=== PATIENT | male | born 1940 | race Caucasian/White ===

== ENCOUNTER 2024-03-20 00:20 | Emergency (ER) | payer MEDICARE, BC, SELFPAY ==
[2024-03-20 00:22] VITALS: BP 141/63
[2024-03-20 00:45] VITALS: BMI 23.2
[2024-03-20 00:46] VITALS: BP 146/60
[2024-03-20 01:00] VITALS: BP 140/59
--- NOTE | 2024-03-20 02:10 | ED.GENMED ---
History of Present Illness
General
Chief Complaint: Fall
Source: patient and spouse
Time Seen by Provider: 03/20/24 00:59
History of Present Illness
History of Present Illness:
83-year-old male presents to the emergency room after a fall. Patient was doing some exercises on a step when he somehow lost his balance and fell. He did not have loss of conscious. He did strike the back of his head. He denies any nausea,
vomiting, headache. He has some mild discomfort of his neck. Patient also noted some discomfort to the anterior chest. He denies any shortness of breath.
Past History
Past History
ED Past Medical History: Arrthythmia (bradycardia), CAD, HTN, Hypercholesterolemia, NIDDM, [place] and Other (IBS, Sleep apnea, Parkinson's)
ED Past Surgical History: Appendectomy, Cardiac (pacemaker, Cardiac stents X 10), Tonsilectomy and Other (Hernia, hydrocele)
Social History
Tobacco: Non-smoker
Alcohol: Occasional
Drug: None
Personal:
Living: with family
Phy Exam
Physical Exam
Physical Exam:
General: Awake, Alert, Oriented X3. No acute distress.
Vitals: unremarkable
Head: Some tenderness posterior scalp, small hematoma, no laceration
Eyes: Pupils equal, EOMI
Throat: Airway intact, no exudates
Neck: Trachea midline, no tenderness palpation along the cervical spine
Lungs: Clear and equal b/l
Heart: Regular rate, no murmurs
Abd: Soft, Nontender, No pulsatile mass
Neuro: Cranial nerves intact, muscle strength equal bilaterally
Skin: Warm, dry, no rash
Extremities: pulses equal b/l, no edema
Course
Orders/Labs/Results
Orders:
Orders
03/20/24 00:32
CT Cervical Spine W/o Iv Contr Urgent
Comment:
Reason For Exam: fall with head strike
CT Head W/o Iv Contrast Urgent
Comment:
Reason For Exam: fall with head strike
Chest [CR Chest - 2 Views ] Urgent
Comment:
Reason For Exam: fall with rib pain
03/20/24 00:39
Electrocardiogram (*1) Urgent
Reason for Study: Chest Pain
EKG- Treatment ONCE
03/20/24 02:46
Acetaminophen [Tylenol] 650 mg .ROUTE .STK-MED ONE
03/20/24 02:47
Acetaminophen [Tylenol] 650 mg PO NOW STA
Vital Signs
Initial and Last Documented VS:
Initial Vital Signs
Temp Pulse Resp BP Pulse Ox
99.7 F 65 16 141/63 95
03/20/24 00:22 03/20/24 00:22 03/20/24 00:22 03/20/24 00:22 03/20/24 00:22
Last Documented Vital Signs
Temp Pulse Resp BP Pulse Ox
99.7 F 65 16 140/59 95
03/20/24 00:22 03/20/24 00:22 03/20/24 00:22 03/20/24 01:00 03/20/24 00:22
MDM/Problems Addressed
Differential Diagnosis Includes:
Contusion, subdural, cervical spine injury
MDM/Problems Addressed:
Imaging is unremarkable. Chest x-ray shows no pneumothorax or rib fracture.
*Radiology
Radiology exam reviewed: preliminary read by ED provider (No acute pneumothorax or fracture noted on my review of the x-ray)
*Pulse Oximetry
Patient hypoxic: no
*EKG
Interpreted by ED Provider?: Yes
Heart Rate: 69
Rate: normal
Rhythm: PVC's and other (Atrial paced)
Interval: first degree heart block
Ischemia: non-specific ST changes
*Pump Room Operator Interpretation
Rate: normal
Interpretation: abnormal
Rhythm: other (Atrial paced)
*Critical Care Note
Total Time (30-74mins, 75-104mins- exclusive of procedures): Not Applicable
ED Attending Note
-
Portions of this chart may have been created with voice recognition software.� Occasional wrong word or��sound alike� substitutions may have occurred due to the inherent limitations of voice recognition software.
Discharge Plan
Departure
Patient Disposition: Home (Routine Discharge)
Date of Disposition: 03/20/24
Time of Disposition: 02:49
Patient with high blood pressure during this ER visit?: Yes
Condition: Good
Discharge Problem:
Head injury, Chest wall contusion
Instructions: Head Injury in Adults (DC), Blunt Chest Trauma, BLOOD PRESSURE
Prescriptions:
No Action
multivitamin 1 EACH tablet
1 ea PO DAILY
metformin 500 MG tablet
500 mg PO BID
trazodone 50 MG tablet
100 mg PO HS
famotidine 40 MG tablet
40 mg PO HS
aspirin 81 MG tablet,delayed release (DR/EC)
81 mg PO DAILY
glimepiride 2 MG tablet
2 mg PO .BEFORE SUPPER
ascorbic acid (vitamin C) [Vitamin C] 500 MG tablet
500 mg PO DAILY
gabapentin 300 MG capsule
300 mg PO TID
dicyclomine 10 MG capsule
10 mg PO BID
finasteride 5 MG tablet
5 mg PO DAILY
rosuvastatin 40 MG tablet
40 mg PO HS
metoprolol tartrate 25 MG tablet
25 mg PO BID
fenofibrate nanocrystallized 145 MG tablet
145 mg PO DAILY
acetaminophen [Tylenol Extra Strength] 500 mg Tablet
500 mg PO HS
furosemide 20 mg Tablet
20 mg PO .WEFR
ketoconazole 2 % Cream
1 applic TOPICAL BID
acetaminophen-codeine 650-30 mg Tablet
1 tab PO DAILY PRN (Reason: PAIN)
melatonin 5 mg Tablet
5 mg PO HS
Farxiga 10 mg Tablet
10 mg PO DAILY
Trulicity 0.75 mg/0.5 mL Pen Injector
0.75 mg SC QWEEK
Rx Instructions:
ON WEDNESDAYS
Glucosamine Chondroitin 750 &6
1 tab PO BID
Triamcinolone Cream 0.1%
1 dose topical DAILY
Referrals:
Anita Causey MD [Family Provider] -
Interventions
Interventions:
*Risk Screen - Suicide Last Done: 03/20/24 00:47
*General Assessment Last Done: 03/20/24 00:22
*Neglect/Abuse Screening Last Done: 03/20/24 00:47
ED- Fall Risk Assessment Last Done: 03/20/24 00:47
*ED COVID-19 Vaccine History Last Done: 03/20/24 00:22
ED-Musculoskeletal Assessment Last Done: 03/20/24 00:47
ED- Neurological Assessment Last Done: 03/20/24 00:47
ED-Skin Assessment Last Done: 03/20/24 00:47
Discharge Date and Time
Print Language: MOROCCAN
[2024-03-20] MEDS: TYLENOL 650 MG PO (02:48)
--- NOTE | 2024-03-23 16:30 | CM ---
Late Entry
dealership general manager received a call from patient's spouse that patient was in the ED last and was sent home since then he is having difficultly walking, watch caser reviewed various options and offered to send out a visiting nurses, per spouse
patient has had [facility] in past, referral sent to [facility] visiting nurses. dealership general manager reached out to Nannette byers at [facility] and she is mock of plan.
[facility]
[phone]
== END 2024-03-20 03:07 | disposition home or self-care (01) ==
LOC: EMR 00:20
PROVIDERS: EMERGENCY PHYSICIAN Emergency Medicine; FAMILY PHYSICIAN Internal Medicine
DX: S20.219A Contusion of unspecified front wall of thorax, initial encounter (principal); S09.90XA Unspecified injury of head, initial encounter; W01.0XXA Fall on same level from slipping, tripping and stumbling without subsequent striking against object, initial encounter; I10 Essential (primary) hypertension
CPT/HCPCS: 99285; 70450; 71046; 72125; 93005

== ENCOUNTER 2024-03-24 02:54 | Inpatient (IN) | payer MEDICARE, BC, SELFPAY ==
[2024-03-23 21:01] VITALS: BMI 23.6
[2024-03-23 21:04] VITALS: BP 119/55
[2024-03-23 21:20] LABS: Urine Albumin Negative (Neg - Trace); Urine Bilirubin Negative (Negative); Urine Character Clear (Clear); Urine Color Yellow; Urine Glucose 3+ (Negative); Urine Ketone Negative (Negative); Urine Leukocyte 1+ (Negative); Urine Nitrite Negative (Negative); Urine Occult Blood Negative (Negative); Urine Specific Gravity 1.015 (<1.030); Urine Urobilinogen Negative (Neg - 1+)
[2024-03-23 21:30] LABS: Urine Bacteria Many (Negative); Urine Red Blood Cell 0-2 /HPF (0-2); Urine White Cell 21-25 /HPF (0-5)
--- NOTE | 2024-03-23 21:44 | ED.GENMED ---
History of Present Illness
<Amira Cespedes MD, Resident - Last Filed: 03/24/24 18:44>
General
Chief Complaint: Weakness
Time Seen by Provider: 03/23/24 21:21
History of Present Illness
History of Present Illness:
The patient is a 83-year-old male presents to the emergency room this pm due feeling weakness in his all body. Patient reported he started to move/ walk slower. Patient has a PMH of Arrhythmia (bradycardia), CAD, HTN, Hypercholesterolemia, NIDDM,
[place] and Other (IBS, Sleep apnea, Parkinson's) Patient fall down on 03/20 and he was brought to ED here. His chest-X ray, head and neck CT did not show any fracture. No pathologic necrologic exam findings were found.The patient pointed pain on his
chest area where he has some bruising. He also pointed back pain which is located under his shouldres.
If applicable-neuro sx onset
Date of onset of symptoms: 03/23/24
Past History
<Amira eCspedes MD, Resident - Last Filed: 03/24/24 18:44>
Past History
ED Past Medical History: Arrthythmia (bradycardia), CAD, HTN, Hypercholesterolemia, NIDDM, [place] and Other (IBS, Sleep apnea, Parkinson's)
ED Past Surgical History: Appendectomy, Cardiac (pacemaker, Cardiac stents X 10), Tonsilectomy and Other (Hernia, hydrocele)
Social History
Tobacco: Non-smoker
Alcohol: Occasional
Drug: None
Personal:
Living: with family
Phy Exam
<Amira Cespedes MD, Resident - Last Filed: 03/24/24 18:44>
General Physical Exam
General Presentation: well appearing and no apparent distress
General age: appears stated age
General Skin: warm and dry
General Habitus: elderly
General Mental: alert
Eye Exam
Eye Exam: EOMI and conjunctiva normal
Cardiovascular Exam
Cardiovascular Exam: regular rate/rhythm and no edema
Pulmonary Exam
Pulmonary Exam: lungs clear, no respiratory distress and other (chest pain to palpation where he has bruises )
Cough: no cough
Gastrointestinal Exam
Gastrointestinal Exam: non tender and soft
Neurological Exam
Neurological Exam: alert, oriented x3, no motor deficits and other (no focal weakness)
Course
<Amira Cespedes MD, Resident - Last Filed: 03/24/24 18:44>
Orders/Labs/Results
Orders:
Orders
03/23/24 21:06
Electrocardiogram (*1) Urgent
Reason for Study: Fatigue / Weakness
EKG- Treatment ONCE
03/23/24 21:12
Urinalysis Reflex To Culture Urgent
Date Specimen was Collected: 03/23/24
Time Specimen was Collected: 21:06
Urine Microscopic Reflex Cult Urgent
Urine Culture Urgent
MADELYN Source: U
Specimen Description:
Date Specimen was Collected: 03/23/24
Time Specimen was Collected: 21:06
03/23/24 21:56
Acetaminophen [Tylenol] 650 mg PO NOW STA
CefTRIAXone [Rocephin] 1,000 mg IV NOW STA
03/23/24 21:57
0.9% Sodium Chloride 1000 ml [Nss] 1,000 ml IV BOLUS
03/23/24 22:32
Complete Blood Count/With Diff Urgent
Comprehensive Metabolic Panel Urgent
03/24/24 02:19
CXR2 [CR Chest - 2 Views ] Urgent
Comment:
Reason For Exam: Fatigue, Dyspnea
03/24/24 02:42
Admit/Transfer Patient As Directed
Co-Sign Provider:
Level of Care: Inpatient admission
Assign to:: Medical/Surgical
Physician / Group: Artie
Diagnosis: UTI, Weakness
Reason for Hospitalization: UTI, Weakness
Expected length of stay greater than two midnights?: Yes
ELOS- Estimated Length of Stay in days: 3
I certify the patient meets the requirements for IP care: Yes
PRN Pain Medication Management As Directed
May give lesser potent ordered pain med per pt: Yes
preference::
Protocol:: Medication orders for pain may be administered in a
manner that supports deferring to patient preference
when the pt is:
- Requesting an ordered lesser potent pain medication.
Least to most potent pain medications are defined
as: acetaminophen < NSAID < tramadol < opioids
(morphine, oxycodone, hydromorphone).
- Requesting a lesser dose of the same medication IF
ORDERED.
- Requesting a less intrusive route of administration
if both routes are prescribed by the provider (PO <
IV).
03/24/24 02:46
Code Status As Directed
Resuscitation Status: Full Code
03/24/24 02:49
COVID-19 Antigen Urgent
Source: Nasal Swab
03/24/24 03:10
Acetaminophen [Tylenol] 650 mg PO Q4HPRN PRN
Dextrose 50%-Water [Dextrose 50% Syringe] 12.5 grams IV [id number] PRN
Dicyclomine [Bentyl] 10 mg PO BID PRN
Glucagon [GlucaGen] 1 mg IM PRN PRN
03/24/24 03:10
Stool Culture Urgent
MADELYN Source: Feces/Stool
Specimen Description:
Stool For WBC Urgent
MADELYN Source: Feces/Stool
Specimen Description:
Activity As Directed
Activity Level: Ambulate
With Assistance
Bedside Glucose Monitoring As Directed
Frequency: AC&HS
Additional Instructions:: Change to q6h if pt on TPN, tube feeding or not eating
Bladder Scan As Directed
Follow Bladder Retention/Intermittent Cath Algorithm?: Yes
PRN if no void in __ hours: 6
Frequency: Per Retention Algorithm
If Bladder Scan Result >: 400
then:: Straight cath
I/O [Intake/ Output] As Directed
Frequency: Per unit guidelines
Neurological Checks As Directed
Frequency: q4h
Orthostatic Vital Signs As Directed
Orthostatic VS Frequency: BID
Pneumatic Compression Sleeves As Directed
Type: Knee high
Straight Cath As Directed
Frequency: Per Retention Algorithm
Additional Instructions: straight cath as needed per acute urinary retention algorithm for 24 hrs
Additional Instructions: for bladder scan greater than 400 mL
Vital Signs As Directed
Frequency: Per unit guidelines
Weight As Directed
Frequency: Daily
Oxygen Therapy [O2 Therapy] [RESP] Routine
Titrate/Wean O2 to maintain O2 sat greater than (%): 94
Ot Eval And Treat Routine
PT Consult [Pt Eval And Treat] Routine
Activity Level: Ambulate
With Assistance
DX Deep Vein Thrombosis Video Routine
03/24/24 Breakfast
1800 calorie (15 carb) Diabetic
At Your Request: Limited Participation
03/24/24 06:46
Basic Metabolic Panel IN AM
Complete Blood Count/No Diff IN AM
Glycohemoglobin (HgbA1c) IN AM
03/24/24 07:30
Insulin Aspart Corrective Mod [Novolog Flexpen-Moderate Resistance] See Protocol SC AC
03/24/24 08:00
Aspirin Low Dose EC [Aspir Low (Enteric Coated)] 81 mg PO DAILY
Carbidopa/Levodopa [Sinemet 10-100] 1.5 tablet PO TID
Dapagliflozin [Farxiga] 10 mg PO DAILY
Finasteride [Proscar] 5 mg PO DAILY
Gabapentin [Neurontin] 300 mg PO TID
Metoprolol [Lopressor] 25 mg PO BID
03/24/24 22:00
Carbidopa/Levodopa [Sinemet 10-100] 2 tablet PO HS
CefTRIAXone [Rocephin] 1,000 mg IV Q24H
Famotidine [Pepcid] 20 mg PO HS
Rosuvastatin Calcium [Crestor] 40 mg PO HS
Trazodone [Desyrel] 100 mg PO HS
Abnormal Lab Results
03/23/24 03/23/24
21:12 22:32
RBC 4.62 L 10^6/uL
(4.70-6.10)
MCHC 32.2 L g/dL
(33.0-37.0)
MPV 10.9 H fL
(7.4-10.4)
Abs Immat Gran (auto) 0.1 H 10^3/uL
(0-0.05)
Absolute Monos (auto) 0.9 H 10^3/uL
(0.1-0.6)
Immature Gran % 0.6 H %
(0-0.5)
Monocytes % 10.6 H %
(1.7-9.3)
Sodium 132 L mmol/L
(135-145)
BUN 40 H mg/dl
(9-20)
Glucose 369 H mg/dl
(70-99)
Total Protein 5.2 L g/dl
(6.3-8.2)
Leukocyte Esterase Rfl 1+ A
(Negative)
Urine WBC (Reflex) 21-25 A /HPF
(0-5)
Urine Bacteria (Reflex) Many A
(Negative)
Urine Glucose 3+ A
(Negative)
03/23/24 22:32
03/23/24 22:32
Vital Signs
Initial and Last Documented VS:
Initial Vital Signs
Temp Pulse Resp BP Pulse Ox
98.2 F 60 16 119/55 95
03/23/24 21:04 03/23/24 21:04 03/23/24 21:04 03/23/24 21:04 03/23/24 21:04
Last Documented Vital Signs
Temp Pulse Resp BP Pulse Ox
98.4 F 64 16 135/58 97
03/24/24 15:00 03/24/24 15:00 03/24/24 15:00 03/24/24 15:00 03/24/24 15:00
<Roger Madison, DO - Last Filed: 03/23/24 22:13>
Orders/Labs/Results
Orders:
Orders
03/23/24 21:06
Electrocardiogram (*1) Urgent
Reason for Study: Fatigue / Weakness
EKG- Treatment ONCE
03/23/24 21:12
Urinalysis Reflex To Culture Urgent
Date Specimen was Collected: 03/23/24
Time Specimen was Collected: 21:06
Urine Microscopic Reflex Cult Urgent
Urine Culture Urgent
MADELYN Source: U
Specimen Description:
Date Specimen was Collected: 03/23/24
Time Specimen was Collected: 21:06
03/23/24 21:56
Acetaminophen [Tylenol] 650 mg PO NOW STA
CefTRIAXone [Rocephin] 1,000 mg IV NOW STA
03/23/24 21:57
0.9% Sodium Chloride 1000 ml [Nss] 1,000 ml IV BOLUS
03/23/24 22:32
Complete Blood Count/With Diff Urgent
Comprehensive Metabolic Panel Urgent
03/24/24 02:19
CXR2 [CR Chest - 2 Views ] Urgent
Comment:
Reason For Exam: Fatigue, Dyspnea
03/24/24 02:42
Admit/Transfer Patient As Directed
Co-Sign Provider:
Level of Care: Inpatient admission
Assign to:: Medical/Surgical
Physician / Group: Artie
Diagnosis: UTI, Weakness
Reason for Hospitalization: UTI, Weakness
Expected length of stay greater than two midnights?: Yes
ELOS- Estimated Length of Stay in days: 3
I certify the patient meets the requirements for IP care: Yes
PRN Pain Medication Management As Directed
May give lesser potent ordered pain med per pt: Yes
preference::
Protocol:: Medication orders for pain may be administered in a
manner that supports deferring to patient preference
when the pt is:
- Requesting an ordered lesser potent pain medication.
Least to most potent pain medications are defined
as: acetaminophen < NSAID < tramadol < opioids
(morphine, oxycodone, hydromorphone).
- Requesting a lesser dose of the same medication IF
ORDERED.
- Requesting a less intrusive route of administration
if both routes are prescribed by the provider (PO <
IV).
03/24/24 02:46
Code Status As Directed
Resuscitation Status: Full Code
03/24/24 02:49
COVID-19 Antigen Urgent
Source: Nasal Swab
03/24/24 03:10
Acetaminophen [Tylenol] 650 mg PO Q4HPRN PRN
Dextrose 50%-Water [Dextrose 50% Syringe] 12.5 grams IV [id number] PRN
Dicyclomine [Bentyl] 10 mg PO BID PRN
Glucagon [GlucaGen] 1 mg IM PRN PRN
03/24/24 03:10
Stool Culture Urgent
MADELYN Source: Feces/Stool
Specimen Description:
Stool For WBC Urgent
MADELYN Source: Feces/Stool
Specimen Description:
Activity As Directed
Activity Level: Ambulate
With Assistance
Bedside Glucose Monitoring As Directed
Frequency: AC&HS
Additional Instructions:: Change to q6h if pt on TPN, tube feeding or not eating
Bladder Scan As Directed
Follow Bladder Retention/Intermittent Cath Algorithm?: Yes
PRN if no void in __ hours: 6
Frequency: Per Retention Algorithm
If Bladder Scan Result >: 400
then:: Straight cath
I/O [Intake/ Output] As Directed
Frequency: Per unit guidelines
Neurological Checks As Directed
Frequency: q4h
Orthostatic Vital Signs As Directed
Orthostatic VS Frequency: BID
Pneumatic Compression Sleeves As Directed
Type: Knee high
Straight Cath As Directed
Frequency: Per Retention Algorithm
Additional Instructions: straight cath as needed per acute urinary retention algorithm for 24 hrs
Additional Instructions: for bladder scan greater than 400 mL
Vital Signs As Directed
Frequency: Per unit guidelines
Weight As Directed
Frequency: Daily
Oxygen Therapy [O2 Therapy] [RESP] Routine
Titrate/Wean O2 to maintain O2 sat greater than (%): 94
Ot Eval And Treat Routine
PT Consult [Pt Eval And Treat] Routine
Activity Level: Ambulate
With Assistance
DX Deep Vein Thrombosis Video Routine
03/24/24 Breakfast
1800 calorie (15 carb) Diabetic
At Your Request: Limited Participation
03/24/24 06:46
Basic Metabolic Panel IN AM
Complete Blood Count/No Diff IN AM
Glycohemoglobin (HgbA1c) IN AM
03/24/24 07:30
Insulin Aspart Corrective Mod [Novolog Flexpen-Moderate Resistance] See Protocol SC AC
03/24/24 08:00
Aspirin Low Dose EC [Aspir Low (Enteric Coated)] 81 mg PO DAILY
Carbidopa/Levodopa [Sinemet 10-100] 1.5 tablet PO TID
Dapagliflozin [Farxiga] 10 mg PO DAILY
Finasteride [Proscar] 5 mg PO DAILY
Gabapentin [Neurontin] 300 mg PO TID
Metoprolol [Lopressor] 25 mg PO BID
03/24/24 22:00
Carbidopa/Levodopa [Sinemet 10-100] 2 tablet PO HS
CefTRIAXone [Rocephin] 1,000 mg IV Q24H
Famotidine [Pepcid] 20 mg PO HS
Rosuvastatin Calcium [Crestor] 40 mg PO HS
Trazodone [Desyrel] 100 mg PO HS
Abnormal Lab Results
03/23/24 03/23/24
21:12 22:32
RBC 4.62 L 10^6/uL
(4.70-6.10)
MCHC 32.2 L g/dL
(33.0-37.0)
MPV 10.9 H fL
(7.4-10.4)
Abs Immat Gran (auto) 0.1 H 10^3/uL
(0-0.05)
Absolute Monos (auto) 0.9 H 10^3/uL
(0.1-0.6)
Immature Gran % 0.6 H %
(0-0.5)
Monocytes % 10.6 H %
(1.7-9.3)
Sodium 132 L mmol/L
(135-145)
BUN 40 H mg/dl
(9-20)
Glucose 369 H mg/dl
(70-99)
Total Protein 5.2 L g/dl
(6.3-8.2)
Leukocyte Esterase Rfl 1+ A
(Negative)
Urine WBC (Reflex) 21-25 A /HPF
(0-5)
Urine Bacteria (Reflex) Many A
(Negative)
Urine Glucose 3+ A
(Negative)
03/23/24 22:32
03/23/24 22:32
Vital Signs
Initial and Last Documented VS:
Initial Vital Signs
Temp Pulse Resp BP Pulse Ox
98.2 F 60 16 119/55 95
03/23/24 21:04 03/23/24 21:04 03/23/24 21:04 03/23/24 21:04 03/23/24 21:04
Last Documented Vital Signs
Temp Pulse Resp BP Pulse Ox
98.4 F 64 16 135/58 97
03/24/24 15:00 03/24/24 15:00 03/24/24 15:00 03/24/24 15:00 03/24/24 15:00
<Amira Cespedes MD, Resident - Last Filed: 03/24/24 18:44>
*Critical Care Note
Total Time (30-74mins, 75-104mins- exclusive of procedures): Not Applicable
ED Attending Note
<Amira Cespedes MD, Resident - Last Filed: 03/24/24 18:44>
-
Portions of this chart may have been created with voice recognition software.� Occasional wrong word or��sound alike� substitutions may have occurred due to the inherent limitations of voice recognition software.
<Roger Madison DO - Last Filed: 03/23/24 22:13>
ED Attending Note
Patient seen and examined by attending physician: Yes
I performed a history and physical exam of patient and discussed management with resident, I reviewed resident's note and agree with documented findings and plan of care.: Yes
ED Attending Note:
seen with resident, examined independently
Elderly male seen here few days ago after a fall struck his chest had a CT head cervical spine chest x-ray since he is having pain in his chest, trouble ambulating, previously on oxycodone now using Tylenol, apparently his PCPs office today referred
to the ER for admission and placement in a rehab facility, he does do self catheterizations, urinalysis is noted cultures pending, will check labs, urine culture Tylenol saline likely require admission
Discharge Plan
Departure
Patient Disposition: Admit
Date of Disposition: 03/23/24
Time of Disposition: 23:37
Presentation/result/management discussed w/ accepting MD/DO: Hospitalist
Discharge Problem:
Urinary tract infection
Interventions
Interventions:
*Risk Screen - Suicide Last Done: 03/24/24 04:18
*General Assessment Last Done: 03/23/24 21:04
*Neglect/Abuse Screening Last Done: 03/24/24 04:18
ED- Fall Risk Assessment Last Done: 03/23/24 23:02
*ED COVID-19 Vaccine History Last Done: 03/24/24 04:18
*Nursing Disposition Last Done: 03/24/24 04:18
ED- Cardiac Assessment Last Done: 03/23/24 23:02
ED- Neurological Assessment Last Done: 03/23/24 23:02
ED- Pulmonary Assessment Last Done: 03/23/24 23:02
Discharge Date and Time
Discharge Date/Time: 03/24/24 04:19
[2024-03-23] MEDS: TYLENOL 650 MG PO (22:01)
[2024-03-23] MEDS: ROCEPHIN 1000 MG IV (22:01)
[2024-03-23] MEDS: NSS 1000 IV (22:02)
[2024-03-23 22:47] LABS: % Basophils 0.7 % (0-2); % Eosinophils 4.1 % (0-6); % Immature Granulocytes 0.6 % (0-0.5); % Lymphocytes 22.7 % (20.5-51.1); % Monocytes 10.6 % (1.7-9.3); % Neutrophils 61.3 % (42.2-75.2); Absolute Basophils 0.1 10^3/uL (0-0.2); Absolute Eosinophils 0.4 10^3/uL (0-0.7); Absolute Immature Granulocytes 0.1 10^3/uL (0-0.05); Absolute Monocytes 0.9 10^3/uL (0.1-0.6); Absolute Neutrophils 5.4 10^3/uL (1.4-6.5); Hematocrit 42.3 % (39.0-52.0); Hemoglobin 13.6 g/dL (13.0-18.0); Mean Corp Hgb Conc. 32.2 g/dL (33.0-37.0); Mean Corpuscular Hgb 29.4 pg (27.0-31.0); Mean Corpuscular Volume 91.6 fL (80.0-94.0); Mean Platelet Volume 10.9 fL (7.4-10.4); Nucleated Red Blood Cells % 0 % (-); Platelet Count 214 10^3/uL (130-400); Red Blood Cell Count 4.62 10^6/uL (4.70-6.10); Red Cell Dist. Width 13.6 % (11.5-14.5); White Blood Cell Count 8.8 10^3/uL (4.8-10.8)
[2024-03-23 23:23] LABS: ALT (SGPT) < 10 U/L (0-50); AST (SGOT) 26 U/L (17-59); Albumin 3.5 g/dl (3.5-5.0); Alkaline Phosphatase 121 U/L (38-126); Blood Urea Nitrogen 40 mg/dl (9-20); Carbon Dioxide 26 mmol/L (22-30); Chloride 100 mmol/L (98-107); Estimated Creatinine Clearance 36 ml/min; Glucose 369 mg/dl (70-99); Potassium 4.4 mmol/L (3.5-5.1); Sodium 132 mmol/L (135-145); Total Bilirubin 0.6 mg/dl (0.2-1.3); Total Protein 5.2 g/dl (6.3-8.2); eGFR 53.84
[2024-03-24] VITALS (13 sets, daily range): BP systolic 92–151; BP diastolic 46–71; PULSE 57–71; BMI 23.6
--- NOTE | 2024-03-24 02:48 | HPS.HSE ---
Family Physician
-
Family Physician: NOT KNOW UNKNOWN - PT DOES
Chief Complaint
-
Weakness, Loose Stools
History of Present Illness
Patient is an 83y M with PMH significant for IBS, Parkinson's Disease, ASCVD and DM-II who presents to ED complaining of generalized weakness and diarrhea. Patient states that he has had loose stools for the past several days associated with
crampy abdominal discomfort. Patient notes that he has similar symptoms from time to time associated with his IBS. He has been taking Bentyl with no improvement in his symptoms.
On 03/20, he had a fall at home striking his head and his chest. He was seen here in the ED at that time and work-up including CT head was unremarkable. Patient feels that his GI symptoms have only worsened since that time.
He denies any headache or dizziness. No chest pain or dyspnea. No fevers / chills.
Patient denies any specific urinary complaints; however, he notes that he has chronic urinary retention requiring him to straight cath at home twice daily. This was previously thrice daily but he decreased the frequency.
Patient notes that he has been on Sinemet for the past year or so for newly diagnosed Parkinson's disease. He denies any recent changes in his medications.
Medical History
Past Medical History
Past Medical History: Reports Other
Additional Past Medical History:
Parkinson's Disease
ASCVD
Bradycardia/ Heart Block s/p PPM
Hypertension
DM-II
IBS
BPH / Chronic Urinary Retention
CKD III
Past Surgical History: Reports Other
Additional Past Surgical History:
PTCA with Stent (x 10)
Appendectomy
Cataracts
Hernia Repair
Social History
Tobacco: Non-smoker
Alcohol: Occasional
Drug: None
Family History
Family History: Not pertinent
Allergies / Home Medications
Allergies reflects when Allergies were last updated in [employer].
Home Medications with original date entered in [employer]
Allergy/Medication List:
Allergies
Allergy/AdvReac Type Severity Reaction Status Date / Time
chlordiazepoxide Allergy Intermediate Rash Verified 08/20/23 15:20
[From Librium]
Home Medications
ascorbic acid (vitamin C) 500 mg tablet (Vitamin C) 500 mg PO DAILY Supplement 04/20/19
aspirin 81 mg tablet,delayed release 81 mg PO DAILY Blood Clot Prevention/Tx 04/20/19
dicyclomine 10 mg capsule 10 mg PO BID Gastrointestinal Issue 04/20/19
famotidine 40 mg tablet 40 mg PO HS Gastrointestinal Issue 04/20/19
fenofibrate nanocrystallized 145 mg tablet 145 mg PO DAILY High Cholesterol 04/20/19
finasteride 5 mg tablet 5 mg PO DAILY Urinary Issue 04/20/19
gabapentin 300 mg capsule 300 mg PO TID Neurological Condition 04/20/19
glimepiride 2 mg tablet 2 mg PO .BEFORE SUPPER Diabetes 04/20/19
metformin 500 mg tablet 500 mg PO BID Infection 04/20/19
metoprolol tartrate 25 mg tablet 25 mg PO BID Blood Pressure 04/20/19
multivitamin 1 ea PO DAILY Supplement 04/20/19
rosuvastatin 40 mg tablet 40 mg PO HS High Cholesterol 04/20/19
trazodone 50 mg tablet 100 mg PO HS Sleep 04/20/19
Glucosamine Chondroitin 750 &6 1 tab PO BID Supplement 02/02/23
Triamcinolone Cream 0.1% 1 dose topical DAILY Skin Issues 02/02/23
acetaminophen 500 mg tablet (Tylenol Extra Strength) 500 mg PO HS PAIN/FEVER/ROSS 02/02/23
acetaminophen 650 mg-codeine 30 mg tablet 1 tab PO DAILY PRN PAIN 02/02/23
dapagliflozin propanediol 10 mg tablet (Farxiga) 10 mg PO DAILY Diabetes 02/02/23
dulaglutide 0.75 mg/0.5 mL subcutaneous pen injector (Trulicity) 0.75 mg SC QWEEK Diabetes 02/02/23
furosemide 20 mg tablet 20 mg PO .WEFR Fluid Retention/Swelling 02/02/23
ketoconazole 2 % topical cream 1 applic topical BID Skin Issues 02/02/23
melatonin 5 mg tablet 10 mg PO HS Sleep 02/02/23
carbidopa 10 mg-levodopa 100 mg tablet (Sinemet) tab 03/24/24
Review of Systems
-
History Source: Patient
A 12 point ROS was completed and negative except as noted: Yes
Constitutional: Reports Fatigue; Denies Fever or Chills
EENT: Denies Sore Throat
Respiratory: Denies Cough or Trouble Breathing
Cardiac: Denies Chest Pain or Palpitations
Abdomen/GI: Reports Abdominal Pain and Diarrhea; Denies Nausea, Vomiting, Constipated, Bloody Stools or Black Stools
: Reports Difficulty Voiding; Denies Dysuria, Frequency or Flank Pain
Musculoskeletal: Denies Joint Pain or Edema
Neurological: Denies Dizzy or Headache
Psych: Denies Depression or Anxiety
Physical Exam
Vital Signs
Vital Signs
Temp Pulse Resp BP Pulse Ox
98.2 F 67 21 104/56 93
03/23/24 21:04 03/24/24 02:30 03/24/24 02:30 03/24/24 02:00 03/24/24 00:12
Physical Exam
General: Other (83y M in no acute distress. Sleeping comfortably but wakes without difficulty.)
HEENT: Moist mucous membranes and PERRLA
Respiratory: Other (Bibasilar rales about 1/3 up. No wheeze / rhonchi.)
Cardiac: S1/S2, Regular Rhythm (with ectopy.) and Murmur (II/ MCKENZIE)
GI: Soft, Non Distended, Normal Bowel Sounds and Other (Pos suprapubic tenderness.)
Musculoskeletal: No Clubbing, No Cyanosis and Other (1+ pitting edema at ankles bilaterally.)
Neuro: AO x 3
Laboratory Results
-
03/23/24 22:32
03/23/24 22:32
Laboratory Results
Total Bilirubin 0.6 mg/dl (0.2-1.3) 03/23/24 22:32
AST 26 U/L (17-59) 03/23/24 22:32
ALT < 10 U/L (0-50) 03/23/24 22:32
Alkaline Phosphatase 121 U/L (38-126) 03/23/24 22:32
Impression/Plan
-
A/P: Patient is an 83y M with PMH significant for ASCVD, DM-II and Parkinson's disease who presents to ED complaining of weakness, falls and diarrhea.
Generalized Weakness / Gait Dysfunction
- Admit for further evaluation and treatment.
- This is likely multifactorial and related to cystitis, Parkinsonism and mild CHF.
- See individual assessments below.
- PT / OT evaluations during acute stay.
- Follow for clinical improvement.
Cystitis
BPH
Chronic Urinary Retention
- Patient requires catheterization at least twice daily.
- UA with WBC but negative nitrites. Pos suprapubic tenderness on exam.
- Continue with ceftriaxone for now and follow-up cultures.
- Bladder scan protocol and straight cath as needed.
- Continue finasteride for now.
- Hold on initiation of tamsulosin given Parkinsonism / risk of orthostasis.
IBS / Diarrhea
- Check stool studies to rule out acute infectious process.
- Continue supportive care including Bentyl.
Subacute HFpEF
- Patient with bibasilar rales and CXR suggesting increased vascular prominence from prior.
- On Lasix at home twice weekly - increase to daily and follow I/Os, daily weights, etc.
- Update Echo (last 01/2023 with normal LVEF).
- Continue usual med regimen including Farxiga.
Parkinson's Disease
- Some of his recent issues may be due to functional decline.
- Continue Sinemet (patient knows pill amounts, but not dose of pill itself - needs clarification).
- PT / OT as noted above.
ASCVD
- Significant vascular history. No chest pain / dyspnea / etc at present.
- Continue current CV med regimen.
DM-II
- Hyperglycemic in the ED - ? due to acute illness, infection, etc.
- Continue Farxiga. Hold metformin acutely.
- Follow glucose and cover with SSI as needed.
- Update A1C and adjust regimen as needed for improved glycemic control.
DVT Prophylaxis: SCDs
Code Status: Full
[2024-03-24 03:31] LABS: COVID-19 Antigen Negative (Negative)
--- NOTE | 2024-03-24 06:19 | PTCARENOTE ---
Pt. arrived to unit from ED via stretcher. Pt. pulled over from stretcher to bed 318-1 on . Pt. drowsy but able to answer all questions appropriately. AAOx3. No c/o pain. Encouraged to use call de leon for assistance. Oriented to unit. Call de leon
within reach. Plan of care ongoing.
[2024-03-24 07:14] LABS: Hematocrit 39.6 % (39.0-52.0); Mean Corp Hgb Conc. 32.8 g/dL (33.0-37.0); Mean Corpuscular Hgb 29.3 pg (27.0-31.0); Mean Corpuscular Volume 89.2 fL (80.0-94.0); Mean Platelet Volume 10.7 fL (7.4-10.4); Platelet Count 196 10^3/uL (130-400); Red Blood Cell Count 4.44 10^6/uL (4.70-6.10); Red Cell Dist. Width 13.6 % (11.5-14.5); White Blood Cell Count 10.2 10^3/uL (4.8-10.8)
[2024-03-24 07:51] LABS: Blood Urea Nitrogen 38 mg/dl (9-20); Calcium 8.7 mg/dl (8.4-10.2); Carbon Dioxide 25 mmol/L (22-30); Chloride 103 mmol/L (98-107); Estimated Creatinine Clearance 44 ml/min; Glucose 166 mg/dl (70-99); Potassium 4.6 mmol/L (3.5-5.1); Sodium 134 mmol/L (135-145); eGFR > 60.00
[2024-03-24 07:55] LABS: Glucose - Point of Care 175 mg/dl (70-99)
--- NOTE | 2024-03-24 08:16 | W.PN.UPDATE ---
Update Note
Progress Note Update
83y M with PMH significant for IBS, Parkinson's Disease, ASCVD and DM-II was admitted early this morning for weakness and loose stools.
Continue self intermittent straight cath, continue Rocephin for possible UTI, follow-up on cultures.
Await stool studies for diarrhea.
Patient complains of chest pain, check troponin, check EKG, consult cardiology.
[2024-03-24] MEDS: ASPIR LOW (ENTERIC COATED) 81 MG PO (08:30)
[2024-03-24] MEDS: SINEMET 10-100 1.5 TABLET PO ×2 (08:31→15:48)
[2024-03-24] MEDS: LASIX 40 MG PO (08:33)
[2024-03-24] MEDS: FARXIGA 10 MG PO (08:33)
[2024-03-24] MEDS: NEURONTIN 300 MG PO ×3 (08:33→22:09)
[2024-03-24] MEDS: PROSCAR 5 MG PO (08:34)
[2024-03-24] MEDS: LOPRESSOR 25 MG PO ×2 (08:35→22:09)
--- NOTE | 2024-03-24 08:49 | CON.CAR ---
Addendum entered and electronically signed by Derek Vicente DO 03/24/24 13:04:
I saw and examined the patient.
The Tandem Operator's note was reviewed and I agree with the note.
Comment:
Plan:
Chest pain is atypical, reproducible. The patient has a bruise on the sternum likely related to recent fall.
Check echo to be comprehensive to evaluate for pericardial effusion.
No evidence of acute ischemia by EKG or troponin.
If echo stable, outpatient follow-up with his outside pipelayer Dr. Benitez.
HPI: Patient came to [facility] yesterday after a fall at home last week and ongoing weakness, he started with chest pain this morning and cardiology was consulted. Patient was laying in the bed on my arrival and talking to his by phone, his was
able to stay on the phone and helped greatly with HPI. Patient's says that patient has had chest pain since he fell in their laundry room this past . He fell into the dryer and then landed on the floor. He hit his chest and then when he
landed he hit the back of his head. He has had other falls and was admitted to last year for a fall and hip fracture. He was seen by cardiology during that admission for preop clearance and afterwards went to rehab and then returned home with his
. He sees Dr. Benitez every 4 months. He has a h/o CAD and PCI. Patient says chest pain started at 0730 this morning and is with a deep breath, but patient's reports that patient has been complaining of chest pain on and off since his
fall last night. Patient noted to have a bruise over his sternum, but his says she was not aware of that. Patient says his chest is tender, no radiation of pain. No SOB.
Original Note:
Consultation
Consultation Request
Date/Time Consultation Requested: 03/24/24
Date/Time Consultation Performed: 03/24/24
Requesting Provider: Dr. Mann
Performing Provider: Dr. Vicente
Reason for Consultation: Chest pain
Medical History
-
History of Present Illness:
Patient came to [facility] yesterday after a fall at home last week and ongoing weakness, he started with chest pain this morning and cardiology was consulted. Patient was laying in the bed on my arrival and talking to his by phone, his was able
to stay on the phone and helped greatly with HPI. Patient's says that patient has had chest pain since he fell in their laundry room this past . He fell into the dryer and then landed on the floor. He hit his chest and then when he
landed he hit the back of his head. He has had other falls and was admitted to last year for a fall and hip fracture. He was seen by cardiology during that admission for preop clearance and afterwards went to rehab and then returned home with his
. He sees Dr. Benitez every 4 months. He has a h/o CAD and PCI. Patient says chest pain started at 0730 this morning and is with a deep breath, but patient's reports that patient has been complaining of chest pain on and off since his
fall last night. Patient noted to have a bruise over his sternum, but his says she was not aware of that. Patient says his chest is tender, no radiation of pain. No SOB.
PMH:
Parkinson's disease
h/o recurrent falls with hip fractures, scalp laceration, humerus fracture
Type 2 diabetes
Hypertension
Hypercholesterolemia
Pacemaker, [employer]
History of CT/CAD/PCI
Mitral regurgitation murmur
PVCs
Cognitive impairment
Past Medical History
Past Medical History: Arrhythmias, CAD (History of CT/multiple PCIs/stent), HTN, Hypercholesterolemia, NIDDM and Other (Obstructive sleep apnea)
Past Surgical History: Appendectomy, Cardiac ([employer] pacemaker), Tonsilectomy, Urological (Hydrocele) and Other (Hernia)
Social History
Tobacco: Non-Smoker
Alcohol: Occasional
Drug: None
Personal:
Living: With Family
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
Family History
Family History: Reviewed & Not Pertinent
Allergies / Home Medications
Allergy/AdvReac Type Severity Reaction Status Date / Time
chlordiazepoxide Allergy Intermediate Rash Verified 08/20/23 15:20
[From Librium]
�Medication �Instructions �Recorded �Confirmed �Type
ascorbic acid (vitamin C) 500 mg 500 mg PO DAILY Supplement 04/20/19 03/24/24 History
tablet (Vitamin C)
aspirin 81 mg tablet,delayed 81 mg PO DAILY Blood Clot 04/20/19 03/24/24 History
release Prevention/Tx
dicyclomine 10 mg capsule 10 mg PO BID Gastrointestinal Issue 04/20/19 03/24/24 History
famotidine 40 mg tablet 40 mg PO HS Gastrointestinal Issue 04/20/19 03/24/24 History
fenofibrate nanocrystallized 145 145 mg PO DAILY High Cholesterol 04/20/19 03/24/24 History
mg tablet
finasteride 5 mg tablet 5 mg PO DAILY Urinary Issue 04/20/19 03/24/24 History
gabapentin 300 mg capsule 300 mg PO TID Neurological 04/20/19 03/24/24 History
Condition
glimepiride 2 mg tablet 2 mg PO .BEFORE SUPPER Diabetes 04/20/19 03/24/24 History
metformin 500 mg tablet 500 mg PO BID Infection 04/20/19 03/24/24 History
metoprolol tartrate 25 mg tablet 25 mg PO BID Blood Pressure 04/20/19 03/24/24 History
multivitamin 1 ea PO DAILY Supplement 04/20/19 03/24/24 History
rosuvastatin 40 mg tablet 40 mg PO HS High Cholesterol 04/20/19 03/24/24 History
trazodone 50 mg tablet 100 mg PO HS Sleep 04/20/19 03/24/24 History
Glucosamine Chondroitin 750 &6 1 tab PO BID Supplement 02/02/23 03/24/24 History
Triamcinolone Cream 0.1% 1 dose topical DAILY Skin Issues 02/02/23 03/24/24 History
acetaminophen 500 mg tablet 500 mg PO HS PAIN/FEVER/ROSS 02/02/23 03/24/24 History
(Tylenol Extra Strength)
acetaminophen 650 mg-codeine 30 mg 1 tab PO DAILY PRN PAIN 02/02/23 03/24/24 History
tablet
dapagliflozin propanediol 10 mg 10 mg PO DAILY Diabetes 02/02/23 03/24/24 History
tablet (Farxiga)
dulaglutide 0.75 mg/0.5 mL 0.75 mg SC QWEEK Diabetes 02/02/23 03/24/24 History
subcutaneous pen injector
(Trulicity)
furosemide 20 mg tablet 20 mg PO .WEFR Fluid 02/02/23 03/24/24 History
Retention/Swelling
ketoconazole 2 % topical cream 1 applic topical BID Skin Issues 02/02/23 03/24/24 History
melatonin 5 mg tablet 10 mg PO HS Sleep 02/02/23 03/24/24 History
carbidopa 10 mg-levodopa 100 mg tab 03/24/24 History
tablet (Sinemet)
Review of Systems
-
History Source: Patient and Family (patient's on the phone hleps with HPI)
All other systems: Negative unless noted
Physical Exam
Vital Signs
Temp Pulse Resp BP Pulse Ox
97.5 F 52 16 151/66 95
03/24/24 07:00 03/24/24 07:00 03/24/24 07:00 03/24/24 07:00 03/24/24 07:00
GEN: NAD. AAOx3
HEENT: EOMI, MMM
LUNGS: CTA B/L, no wheezes or rales
CV: Round shaped 4x6 in area of ecchymosis on center of sternum. Reg, S1/S2, 2/6 syst LSB
ABD: soft, BS+, NT, ND
EXT: No clubbing, cyanosis, lesions or edema B/L
NEURO: Gross non-focal
SKIN: Warm, dry and pink. No rash
Lab Results
03/24/24 06:46
03/24/24 06:46
Impression / Plan
-
PCP: Dr. Anita Causey
Primary pipelayer: Dr. Mikael Benitez
Impression:
Fall
Chest pain
Parkinson's disease
h/o recurrent falls with hip fractures, scalp laceration, humerus fracture
Type 2 diabetes
Hypertension
Hypercholesterolemia
Pacemaker, [employer]
History of CT/CAD/PCI
Mitral regurgitation murmur
PVCs
Cognitive impairment
Echo 03/24/24: Study pending
Plan:
-Patient came to [facility] yesterday after a fall at home last week and ongoing weakness, he started with chest pain this morning and cardiology was consulted. Patient was laying in the bed on my arrival and talking to his by phone, his was
able to stay on the phone and helped greatly with HPI. Patient's says that patient has had chest pain since he fell in their laundry room this past . He fell into the dryer and then landed on the floor. He hit his chest and then when he
landed he hit the back of his head. He has had other falls and was admitted to last year for a fall and hip fracture. He was seen by cardiology during that admission for preop clearance and afterwards went to rehab and then returned home with his
. He sees Dr. Benitez every 4 months. He has a h/o CAD and PCI. Patient says chest pain started at 0730 this morning and is with a deep breath, but patient's reports that patient has been complaining of chest pain on and off since his
fall last night. Patient noted to have a bruise over his sternum, but his says she was not aware of that. Patient says his chest is tender, no radiation of pain. No SOB.
-Troponin 0.022. ECG is paced, but acute changes as reviewed by me.
-Patient says pain started suddenly this AM, but his reports pain on and off at home for 5 days since fall. He has a bruise over his sternum.
-Check echo to exclude effusion or WMA, but suspect chest pain is related to fall and bruised sternum
-Tried calling Dr. 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
[2024-03-24] MEDS: NITROSTAT (SUBLINGUAL) 0.4 MG SL (08:57)
[2024-03-24 09:09] LABS: Troponin I 0.022 ng/ml
[2024-03-24] MEDS: VITAMIN C 500 MG PO (09:19)
[2024-03-24] MEDS: NOVOLOG FLEXPEN-MODERATE RESISTANCE SC ×2 (10:21→12:02)
[2024-03-24] MEDS: GLUCOPHAGE 500 MG PO ×2 (10:21→16:58)
[2024-03-24 11:12] LABS: Glycohemoglobin (HgbA1c) 8.1 % (4.0-5.6)
[2024-03-24 11:30] LABS: Glucose - Point of Care 203 mg/dl (70-99)
[2024-03-24] MEDS: NOVOLOG FLEXPEN-MODERATE RESISTANCE 3 UNITS SC (12:03)
[2024-03-24] MEDS: AMARYL 2 MG PO (15:48)
--- NOTE | 2024-03-24 16:09 | CM ---
CMN met with pt beside
Pt resides with his spouse in a 3rd floor condo/apt, elevator access, 0STE
Pt notes independence typically with use of a WW
Lately, spouse has been assisting with personal care
No financial insecurities
PCP- Anita Causey
Rx- Benedicto Schafer
PT/OT orders placed and pending
CM to follow for dc planning
Discharge Disposition - home, follow for needs
[2024-03-24 16:46] LABS: Glucose - Point of Care 259 mg/dl (70-99)
[2024-03-24] MEDS: NOVOLOG FLEXPEN-MODERATE RESISTANCE 5 UNITS SC (16:54)
[2024-03-24 21:07] LABS: Glucose - Point of Care 171 mg/dl (70-99)
[2024-03-24] MEDS: ROCEPHIN 1000 MG IV (22:06)
[2024-03-24] MEDS: STERILE WATER FOR INJECTION 10 ML IV (22:06)
[2024-03-24] MEDS: TYLENOL 650 MG PO (22:07)
[2024-03-24] MEDS: DESYREL 100 MG PO (22:08)
[2024-03-24] MEDS: CRESTOR 40 MG PO (22:08)
[2024-03-24] MEDS: PEPCID 20 MG PO (22:09)
[2024-03-24] MEDS: SINEMET 25-100 1 TABLET PO (22:10)
[2024-03-25] VITALS (7 sets, daily range): BP systolic 104–143; BP diastolic 51–65; PULSE 54–76; O2SAT 95; BMI 22.1
[2024-03-25] MEDS: TYLENOL 650 MG PO ×3 (03:34→23:55)
[2024-03-25 08:13] LABS: Glucose - Point of Care 140 mg/dl (70-99)
[2024-03-25] MEDS: NOVOLOG FLEXPEN-MODERATE RESISTANCE SC (08:32)
[2024-03-25] MEDS: FARXIGA 10 MG PO (08:34)
[2024-03-25] MEDS: ASPIR LOW (ENTERIC COATED) 81 MG PO (08:34)
[2024-03-25] MEDS: SINEMET 25-100 1.5 TABLET PO ×3 (08:34→16:50)
[2024-03-25] MEDS: NEURONTIN 300 MG PO ×3 (08:34→20:44)
[2024-03-25] MEDS: GLUCOPHAGE 500 MG PO ×2 (08:36→16:50)
[2024-03-25] MEDS: VITAMIN C 500 MG PO (08:36)
[2024-03-25] MEDS: LASIX 40 MG PO (08:36)
[2024-03-25] MEDS: LOPRESSOR 25 MG PO ×2 (08:36→20:47)
[2024-03-25] MEDS: PROSCAR 5 MG PO (08:36)
--- NOTE | 2024-03-25 08:51 | W.PN.HOSP.TC ---
Today's Communication/Plan
-
see bold
Assessment / Plan
Assessment / Plan
HPI: 83y M with PMH significant for IBS, Parkinson's Disease, ASCVD and DM-II who presents to ED complaining of generalized weakness and diarrhea. Patient states that he has had loose stools for the past several days associated with crampy
abdominal discomfort. Patient notes that he has similar symptoms from time to time associated with his IBS. He has been taking Bentyl with no improvement in his symptoms.
On 03/20, he had a fall at home striking his head and his chest. He was seen here in the ED at that time and work-up including CT head was unremarkable.
Generalized Weakness / Gait Dysfunction
- This is likely multifactorial and related to cystitis, Parkinsonism and mild CHF.
- PT/OT rec STR, family wants [facility]
Cystitis
BPH
Chronic Urinary Retention
- Patient requires catheterization at least twice daily.
- Continue finasteride for now.
- Hold on initiation of tamsulosin given Parkinsonism / risk of orthostasis.
- Continue Rocephin. Urine cultures growing over 100,000 colonies of gram-negative rods, follow-up of ID and sensitivities
IBS / Diarrhea
- Continue supportive care including Bentyl.
- Follow-up on stool studies
Subacute HFpEF
- Patient with bibasilar rales and CXR suggesting increased vascular prominence from prior.
- On Lasix at home twice weekly - increase to daily and follow I/Os, daily weights, etc.
- Continue usual med regimen including Farxiga.
- Echo updated and reviewed
Substernal chest pain
- Appreciate cardiology input, from his recent fall and trauma.
Parkinson's Disease
- Some of his recent issues may be due to functional decline.
- Continue Sinemet (patient knows pill amounts, but not dose of pill itself - needs clarification).
ASCVD
- Continue current CV med regimen.
DM-II
- Hemoglobin A1c 8.1
- Blood sugars mostly controlled, with a high reading here and there
- Continue metformin, Farxiga, glimepiride, SSI. bringing in Trulicity
DVT Prophylaxis: SQ lovenox
Code Status: Full
Updated on phone 03/25
Total time spent to see the patient on the floor, examine the patient, review data and lab results, discuss treatment plan with patient, nursing staff around 51 minutes.
Physical Exam
General: Appears debilitated, no acute distress
HEENT: Normocephalic, Atraumatic, EOMI, MMM
Respiratory: Clear to Auscultation bilaterally
Cardiac: Normal S1/S2, Regular Rate and Rhythm
GI: Soft, Nontender, Nondistended, Normal Bowel Sounds
Extremities: No Clubbing, Cyanosis, or Edema
Neuro: Nonfocal/Grossly Intact
Psych: Calm, Cooperative
Derm: No Visible lesions
Anticipated Discharge: 24 - 48 hours
Subjective/Interval History
-
Date of Service: March 25, 2024
Patient denies shortness of breath. He complains of back pain. No fever, no vomiting.
Objective Data
-
Vital Signs:
Vital Signs
Temp Pulse Resp BP Pulse Ox
97.9 F 64 16 143/64 97
03/25/24 08:03 03/25/24 08:03 03/25/24 08:03 03/25/24 08:03 03/25/24 08:03
I&O
03/24/24 03/25/24 03/26/24
06:59 06:59 06:59
Intake Total 120 / 120 1440 / 1440
Output Total 300 / 300 5025 / 5025
Balance -180 / -180 -3585 / -3585
[2024-03-25 11:31] LABS: Glucose - Point of Care 324 mg/dl (70-99)
[2024-03-25] MEDS: NOVOLOG FLEXPEN-MODERATE RESISTANCE 7 UNITS SC (12:26)
--- NOTE | 2024-03-25 14:01 | W.PN.CARDCBS ---
Addendum entered and electronically signed by Vance Piña MD 03/25/24 15:11:
I saw and examined the patient.
The Hydraulic Rock Drill Operator's note was reviewed and I agree with the note.
Comment:
GEN: No distress, awake, Ox3
HEENT: supple, anicteric, mmm
LUNGS: CTA, no wheezes/rales
CV: Reg, S1/S2, 1/6 syst apex
ABD: soft, BS+, NT/ND
EXT: No edema
NEURO: Gross non-focal
SKIN: No rash
Plan:
Chest pain is very atypical. Is reproducible. Echo with preserved ejection fraction.
Okay for discharge from cardiac standpoint. He does have moderate to severe mitral regurgitation and should follow-up with Dr. Vasquez regarding this.
Continue metoprolol, aspirin, Crestor, and Lasix.
Original Note:
Today's Communication / Plan
-
f/u with Dr. Benitez
Impression / Plan
-
PCP: Dr. Anita Causey
Primary grinder operator tool: Dr. Mikael Benitez
Impression:
Fall
Chest pain
Parkinson's disease
h/o recurrent falls with hip fractures, scalp laceration, humerus fracture
Type 2 diabetes
Hypertension
Hypercholesterolemia
Pacemaker, [employer]
History of OH/CAD/PCI
Mitral regurgitation murmur
PVCs
Cognitive impairment
Echo 03/24/24: EF 50 to 55%, stage II diastolic dysfunction, moderate to severe MR with eccentric regurgitant jet, mild aortic insufficiency, mild TR PAP 40 to 45 mmHg
Plan:
-Patient with ongoing intermittent chest pain and Troponin normal.
-Echo without WMA or effusion.
-Suspect chest pain is related to recent fall which must have included chest impact based on his bruised sternum.
-Echo showed moderate to moderate-severe MR compared to mild to mod MR on last echo 02/02/23. Patient will follow up with Dr. Benitez.
-Progress note cc'd to Dr. Benitez and f/u instructions outline in d/c instructions.
HPI: Patient came to [facility] yesterday after a fall at home last week and ongoing weakness, he started with chest pain this morning and cardiology was consulted. Patient was laying in the bed on my arrival and talking to his by phone, his was
able to stay on the phone and helped greatly with HPI. Patient's says that patient has had chest pain since he fell in their laundry room this past . He fell into the dryer and then landed on the floor. He hit his chest and then when he
landed he hit the back of his head. He has had other falls and was admitted to last year for a fall and hip fracture. He was seen by cardiology during that admission for preop clearance and afterwards went to rehab and then returned home with his
. He sees Dr. Benitez every 4 months. He has a h/o CAD and PCI. Patient says chest pain started at 0730 this morning and is with a deep breath, but patient's reports that patient has been complaining of chest pain on and off since his
fall last night. Patient noted to have a bruise over his sternum, but his says she was not aware of that. Patient says his chest is tender, no radiation of pain. No SOB.
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
Subjective
Date of Service: March 25, 2024
Chest pain with deep breath
Objective
Labs:
03/24/24 06:46
03/24/24 06:46
Labs
Hgb 13.0 g/dL (13.0-18.0) 03/24/24 06:46
Hct 39.6 % (39.0-52.0) 03/24/24 06:46
Plt Count 196 10^3/uL (130-400) 03/24/24 06:46
Sodium 134 mmol/L (135-145) L 03/24/24 06:46
Potassium 4.6 mmol/L (3.5-5.1) 03/24/24 06:46
BUN 38 mg/dl (9-20) H 03/24/24 06:46
Creatinine 1.1 mg/dL (0.7-1.3) 03/24/24 06:46
Glucose 166 mg/dl (70-99) H 03/24/24 06:46
Troponins
03/24/24
06:46
Troponin I 0.022
Vital Signs and I&O:
Vital Signs
Temp Pulse Resp BP Pulse Ox
98 F 64 16 116/65 95
03/25/24 12:08 03/25/24 12:08 03/25/24 12:08 03/25/24 12:08 03/25/24 12:08
Vital Signs
Temp Pulse Resp BP Pulse Ox
98 F 64 16 116/65 95
03/25/24 12:08 03/25/24 12:08 03/25/24 12:08 03/25/24 12:08 03/25/24 12:08
Intake & Output
03/23/24 03/24/24 03/25/24 03/26/24
06:59 06:59 06:59 06:59
Intake Total 120 / 120 1440 / 1440
Output Total 300 / 300 5025 / 5025 1100 / 1100
Balance -180 / -180 -3585 / -3585 -1100 / -1100
Physical Exam
Physical Exam
GEN: AAOx3
HEENT: MMM
LUNGS: No audible wheeze
CV: SR on tele
ABD: ND
EXT: No edema B/L
NEURO: Gross non-focal
SKIN: No rash
[2024-03-25 16:49] LABS: Glucose - Point of Care 173 mg/dl (70-99)
[2024-03-25] MEDS: AMARYL 2 MG PO (16:50)
[2024-03-25] MEDS: NOVOLOG FLEXPEN-MODERATE RESISTANCE 1 UNITS SC (17:39)
[2024-03-25] MEDS: NON-FORMULARY ITEM 0.75 UNIT SC (17:42)
[2024-03-25] MEDS: LIDOCAINE 4% PATCH 1 PATCH TOPICAL ×2 (18:01→18:42)
[2024-03-25] MEDS: SINEMET 25-100 1 TABLET PO (20:43)
[2024-03-25] MEDS: CRESTOR 40 MG PO (20:43)
[2024-03-25] MEDS: ROCEPHIN 1000 MG IV (20:43)
[2024-03-25] MEDS: DESYREL 100 MG PO (20:43)
[2024-03-25] MEDS: PEPCID 20 MG PO (20:44)
[2024-03-25] MEDS: STERILE WATER FOR INJECTION 10 ML IV (20:44)
[2024-03-25] MEDS: NON-FORMULARY ITEM 1 UNIT NASAL (20:48)
[2024-03-25 21:35] LABS: Glucose - Point of Care 243 mg/dl (70-99)
[2024-03-26] VITALS (7 sets, daily range): BP systolic 110–167; BP diastolic 46–77; BMI 21.9
[2024-03-26 07:46] LABS: Glucose - Point of Care 140 mg/dl (70-99)
[2024-03-26] MEDS: NOVOLOG FLEXPEN-MODERATE RESISTANCE SC (08:02)
[2024-03-26] MEDS: LIDOCAINE 4% PATCH 1 PATCH TOPICAL ×2 (08:03)
[2024-03-26] MEDS: NEURONTIN 300 MG PO ×3 (08:03→22:49)
[2024-03-26] MEDS: SINEMET 25-100 1.5 TABLET PO ×3 (08:03→17:01)
[2024-03-26] MEDS: PROSCAR 5 MG PO (08:06)
[2024-03-26] MEDS: LOPRESSOR 25 MG PO ×2 (08:06→22:49)
[2024-03-26] MEDS: GLUCOPHAGE 500 MG PO ×2 (08:06→16:59)
[2024-03-26] MEDS: LASIX 40 MG PO (08:06)
[2024-03-26] MEDS: NON-FORMULARY ITEM 1 UNIT NASAL ×3 (08:06→22:50)
[2024-03-26] MEDS: ASPIR LOW (ENTERIC COATED) 81 MG PO (08:06)
[2024-03-26] MEDS: VITAMIN C 500 MG PO (08:06)
[2024-03-26] MEDS: FARXIGA 10 MG PO (08:06)
--- NOTE | 2024-03-26 08:45 | W.PN.HOSP.TC ---
Today's Communication/Plan
-
see bold
Assessment / Plan
Assessment / Plan
HPI: 83y M with PMH significant for IBS, Parkinson's Disease, ASCVD and DM-II who presents to ED complaining of generalized weakness and diarrhea. Patient states that he has had loose stools for the past several days associated with crampy
abdominal discomfort. Patient notes that he has similar symptoms from time to time associated with his IBS. He has been taking Bentyl with no improvement in his symptoms.
On 03/20, he had a fall at home striking his head and his chest. He was seen here in the ED at that time and work-up including CT head was unremarkable.
Generalized Weakness / Gait Dysfunction
- This is likely multifactorial and related to cystitis, Parkinsonism and mild CHF.
- PT/OT rec STR, family wants [facility]
- Stable for discharge when bed available
Cystitis
BPH
Chronic Urinary Retention
- Patient requires catheterization at least twice daily.
- Continue finasteride for now.
- Hold on initiation of tamsulosin given Parkinsonism / risk of orthostasis.
- Urine cultures growing Klebsiella, currently on Rocephin. Can transition to Augmentin tomorrow to complete a 7-day course
IBS / Diarrhea
- Continue supportive care including Bentyl.
- Follow-up on stool studies
Subacute HFpEF
- Patient with bibasilar rales and CXR suggesting increased vascular prominence from prior.
- On Lasix at home twice weekly - increase to daily and follow I/Os, daily weights, etc.
- Continue usual med regimen including Farxiga.
- Echo updated and reviewed
Substernal chest pain
- Appreciate cardiology input, from his recent fall and trauma.
Upper back pain
T1/T2 compression fractures from his recent fall
- Lidocaine patches, pain meds as needed
Parkinson's Disease
- Some of his recent issues may be due to functional decline.
- Continue Sinemet (patient knows pill amounts, but not dose of pill itself - needs clarification).
ASCVD
- Continue current CV med regimen.
DM-II
- Hemoglobin A1c 8.1
- Blood sugars mostly controlled, with a high reading here and there
- Continue metformin, Farxiga, glimepiride, SSI. bringing in Trulicity
DVT Prophylaxis: SQ lovenox
Code Status: Full
Updated on phone 03/25
Left message for on phone 03/26
Total time spent to see the patient on the floor, examine the patient, review data and lab results, discuss treatment plan with patient, nursing staff around 41 minutes.
Physical Exam
General: Appears debilitated, no acute distress
HEENT: Normocephalic, Atraumatic, EOMI, MMM
Respiratory: Clear to Auscultation bilaterally
Cardiac: Normal S1/S2, Regular Rate and Rhythm
GI: Soft, Nontender, Nondistended, Normal Bowel Sounds
Extremities: No Clubbing, Cyanosis, or Edema
Neuro: Nonfocal/Grossly Intact
Psych: Calm, Cooperative
Derm: No Visible lesions
Anticipated Discharge: Within 24 hours
Subjective/Interval History
-
Date of Service: March 26, 2024
Patient complains of upper back pain. No fever, no vomiting.
Objective Data
-
Vital Signs:
Vital Signs
Temp Pulse Resp BP Pulse Ox
98.1 F 64 16 167/77 98
03/26/24 07:51 03/26/24 08:06 03/26/24 07:51 03/26/24 08:06 03/26/24 07:51
I&O
03/25/24 03/26/24 03/27/24
06:59 06:59 06:59
Intake Total 1440 / 1440 1320 / 1320
Output Total 5025 / 5025 2500 / 2500
Balance -3585 / -3585 -1180 / -1180
[2024-03-26 11:47] LABS: Glucose - Point of Care 261 mg/dl (70-99)
[2024-03-26] MEDS: NOVOLOG FLEXPEN-MODERATE RESISTANCE 5 UNITS SC (12:07)
--- NOTE | 2024-03-26 13:17 | CM ---
Addendum entered by DEMI Carter 03/26/24 16:57:
Placed a call to [facility] in admissions at [facility], as no answer had been received in [employer] regarding acceptance. There was no voice mail and no one answered. Will call facility again in the morning. Patient will need three night stay.
Original Note:
Reviewed chart, per PT/OT patient needs SNF. Spoke with patient and his by speaker phone from patient's cell and both are agreeable to SNF transfer. Patient's selected [facility] as that is the closest facility to their home and he has
been there in the past. Patient's stated that she could not think of alternate facilities at time of call but if no bed availability there she will look for alternate SNFs.
Referral sent.
Plan: Case management will continue to follow and assist with discharge planning. SNF when stable.
[2024-03-26 16:40] LABS: Glucose - Point of Care 240 mg/dl (70-99)
[2024-03-26] MEDS: AMARYL 2 MG PO (16:56)
[2024-03-26] MEDS: NOVOLOG FLEXPEN-MODERATE RESISTANCE 3 UNITS SC (17:05)
[2024-03-26] MEDS: TYLENOL 650 MG PO (17:55)
[2024-03-26 21:30] LABS: Glucose - Point of Care 155 mg/dl (70-99)
[2024-03-26] MEDS: SINEMET 25-100 1 TABLET PO (22:48)
[2024-03-26] MEDS: DESYREL 100 MG PO (22:48)
[2024-03-26] MEDS: ROCEPHIN 1000 MG IV (22:49)
[2024-03-26] MEDS: CRESTOR 40 MG PO (22:49)
[2024-03-26] MEDS: PEPCID 20 MG PO (22:49)
[2024-03-26] MEDS: STERILE WATER FOR INJECTION 10 ML IV (22:49)
[2024-03-27 03:13] VITALS: BP 110/61
[2024-03-27 03:14] VITALS: BMI 21.8
[2024-03-27] MEDS: TYLENOL 650 MG PO ×2 (03:52→16:39)
[2024-03-27 07:33] VITALS: BP 128/49
[2024-03-27 08:10] LABS: Glucose - Point of Care 120 mg/dl (70-99)
--- NOTE | 2024-03-27 08:31 | W.PN.HOSP.TC ---
Addendum entered and electronically signed by Kalpesh Mann MD 04/06/24 09:17:
Yes, _UTI__ is related to/associated with/due to _self catherization
Original Note:
Today's Communication/Plan
-
Discharge to short-term rehab today
Assessment / Plan
Assessment / Plan
HPI: 83y M with PMH significant for IBS, Parkinson's Disease, ASCVD and DM-II who presents to ED complaining of generalized weakness and diarrhea. Patient states that he has had loose stools for the past several days associated with crampy
abdominal discomfort. Patient notes that he has similar symptoms from time to time associated with his IBS. He has been taking Bentyl with no improvement in his symptoms.
On 03/20, he had a fall at home striking his head and his chest. He was seen here in the ED at that time and work-up including CT head was unremarkable.
Generalized Weakness / Gait Dysfunction
- This is likely multifactorial and related to cystitis, Parkinsonism and mild CHF.
- PT/OT rec STR, family wants [facility]
- Stable for discharge when bed available
Cystitis
BPH
Chronic Urinary Retention
- Patient requires catheterization at least twice daily.
- Continue finasteride for now.
- Hold on initiation of tamsulosin given Parkinsonism / risk of orthostasis.
- Urine cultures growing Klebsiella, status post IV Rocephin.
- Sensitivities reviewed, medically stable for discharge on Augmentin to complete a 7-day course
IBS / Diarrhea
- Continue supportive care including Bentyl.
- Follow-up on stool studies neg
Subacute HFpEF
- Patient with bibasilar rales and CXR suggesting increased vascular prominence from prior.
- On Lasix at home twice weekly - increased to daily and follow I/Os, daily weights, etc.
- Continue usual med regimen including Farxiga.
- Echo updated and reviewed
Substernal chest pain
- Appreciate cardiology input, from his recent fall and trauma.
Upper back pain
T1/T2 compression fractures from his recent fall
- Lidocaine patches, pain meds as needed
Parkinson's Disease
- Some of his recent issues may be due to functional decline.
- Continue Sinemet (patient knows pill amounts, but not dose of pill itself - needs clarification).
ASCVD
- Continue current CV med regimen.
DM-II
- Hemoglobin A1c 8.1
- Blood sugars mostly controlled, with a high reading here and there
- Continue metformin, Farxiga, glimepiride, SSI. bringing in Trulicity
DVT Prophylaxis: SQ lovenox
Code Status: Full
Updated on phone 03/25
Updated on phone 03/27
Physical Exam
General: Appears debilitated, no acute distress
HEENT: Normocephalic, Atraumatic, EOMI, MMM
Respiratory: Clear to Auscultation bilaterally
Cardiac: Normal S1/S2, Regular Rate and Rhythm
GI: Soft, Nontender, Nondistended, Normal Bowel Sounds
Extremities: No Clubbing, Cyanosis, or Edema
Neuro: Nonfocal/Grossly Intact
Psych: Calm, Cooperative
Derm: No Visible lesions
Anticipated Discharge: Today
Subjective/Interval History
-
Date of Service: March 27, 2024
Patient continues to have musculoskeletal chest pain, and back pain. No fever, no vomiting.
Objective Data
-
Vital Signs:
Vital Signs
Temp Pulse Resp BP Pulse Ox
96.5 F L 61 16 128/49 96
03/27/24 07:33 03/27/24 07:33 03/27/24 07:33 03/27/24 07:33 03/27/24 07:33
I&O
03/26/24 03/27/24 03/28/24
06:59 06:59 06:59
Intake Total 1320 / 1320 1800 / 1800
Output Total 2500 / 2500 2300 / 2300
Balance -1180 / -1180 -500 / -500
[2024-03-27] MEDS: NOVOLOG FLEXPEN-MODERATE RESISTANCE SC (08:43)
[2024-03-27 08:45] VITALS: BP 136/67
[2024-03-27] MEDS: NEURONTIN 300 MG PO ×2 (08:46→16:31)
[2024-03-27] MEDS: SINEMET 25-100 1.5 TABLET PO ×3 (08:46→16:31)
[2024-03-27] MEDS: FARXIGA 10 MG PO (08:46)
[2024-03-27] MEDS: LIDOCAINE 4% PATCH 1 PATCH TOPICAL ×2 (08:46)
[2024-03-27] MEDS: VITAMIN C 500 MG PO (08:46)
[2024-03-27] MEDS: ASPIR LOW (ENTERIC COATED) 81 MG PO (08:47)
[2024-03-27] MEDS: LOPRESSOR 25 MG PO (08:47)
[2024-03-27] MEDS: PROSCAR 5 MG PO (08:47)
[2024-03-27] MEDS: LASIX 40 MG PO (08:47)
[2024-03-27] MEDS: GLUCOPHAGE 500 MG PO ×2 (08:47→16:33)
[2024-03-27] MEDS: NON-FORMULARY ITEM 1 UNIT NASAL ×2 (08:47→16:32)
[2024-03-27] MEDS: AUGMENTIN 875 MG/125 MG 1 TABLET PO (08:48)
--- NOTE | 2024-03-27 09:43 | CM ---
Addendum entered by DEMI Carter 03/27/24 11:53:
Received return call from [facility] who confirmed ability to accept patient today. #for report [phone] fax# [phone]
IMM reviewed with patient's . She is agreeable to d/c. Will complete medical necessity and transfer sheet.
Will update facility and patient's with time.
Covid test ordered from attending.
Original Note:
Placed another call to [facility] at [facility] (admissions) to determine bed availability. Voice mail was able to be left. Left a detailed message and requested return call with any availability. Will ask patient's for alternate facilities.
Plan: Case management will continue to follow and assist with discharge planning. Patient and his are hopeful for [facility].
[2024-03-27 11:00] VITALS: BP 109/50
[2024-03-27 11:49] LABS: Glucose - Point of Care 234 mg/dl (70-99)
[2024-03-27] MEDS: NOVOLOG FLEXPEN-MODERATE RESISTANCE 3 UNITS SC (11:57)
[2024-03-27 13:12] LABS: COVID-19 Antigen Negative (Negative)
--- NOTE | 2024-03-27 13:33 | W.DCSUMMARY ---
Discharge Summary
Discharge Data
Date of Admission: 03/24/24
Date of Discharge: 03/27/24
-
Pending Results: No
Hospital Course
Discharge diagnosis:
Generalized weakness
Recurrent mechanical falls
Acute urinary tract infection
Chronic urinary retention requiring self-catheterization
Irritable bowel syndrome with diarrhea
Acute/subacute heart failure with preserved ejection fraction
Substernal chest pain, musculoskeletal
Upper back pain from thoracic 1/2 compression fractures
Parkinson's disease
Type 2 diabetes
Consults: Cardiology
Echo:
1. Left ventricle: Normal size and function with an estimated ejection
fraction of 50-55%. Mild concentric LVH. Stage II diastolic dysfunction
2. Right ventricle: Normal
3. Atria: Mild left atrial dilation
4. Mitral valve: Moderate or moderate-severe mitral regurgitation with
eccentric regurgitant jet.
5. Aortic valve: The aortic valve leaflets are thickened and sclerotic. There
is mild aortic insufficiency
6. Tricuspid valve: Mild tricuspid regurgitation with estimated pulmonary
artery systolic pressures of 40-45 mmHg
7. When compared to the most recent echocardiogram from 02/02/2023 the severity
of mitral regurgitation is now estimated moderate to moderate-severe with an
eccentric anteriorly directed jet. On the prior study the mitral regurgitation
was graded as mild-moderate.
Tspine XR:
Mild anterior loss of height of the T1 and T2 vertebral bodies, which appears similar to CT of the cervical spine from March 20, 2024. Age of these mild compression deformities is uncertain, and please correlate with localized symptoms.
Hospital course:
83-year-old male with a past medical history of Parkinson's disease, IBS, type 2 diabetes, and chronic urinary retention requiring self-catheterization presents with generalized weakness and diarrhea. Patient was found to have an acute urinary
tract infection. He was treated with IV Rocephin. Urine cultures grew out Klebsiella. He was transitioned to Augmentin to complete a 7-day course.
Patient complained of chest pain. He was seen in conjunction with cardiology. He had recent falls, likely bruising his sternum. Cardiology checked an echocardiogram which was stable. Cardiology recommends outpatient follow-up.
Patient had recent mechanical falls, and was seen in the ED on 03/20/2024. He complained of upper back pain. Thoracic spine x-rays suggest new T1/T2 mild compression fractures. He was treated with lidocaine patches, Tylenol.
Patient was found to have bibasilar rales, with chest x-ray suggesting increased vascular prominence from prior. He is on Lasix twice weekly at home. His Lasix was increased to 40 mg p.o. daily.
Patient also has IBS, and has intermittent diarrhea. Stool cultures were negative. He is continued on his home Bentyl.
Patient was seen in conjunction with PT, who recommend short-term rehab. Patient is medically stable for discharge to short-term rehab. 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
in 2-3 weeks.
Disposition: Short-term rehab
Discharge planning: Required 39 minutes
Discharge Plan
-
Patient Disposition: Fdc/SNF
Discharge Diagnosis/Procedures: Acute urinary tract infection, recurrent mechanical falls, musculoskeletal chest pain, upper back pain from T1/T2 vertebral compression fractures, chronic urinary retention requiring straight cath, irritable bowel
syndrome, Parkinson's disease
Condition: Fair
Diet: Diabetic, Carb Controlled
Activity: As tolerated
Activity Restrictions/Additional Instructions:
Continue taking Augmentin for your urinary tract infection for 4 more days.
Please follow-up with your primary care doctor 1 week after you leave rehab.
Referrals:
Mikael Benitez MD [Non-Admitting Privileges] - in two to three weeks (Follow up with Dr. Benitez. Cardiology notes from this admission were sent to his office for continuity.)
UNKNOWN - PT DOES,NOT KNOW [Family Provider] -
Prescriptions:
New
lidocaine 4 % Adhesive Patch,Medicated
1 patch topical DAILY Qty: 0 0RF
lidocaine 4 % Adhesive Patch,Medicated
1 patch topical DAILY Qty: 0 0RF
amoxicillin-pot clavulanate 875-125 mg Tablet
1 tab PO Q12 4 Days Qty: 8 0RF
Continued
metformin 500 MG tablet
500 mg PO BID@0800,1700
Rx Instructions:
breakfast, dinner
trazodone 50 MG tablet
100 mg PO HS
famotidine 40 MG tablet
40 mg PO HS
aspirin 81 MG tablet,delayed release (DR/EC)
81 mg PO DAILY
glimepiride 2 MG tablet
2 mg PO DAILY@1700
Rx Instructions:
with dinner
ascorbic acid (vitamin C) [Vitamin C] 500 MG tablet
500 mg PO DAILY
gabapentin 300 MG capsule
300 mg PO TID
dicyclomine 10 MG capsule
10 mg PO BID@0800,1700
Rx Instructions:
breakfast, dinner
finasteride 5 MG tablet
5 mg PO DAILY
rosuvastatin 40 MG tablet
40 mg PO DAILY@1700
Rx Instructions:
with dinner
metoprolol tartrate 25 MG tablet
25 mg PO BID
fenofibrate nanocrystallized 145 MG tablet
145 mg PO DAILY
acetaminophen [Tylenol Extra Strength] 500 mg Tablet
500 mg PO HS
ketoconazole 2 % Cream
1 applic TOPICAL BID
melatonin 5 mg Tablet
10 mg PO HS
dapagliflozin propanediol [Farxiga] 10 mg Tablet
10 mg PO DAILY
Trulicity 0.75 mg/0.5 mL Pen Injector
0.75 mg SC WE
Rx Instructions:
ON WEDNESDAYS
Glucosamine Chondroitin 750 &6
1 tab PO BID
carbidopa-levodopa 25-100 mg tablet
1.5 tab PO TID@0800,1200,1700
carbidopa-levodopa 25-100 mg tablet
1 tab PO HS
multivitamin Tablet
1 tab PO DAILY
acetaminophen-codeine 300-30 mg tablet
1 tab PO Q8H PRN (Reason: pain) Qty: 10 0RF
Changed
furosemide 20 mg Tablet
40 mg PO DAILY Qty: 0 0RF
Discontinued
Triamcinolone Cream 0.1%
1 dose topical DAILY
Discharge Orders:
Discharge Patient (As Directed); Ordered 03/27/24
Ordered By: Kalpesh Mann
Discharge Date and Time
Discharge Date/Time: 03/27/24 17:27
Print Language: ITALIAN
[2024-03-27 14:42] VITALS: BP 131/64
[2024-03-27 14:50] VITALS: BP 118/50
[2024-03-27 16:30] LABS: Glucose - Point of Care 175 mg/dl (70-99)
[2024-03-27] MEDS: AMARYL 2 MG PO (16:31)
[2024-03-27] MEDS: NOVOLOG FLEXPEN-MODERATE RESISTANCE 1 UNITS SC (16:32)
--- NOTE | 2024-03-31 09:11 | PN.CDI ---
CDI
- -
CDI:
Physician Documentation Request
Admit Date: 03/24/24 02:54
Dear Doctor Do,
Please review the following and provide your response in the progress notes.
Clinical Indicators:
- 03/27 DC Summary 'Acute urinary tract infection'
- 'Chronic urinary retention requiring self-catheterization'
- 'Urine cultures grew out Klebsiella'
Please clarify the relationship between these conditions:
Yes, _UTI__ is related to/associated with/due to _self catherization__.
No, _UTI__ is not related to/associated with/due to __self catherization_ but it is due to . (Please specify)
Unable to determine
Use of terms such as suspected, likely, concern for, or probable (associated with a specific diagnosis that is being evaluated, monitored, or treated as if it exists) are acceptable and can be coded in the inpatient setting, when documented at the
time of discharge.
Thank you,
Clarissa Barahona RN
CDI Specialist
Please use your independent medical judgment in providing your response.
== END 2024-03-27 17:27 | DRG 698 ==
LOC: 3 WEST ACU 02:54
PROVIDERS: Emergency Medicine; ADMITTING PHYSICIAN Hospitalist; ATTENDING PHYSICIAN Family Medicine; EMERGENCY PHYSICIAN Emergency Medicine; OTHER PHYSICIAN Nuclear Medicine Nuclear Cardiology
DX: T83.518A Infection and inflammatory reaction due to other urinary catheter, initial encounter (principal); I50.33 Acute on chronic diastolic (congestive) heart failure; I13.0 Hypertensive heart and chronic kidney disease with heart failure and stage 1 through stage 4 chronic kidney disease, or unspecified chronic kidney disease; N30.00 Acute cystitis without hematuria; S22.011A Stable burst fracture of first thoracic vertebra, initial encounter for closed fracture; S22.021A Stable burst fracture of second thoracic vertebra, initial encounter for closed fracture; I25.10 Atherosclerotic heart disease of native coronary artery without angina pectoris; E78.00 Pure hypercholesterolemia, unspecified; G20.A1 Parkinson's disease without dyskinesia, without mention of fluctuations; E11.22 Type 2 diabetes mellitus with diabetic chronic kidney disease; E11.65 Type 2 diabetes mellitus with hyperglycemia; K58.0 Irritable bowel syndrome with diarrhea; N40.1 Benign prostatic hyperplasia with lower urinary tract symptoms; R33.8 Other retention of urine; N18.30 Chronic kidney disease, stage 3 unspecified; I34.0 Nonrheumatic mitral (valve) insufficiency; I45.9 Conduction disorder, unspecified; I49.3 Ventricular premature depolarization; G31.84 Mild cognitive impairment of uncertain or unknown etiology; G47.33 Obstructive sleep apnea (adult) (pediatric); R26.89 Other abnormalities of gait and mobility; S20.219A Contusion of unspecified front wall of thorax, initial encounter; B96.1 Klebsiella pneumoniae [K. pneumoniae] as the cause of diseases classified elsewhere; Z11.52 Encounter for screening for COVID-19; Z95.5 Presence of coronary angioplasty implant and graft; Z95.0 Presence of cardiac pacemaker; Z79.899 Other long term (current) drug therapy; Z79.84 Long term (current) use of oral hypoglycemic drugs; Z79.85 Long-term (current) use of injectable non-insulin antidiabetic drugs; I25.2 Old myocardial infarction; Z79.82 Long term (current) use of aspirin; W18.39XA Other fall on same level, initial encounter; Y73.2 Prosthetic and other implants, materials and accessory gastroenterology and urology devices associated with adverse incidents
CPT/HCPCS: 71046; 72072; 72110; 80048; 80053; 81003; 81015; 82962; 83036; 84484; 85025; 85027; 87045; 87046; 87077; 87086; 87186; 87427; 87811; 89055; 93005; 93306; 96361; 96374; 97116; 97163; 97167; 97530; 97535; 99285

== ENCOUNTER 2024-10-02 19:03 | Inpatient (IN) | payer MEDICARE, BC, SELFPAY ==
[2024-10-02] VITALS (8 sets, daily range): BP systolic 116–155; BP diastolic 44–89; BMI 22.3
[2024-10-02 13:57] LABS: COVID-19 Antigen Negative (Negative)
--- NOTE | 2024-10-02 14:51 | ED.GENMED ---
History of Present Illness
<Gay Baldwin PA-C - Last Filed: 10/02/24 18:46>
General
Chief Complaint: Weakness
Source: patient
Exam Limitations: none
Time Seen by Provider: 10/02/24 14:51
Nursing documentation reviewed up to this point in time: agreed with
History of Present Illness
History of Present Illness:
This 83-year-old male with past medical history of hypertension, hyperlipidemia, pacemaker in place, Parkinson's who presents emergency department today with concerns of recurrent falls and generalized weakness. Patient states that he has a history
of Parkinson's and with this history, he has chronic balance issues and does fall frequently. Patient states that his symptoms were improving recently but then he started to develop shortness of breath, coughing, congestion and feels like this made
his Parkinson's worse. Patient states that 2 days ago he was staying in his kitchen making breakfast and he fell onto his right side. He is able to get up on his own without any difficulty. He not lose consciousness or hit his head at the time.
Then today, he fell again, again falling onto his right side and hitting his head. Patient currently notes some right sided head pain posterior neck pain. Patient was right-sided rib pain. He denies hemoptysis. He denies back pain. He denies
lower extremity swelling or edema.
Past History
<CARA Rodriguez Last Filed: 10/02/24 18:46>
Past History
ED Past Medical History: Arrthythmia (bradycardia), CAD, HTN, Hypercholesterolemia, NIDDM, VT and Other (IBS, Sleep apnea, Parkinson's)
ED Past Surgical History: Appendectomy, Cardiac (pacemaker, Cardiac stents X 10), Tonsilectomy and Other (Hernia, hydrocele)
Social History
Tobacco: Non-smoker
Alcohol: Occasional
Drug: None
Personal:
Living: with family
Review of Systems
<Gay Baldwin PA-C - Last Filed: 10/02/24 18:46>
Review of Systems
All Other Systems: ROS reviewed and negative except as documented in HPI and ROS
Phy Exam
<Gay Baldwin PA-C - Last Filed: 10/02/24 18:46>
Physical Exam
Physical Exam:
General: Patient is well appearing and in no acute distress; non-toxic
Skin: Warm and dry, no rashes or lesions
Head: Normocephalic, atraumatic
Eyes: Sclera non-icteric. EOMs intact.
Cardiac: Tachycardia noted otherwise regular rhythm, no murmurs
Peripheral Vascular: Bilateral lower extremity edema
Pulm: Increased respiratory rate, 88% on room air, no wheezes, rales, or rhonchi
Abdomen: No abdominal tenderness to palpation
Neuro: CN II-XII intact, no focal neurologic deficits. Normal finger to nose, heel to beltran testing
Psychiatric: Appropriate mood and affect.
Course
<Gay Baldwin PA-C - Last Filed: 10/02/24 18:46>
Orders/Labs/Results
Orders:
Orders
10/02/24 13:07
Electrocardiogram (*1) Urgent
Reason for Study: Fatigue / Weakness
EKG- Treatment ONCE
10/02/24 13:15
COVID-19 Antigen Urgent
Source: Nasal Swab
Influenza A+B Rapid Molecular Urgent
MADELYN Source: Nasal Swab
Specimen Description:
10/02/24 15:09
CT Cervical Spine W/o Iv Contr Urgent
Comment:
Reason For Exam: midline neck pain following fall
CR Chest - 2 Views Urgent
Comment:
Reason For Exam: shortness of breath
CR Ribs-right 2 Vw No Pa Chest Urgent
Reason For Exam: right sided rib pain following fall
10/02/24 15:12
CT Head W/o Iv Contrast Urgent
Comment:
Reason For Exam: right sided headache following fall
10/02/24 15:13
Dexamethasone Sod Phosphate [Decadron] 10 mg IV NOW STA
10/02/24 15:27
Complete Blood Count/With Diff Urgent
Comprehensive Metabolic Panel Urgent
10/02/24 15:29
Acetaminophen [Tylenol] 1,000 mg PO NOW STA
Ondansetron Injectable [Zofran] 4 mg IV NOW STA
10/02/24 18:04
Admit/Transfer Patient As Directed
Co-Sign Provider:
Level of Care: Inpatient admission
Assign to:: Medical/Surgical
Physician / Group: Fernie Saunders
Diagnosis: influenza a, mechanical fall
Reason for Hospitalization: influenza a, mechanical fall
Expected length of stay greater than two midnights?: Yes
ELOS- Estimated Length of Stay in days: 3
I certify the patient meets the requirements for IP care: Yes
10/02/24 18:05
PRN Pain Medication Management As Directed
May give lesser potent ordered pain med per pt: Yes
preference::
Protocol:: Medication orders for pain may be administered in a
manner that supports deferring to patient preference
when the pt is:
- Requesting an ordered lesser potent pain medication.
Least to most potent pain medications are defined
as: acetaminophen < NSAID < tramadol < opioids
(morphine, oxycodone, hydromorphone).
- Requesting a lesser dose of the same medication IF
ORDERED.
- Requesting a less intrusive route of administration
if both routes are prescribed by the provider (PO <
IV).
10/02/24 18:06
Code Status As Directed
Resuscitation Status: Full Code
Abnormal Lab Results
10/02/24
15:27
WBC 12.0 H 10^3/uL
(4.8-10.8)
RBC 4.54 L 10^6/uL
(4.70-6.10)
MCHC 31.6 L g/dL
(33.0-37.0)
MPV 10.8 H fL
(7.4-10.4)
Abs Immat Gran (auto) 0.1 H 10^3/uL
(0-0.05)
Absolute Neuts (auto) 9.8 H 10^3/uL
(1.4-6.5)
Absolute Lymphs (auto) 0.8 L 10^3/uL
(1.2-3.4)
Absolute Monos (auto) 1.2 H 10^3/uL
(0.1-0.6)
Immature Gran % 1.1 H %
(0-0.5)
Neutrophils % 81.7 H %
(42.2-75.2)
Lymphocytes % 6.8 L %
(20.5-51.1)
Monocytes % 9.7 H %
(1.7-9.3)
Sodium 133 L mmol/L
(135-145)
Carbon Dioxide 31 H mmol/L
(22-30)
BUN 26 H mg/dl
(9-20)
Glucose 170 H mg/dl
(70-99)
Total Protein 5.5 L g/dl
(6.3-8.2)
10/02/24 15:27
10/02/24 15:27
Vital Signs
Initial and Last Documented VS:
Initial Vital Signs
Temp Pulse Resp BP Pulse Ox
99.3 F 78 16 120/64 98
10/02/24 13:05 10/02/24 13:05 10/02/24 13:05 10/02/24 13:05 10/02/24 13:05
Last Documented Vital Signs
Temp Pulse Resp BP Pulse Ox
101.1 F H 76 15 133/89 90
10/02/24 15:28 10/02/24 15:19 10/02/24 15:30 10/02/24 17:00 10/02/24 17:15
<Devin Donato MD - Last Filed: 10/02/24 16:03>
Orders/Labs/Results
Orders:
Orders
10/02/24 13:07
Electrocardiogram (*1) Urgent
Reason for Study: Fatigue / Weakness
EKG- Treatment ONCE
10/02/24 13:15
COVID-19 Antigen Urgent
Source: Nasal Swab
Influenza A+B Rapid Molecular Urgent
MADELYN Source: Nasal Swab
Specimen Description:
10/02/24 15:09
CT Cervical Spine W/o Iv Contr Urgent
Comment:
Reason For Exam: midline neck pain following fall
CR Chest - 2 Views Urgent
Comment:
Reason For Exam: shortness of breath
CR Ribs-right 2 Vw No Pa Chest Urgent
Reason For Exam: right sided rib pain following fall
10/02/24 15:12
CT Head W/o Iv Contrast Urgent
Comment:
Reason For Exam: right sided headache following fall
10/02/24 15:13
Dexamethasone Sod Phosphate [Decadron] 10 mg IV NOW STA
10/02/24 15:27
Complete Blood Count/With Diff Urgent
Comprehensive Metabolic Panel Urgent
10/02/24 15:29
Acetaminophen [Tylenol] 1,000 mg PO NOW STA
Ondansetron Injectable [Zofran] 4 mg IV NOW STA
10/02/24 18:04
Admit/Transfer Patient As Directed
Co-Sign Provider:
Level of Care: Inpatient admission
Assign to:: Medical/Surgical
Physician / Group: Fernie Saunders
Diagnosis: influenza a, mechanical fall
Reason for Hospitalization: influenza a, mechanical fall
Expected length of stay greater than two midnights?: Yes
ELOS- Estimated Length of Stay in days: 3
I certify the patient meets the requirements for IP care: Yes
10/02/24 18:05
PRN Pain Medication Management As Directed
May give lesser potent ordered pain med per pt: Yes
preference::
Protocol:: Medication orders for pain may be administered in a
manner that supports deferring to patient preference
when the pt is:
- Requesting an ordered lesser potent pain medication.
Least to most potent pain medications are defined
as: acetaminophen < NSAID < tramadol < opioids
(morphine, oxycodone, hydromorphone).
- Requesting a lesser dose of the same medication IF
ORDERED.
- Requesting a less intrusive route of administration
if both routes are prescribed by the provider (PO <
IV).
10/02/24 18:06
Code Status As Directed
Resuscitation Status: Full Code
Abnormal Lab Results
10/02/24
15:27
WBC 12.0 H 10^3/uL
(4.8-10.8)
RBC 4.54 L 10^6/uL
(4.70-6.10)
MCHC 31.6 L g/dL
(33.0-37.0)
MPV 10.8 H fL
(7.4-10.4)
Abs Immat Gran (auto) 0.1 H 10^3/uL
(0-0.05)
Absolute Neuts (auto) 9.8 H 10^3/uL
(1.4-6.5)
Absolute Lymphs (auto) 0.8 L 10^3/uL
(1.2-3.4)
Absolute Monos (auto) 1.2 H 10^3/uL
(0.1-0.6)
Immature Gran % 1.1 H %
(0-0.5)
Neutrophils % 81.7 H %
(42.2-75.2)
Lymphocytes % 6.8 L %
(20.5-51.1)
Monocytes % 9.7 H %
(1.7-9.3)
Sodium 133 L mmol/L
(135-145)
Carbon Dioxide 31 H mmol/L
(22-30)
BUN 26 H mg/dl
(9-20)
Glucose 170 H mg/dl
(70-99)
Total Protein 5.5 L g/dl
(6.3-8.2)
10/02/24 15:27
10/02/24 15:27
Vital Signs
Initial and Last Documented VS:
Initial Vital Signs
Temp Pulse Resp BP Pulse Ox
99.3 F 78 16 120/64 98
10/02/24 13:05 10/02/24 13:05 10/02/24 13:05 10/02/24 13:05 10/02/24 13:05
Last Documented Vital Signs
Temp Pulse Resp BP Pulse Ox
101.1 F H 76 15 133/89 90
10/02/24 15:28 10/02/24 15:19 10/02/24 15:30 10/02/24 17:00 10/02/24 17:15
Jewelslt;Gay Baldwin PA-C - Last Filed: 10/02/24 18:46>
MDM/Problems Addressed
Differential Diagnosis Includes:
Differentials include influenza, covid, pneumonia, parkinsons, CVA
MDM/Problems Addressed:
83-year-old male presents emergency department today with concerns of generalized weakness, and recurrent falls. He did test positive for influenza. He did have chest pain over the ribs and he got a chest x-ray showing fractures of 9th through
11th ribs. There is no displacement. No hemothorax pneumothorax. Will refer patient to hospitalist for admission. Case discussed with my attending
Chronic conditions affecting care:
IBS, hypertension, hyperlipidemia Parkinson's, pacemaker
<Gay Baldwin PA-C - Last Filed: 10/02/24 18:46>
*Pulse Oximetry
Patient hypoxic: yes
*Critical Care Note
Total Time (30-74mins, 75-104mins- exclusive of procedures): Not Applicable
Data Reviewed
Review of Other/Old Records Reveals: Records (Reviewed discharge summary from 03/27/2024 patient seen for UTI with generalized weakness and discharge)
<Gay Baldwin PA-C - Last Filed: 10/02/24 18:46>
Patient Management
Escalation/DeEscalation of care consider admission/obs:
Patient referred for admission
ED Attending Note
<Gay Baldwin PA-C - Last Filed: 10/02/24 18:46>
-
Portions of this chart may have been created with voice recognition software.� Occasional wrong word or��sound alike� substitutions may have occurred due to the inherent limitations of voice recognition software.
<Devin Donato MD - Last Filed: 10/02/24 16:03>
ED Attending Note
Patient seen and examined by attending physician: Yes
I performed the substantive portion of visit, reviewed & personally made and approve the management plan that is documented in note by myself or SAWYER.: Yes
ED Attending Note:
83-year-old male history of Parkinson disease. 2 falls in the last 24 hours. General weakness. Some cough and congestion 3 to 4 days.
On exam is patient is nontoxic in no distress. Elderly and frail. Some coarse rhonchi. Occasional cough. No respiratory distress. Regular rate and rhythm. Abdomen soft and nontender. Warm and dry. Perfusing well. Grossly nonfocal.
Impression is frequent falls weakness Parkinson's influenza positive. Warrants inpatient management
Discharge Plan
Departure
Patient Disposition: Admit
Date of Disposition: 10/02/24
Time of Disposition: 17:06
Admit to: Med/Surg
Presentation/result/management discussed w/ accepting MD/DO: Hospitalist
Condition: Fair
Discharge Problem:
Influenza A, Hypoxia, Multiple rib fractures
Prescriptions:
No Action
metformin 500 MG tablet
500 mg PO BID@0800,1700
Rx Instructions:
breakfast, dinner
trazodone 50 MG tablet
100 mg PO HS
famotidine 40 MG tablet
40 mg PO HS
aspirin 81 MG tablet,delayed release (DR/EC)
81 mg PO DAILY
ascorbic acid (vitamin C) [Vitamin C] 500 MG tablet
500 mg PO DAILY
gabapentin 300 MG capsule
300 mg PO TID
finasteride 5 MG tablet
5 mg PO DAILY
rosuvastatin 40 MG tablet
40 mg PO QPM
Rx Instructions:
with dinner
metoprolol tartrate 25 MG tablet
25 mg PO BID
fenofibrate nanocrystallized 145 MG tablet
145 mg PO DAILY
acetaminophen [Tylenol Extra Strength] 500 mg Tablet
500 mg PO HS
dapagliflozin propanediol [Farxiga] 10 mg Tablet
10 mg PO DAILY
Trulicity 0.75 mg/0.5 mL Pen Injector
0.75 mg SC WE
Rx Instructions:
ON WEDNESDAYS
Glucosamine Chondroitin 550-30-1 mg Capsule
1 cap PO BID Qty: 0
carbidopa-levodopa 25-100 mg tablet
1.5 tab PO TID@0800,1200,1700
carbidopa-levodopa 25-100 mg tablet
1 tab PO HS
multivitamin Tablet
1 tab PO DAILY
tamsulosin [Flomax] 0.4 mg Capsule
0.4 mg PO BID
sertraline 50 mg Tablet
50 mg PO DAILY
dicyclomine [Bentyl] 10 mg Capsule
10 mg PO BID
levocetirizine [Xyzal] 5 mg Tablet
5 mg PO HS
omeprazole 20 mg Tablet,Delayed Release (Dr/Ec)
20 mg PO DAILY
acetaminophen-codeine 300-30 mg tablet
1 tab PO Q8HPRN PRN (Reason: mild pain)
Referrals:
Anita Causey MD [Family Provider] -
Interventions
Interventions:
*Risk Screen - Suicide Last Done: 10/02/24 13:05
*Neglect/Abuse Screening Last Done: 10/02/24 13:05
ED- Cardiac Assessment Last Done: 10/02/24 17:23
ED- Neurological Assessment Last Done: 10/02/24 17:23
ED- Pulmonary Assessment Last Done: 10/02/24 17:23
Discharge Date and Time
Print Language: UPPER SORBIAN
[2024-10-02] MEDS: DECADRON 10 MG IV (15:24)
[2024-10-02] MEDS: ZOFRAN 4 MG IV (15:31)
[2024-10-02] MEDS: TYLENOL 1000 MG PO (15:31)
[2024-10-02 15:56] LABS: % Basophils 0.3 % (0-2); % Eosinophils 0.4 % (0-6); % Immature Granulocytes 1.1 % (0-0.5); % Lymphocytes 6.8 % (20.5-51.1); % Monocytes 9.7 % (1.7-9.3); % Neutrophils 81.7 % (42.2-75.2); Absolute Eosinophils 0.1 10^3/uL (0-0.7); Absolute Immature Granulocytes 0.1 10^3/uL (0-0.05); Absolute Lymphocytes 0.8 10^3/uL (1.2-3.4); Absolute Monocytes 1.2 10^3/uL (0.1-0.6); Absolute Neutrophils 9.8 10^3/uL (1.4-6.5); Hematocrit 42.4 % (39.0-52.0); Hemoglobin 13.4 g/dL (13.0-18.0); Mean Corp Hgb Conc. 31.6 g/dL (33.0-37.0); Mean Corpuscular Hgb 29.5 pg (27.0-31.0); Mean Corpuscular Volume 93.4 fL (80.0-94.0); Mean Platelet Volume 10.8 fL (7.4-10.4); Nucleated Red Blood Cells % 0 % (-); Platelet Count 184 10^3/uL (130-400); Red Blood Cell Count 4.54 10^6/uL (4.70-6.10); Red Cell Dist. Width 14.4 % (11.5-14.5)
[2024-10-02 16:07] LABS: ALT (SGPT) 15 U/L (0-50); AST (SGOT) 46 U/L (17-59); Albumin 3.5 g/dl (3.5-5.0); Alkaline Phosphatase 100 U/L (38-126); Blood Urea Nitrogen 26 mg/dl (9-20); Calcium 8.8 mg/dl (8.4-10.2); Carbon Dioxide 31 mmol/L (22-30); Chloride 98 mmol/L (98-107); Glucose 170 mg/dl (70-99); Potassium 4.1 mmol/L (3.5-5.1); Sodium 133 mmol/L (135-145); Total Protein 5.5 g/dl (6.3-8.2); eGFR 53.84
--- NOTE | 2024-10-02 17:19 | HPS.HSE ---
Family Physician
-
Family Physician: Anita Causey
Chief Complaint
-
repeat falls
History of Present Illness
Patient is a 83-year-old male with past medical history significant for HFpEF, Parkinson's Disease, DM II and BPH who presented to [facility] ED for evaluation of repeat falls and weakness. Patient reports falling in middle of night when he
got up to the bathroom and then again earlier today. He does confirm falling to right side both times and second one with head strike. He states he has right-side torso pain and mild pain to right side of head and neck. called EMS after second
fall r/t increased weakness and inability to get up. Patient reports that he has issues with balance and chronic falls r/t Parkinson's disease. He stated that yesterday he started with a cough, congestion, shortness of breath and increased weakness.
He denies any fever, chills, chest pain, vomiting, constipation, diarrhea or urinary symptoms.
Medical History
Past Medical History
Past Medical History: Reports Other
Additional Past Medical History:
Parkinson's Disease
ASCVD
Bradycardia/ Heart Block s/p PPM
Hypertension
DM-II
IBS
BPH / Chronic Urinary Retention
CKD III
Past Surgical History: Reports Other
Additional Past Surgical History:
PTCA with Stent (x 10)
Appendectomy
Cataracts
Hernia Repair
Social History
Tobacco: Non-smoker
Alcohol: Occasional
Drug: None
Family History
Family History: Not pertinent
Allergies / Home Medications
Allergies reflects when Allergies were last updated in [employer].
Home Medications with original date entered in [employer]
Allergy/Medication List:
Allergies
Allergy/AdvReac Type Severity Reaction Status Date / Time
chlordiazepoxide Allergy Rash Verified 10/02/24 13:07
[From Librium]
Home Medications
ascorbic acid (vitamin C) 500 mg tablet (Vitamin C) 500 mg PO DAILY Supplement 04/20/19
aspirin 81 mg tablet,delayed release 81 mg PO DAILY Blood Clot Prevention/Tx 04/20/19
famotidine 40 mg tablet 40 mg PO HS Gastrointestinal Issue 04/20/19
fenofibrate nanocrystallized 145 mg tablet 145 mg PO DAILY High Cholesterol 04/20/19
finasteride 5 mg tablet 5 mg PO DAILY Urinary Issue 04/20/19
gabapentin 300 mg capsule 300 mg PO TID Neurological Condition 04/20/19
metformin 500 mg tablet 500 mg PO BID@0800,1700 Infection 04/20/19
metoprolol tartrate 25 mg tablet 25 mg PO BID Blood Pressure 04/20/19
rosuvastatin 40 mg tablet 40 mg PO QPM High Cholesterol 04/20/19
trazodone 50 mg tablet 100 mg PO HS Sleep 04/20/19
acetaminophen 500 mg tablet (Tylenol Extra Strength) 500 mg PO HS PAIN/FEVER/ROSS 02/02/23
dapagliflozin propanediol 10 mg tablet (Farxiga) 10 mg PO DAILY Diabetes 02/02/23
dulaglutide 0.75 mg/0.5 mL subcutaneous pen injector (Trulicity) 0.75 mg SC WE Diabetes 02/02/23
glucosamine sulf dipot chlr,msm,chond 550 mg-C 30 mg-willem 1 mg capsule (Glucosamine Chondroitin) 1 cap PO BID Supplement ##0 02/02/23
carbidopa 25 mg-levodopa 100 mg tablet 1 tab PO HS parkinson 03/24/24
carbidopa 25 mg-levodopa 100 mg tablet 1.5 tab PO TID@0800,1200,1700 Parkinson 03/24/24
multivitamin 1 tab PO DAILY Supplement 03/24/24
acetaminophen 300 mg-codeine 30 mg tablet 1 tab PO Q8HPRN PRN mild pain 10/02/24
dicyclomine 10 mg capsule 10 mg PO BID 10/02/24
levocetirizine 5 mg tablet (Xyzal) 5 mg PO HS 10/02/24
omeprazole 20 mg tablet,delayed release 20 mg PO DAILY 10/02/24
sertraline 50 mg tablet 50 mg PO DAILY 10/02/24
tamsulosin 0.4 mg capsule (Flomax) 0.4 mg PO BID 10/02/24
Review of Systems
-
History Source: Patient
Constitutional: Reports No Symptoms
EENT: Reports No Symptoms
Respiratory: Reports Cough and Other (shortness of breath )
Cardiac: Reports No Symptoms
Abdomen/GI: Reports No Symptoms
: Reports No Symptoms
Musculoskeletal: Reports No Symptoms
Skin: Reports No Symptoms
Neurological: Reports Weakness
Endocrine: Reports No Symptoms
Hematologic/Lymphatic: Reports No Symptoms
Psych: Reports No Symptoms
Physical Exam
Vital Signs
Vital Signs
Temp Pulse Resp BP Pulse Ox
101.1 F H 76 16 151/56 91
10/02/24 15:28 10/02/24 15:19 10/02/24 15:19 10/02/24 15:18 10/02/24 15:19
Physical Exam
General: Well Developed, Well Nourished, No Apparent Distress and Conversant
HEENT: NormoCephalic, Moist mucous membranes, Atraumatic, Taft Conjunctivae, Nose Appears Normal and Ears Appear Normal
Respiratory: Clear and Decreased Breath Sounds
Cardiac: S1/S2 and Regular Rhythm; No Murmur, Rub or Gallop
Breast: Deferred by me
GI: Soft, Non Tender, Non Distended and Normal Bowel Sounds; No Organomegaly
Rectal: Deferred by Provider
Genito-urinary: Deferred by me
Musculoskeletal: No Clubbing, No Cyanosis and No Edema
Skin: Warm and IV/Catheter Site; No Rash
Neuro: Awake, Alert, AO x 3 and Nonfocal/grossly intact
Psych: Calm
Laboratory Results
-
10/02/24 15:27
10/02/24 15:27
Laboratory Results
Total Bilirubin 1.0 mg/dl (0.2-1.3) 10/02/24 15:27
AST 46 U/L (17-59) 10/02/24 15:27
ALT 15 U/L (0-50) 10/02/24 15:27
Alkaline Phosphatase 100 U/L (38-126) 10/02/24 15:27
Data Reviewed
-
Diagnostic Radiology: Report Reviewed by me (CXR/ribs: Suspicion for nondisplaced fractures of the right lateral 9th through 11th ribs.)
CT Scan: Report Reviewed by me (Head: No acute intracranial abnormality.; C-spine: No CT evidence for an acute osseous abnormality of the cervical spine.)
Medical Tests (Nuc Med, Echo, EKG etc): Report Reviewed by me (EKG; NORMAL SINUS RHYTHM LEFT AXIS DEVIATION INFERIOR INFARCT , AGE UNDETERMINED)
Impression/Plan
-
IMPRESSION/PLAN:
#generalized weakness/gait dysfunction/multiple falls
WBC 12.0
Covid: negative
Influenza A: positive
CXR/ribs: Suspicion for nondisplaced fractures of the right lateral 9th through 11th ribs.
Head CT: No acute intracranial abnormality.
C-spine CT: No CT evidence for an acute osseous abnormality of the cervical spine.
- admit to med/surg
- Tamiflu
- supportive care
- lidocaine patch for rib Fx
#Parkinson's Disease
- continue carbidopa-levodopa
#ASCVD
- continue aspirin, fenofibrate and rosuvastatin
#Bradycardia/ Heart Block
s/p PPM
#Hypertension
- continue metoprolol
#HFpEF
ECHO (): 1. Left ventricle: Normal size and function with an estimated ejection fraction of 50-55%. Mild concentric LVH. Stage II diastolic dysfunction
2. Right ventricle: Normal
3. Atria: Mild left atrial dilation
4. Mitral valve: Moderate or moderate-severe mitral regurgitation with eccentric regurgitant jet.
5. Aortic valve: The aortic valve leaflets are thickened and sclerotic. There is mild aortic insufficiency
6. Tricuspid valve: Mild tricuspid regurgitation with estimated pulmonary artery systolic pressures of 40-45 mmHg
7. When compared to the most recent echocardiogram from 02/02/2023 the severity of mitral regurgitation is now estimated moderate to moderate-severe with an eccentric anteriorly directed jet. On the prior
study the mitral regurgitation was graded as mild-moderate.
- daily weights
- continue aspirin, and dapagliflozin
#DM-II
- AccuCheck AC & HS
- SSI
- continue dapagliflozin
- hold metformin
- continue Trulicity at home
#IBS
- continue dicyclomine
#BPH / Chronic Urinary Retention
self cath at home TID
- continue finasteride and tamsulosin
- bladder scan straight cath protocol
#CKD III
BUN 26, Creat 1.3
- monitor BMP
Code status: Full code
DVT Prophylaxis: lovenox sq
--- NOTE | 2024-10-02 18:56 | W.PN.UPDATE ---
Update Note
Progress Note Update
This is an addendum to the H&P written by Ashanti So on 10/02/2024.� Patient seen and examined independently with BAG CHECKER.
83-year-old male past medical history of CAD status post stents, HFpEF, hypertension, hypercholesterolemia, Parkinson's disease, IBS, type 2 diabetes, chronic urinary retention and self catheterizes, BPH, presenting with presenting with falls and
generalized weakness.� With symptoms of shortness of breath, cough and congestion since yesterday and falls over the past 2 days with head injury.� He has right-sided rib pain.
Patient requiring 3 L oxygen.
Labs show leukocytosis.� Patient positive for influenza.
CT head, cervical spine negative.� Chest/rib x-ray showed nondisplaced fractures of the right lateral 9th-11th ribs.
Presentation consistent with ambulatory dysfunction/hypoxemia secondary to influenza infection.� Tamiflu started.� Lidocaine patch and Tylenol for rib fractures.� PT/OT.
--- NOTE | 2024-10-02 22:07 | PTCARENOTE ---
Pt arrived from ED, pulled over from Eddie [email or web address], 4Lnc, pt oriented to room and call de leon. called and updated. No new orders at this time.
[2024-10-02] MEDS: ZYRTEC 10 MG PO (22:36)
[2024-10-02] MEDS: NEURONTIN 300 MG PO (22:36)
[2024-10-02] MEDS: TAMIFLU 30 MG PO (22:36)
[2024-10-02] MEDS: MUCINEX 1200 MG PO (22:36)
[2024-10-02] MEDS: SINEMET 25-100 1 TABLET PO (22:36)
[2024-10-02] MEDS: LOPRESSOR 25 MG PO (22:38)
[2024-10-02] MEDS: DESYREL 100 MG PO (22:38)
[2024-10-02] MEDS: FLOMAX 0.4 MG PO (22:38)
[2024-10-02 23:09] LABS: Glucose - Point of Care 164 mg/dl (70-99)
--- NOTE | 2024-10-02 23:26 | PTCARENOTE ---
Accucheck this evening was 162, per evening protocol, no novolog given. Pt bladder scanned for greater than 614, pt straight cathed for 2300 with intermittent breaks. BS/SC protocol in place. Pt resting comfortably in bed at this time, expressing
slight relief from output but 'cannot usually feel when he is too full.'
[2024-10-03 05:52] VITALS: BMI 21.4
[2024-10-03 07:03] VITALS: BP 141/69
[2024-10-03] MEDS: SINEMET 25-100 1.5 TABLET PO ×3 (08:04→16:03)
[2024-10-03] MEDS: TAMIFLU 30 MG PO ×2 (08:04→20:48)
[2024-10-03] MEDS: FLOMAX 0.4 MG PO ×2 (08:05→20:48)
[2024-10-03] MEDS: PROSCAR 5 MG PO (08:05)
[2024-10-03] MEDS: PROTONIX 40 MG PO (08:05)
[2024-10-03] MEDS: MUCINEX 1200 MG PO ×2 (08:05→20:48)
[2024-10-03] MEDS: NEURONTIN 300 MG PO ×3 (08:05→22:25)
[2024-10-03] MEDS: LOPRESSOR 25 MG PO ×2 (08:05→20:51)
[2024-10-03] MEDS: ZOLOFT 50 MG PO (08:05)
[2024-10-03] MEDS: ASPIR LOW (ENTERIC COATED) 81 MG PO (08:05)
[2024-10-03] MEDS: FARXIGA 10 MG PO (08:05)
[2024-10-03] MEDS: TRICOR 145 MG PO (08:05)
[2024-10-03] MEDS: VITAMIN C 500 MG PO (08:05)
[2024-10-03] MEDS: THERAGRAN 1 TABLET PO (08:05)
[2024-10-03] MEDS: LIDOCAINE 4% PATCH 1 PATCH TOPICAL (08:06)
[2024-10-03] MEDS: BENTYL 10 MG PO ×2 (08:08→16:04)
[2024-10-03 08:13] LABS: Glucose - Point of Care 131 mg/dl (70-99)
[2024-10-03] MEDS: NOVOLOG FLEXPEN-LOW RESISTANCE SC (08:13)
[2024-10-03 09:13] LABS: Blood Urea Nitrogen 30 mg/dl (9-20); Calcium 8.7 mg/dl (8.4-10.2); Carbon Dioxide 29 mmol/L (22-30); Chloride 99 mmol/L (98-107); Estimated Creatinine Clearance 39 ml/min; Glucose 141 mg/dl (70-99); Potassium 4.5 mmol/L (3.5-5.1); Sodium 137 mmol/L (135-145); eGFR 59.26
[2024-10-03 09:16] VITALS: BP 133/61; PULSE 70; O2SAT 95; O2SAT 96
[2024-10-03] MEDS: TYLENOL 650 MG PO ×2 (10:09→20:56)
[2024-10-03 10:26] LABS: Glycohemoglobin (HgbA1c) 7.1 % (4.0-5.6)
[2024-10-03 10:30] LABS: Hematocrit 42.4 % (39.0-52.0); Hemoglobin 13.5 g/dL (13.0-18.0); Mean Corp Hgb Conc. 31.8 g/dL (33.0-37.0); Mean Corpuscular Hgb 29.7 pg (27.0-31.0); Mean Corpuscular Volume 93.2 fL (80.0-94.0); Platelet Count 189 10^3/uL (130-400); Red Blood Cell Count 4.55 10^6/uL (4.70-6.10); Red Cell Dist. Width 14.6 % (11.5-14.5); White Blood Cell Count 13.6 10^3/uL (4.8-10.8)
[2024-10-03] MEDS: TESSALON PERLES 100 MG PO ×3 (11:33→20:49)
[2024-10-03] MEDS: NOVOLOG FLEXPEN-LOW RESISTANCE 1 UNITS SC (12:30)
[2024-10-03 12:41] LABS: Glucose - Point of Care 177 mg/dl (70-99)
--- NOTE | 2024-10-03 12:45 | W.PN.HOSP.TC ---
Today's Communication/Plan
-
Continue current care
Assessment / Plan
Assessment / Plan
Gen-AAOx3, NAD
HEENT-NC, AT, anicteric, clear oral mm
Neck-supple
CV-reg, no M, +S1/S2
Lungs-clear B/L
Abd-soft, NT, ND
Ext-no edema
Musculoskeletal-no cyanosis, clubbing
Skin-warm and dry
Neuro-grossly non-focal
Psych-calm, cooperative
Acute hypoxic respiratory insufficiency -due to acute influenza infection. Oxygenation improving, now on 2 L. Chest x-ray without infiltrate.
Sepsis due to acute influenza A infection -continue Tamiflu at renal doses.
Acute traumatic nondisplaced rib fractures, right 9th through 11th -noted on chest x-ray. Suspect due to fall.
Hyponatremia -improved.
Parkinson's disease -contributed to his falls. Continue Sinemet.
CAD -stable.
Essential hypertension -stable.
Hyperlipidemia -on Crestor.
DM 2 without hyperglycemia -hemoglobin A1c 7.1%. Glucose 141 this morning. He is on Trulicity weekly, metformin 500 mg twice daily, Farxiga 10 mg daily. In the hospital he is on low resistance corrective aspart scale, Farxiga 10 mg daily.
CKD 3A -stable.
Chronic urinary retention -he self catheterizes. Continue tamsulosin. Continue bladder scan and straight cath protocol.
IBS
Permanent pacemaker
MARILYN
Full code
Ambulatory dysfunction with frequent falls -likely multifactorial etiology including Parkinson's disease. Consult PT/OT.
Dispo -recommend SNF on discharge. Patient agreeable. Case management aware.
Anticipated Discharge: > 48 hours
Subjective/Interval History
-
Date of Service: October 03, 2024
Patient seen and examined. Feeling better overall. No complaints.
Objective Data
-
Labs:
Laboratory Results
10/03/24
08:08
WBC 13.6 H
Hgb 13.5
Hct 42.4
Plt Count 189
Sodium 137
Potassium 4.5
Chloride 99
Carbon Dioxide 29
BUN 30 H
Creatinine 1.2
Glucose 141 H
Calcium 8.7
Vital Signs:
Vital Signs
Temp Pulse Resp BP Pulse Ox
99.6 F 85 18 141/69 99
10/03/24 07:03 10/03/24 08:05 10/03/24 07:03 10/03/24 08:05 10/03/24 07:03
I&O
10/02/24 10/03/24 10/04/24
06:59 06:59 06:59
Intake Total 60 / 60
Output Total 3370 / 3370
Balance -3310 / -3310
Review of Systems
-
History Source: Patient
All other systems: Reviewed and negative
--- NOTE | 2024-10-03 14:57 | CM ---
Initial assessment completed with pt's via phone.
Pt is an 83yr old male admitted with flu A and falls. Pt has hx Parkinson's
Per , pt and spouse live in 3rd floor condo with elevator to the floor and no steps.
Pt is indep with mobility and uses a walker. Per , she is present to aide with ADLs but that for the most part, pt is indep with ADLs as well.
Pt has been to [facility]. PT eval recommendation is SNF, though is not sure she feels pt needs placement. would like to request time to talk to her daughter, who is a physician, about placement, and recognizes he would need 3 night
stay for coverage.
PCP; Anita Causey
Pharm; Benedict[facility] Schafer
PLAN; TBD
[2024-10-03 15:07] VITALS: BP 115/49
[2024-10-03 16:11] LABS: Glucose - Point of Care 212 mg/dl (70-99)
[2024-10-03] MEDS: CRESTOR 40 MG PO (17:43)
[2024-10-03] MEDS: LOVENOX 40 MG SC (17:43)
[2024-10-03] MEDS: NOVOLOG FLEXPEN-LOW RESISTANCE 2 UNITS SC (17:44)
[2024-10-03] MEDS: SODIUM CHLORIDE 3% FOR INHALATION 1 VIAL INH (21:20)
[2024-10-03 21:41] LABS: Glucose - Point of Care 198 mg/dl (70-99)
[2024-10-03] MEDS: ZYRTEC 10 MG PO (22:25)
[2024-10-03] MEDS: SINEMET 25-100 1 TABLET PO (22:25)
[2024-10-03] MEDS: DESYREL 100 MG PO (22:25)
[2024-10-03] MEDS: PEPCID 20 MG PO (22:25)
[2024-10-03 23:03] VITALS: BP 145/60
[2024-10-04 06:00] VITALS: BMI 22.1
[2024-10-04 07:00] VITALS: BP 143/64
[2024-10-04 07:22] LABS: Glucose - Point of Care 156 mg/dl (70-99)
--- NOTE | 2024-10-04 08:21 | W.PN.HOSP.TC ---
Addendum entered and electronically signed by Nate Cheng DO 10/04/24 12:21:
Updated both and daughter on the phone regarding plan of care. All questions answered.
His daughter is an [employer]ERSONAL [employer] UNDERWRITER physician at [employer] [facility]. Her name is Vesna Boyle. [phone].
Please keep both and daughter updated.
Addendum entered and electronically signed by Nate Cheng DO 10/04/24 11:56:
Now with KRISTIAN. Could be from volume depletion given high BUN/creat ratio. IVF started.
Also, chronic urinary retention could be contributing to KRISTIAN. Place crane.
Bowel regimen for constipation.
Original Note:
Today's Communication/Plan
-
CBC, CMP
Blood cultures
Acapella
Incentive spirometer
Out of bed to chair
Assessment / Plan
Assessment / Plan
Gen-AAOx3, NAD
HEENT-NC, AT, anicteric, clear oral mm
Neck-supple
CV-reg, no M, +S1/S2
Lungs-clear B/L
Abd-soft, NT, ND
Ext-no edema
Musculoskeletal-no cyanosis, clubbing
Skin-warm and dry
Neuro-grossly non-focal
Psych-calm, cooperative
Acute hypoxic respiratory insufficiency -due to acute influenza infection. Oxygenation improving, now on room air. Chest x-ray without infiltrate.
Sepsis due to acute influenza A infection -continue Tamiflu at renal doses. Febrile this morning, check CBC, blood cultures.
Add Acapella, incentive spirometer. Increase dose of Tessalon. Continue Mucinex. Out of bed to chair. Discussed with nursing.
Acute traumatic nondisplaced rib fractures, right 9th through 11th -noted on chest x-ray. Suspect due to fall.
Hyponatremia -improved.
Parkinson's disease -contributed to his falls. Continue Sinemet.
CAD -stable.
Essential hypertension -stable.
Hyperlipidemia -on Crestor.
DM 2 without hyperglycemia -hemoglobin A1c 7.1%. Glucose 156 this morning. He is on Trulicity weekly, metformin 500 mg twice daily, Farxiga 10 mg daily. In the hospital he is on low resistance corrective aspart scale, Farxiga 10 mg daily.
CKD 3A -stable.
Chronic urinary retention -he self catheterizes twice daily at home. Recommend increasing to 3-4 times daily. Continue tamsulosin. Continue bladder scan and straight cath protocol.
IBS
Permanent pacemaker
MARILYN
Full code
Ambulatory dysfunction with frequent falls -likely multifactorial etiology including Parkinson's disease. Consult PT/OT.
Dispo -recommend SNF on discharge. Patient agreeable. Case management aware.
Anticipated Discharge: 24 - 48 hours
Subjective/Interval History
-
Date of Service: October 04, 2024
Patient seen and examined. Denies shortness of breath, complaining of cough, weakness.
Objective Data
-
Vital Signs:
Vital Signs
Temp Pulse Resp BP Pulse Ox
102.1 F H 77 16 143/64 97
10/04/24 07:00 10/04/24 07:00 10/04/24 07:00 10/04/24 07:00 10/04/24 07:00
I&O
10/03/24 10/04/24 10/05/24
06:59 06:59 06:59
Intake Total 60 / 60 1140 / 1140
Output Total 3370 / 3370 1600 / 1600
Balance -3310 / -3310 -460 / -460
Review of Systems
-
History Source: Patient
All other systems: Reviewed and negative
[2024-10-04] MEDS: TRICOR 145 MG PO (08:28)
[2024-10-04] MEDS: TAMIFLU 30 MG PO ×2 (08:28→20:20)
[2024-10-04] MEDS: FLOMAX 0.4 MG PO ×2 (08:28→20:20)
[2024-10-04] MEDS: BENTYL 10 MG PO ×2 (08:28→17:00)
[2024-10-04] MEDS: PROTONIX 40 MG PO (08:28)
[2024-10-04] MEDS: NEURONTIN 300 MG PO ×3 (08:28→22:00)
[2024-10-04] MEDS: ASPIR LOW (ENTERIC COATED) 81 MG PO (08:28)
[2024-10-04] MEDS: THERAGRAN 1 TABLET PO (08:29)
[2024-10-04] MEDS: MUCINEX 1200 MG PO ×2 (08:29→20:20)
[2024-10-04] MEDS: TESSALON PERLES 100 MG PO (08:29)
[2024-10-04] MEDS: VITAMIN C 500 MG PO (08:29)
[2024-10-04] MEDS: FARXIGA 10 MG PO (08:29)
[2024-10-04] MEDS: SINEMET 25-100 1.5 TABLET PO ×4 (08:29→21:59)
[2024-10-04] MEDS: ZOLOFT 50 MG PO (08:29)
[2024-10-04] MEDS: LIDOCAINE 4% PATCH 1 PATCH TOPICAL (08:30)
[2024-10-04] MEDS: LOPRESSOR 25 MG PO ×2 (08:30→20:20)
[2024-10-04] MEDS: NOVOLOG FLEXPEN-LOW RESISTANCE 1 UNITS SC ×2 (08:30→17:53)
[2024-10-04] MEDS: PROSCAR 5 MG PO (08:32)
[2024-10-04] MEDS: TYLENOL 650 MG PO ×3 (08:32→21:58)
[2024-10-04 11:12] LABS: % Basophils 0.4 % (0-2); % Eosinophils 0.3 % (0-6); % Immature Granulocytes 0.5 % (0-0.5); % Lymphocytes 8.4 % (20.5-51.1); % Monocytes 8.2 % (1.7-9.3); % Neutrophils 82.2 % (42.2-75.2); Absolute Immature Granulocytes 0.1 10^3/uL (0-0.05); Absolute Lymphocytes 0.8 10^3/uL (1.2-3.4); Absolute Monocytes 0.8 10^3/uL (0.1-0.6); Absolute Neutrophils 8.1 10^3/uL (1.4-6.5); Hematocrit 37.6 % (39.0-52.0); Mean Corp Hgb Conc. 31.9 g/dL (33.0-37.0); Mean Corpuscular Hgb 29.6 pg (27.0-31.0); Mean Corpuscular Volume 92.8 fL (80.0-94.0); Mean Platelet Volume 10.6 fL (7.4-10.4); Nucleated Red Blood Cells % 0 % (-); Platelet Count 173 10^3/uL (130-400); Red Blood Cell Count 4.05 10^6/uL (4.70-6.10); Red Cell Dist. Width 14.5 % (11.5-14.5); White Blood Cell Count 9.8 10^3/uL (4.8-10.8)
[2024-10-04 11:27] LABS: ALT (SGPT) < 10 U/L (0-50); AST (SGOT) 47 U/L (17-59); Alkaline Phosphatase 90 U/L (38-126); Blood Urea Nitrogen 41 mg/dl (9-20); Calcium 8.1 mg/dl (8.4-10.2); Carbon Dioxide 29 mmol/L (22-30); Chloride 96 mmol/L (98-107); Estimated Creatinine Clearance 35 ml/min; Glucose 263 mg/dl (70-99); Potassium 4.3 mmol/L (3.5-5.1); Sodium 130 mmol/L (135-145); Total Protein 4.9 g/dl (6.3-8.2); eGFR 49.25
[2024-10-04] MEDS: DULCOLAX 10 MG RECTAL (12:00)
[2024-10-04] MEDS: MIRALAX 17 GRAMS PO (12:00)
[2024-10-04] MEDS: NSS 1000 IV (12:01)
[2024-10-04] MEDS: NOVOLOG FLEXPEN-LOW RESISTANCE 2 UNITS SC (12:07)
[2024-10-04 12:08] LABS: Glucose - Point of Care 205 mg/dl (70-99)
[2024-10-04 15:30] VITALS: BP 107/48
[2024-10-04 17:15] LABS: Glucose - Point of Care 198 mg/dl (70-99)
[2024-10-04] MEDS: CRESTOR 40 MG PO (17:51)
[2024-10-04] MEDS: TESSALON PERLES 200 MG PO ×2 (17:52→22:00)
[2024-10-04] MEDS: LOVENOX 30 MG SC (17:54)
[2024-10-04] MEDS: DESYREL 100 MG PO (21:58)
[2024-10-04] MEDS: PEPCID 20 MG PO (21:58)
[2024-10-04] MEDS: ZYRTEC 10 MG PO (22:00)
[2024-10-04 22:01] LABS: Glucose - Point of Care 151 mg/dl (70-99)
[2024-10-04] MEDS: SINEMET 25-100 1 TABLET PO (22:14)
[2024-10-04 23:21] VITALS: BP 134/55
[2024-10-05 06:00] VITALS: BMI 21.5
[2024-10-05 07:39] VITALS: BP 132/58
[2024-10-05] MEDS: TAMIFLU 30 MG PO ×2 (08:31→20:05)
[2024-10-05] MEDS: NEURONTIN 300 MG PO ×3 (08:32→23:11)
[2024-10-05] MEDS: FARXIGA 10 MG PO (08:32)
[2024-10-05] MEDS: LOPRESSOR 25 MG PO (08:32)
[2024-10-05] MEDS: PROSCAR 5 MG PO (08:32)
[2024-10-05] MEDS: MUCINEX 1200 MG PO ×2 (08:32→20:05)
[2024-10-05] MEDS: LIDOCAINE 4% PATCH 1 PATCH TOPICAL (08:32)
[2024-10-05] MEDS: FLOMAX 0.4 MG PO ×2 (08:32→20:05)
[2024-10-05] MEDS: VITAMIN C 500 MG PO (08:32)
[2024-10-05] MEDS: PROTONIX 40 MG PO (08:32)
[2024-10-05] MEDS: TRICOR 145 MG PO (08:32)
[2024-10-05] MEDS: THERAGRAN 1 TABLET PO (08:33)
[2024-10-05] MEDS: ZOLOFT 50 MG PO (08:33)
[2024-10-05] MEDS: ASPIR LOW (ENTERIC COATED) 81 MG PO (08:33)
[2024-10-05] MEDS: MIRALAX 17 GRAMS PO (08:33)
[2024-10-05 08:35] LABS: Glucose - Point of Care 118 mg/dl (70-99)
[2024-10-05] MEDS: BENTYL 10 MG PO ×2 (08:35→15:29)
[2024-10-05] MEDS: NOVOLOG FLEXPEN-LOW RESISTANCE SC (08:35)
[2024-10-05 09:06] LABS: Blood Urea Nitrogen 40 mg/dl (9-20); Calcium 8.4 mg/dl (8.4-10.2); Carbon Dioxide 27 mmol/L (22-30); Chloride 100 mmol/L (98-107); Estimated Creatinine Clearance 43 ml/min; Glucose 128 mg/dl (70-99); Potassium 4.2 mmol/L (3.5-5.1); Sodium 136 mmol/L (135-145); eGFR > 60.00
[2024-10-05 09:40] VITALS: BP 130/83; PULSE 89; O2SAT 95
[2024-10-05] MEDS: TESSALON PERLES 200 MG PO ×2 (11:00→18:41)
[2024-10-05 12:08] LABS: Glucose - Point of Care 197 mg/dl (70-99)
[2024-10-05] MEDS: NOVOLOG FLEXPEN-LOW RESISTANCE 1 UNITS SC ×2 (12:09→17:11)
[2024-10-05] MEDS: SINEMET 25-100 1.5 TABLET PO ×2 (12:16→17:15)
--- NOTE | 2024-10-05 12:42 | W.PN.HOSP.TC ---
Today's Communication/Plan
-
monitor labs in AM
possible void trial in 24 hours
DC planning
Assessment / Plan
Assessment / Plan
Assessment:
Acute hypoxic respiratory insufficiency
- resolved, on room air
Sepsis POA (fever, tachycardia) due to acute influenza A infection
- continue Tamiflu, day 3/
- follow CBC, temps/fever curve
- supportive care with Mucinex/Tessalon. IS/Acapella
Acute traumatic nondisplaced rib fractures, right 9th through 11th noted on chest x-ray. Suspect due to fall.
KRISTIAN on CKD stage 3A
- obstructive and hypovolemic component
- s/p IVF
- Continue Meza
- monitor BMP
Hyponatremia -improved.
Parkinson's disease - contributed to his falls. Continue Sinemet.
Ambulatory dysfunction with frequent falls - likely multifactorial etiology including Parkinson's disease
- PT/OT - home/VN
CAD - stable.
Essential hypertension - stable.
Hyperlipidemia - Crestor.
DM 2 without hyperglycemia
- A1c is 7.1%
- continue Metformin/Farxiga
- SSI
Chronic urinary retention - he self catheterizes twice daily at home. Recommend increasing to 3-4 times daily. Continue tamsulosin. continue bladder scan and straight cath protocol. Meza placed 10/04/24
IBS
Permanent pacemaker
MARILYN
DVT ppx: Lovenox
Code: Full
Anticipated Discharge: 24 - 48 hours
Subjective/Interval History
-
Date of Service: October 05, 2024
resting comfortably, no complaints
Objective Data
-
Labs:
Laboratory Results
10/05/24
08:03
Sodium 136
Potassium 4.2
Chloride 100
Carbon Dioxide 27
BUN 40 H
Creatinine 1.1
Glucose 128 H
Calcium 8.4
Vital Signs:
Vital Signs
Temp Pulse Resp BP Pulse Ox
99.6 F 66 18 132/58 93
10/05/24 07:39 10/05/24 07:39 10/05/24 07:39 10/05/24 07:39 10/05/24 07:39
I&O
10/04/24 10/05/24 10/06/24
06:59 06:59 06:59
Intake Total 1140 / 1140 1280 / 1280
Output Total 1600 / 1600 2875 / 2875
Balance -460 / -460 -1595 / -1595
Physical Exam
-
General: No Apparent Distress
HEENT: Normocephalic and Atraumatic
Respiratory: Negative Wheezes
Cardiac: Regular Rhythm and S1/S2
GI: Soft and Nontender
Genito-urinary: Meza
Musculoskeletal: No Edema
Neuro: AO x 3
Hematologic / Lymphatic: No Lymphadenopathy
Psych: Calm
Data Reviewed
-
Total Time Spent with Patient (in minutes): 41
Labs: Labs Reviewed by me
--- NOTE | 2024-10-05 12:43 | CM ---
Met with patient at bedside.
Spoke with Mela
PT rec HH
Options reviewed - prefers [facility]
Notified [facility] liaison [facility] - referral entered in [facility]
PLAN: home with [facility] when medically stable
--- NOTE | 2024-10-05 13:14 | VNURNOTE ---
Home Health Liaison spoke with patient's spouse Mela to discuss [facility] nurse/therapy, visits, schedule and homebound status. She is agreeable and understands that visits at home will be 2-3 x per week to assess and teach medical management. Spouse is
aware that [facility] will contact them for start of care in 1-2 days after discharge from . [facility] referral completed in [facility].
[2024-10-05 15:15] VITALS: BP 122/63
[2024-10-05 16:26] VITALS: BP 122/63
[2024-10-05 17:10] LABS: Glucose - Point of Care 172 mg/dl (70-99)
[2024-10-05] MEDS: CRESTOR 40 MG PO (17:16)
[2024-10-05] MEDS: LOVENOX 30 MG SC (17:16)
[2024-10-05] MEDS: LOPRESSOR PO ×2 (20:05→21:44)
[2024-10-05] MEDS: TYLENOL 650 MG PO (20:05)
[2024-10-05 21:18] LABS: Glucose - Point of Care 181 mg/dl (70-99)
[2024-10-05] MEDS: ZYRTEC 10 MG PO (23:06)
[2024-10-05] MEDS: DESYREL 100 MG PO (23:11)
[2024-10-05] MEDS: PEPCID 20 MG PO (23:11)
[2024-10-05] MEDS: SINEMET 25-100 1 TABLET PO (23:11)
[2024-10-05 23:37] VITALS: BP 141/67
[2024-10-06] MEDS: MOTRIN 200 MG PO (00:43)
[2024-10-06 06:00] VITALS: BMI 21.2
[2024-10-06 07:05] VITALS: BP 102/66
[2024-10-06 07:58] LABS: Hematocrit 36.5 % (39.0-52.0); Hemoglobin 11.6 g/dL (13.0-18.0); Mean Corp Hgb Conc. 31.8 g/dL (33.0-37.0); Mean Corpuscular Hgb 29.1 pg (27.0-31.0); Mean Corpuscular Volume 91.7 fL (80.0-94.0); Mean Platelet Volume 10.9 fL (7.4-10.4); Platelet Count 174 10^3/uL (130-400); Red Blood Cell Count 3.98 10^6/uL (4.70-6.10); Red Cell Dist. Width 14.2 % (11.5-14.5); White Blood Cell Count 7.2 10^3/uL (4.8-10.8)
[2024-10-06 08:20] LABS: Blood Urea Nitrogen 39 mg/dl (9-20); Carbon Dioxide 27 mmol/L (22-30); Chloride 99 mmol/L (98-107); Estimated Creatinine Clearance 39 ml/min; Glucose 127 mg/dl (70-99); Sodium 135 mmol/L (135-145); eGFR 59.26
[2024-10-06 08:24] LABS: Glucose - Point of Care 131 mg/dl (70-99)
--- NOTE | 2024-10-06 10:07 | W.PN.HOSP.TC ---
Addendum entered and electronically signed by Faviola Zamudio MD 10/06/24 15:53:
Urine volume < 0.5 nL/kg/hour for six hours (KRISTIAN)
Addendum entered and electronically signed by Faviola Zamudio MD 10/06/24 10:53:
dc Meza today as patient self-cath dependant
continue Tamiflu
home/VN likely today
Original Note:
Today's Communication/Plan
-
void trial 10/07
continue Tamiflu day 4
Assessment / Plan
Assessment / Plan
Assessment:
Acute hypoxic respiratory insufficiency
- resolved, on room air
Sepsis POA (fever, tachycardia) due to acute influenza A infection
- continue Tamiflu, day 11/28
- follow CBC, temps/fever curve
- supportive care with Mucinex/Tessalon. IS/Acapella
Acute traumatic nondisplaced rib fractures, right 9th through 11th noted on chest x-ray. Suspect due to fall.
KRISTIAN on CKD stage 3a
- obstructive and hypovolemic component
- s/p IVF
- Continue Meza; void trial in 24 hours
- monitor BMP
Hyponatremia - improved.
Parkinson's disease - contributed to his falls. Continue Sinemet.
Ambulatory dysfunction with frequent falls - likely multifactorial etiology including Parkinson's disease
- PT/OT - home/VN
CAD - stable.
Essential hypertension - stable.
Hyperlipidemia - Crestor.
DM 2 without hyperglycemia
- A1c is 7.1%
- continue Metformin/Farxiga
- SSI
Chronic urinary retention - he self catheterizes twice daily at home. Recommend increasing to 3-4 times daily. Continue tamsulosin. continue bladder scan and straight cath protocol. Meaz placed 10/04/24
IBS
Permanent pacemaker
MARILYN
DVT ppx: Lovenox
Code: Full
Anticipated Discharge: Within 24 hours
Subjective/Interval History
-
Date of Service: October 06, 2024
no acute complaints
remains with Meza
Objective Data
-
Labs:
Laboratory Results
10/06/24
06:22
WBC 7.2
Hgb 11.6 L
Hct 36.5 L
Plt Count 174
Sodium 135
Potassium 4.0
Chloride 99
Carbon Dioxide 27
BUN 39 H
Creatinine 1.2
Glucose 127 H
Calcium 8.0 L
Vital Signs:
Vital Signs
Temp Pulse Resp BP Pulse Ox
97.5 F 66 16 102/66 96
10/06/24 07:05 10/06/24 07:05 10/06/24 07:05 10/06/24 07:05 10/06/24 07:05
I&O
10/05/24 10/06/24 10/07/24
06:59 06:59 06:59
Intake Total 1280 / 1280 1260 / 1260
Output Total 2875 / 2875 3050 / 3050
Balance -1595 / -1595 -1790 / -1790
Physical Exam
-
General: No Apparent Distress
HEENT: Normocephalic and Atraumatic
Respiratory: Negative Wheezes
Cardiac: Regular Rhythm and S1/S2
GI: Soft and Nontender
Genito-urinary: No Costovertebral Tender and Meza
Musculoskeletal: No Edema
Neuro: AO x 3
Hematologic / Lymphatic: No Lymphadenopathy
Psych: Calm
Data Reviewed
-
Total Time Spent with Patient (in minutes): 42
Labs: Labs Reviewed by me
[2024-10-06] MEDS: NOVOLOG FLEXPEN-LOW RESISTANCE SC (10:13)
[2024-10-06] MEDS: NEURONTIN 300 MG PO ×2 (10:14→15:05)
[2024-10-06] MEDS: BENTYL 10 MG PO ×2 (10:14→15:05)
[2024-10-06] MEDS: TESSALON PERLES 200 MG PO (10:14)
[2024-10-06] MEDS: TRICOR 145 MG PO (10:14)
[2024-10-06] MEDS: SINEMET 25-100 1.5 TABLET PO ×2 (10:14→13:08)
[2024-10-06] MEDS: PROTONIX 40 MG PO (10:16)
[2024-10-06] MEDS: PROSCAR 5 MG PO (10:16)
[2024-10-06] MEDS: ZOLOFT 50 MG PO (10:16)
[2024-10-06] MEDS: VITAMIN C 500 MG PO (10:16)
[2024-10-06] MEDS: LOPRESSOR 25 MG PO (10:17)
[2024-10-06] MEDS: FLOMAX 0.4 MG PO (10:17)
[2024-10-06] MEDS: TAMIFLU 30 MG PO (10:17)
[2024-10-06] MEDS: ASPIR LOW (ENTERIC COATED) 81 MG PO (10:17)
[2024-10-06] MEDS: THERAGRAN 1 TABLET PO (10:17)
[2024-10-06] MEDS: MUCINEX 1200 MG PO (10:17)
[2024-10-06] MEDS: FARXIGA 10 MG PO (10:17)
[2024-10-06] MEDS: MIRALAX PO (10:22)
[2024-10-06] MEDS: LIDOCAINE 4% PATCH 1 PATCH TOPICAL (10:22)
--- NOTE | 2024-10-06 11:00 | W.DS.TRANS ---
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
-
Discharge Instructions:
Discharge Diagnosis/Procedures influenza A, urinary retention briefly requiring
Meza
Diet 2 Gram Sodium,Low Cholesterol
Activity As tolerated
Bathing Restrictions None
Other Services VN
Instructions:
Stand-Alone Forms:
Changes to Home Medications: No
Discharge Medications:
DC Medications w/original date entered in [facility]
ascorbic acid (vitamin C) 500 mg tablet (Vitamin C) 500 mg PO DAILY Supplement 04/20/19
aspirin 81 mg tablet,delayed release 81 mg PO DAILY Blood Clot Prevention/Tx 04/20/19
famotidine 40 mg tablet 40 mg PO HS Gastrointestinal Issue 04/20/19
fenofibrate nanocrystallized 145 mg tablet 145 mg PO DAILY High Cholesterol 04/20/19
finasteride 5 mg tablet 5 mg PO DAILY Urinary Issue 04/20/19
gabapentin 300 mg capsule 300 mg PO TID Neurological Condition 04/20/19
metformin 500 mg tablet 500 mg PO BID@0800,1700 Infection 04/20/19
metoprolol tartrate 25 mg tablet 25 mg PO BID Blood Pressure 04/20/19
rosuvastatin 40 mg tablet 40 mg PO QPM High Cholesterol 04/20/19
trazodone 50 mg tablet 100 mg PO HS Sleep 04/20/19
acetaminophen 500 mg tablet (Tylenol Extra Strength) 500 mg PO HS PAIN/FEVER/ROSS 02/02/23
dapagliflozin propanediol 10 mg tablet (Farxiga) 10 mg PO DAILY Diabetes 02/02/23
dulaglutide 0.75 mg/0.5 mL subcutaneous pen injector (Trulicity) 0.75 mg SC WE Diabetes 02/02/23
glucosamine sulf dipot chlr,msm,chond 550 mg-C 30 mg-willem 1 mg capsule (Glucosamine Chondroitin) 1 cap PO BID Supplement ##0 02/02/23
carbidopa 25 mg-levodopa 100 mg tablet 1 tab PO HS parkinson 03/24/24
carbidopa 25 mg-levodopa 100 mg tablet 1.5 tab PO TID@0800,1200,1700 Parkinson 03/24/24
multivitamin 1 tab PO DAILY Supplement 03/24/24
acetaminophen 300 mg-codeine 30 mg tablet 1 tab PO Q8HPRN PRN mild pain 10/02/24
dicyclomine 10 mg capsule 10 mg PO BID Gastrointestinal Issue 10/02/24
levocetirizine 5 mg tablet (Xyzal) 5 mg PO HS Allergies 10/02/24
omeprazole 20 mg tablet,delayed release 20 mg PO DAILY Gastrointestinal Issue 10/02/24
sertraline 50 mg tablet 50 mg PO DAILY Depression 10/02/24
tamsulosin 0.4 mg capsule (Flomax) 0.4 mg PO BID Urinary Issue 10/02/24
benzonatate 100 mg capsule 200 mg (2 x 100 mg) PO TIDPRN PRN cough #20 caps 10/06/24
guaifenesin 600 mg tablet, extended release 12 hr 1,200 mg (2 x 600 mg) PO Q12 #20 tabs 10/06/24
lidocaine 4 % topical patch 1 patch topical DAILY #30 ea 10/06/24
oseltamivir 30 mg capsule 30 mg PO BID #3 caps 10/06/24
Home Medication Changes
Pending Results: No
Total time spent discharging patient (in min): 41
--- NOTE | 2024-10-06 11:14 | CM ---
Patient seen at bedside.
IMM explained & signed. In chart
Discharge today - notified [facility] lia[facility] accepted
PLAN: Home with [facility]
to transport
[2024-10-06 11:25] VITALS: BP 110/59
[2024-10-06 11:46] VITALS: BP 98/50; PULSE 60; O2SAT 93
[2024-10-06 12:25] LABS: Glucose - Point of Care 209 mg/dl (70-99)
[2024-10-06 13:04] VITALS: BP 114/59
[2024-10-06] MEDS: NOVOLOG FLEXPEN-LOW RESISTANCE 2 UNITS SC (13:08)
--- NOTE | 2024-10-06 14:44 | PN.CDI ---
CDI
- -
CDI:
Physician Documentation Request
Admit Date: 10/02/24 19:03
Dear Doctor Robb,
Patient admitted for the flu.
10/05 Hospitalist PN: 'KRISTIAN on CKD stage 3a
- obstructive and hypovolemic component'
Laboratory Tests
10/02/24 10/03/24 10/04/24 10/05/23
15:27 08:08 10:59 08:03
Creatinine 1.3 1.2 1.4 H 1.1
The purpose of this query is not to question medical judgement, but to ensure the accuracy of the conditions reported for your patient.
There is either a lack of clinical support for this condition in the current medical record, or there is a lack of recognized standard criteria to support the condition.
Criteria for KRISTIAN*
1 Increase in serum creatinine by > or = to 0.3 mg/dL (> or = to 26.5 micromol/L) within 48 hours, OR
2 Increase in serum creatinine to > or = to 1.5 times baseline, which is known or presumed to have occurred within 7 days, OR
3 Urine volume < 0.5 nL/kg/hour for six hours
The request is for one of the following:
- Additional documentation to support the condition. Indicate if this is in lieu of what may be considered standard criteria, and/or support why the standard criteria may not be present for this patient.
- A more appropriate diagnosis, reflecting the patient's condition
-KRISTIAN remains a known or suspected condition for this patient and is further supported by (include additional documentation in the medical record)
- KRISTIAN has been ruled out and a more appropriate diagnosis for this patient's condition is .
- Other (please specify)
- Unable to determine
Use of terms such as suspected, likely, concern for, or probable (associated with a specific diagnosis that is being evaluated, monitored, or treated as if it exists) are acceptable and can be coded in the inpatient setting, when documented at the
time of discharge.
Thank you,
Vanessa Taylor RN, BSN
CDI Specialist
Available via [place] text
Please use your independent medical judgment in providing your response.
[2024-10-06] MEDS: TYLENOL 650 MG PO (15:07)
--- NOTE | 2024-10-07 10:26 | CM ---
TC from patients spouse asking if p atient could go to skilled rehab.
CM reviewed therapy recommendations and spouse just thought he would be stronger, still remains weak.
Souse agreeable for PT/RN norm tomorrow and ORI zheng.
Spouse instructed to call back with any more concerns.
== END 2024-10-06 15:42 | disposition home health service (06) | DRG 872 ==
LOC: 2 NORTH 19:03
PROVIDERS: Emergency Medicine; Hospitalist; Nurse Practitioner Family; ADMITTING PHYSICIAN Hospitalist; ATTENDING PHYSICIAN Internal Medicine; EMERGENCY PHYSICIAN Emergency Medicine; FAMILY PHYSICIAN Internal Medicine
DX: A41.89 Other specified sepsis (principal); S22.41XA Multiple fractures of ribs, right side, initial encounter for closed fracture; N17.9 Acute kidney failure, unspecified; I13.0 Hypertensive heart and chronic kidney disease with heart failure and stage 1 through stage 4 chronic kidney disease, or unspecified chronic kidney disease; I50.30 Unspecified diastolic (congestive) heart failure; E87.1 Hypo-osmolality and hyponatremia; N13.8 Other obstructive and reflux uropathy; J10.1 Influenza due to other identified influenza virus with other respiratory manifestations; N40.1 Benign prostatic hyperplasia with lower urinary tract symptoms; R09.02 Hypoxemia; N18.31 Chronic kidney disease, stage 3a; E11.22 Type 2 diabetes mellitus with diabetic chronic kidney disease; W19.XXXA Unspecified fall, initial encounter; G20.A1 Parkinson's disease without dyskinesia, without mention of fluctuations; R29.6 Repeated falls; I25.10 Atherosclerotic heart disease of native coronary artery without angina pectoris; E78.00 Pure hypercholesterolemia, unspecified; K58.8 Other irritable bowel syndrome; G47.33 Obstructive sleep apnea (adult) (pediatric); Z95.0 Presence of cardiac pacemaker; Z95.5 Presence of coronary angioplasty implant and graft; I45.9 Conduction disorder, unspecified; Z79.82 Long term (current) use of aspirin; Z79.84 Long term (current) use of oral hypoglycemic drugs; Z11.52 Encounter for screening for COVID-19
CPT/HCPCS: 70450; 71046; 71100; 72125; 80048; 80053; 82962; 83036; 85025; 85027; 87040; 87502; 87811; 93005; 94640; 96374; 96375; 97110; 97163; 97167; 97530; 99285

== ENCOUNTER 2024-10-14 20:50 | Inpatient (IN) | payer MEDICARE, BC, SELFPAY ==
[2024-10-14] VITALS (7 sets, daily range): BP systolic 104–164; BP diastolic 53–75; BMI 22.1; BMI 23.0
[2024-10-14 13:56] LABS: % Basophils 0.4 % (0-2); % Eosinophils 0.7 % (0-6); % Lymphocytes 10.2 % (20.5-51.1); % Monocytes 6.7 % (1.7-9.3); Absolute Basophils 0.1 10^3/uL (0-0.2); Absolute Eosinophils 0.1 10^3/uL (0-0.7); Absolute Immature Granulocytes 0.2 10^3/uL (0-0.05); Absolute Lymphocytes 1.8 10^3/uL (1.2-3.4); Absolute Monocytes 1.2 10^3/uL (0.1-0.6); Absolute Neutrophils 14.5 10^3/uL (1.4-6.5); Hemoglobin 12.6 g/dL (13.0-18.0); Mean Corp Hgb Conc. 31.5 g/dL (33.0-37.0); Mean Corpuscular Hgb 29.4 pg (27.0-31.0); Mean Corpuscular Volume 93.5 fL (80.0-94.0); Mean Platelet Volume 9.5 fL (7.4-10.4); Nucleated Red Blood Cells % 0 % (-); Platelet Count 353 10^3/uL (130-400); Red Blood Cell Count 4.28 10^6/uL (4.70-6.10); Red Cell Dist. Width 14.1 % (11.5-14.5); White Blood Cell Count 17.9 10^3/uL (4.8-10.8)
[2024-10-14 14:10] LABS: ALT (SGPT) < 10 U/L (0-50); AST (SGOT) 34 U/L (17-59); Albumin 2.9 g/dl (3.5-5.0); Alkaline Phosphatase 150 U/L (38-126); Blood Urea Nitrogen 29 mg/dl (9-20); Calcium 8.5 mg/dl (8.4-10.2); Carbon Dioxide 29 mmol/L (22-30); Chloride 101 mmol/L (98-107); Glucose 234 mg/dl (70-99); Potassium 4.5 mmol/L (3.5-5.1); Sodium 134 mmol/L (135-145); Total Bilirubin 0.7 mg/dl (0.2-1.3); eGFR 59.26
--- NOTE | 2024-10-14 16:57 | ED.GENMED ---
History of Present Illness
General
Chief Complaint: Weakness
Source: patient
Exam Limitations: none
Time Seen by Provider: 10/14/24 16:21
Nursing documentation reviewed up to this point in time: agreed with
History of Present Illness
History of Present Illness:
Patient is an 83-year-old male with recent admission for influenza A and urinary retention October 02 to October 06 presents today for evaluation. Patient reports he has a decreased appetite fatigue and sometimes he reports a hard time taking a
deep breath he did have a fever last night and complains of congested cough still.
I spoke with Pt's Mela over the phone. She does report pt had a temp of 101 . He has been 'getting weaker and weaker.'
reports pt normally walks with a walker but has been weaker than nml. + fatigue and decreased appetite.
Past History
Past History
ED Past Medical History: Arrthythmia (bradycardia), CAD, HTN, Hypercholesterolemia, NIDDM, MD and Other (IBS, Sleep apnea, Parkinson's)
ED Past Surgical History: Appendectomy, Cardiac (pacemaker, Cardiac stents X 10), Tonsilectomy and Other (Hernia, hydrocele)
Social History
Tobacco: Non-smoker
Alcohol: Occasional
Drug: None
Personal:
Living: with family
Review of Systems
Review of Systems
Allergies reviewed?: Yes
Other source history: family
All Other Systems: ROS reviewed and negative except as documented in HPI and ROS
Constitutional: Reports fever, fatigue and chills
EENT: Reports no symptoms
Respiratory: Reports cough; Denies trouble breathing
Cardiac: Reports no symptoms
ABD/GI: Reports no symptoms
: Reports no symptoms
Musculoskeletal: Reports no symptoms
Skin: Reports no symptoms
Neurological: Reports no symptoms
Endocrine: Reports no symptoms
Psychiatric: Reports no symptoms
Phy Exam
General Physical Exam
General Presentation: no apparent distress
General age: appears stated age
General Skin: warm and dry
General Habitus: elderly
General Mental: alert
General Hydration: appears well hydrated
Cardiovascular Exam
Cardiovascular Exam: regular rate/rhythm, no murmur and normal peripheral pulses
Pulmonary Exam
Pulmonary Exam: lungs clear, no respiratory distress and other (+ cough )
Neurological Exam
Neurological Exam: alert and oriented x3
Musculoskeletal Exam
Musculoskeletal Exam: full ROM
Skin Exam
Skin Exam: normal color and warm/dry
Psychiatric Exam
Psychiatric Exam: normal mood/affect
Course
Orders/Labs/Results
Orders:
Orders
10/14/24 13:37
CMP [Comprehensive Metabolic Panel] Urgent
Complete Blood Count/With Diff Urgent
10/14/24 Dinner
1800 calorie (15 carb) Diabetic
At Your Request: Limited Participation
Does patient need a safe tray?: No
10/14/24 17:12
Chest [CR Chest - 2 Views ] Urgent
Comment:
Reason For Exam: fever
10/14/24 18:11
Lactic Acid Urgent
10/14/24 19:04
Azithromycin 500 mg/250 ml [Zithromax Infusion] 500 mg in 250 ml IV NOW
CefTRIAXone [Rocephin] 1,000 mg IV NOW STA
10/14/24 19:08
Straight cath- Treatment ONCE
10/14/24 19:12
0.9% Sodium Chloride 500 ml [Nss] 500 ml IV BOLUS
10/14/24 19:14
Electrocardiogram (*1) Stat
Reason for Study: Other
Other Reason for Exam: chest pain
EKG- Treatment ONCE
10/14/24 20:05
UA Reflex to Culture [Urinalysis Reflex To Culture] Urgent
Date Specimen was Collected: 10/14/24
Time Specimen was Collected: 20:04
10/14/24 20:21
Admit/Transfer Patient As Directed
Co-Sign Provider:
Level of Care: Inpatient admission
Assign to:: Medical/Surgical
Physician / Group: hospitalist
Diagnosis: pneumonia
Reason for Hospitalization: pneumonia
Expected length of stay greater than two midnights?: Yes
ELOS- Estimated Length of Stay in days: 2
I certify the patient meets the requirements for IP care: Yes
10/14/24 20:22
PRN Pain Medication Management As Directed
May give lesser potent ordered pain med per pt: Yes
preference::
Protocol:: Medication orders for pain may be administered in a
manner that supports deferring to patient preference
when the pt is:
- Requesting an ordered lesser potent pain medication.
Least to most potent pain medications are defined
as: acetaminophen < NSAID < tramadol < opioids
(morphine, oxycodone, hydromorphone).
- Requesting a lesser dose of the same medication IF
ORDERED.
- Requesting a less intrusive route of administration
if both routes are prescribed by the provider (PO <
IV).
10/14/24 20:23
Code Status As Directed
Resuscitation Status: Full Code
10/14/24 22:41
Acetaminophen [Tylenol] 650 mg PO Q4HPRN PRN
Benzonatate [Tessalon Perles] 200 mg PO TIDPRN PRN
Carbidopa/Levodopa [Sinemet 25-100] 1 tablet PO HS
Gabapentin [Neurontin] 300 mg PO TID
Ipratropium/Albuterol Sulfate [Duoneb] 3 ml INH R Q4HPRN PRN
Trazodone [Desyrel] 100 mg PO HS
10/14/24 22:41
MRSA Screen Routine
MADELYN Source: Nose
Specimen Description:
Respiratory Culture/Gram Stain Urgent
MADELYN Source: Sputum
Specimen Description:
Activity As Directed
Activity Level: Out of Bed-Early Mobility
Intake/ Output As Directed
Frequency: Per unit guidelines
Straight Cath As Directed
Frequency: q12h
Vital Signs As Directed
Frequency: Per unit guidelines
Weight As Directed
Frequency: Once
Comment: on admission
O2 Therapy [RESP] Routine
Titrate/Wean O2 to maintain O2 sat greater than (%): 93
Special Instructions: Wean as tolerated
Pulse Ox/cont/shift [RESP] Routine
Quantity: 1
Special Instructions: notify provider if SPO2 < 91%
Pt Eval And Treat Routine
Activity Level: With Assistance
DX Deep Vein Thrombosis Video Routine
10/14/24 23:00
Cetirizine HCl [Zyrtec] 5 mg PO HS
Famotidine [Pepcid] 20 mg PO HS
10/15/24 00:00
Heparin 5,000 units SC Q8
10/15/24 06:00
Basic Metabolic Panel IN AM
Complete Blood Count/No Diff IN AM
10/15/24 08:00
Aspirin Low Dose EC [Aspir Low (Enteric Coated)] 81 mg PO DAILY
Carbidopa/Levodopa [Sinemet 25-100] 1.5 tablet PO TID@0800,1200,1700
Dapagliflozin [Farxiga] 10 mg PO DAILY
Dicyclomine [Bentyl] 10 mg PO BID
Fenofibrate 145 [Tricor] 145 mg PO DAILY
Finasteride [Proscar] 5 mg PO DAILY
METFORMIN HCl [Glucophage] 500 mg PO BID@0800,1700
Metoprolol [Lopressor] 25 mg PO BID
Pantoprazole [Protonix] 40 mg PO DAILY
Sertraline HCl [Zoloft] 50 mg PO DAILY
Tamsulosin [Flomax] 0.4 mg PO BID
10/15/24 18:00
Rosuvastatin Calcium [Crestor] 40 mg PO QPM
10/15/24 20:00
Azithromycin 500 mg/250 ml [Zithromax Infusion] 500 mg in 250 ml IV Q24H
CefTRIAXone [Rocephin] 1,000 mg IV Q24H
Abnormal Lab Results
10/14/24 10/14/24
13:37 20:05
WBC 17.9 H 10^3/uL
(4.8-10.8)
RBC 4.28 L 10^6/uL
(4.70-6.10)
Hgb 12.6 L g/dL
(13.0-18.0)
MCHC 31.5 L g/dL
(33.0-37.0)
Abs Immat Gran (auto) 0.2 H 10^3/uL
(0-0.05)
Absolute Neuts (auto) 14.5 H 10^3/uL
(1.4-6.5)
Absolute Monos (auto) 1.2 H 10^3/uL
(0.1-0.6)
Immature Gran % 1.0 H %
(0-0.5)
Neutrophils % 81.0 H %
(42.2-75.2)
Lymphocytes % 10.2 L %
(20.5-51.1)
Sodium 134 L mmol/L
(135-145)
BUN 29 H mg/dl
(9-20)
Glucose 234 H mg/dl
(70-99)
Alkaline Phosphatase 150 H U/L
(38-126)
Total Protein 5.0 L g/dl
(6.3-8.2)
Albumin 2.9 L g/dl
(3.5-5.0)
Urine Glucose 4+ A
(Negative)
10/14/24 13:37
10/14/24 13:37
Vital Signs
Initial and Last Documented VS:
Initial Vital Signs
Temp Pulse Resp BP Pulse Ox
98.1 F 70 20 104/57 92
10/14/24 13:29 10/14/24 13:29 10/14/24 13:29 10/14/24 13:29 10/14/24 13:29
Last Documented Vital Signs
Temp Pulse Resp BP Pulse Ox
98.8 F 90 22 161/75 95
10/14/24 23:02 10/14/24 23:02 10/14/24 23:02 10/14/24 23:02 10/14/24 23:02
Power Distribution Engineer consulted with Physician
Power Distribution Engineer consulted with physician?: Yes
Name of Physician Consulted: DR Correia
MDM/Problems Addressed
Differential Diagnosis Includes:
Not limited to dehydration, pneumonia
MDM/Problems Addressed:
Patient is a 83-year-old male that was recently here for flu discharged , however as per has gotten persistently weaker and started with a temperature last night of 101. Patient had decreased appetite. He denies any shortness of
breath he does complain of cough. He normally walks with walker but is not been walking because he is weak
On x-ray there is a question of pneumonia in the right base with fever and weakness and elevated white count will require mission. As this is likely a continuum as discussed ED physician will initially order Rocephin and Zithromax. In review of
previous admission patient also incidentally had acute traumatic nondisplaced rib fractures of ribs 9 through 11 related to a fall that was found on previous admission. He does self cath will check urine. labs reviewed as documented white count is
elevated at 17,000 BUN is elevated 29, normal creatinine normal sodium, normal lactic
*Radiology
Radiology exam reviewed: radiology read reviewed
*Critical Care Note
Total Time (30-74mins, 75-104mins- exclusive of procedures): Not Applicable
Data Reviewed
Review of Other/Old Records Reveals: Labs, Radiology Studies and Discharge Summary
Source: patient and significant other
ED Attending Note
-
Portions of this chart may have been created with voice recognition software.� Occasional wrong word or��sound alike� substitutions may have occurred due to the inherent limitations of voice recognition software.
Discharge Plan
Departure
Patient Disposition: Admit
Date of Disposition: 10/14/24
Time of Disposition: 19:10
Admit to: Med/Surg
Admit to doctor: hospitalist
Presentation/result/management discussed w/ accepting MD/DO: Hospitalist
Patient with high blood pressure during this ER visit?: Yes
Condition: Fair
Covid-19: Not Applicable
Discharge Problem:
Pneumonia
Interventions
Interventions:
*Risk Screen - Suicide Last Done: 10/14/24 13:32
*Neglect/Abuse Screening Last Done: 10/14/24 16:56
*ED COVID-19 Vaccine History Last Done: 10/14/24 16:35
*Nursing Disposition Last Done: 10/14/24 22:46
ED- Cardiac Assessment Last Done: 10/14/24 18:21
ED- Neurological Assessment Last Done: 10/14/24 18:21
ED- Pulmonary Assessment Last Done: 10/14/24 18:21
Discharge Date and Time
Discharge Date/Time: 10/14/24 22:48
[2024-10-14 18:29] LABS: Lactic Acid 1.3 mmol/L (0.7-2.0)
[2024-10-14] MEDS: ROCEPHIN 1000 MG IV (19:25)
[2024-10-14] MEDS: ZITHROMAX INFUSION 250 IV (19:39)
[2024-10-14] MEDS: NSS 500 IV (19:43)
--- NOTE | 2024-10-14 20:06 | HPS.HSE ---
Family Physician
-
Family Physician: Anita Causey
Chief Complaint
-
Weakness and shortness of breath
History of Present Illness
This is a 83-year-old with past medical history of CAD status post multiple stents, [id number] diabetes, hypertension, Parkinson disease, aortic stenosis not requiring valve replacement, BPH requiring intermittent straight caths twice
daily was recently admitted here with influenza and discharged about 8 days ago presents to the emergency department with worsening weakness and shortness of breath.
Patient received a complete course of Tamiflu while in the hospital. He said he felt better and stronger at time of discharge. However about 3 to 4 days later he started having worsening weakness. He reported fever to 101 degrees at home
yesterday. He reports ongoing productive cough which is productive of yellowish to greenish phlegm. He reports difficulty catching his breath. Denies any chest pain. Denies any increased lower extremity edema. He denies any known sick contacts.
Patient denies diarrhea or vomiting. He denies any aspiration episodes.
In the emergency department he was afebrile at 98.4, blood pressure 130/90 with a pulse of 87 he was satting 94% on room air. Chest x-ray shows a right lower lobe infiltrate, stable cardiomegaly. He had a leukocytosis to 17,000 on, hemoglobin and
platelets were normal. Electrolytes BUN/creatinine were at his baseline with a baseline creatinine of 1.2.
Medical History
Past Medical History
Past Medical History: Reports Other
Additional Past Medical History:
Parkinson's Disease
ASCVD
Bradycardia/ Heart Block s/p PPM
Hypertension
DM-II
IBS
BPH / Chronic Urinary Retention
CKD III
Past Surgical History: Reports Other
Additional Past Surgical History:
PTCA with Stent (x 10)
Appendectomy
Cataracts
Hernia Repair
Social History
Tobacco: Non-smoker
Alcohol: Occasional
Drug: None
Personal:
Living: With Family
Employment: Retired
Family History
Family History: Not pertinent
Allergies / Home Medications
Allergies reflects when Allergies were last updated in [employer].
Home Medications with original date entered in [employer]
Allergy/Medication List:
Allergies
Allergy/AdvReac Type Severity Reaction Status Date / Time
chlordiazepoxide Allergy Rash Verified 10/14/24 13:32
[From Librium]
Home Medications
ascorbic acid (vitamin C) 500 mg tablet (Vitamin C) 500 mg PO DAILY Supplement 04/20/19
aspirin 81 mg tablet,delayed release 81 mg PO DAILY Blood Clot Prevention/Tx 04/20/19
famotidine 40 mg tablet 40 mg PO HS Gastrointestinal Issue 04/20/19
fenofibrate nanocrystallized 145 mg tablet 145 mg PO DAILY High Cholesterol 04/20/19
finasteride 5 mg tablet 5 mg PO DAILY Urinary Issue 04/20/19
gabapentin 300 mg capsule 300 mg PO TID Neurological Condition 04/20/19
metformin 500 mg tablet 500 mg PO BID@0800,1700 Infection 04/20/19
metoprolol tartrate 25 mg tablet 25 mg PO BID Blood Pressure 04/20/19
rosuvastatin 40 mg tablet 40 mg PO QPM High Cholesterol 04/20/19
acetaminophen 500 mg tablet (Tylenol Extra Strength) 500 mg PO HS PAIN/FEVER/ROSS 02/02/23
dapagliflozin propanediol 10 mg tablet (Farxiga) 10 mg PO DAILY Diabetes 02/02/23
glucosamine sulf dipot chlr,msm,chond 550 mg-C 30 mg-willem 1 mg capsule (Glucosamine Chondroitin) 1 cap PO BID Supplement ##0 02/02/23
carbidopa 25 mg-levodopa 100 mg tablet 1 tab PO HS parkinson 03/24/24
carbidopa 25 mg-levodopa 100 mg tablet 1.5 tab PO TID@0800,1200,1700 Parkinson 03/24/24
acetaminophen 300 mg-codeine 30 mg tablet 1 tab PO Q8HPRN PRN mild pain 10/02/24
dicyclomine 10 mg capsule 10 mg PO BID Gastrointestinal Issue 10/02/24
levocetirizine 5 mg tablet (Xyzal) 5 mg PO HS Allergies 10/02/24
omeprazole 20 mg tablet,delayed release 20 mg PO DAILY Gastrointestinal Issue 10/02/24
sertraline 50 mg tablet 50 mg PO DAILY Depression 10/02/24
tamsulosin 0.4 mg capsule (Flomax) 0.4 mg PO BID Urinary Issue 10/02/24
benzonatate 100 mg capsule 200 mg (2 x 100 mg) PO TIDPRN PRN cough #20 caps 10/06/24
dulaglutide 1.5 mg/0.5 mL subcutaneous pen injector (Trulicity) 1.5 mg SC WE 10/14/24
lidocaine 4 % topical patch 1 patch topical DAILYPRN PRN mild pain 10/14/24
therapeutic multivitamin 1 tab PO DAILY 10/14/24
trazodone 100 mg tablet 100 mg PO HS 10/14/24
Review of Systems
-
History Source: Patient
Constitutional: Reports Fatigue
EENT: Reports Runny Nose
Respiratory: Reports Cough and Trouble Breathing
Cardiac: Reports No Symptoms
Abdomen/GI: Reports No Symptoms
: Reports No Symptoms
Musculoskeletal: Reports No Symptoms
Skin: Reports No Symptoms
Endocrine: Reports No Symptoms
Hematologic/Lymphatic: Reports No Symptoms
Psych: Reports No Symptoms
Physical Exam
Vital Signs
Vital Signs
Temp Pulse Resp BP Pulse Ox
98.4 F 87 19 130/53 94
10/14/24 16:00 10/14/24 18:30 10/14/24 18:30 10/14/24 17:00 10/14/24 18:30
Physical Exam
General: Comfortable and Good Appetite; No Respiratory Distress
HEENT: NormoCephalic, Anicteric, Moist mucous membranes, Atraumatic, PERRLA, [place] Conjunctivae, Nose Appears Normal and Neck Nontender; No Oxygen
Respiratory: Crackles
Cardiac: S1/S2 and Regular Rhythm
Breast: Deferred by me
GI: Soft, Non Distended and Normal Bowel Sounds
Rectal: Deferred by Provider
Genito-urinary: Clear Urine
Musculoskeletal: No Clubbing, No Cyanosis and Edema, Left Lower Extremity (Trace )
Skin: Warm
Neuro: AO x 3 and Nonfocal/grossly intact
Hematologic/Lymphatic: No Lymphadenopathy
Psych: Calm
Laboratory Results
-
10/14/24 13:37
10/14/24 13:37
Laboratory Results
Lactic Acid 1.3 mmol/L (0.7-2.0) 10/14/24 18:11
Total Bilirubin 0.7 mg/dl (0.2-1.3) 10/14/24 13:37
AST 34 U/L (17-59) 10/14/24 13:37
ALT < 10 U/L (0-50) 10/14/24 13:37
Alkaline Phosphatase 150 U/L (38-126) H 10/14/24 13:37
Data Reviewed
-
Diagnostic Radiology: Image Personally Visualized and interpreted and Report Reviewed by me
Lab Data: Labs Reviewed by me
Old Records: Reviewed
Impression/Plan
-
IMPRESSION:
83-year-old with multiple comorbidities who is coming in with weakness ongoing cough, fevers at home and shortness of breath. Has a right lower lobe infiltrate. Patient was recently admitted diagnosed and treated for influenza. Picture is
consistent with postviral pneumonia. He is hemodynamically stable, he is not on supplemental oxygen and has normal mental status at this time. He appears to have pneumonia without sepsis.
PLAN:
1. Pneumonia - HD stable, no O2 requirements. Negative prior cultures
- admit to med/surg
- blood cultures
- u/a, urine cultures pending
- continue ceftriaxone/azithromycin
- check mrsa swab
- supportive measures for pna
- given 1 L NS in ED, monitor
- incentive spirometry
2. DM II
- continue metformin 500 bid
- insulin sliding scale
3. BPH
- straight cath bid
- continue tamsulosin and finesteride
4. HTN - stable
- metoprolol 25 bid
DV PPX - heparin sq
Code status - Full Code. No prolonged artificial support.
[2024-10-14 20:17] LABS: Urine Albumin Negative (Neg - Trace); Urine Bilirubin Negative (Negative); Urine Character Clear (Clear); Urine Color Yellow; Urine Glucose 4+ (Negative); Urine Ketone Negative (Negative); Urine Leukocyte Negative (Negative); Urine Nitrite Negative (Negative); Urine Occult Blood Negative (Negative); Urine Urobilinogen Negative (Neg - 1+)
[2024-10-14 22:09] LABS: COVID-19 Antigen Negative (Negative)
[2024-10-14] MEDS: TESSALON PERLES 200 MG PO (23:23)
[2024-10-14] MEDS: SINEMET 25-100 1 TABLET PO (23:24)
[2024-10-14] MEDS: TYLENOL 650 MG PO (23:24)
[2024-10-14] MEDS: PEPCID 20 MG PO (23:24)
[2024-10-14] MEDS: ZYRTEC 5 MG PO (23:24)
[2024-10-14] MEDS: NEURONTIN 300 MG PO (23:24)
[2024-10-14] MEDS: DESYREL 100 MG PO (23:24)
[2024-10-14] MEDS: HEPARIN 5000 UNITS SC (23:25)
[2024-10-15] MEDS: LIDOCAINE 4% PATCH 1 PATCH TOPICAL (00:58)
--- NOTE | 2024-10-15 01:12 | SUR.OPER ---
pt is aaox3, reports pain left ribs d/t coughing and recent rib fractures. pt was recently here d/t falls- bed alarm plug in. pt oriented to room w/ call de leon in reach.
-administered Tylenol w/ no effective. s/w GENERAL PRODUCTION MANAGER Christiana Carter - provided lidocaine patch. applied.
pt normally straight caths self at home. pt abdomen distended. straight cath for 950ml yellow urine. pt states he usually straight caths after breakfast.
[2024-10-15 06:55] LABS: Hematocrit 37.6 % (39.0-52.0); Hemoglobin 12.2 g/dL (13.0-18.0); Mean Corp Hgb Conc. 32.4 g/dL (33.0-37.0); Mean Corpuscular Hgb 29.5 pg (27.0-31.0); Mean Platelet Volume 9.6 fL (7.4-10.4); Platelet Count 330 10^3/uL (130-400); Red Blood Cell Count 4.13 10^6/uL (4.70-6.10); White Blood Cell Count 13.9 10^3/uL (4.8-10.8)
[2024-10-15 07:38] LABS: Blood Urea Nitrogen 28 mg/dl (9-20); Calcium 8.4 mg/dl (8.4-10.2); Carbon Dioxide 27 mmol/L (22-30); Chloride 102 mmol/L (98-107); Estimated Creatinine Clearance 45 ml/min; Glucose 129 mg/dl (70-99); Potassium 4.3 mmol/L (3.5-5.1); Sodium 137 mmol/L (135-145); eGFR > 60.00
[2024-10-15 07:46] VITALS: BP 163/74
[2024-10-15 08:06] LABS: Glucose - Point of Care 141 mg/dl (70-99)
--- NOTE | 2024-10-15 08:26 | VNURNOTE ---
Chart reviewed. Patient is current with [facility] nursing, CONSTRUCTION TECH, PT. Will continue to follow hospital course and DC plans.
[2024-10-15] MEDS: PROTONIX 40 MG PO (09:21)
[2024-10-15] MEDS: GLUCOPHAGE 500 MG PO ×2 (09:21→17:16)
[2024-10-15] MEDS: PROSCAR 5 MG PO (09:22)
[2024-10-15] MEDS: NEURONTIN 300 MG PO ×3 (09:22→22:36)
[2024-10-15] MEDS: BENTYL 10 MG PO ×2 (09:22→20:37)
[2024-10-15] MEDS: ZOLOFT 50 MG PO (09:23)
[2024-10-15] MEDS: FLOMAX 0.4 MG PO ×2 (09:23→20:37)
[2024-10-15] MEDS: ASPIR LOW (ENTERIC COATED) 81 MG PO (09:24)
[2024-10-15] MEDS: LOPRESSOR 25 MG PO ×2 (09:24→20:53)
[2024-10-15] MEDS: FARXIGA 10 MG PO (09:24)
[2024-10-15] MEDS: SINEMET 25-100 1.5 TABLET PO ×3 (09:24→17:16)
[2024-10-15] MEDS: HEPARIN 5000 UNITS SC ×3 (09:24→23:07)
[2024-10-15] MEDS: TRICOR 48 MG PO (09:30)
[2024-10-15 09:59] VITALS: BP 161/72; O2SAT 96
--- NOTE | 2024-10-15 10:09 | W.PN.HOSP.TC ---
Today's Communication/Plan
-
Check sputum culture
MRSA screen
Acapella, incentive spirometer
Urinary antigens
PT/OT
Assessment / Plan
Assessment / Plan
Gen-AAOx3, NAD
HEENT-NC, AT, anicteric, clear oral mm
Neck-supple
CV-reg, no M, +S1/S2
Lungs-decreased breath sounds bilaterally
Abd-soft, NT, ND
Ext-no edema
Musculoskeletal-no cyanosis, clubbing
Skin-warm and dry
Neuro-grossly non-focal
Psych-calm, cooperative
Post influenza pneumonia -hemodynamically stable. Check sputum culture. Leukocytosis improving. Afebrile. Not hypoxic. Chest x-ray with right lower lobe infiltrate, atelectasis versus pneumonia.
Currently on empiric ceftriaxone, azithromycin.
Check urinary antigens. MRSA screen.
Acapella, incentive spirometer.
Hyponatremia -resolved.
Recent influenza A infection - Diagnosed October 02, completed Tamiflu.
Nondisplaced right lateral rib fractures, through 11 -continue symptomatic treatment.
Essential hypertension -recheck blood pressure after meds.
DM2 with hyperglycemia -on metformin, dulaglutide, Farxiga at home.
Hyperlipidemia -rosuvastatin.
CAD -stable.
IBS
MARILYN
CKD 3A - stable.
Parkinson's disease - continue Sinemet.
Permanent pacemaker -for bradycardia, heart block.
BPH/chronic urinary retention -self catheterizes twice daily at home.
Full code
Ambulatory dysfunction - PT/OT
Anticipated Discharge: Within 24 hours
Subjective/Interval History
-
Date of Service: October 15, 2024
Patient seen and examined. Complaining of weakness. Denies shortness of breath. Complaining of cough. Complaining of rib pain related to breathing.
Objective Data
-
Labs:
Laboratory Results
10/15/24
06:00
WBC 13.9 H
Hgb 12.2 L
Hct 37.6 L
Plt Count 330
Sodium 137
Potassium 4.3
Chloride 102
Carbon Dioxide 27
BUN 28 H
Creatinine 1.0
Glucose 129 H
Calcium 8.4
Vital Signs:
Vital Signs
Temp Pulse Resp BP Pulse Ox
98.4 F 90 22 163/74 96
10/15/24 07:46 10/15/24 09:24 10/15/24 07:46 10/15/24 09:24 10/15/24 07:46
I&O
10/14/24 10/15/24 10/16/24
06:59 06:59 06:59
Intake Total 0 / 0
Output Total 950 / 950
Balance -950 / -950
Review of Systems
-
History Source: Patient
All other systems: Reviewed and negative
[2024-10-15 11:09] VITALS: BMI 23.0
[2024-10-15 12:22] LABS: Glucose - Point of Care 225 mg/dl (70-99)
[2024-10-15] MEDS: NOVOLOG FLEXPEN-LOW RESISTANCE 300 UNITS SC (13:03)
--- NOTE | 2024-10-15 15:31 | CM ---
Alert awake oriented patient who lives with his Mela who lives in a condo home with 1 step to enter and elevators. He is assisted in all activities of daily living.He was offered VN he requested [facility] resumption. .His will drive him home.
He uses walker .
[facility] current / [facility] history
Pharmacy [facility]
PCP DR Causey
PLAN Home resumption of [facility]
[2024-10-15 15:50] VITALS: BP 114/83
[2024-10-15 16:37] LABS: Glucose - Point of Care 227 mg/dl (70-99)
[2024-10-15] MEDS: NOVOLOG FLEXPEN-LOW RESISTANCE 2 UNITS SC (16:57)
[2024-10-15] MEDS: CRESTOR 40 MG PO (18:16)
[2024-10-15] MEDS: ZITHROMAX INFUSION 250 IV (20:37)
[2024-10-15] MEDS: STERILE WATER FOR INJECTION 10 ML IV (20:38)
[2024-10-15] MEDS: ROCEPHIN 1000 MG IV (20:38)
[2024-10-15 21:23] LABS: Glucose - Point of Care 178 mg/dl (70-99)
[2024-10-15] MEDS: ZYRTEC 5 MG PO (22:36)
[2024-10-15] MEDS: PEPCID 20 MG PO (22:36)
[2024-10-15] MEDS: DESYREL 100 MG PO (22:36)
[2024-10-15] MEDS: SINEMET 25-100 1 TABLET PO (22:38)
[2024-10-15 23:23] VITALS: BP 121/66
[2024-10-16] MEDS: LIDOCAINE 4% PATCH 1 PATCH TOPICAL (03:31)
[2024-10-16 06:27] LABS: % Basophils 0.6 % (0-2); % Eosinophils 2.3 % (0-6); % Immature Granulocytes 1.2 % (0-0.5); % Lymphocytes 17.1 % (20.5-51.1); % Monocytes 6.2 % (1.7-9.3); % Neutrophils 72.6 % (42.2-75.2); Absolute Basophils 0.1 10^3/uL (0-0.2); Absolute Eosinophils 0.3 10^3/uL (0-0.7); Absolute Immature Granulocytes 0.2 10^3/uL (0-0.05); Absolute Lymphocytes 2.2 10^3/uL (1.2-3.4); Absolute Monocytes 0.8 10^3/uL (0.1-0.6); Absolute Neutrophils 9.1 10^3/uL (1.4-6.5); Hematocrit 40.3 % (39.0-52.0); Hemoglobin 12.5 g/dL (13.0-18.0); Mean Corpuscular Hgb 29.1 pg (27.0-31.0); Mean Corpuscular Volume 93.9 fL (80.0-94.0); Mean Platelet Volume 9.5 fL (7.4-10.4); Nucleated Red Blood Cells % 0 % (-); Platelet Count 350 10^3/uL (130-400); Red Blood Cell Count 4.29 10^6/uL (4.70-6.10); White Blood Cell Count 12.6 10^3/uL (4.8-10.8)
[2024-10-16 08:04] LABS: Glucose - Point of Care 165 mg/dl (70-99)
[2024-10-16 08:31] VITALS: BP 139/67
[2024-10-16] MEDS: ASPIR LOW (ENTERIC COATED) 81 MG PO (09:31)
[2024-10-16] MEDS: SINEMET 25-100 1.5 TABLET PO ×3 (09:31→16:31)
[2024-10-16] MEDS: NEURONTIN 300 MG PO ×3 (09:32→21:30)
[2024-10-16] MEDS: LOPRESSOR 25 MG PO ×2 (09:32→21:31)
[2024-10-16] MEDS: FARXIGA 10 MG PO (09:32)
[2024-10-16] MEDS: GLUCOPHAGE 500 MG PO ×2 (09:32→16:31)
[2024-10-16] MEDS: ZOLOFT 50 MG PO (09:32)
[2024-10-16] MEDS: PROTONIX 40 MG PO (09:32)
[2024-10-16] MEDS: FLOMAX 0.4 MG PO ×2 (09:33→21:30)
[2024-10-16] MEDS: BENTYL 10 MG PO ×2 (09:33→21:31)
[2024-10-16] MEDS: HEPARIN 5000 UNITS SC ×2 (09:33→16:32)
[2024-10-16] MEDS: NOVOLOG FLEXPEN-LOW RESISTANCE 1 UNITS SC (09:37)
[2024-10-16] MEDS: TRICOR 48 MG PO (09:38)
[2024-10-16] MEDS: PROSCAR 5 MG PO (09:40)
[2024-10-16 12:05] LABS: Glucose - Point of Care 213 mg/dl (70-99)
--- NOTE | 2024-10-16 12:19 | W.PN.HOSP.TC ---
Today's Communication/Plan
-
discharge planning
Assessment / Plan
Assessment / Plan
Gen-AAOx3, NAD
HEENT-NC, AT, anicteric, clear oral mm
Neck-supple
CV-reg, no M, +S1/S2
Lungs-decreased breath sounds bilaterally
Abd-soft, NT, ND
Ext-no edema
Musculoskeletal-no cyanosis, clubbing
Skin-warm and dry
Neuro-grossly non-focal
Psych-calm, cooperative
Post influenza pneumonia -hemodynamically stable. Leukocytosis improving. Afebrile. Not hypoxic. Chest x-ray with right lower lobe infiltrate, atelectasis versus pneumonia.
Currently on empiric ceftriaxone, azithromycin.
Urinary antigens negative. MRSA screen negative. Sputum culture usual resp lisbeth.
Acapella, incentive spirometer.
Hyponatremia -resolved.
Recent influenza A infection - Diagnosed October 02, completed Tamiflu.
Nondisplaced right lateral rib fractures, through 11 -continue symptomatic treatment.
Essential hypertension -stable.
DM2 with hyperglycemia -on metformin, dulaglutide, Farxiga at home. Glucose 165 this am. HgbA1c 7.1% (10/03/24).
Hyperlipidemia -rosuvastatin.
CAD -stable.
IBS
MARILYN
CKD 3A - stable.
Parkinson's disease - continue Sinemet.
Permanent pacemaker -for bradycardia, heart block.
BPH/chronic urinary retention -self catheterizes twice daily at home.
Full code
Ambulatory dysfunction - PT/OT recommends home.
Dispo - home vs SNF. I asked case management to speak with today. prefers SNF short term. Med stable for discharge.
Anticipated Discharge: Within 24 hours
Subjective/Interval History
-
Date of Service: October 16, 2024
Patient seen/examined, feeling better. Did not sleep well last night however. No complaints other than fatigue.
Objective Data
-
Labs:
Laboratory Results
10/16/24
05:48
WBC 12.6 H
Hgb 12.5 L
Hct 40.3
Plt Count 350
Vital Signs:
Vital Signs
Temp Pulse Resp BP Pulse Ox
98.5 F 68 16 139/67 94
10/16/24 08:31 10/16/24 09:32 10/16/24 08:31 10/16/24 09:32 10/16/24 08:31
I&O
10/15/24 10/16/24 10/17/24
06:59 06:59 06:59
Intake Total 0 / 0 840 / 840
Output Total 950 / 950 2500 / 2500 1050 / 1050
Balance -950 / -950 -1660 / -1660 -1050 / -1050
Review of Systems
-
History Source: Patient
All other systems: Reviewed and negative
[2024-10-16] MEDS: NOVOLOG FLEXPEN-LOW RESISTANCE 2 UNITS SC ×2 (12:30→16:33)
[2024-10-16 15:20] VITALS: BP 109/50
[2024-10-16 15:50] VITALS: BP 109/50; PULSE 62; O2SAT 94
[2024-10-16 16:31] LABS: Glucose - Point of Care 249 mg/dl (70-99)
--- NOTE | 2024-10-16 16:47 | CM ---
PT indicates VN at dc.
[facility] set up and accepted as resumption.
Spoke with pt and Mela.
[place] said she thought he needed SNF.
As per PT pt qualifies for VN .
[place] said she can drive him home at dc.
PLAN Home with VN
[2024-10-16] MEDS: CRESTOR 40 MG PO (17:42)
[2024-10-16] MEDS: ZITHROMAX INFUSION 250 IV (21:29)
[2024-10-16] MEDS: ZYRTEC 5 MG PO (21:30)
[2024-10-16] MEDS: SINEMET 25-100 1 TABLET PO (21:30)
[2024-10-16] MEDS: DESYREL 100 MG PO (21:30)
[2024-10-16] MEDS: ROCEPHIN 1000 MG IV (21:31)
[2024-10-16] MEDS: PEPCID 20 MG PO (21:31)
[2024-10-16] MEDS: STERILE WATER FOR INJECTION 10 ML IV (21:31)
[2024-10-16 21:49] LABS: Glucose - Point of Care 280 mg/dl (70-99)
[2024-10-16 23:49] VITALS: BP 121/56
[2024-10-17] MEDS: HEPARIN SC ×2 (00:35→10:20)
[2024-10-17 07:39] VITALS: BP 149/66
[2024-10-17 08:08] LABS: Glucose - Point of Care 171 mg/dl (70-99)
--- NOTE | 2024-10-17 08:27 | W.PN.HOSP.TC ---
Addendum entered and electronically signed by Nate Cheng DO 10/17/24 08:37:
I called this morning and gave her an update and discharge plans. Recommend close follow-up with PCP next week. All questions answered.
Original Note:
Today's Communication/Plan
-
Discharge
Assessment / Plan
Assessment / Plan
Gen-AAOx3, NAD
HEENT-NC, AT, anicteric, clear oral mm
Neck-supple
CV-reg, no M, +S1/S2
Lungs-decreased breath sounds bilaterally
Abd-soft, NT, ND
Ext-no edema
Musculoskeletal-no cyanosis, clubbing
Skin-warm and dry
Neuro-grossly non-focal
Psych-calm, cooperative
Post influenza pneumonia -hemodynamically stable. Leukocytosis improving. Afebrile. Not hypoxic. Not requiring oxygen. Chest x-ray with right lower lobe infiltrate, atelectasis versus pneumonia.
Currently on empiric ceftriaxone, azithromycin. Will change to oral antibiotics today and discharge.
Urinary antigens negative. MRSA screen negative. Sputum culture usual resp lisbeth.
Acapella, incentive spirometer. Encouraged patient to use these devices even on discharge to help with cough and his difficulty with deep breathing.
Hyponatremia -resolved.
Recent influenza A infection - Diagnosed October 02, completed Tamiflu.
Nondisplaced right lateral rib fractures, through -continue symptomatic treatment, incentive spirometry, Acapella.
Essential hypertension -stable.
DM2 with hyperglycemia -on metformin, dulaglutide, Farxiga at home. Glucose 171 this am. HgbA1c 7.1% (10/03/24).
Hyperlipidemia -rosuvastatin.
CAD -stable.
IBS
MARILYN
CKD 3A - stable.
Parkinson's disease - continue Sinemet.
Permanent pacemaker -for bradycardia, heart block.
BPH/chronic urinary retention -self catheterizes twice daily at home.
Full code
Ambulatory dysfunction - PT/OT recommends home.
Dispo -medically stable for discharge home today with VN. Case management aware. Updated yesterday. Follow-up with PCP next week.
32 minutes spent in discharge process.
Anticipated Discharge: Today
Subjective/Interval History
-
Date of Service: October 17, 2024
Patient seen and examined. Slept well. Denies shortness of breath. Complaining of cough, difficulty taking a deep breath.
Objective Data
-
Vital Signs:
Vital Signs
Temp Pulse Resp BP Pulse Ox
98.2 F 63 18 121/56 96
10/16/24 23:49 10/16/24 23:49 10/16/24 23:49 10/16/24 23:49 10/16/24 23:49
I&O
10/16/24 10/17/24 10/18/24
06:59 06:59 06:59
Intake Total 840 / 840 656 / 656
Output Total 2500 / 2500 2100 / 2100
Balance -1660 / -1660 -1444 / -1444
Review of Systems
-
History Source: Patient
All other systems: Reviewed and negative
--- NOTE | 2024-10-17 08:34 | W.DS.TRANS ---
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
-
Discharge Instructions:
Sleep Apnea Risk Intermediate
Discharge Diagnosis/Procedures Community-acquired pneumonia
Diet Diabetic, Carb Controlled
Activity As tolerated
Driving Restrictions As prior to admission
Bathing Restrictions None
Instructions:
Stand-Alone Forms:
Changes to Home Medications: Yes
Discharge Medications:
DC Medications w/original date entered in [employer]
ascorbic acid (vitamin C) 500 mg tablet (Vitamin C) 500 mg PO DAILY Supplement 04/20/19
aspirin 81 mg tablet,delayed release 81 mg PO DAILY Blood Clot Prevention/Tx 04/20/19
famotidine 40 mg tablet 40 mg PO HS Gastrointestinal Issue 04/20/19
finasteride 5 mg tablet 5 mg PO DAILY Urinary Issue 04/20/19
gabapentin 300 mg capsule 300 mg PO TID Neurological Condition 04/20/19
metformin 500 mg tablet 500 mg PO BID@0800,1700 Infection 04/20/19
metoprolol tartrate 25 mg tablet 25 mg PO BID Blood Pressure 04/20/19
rosuvastatin 40 mg tablet 40 mg PO QPM High Cholesterol 04/20/19
acetaminophen 500 mg tablet (Tylenol Extra Strength) 500 mg PO HS PAIN/FEVER/ROSS 02/02/23
dapagliflozin propanediol 10 mg tablet (Farxiga) 10 mg PO DAILY Diabetes 02/02/23
glucosamine sulf dipot chlr,msm,chond 550 mg-C 30 mg-willem 1 mg capsule (Glucosamine Chondroitin) 1 cap PO BID Supplement ##0 02/02/23
carbidopa 25 mg-levodopa 100 mg tablet 1 tab PO HS parkinson 03/24/24
carbidopa 25 mg-levodopa 100 mg tablet 1.5 tab PO TID@0800,1200,1700 Parkinson 03/24/24
acetaminophen 300 mg-codeine 30 mg tablet 1 tab PO Q8HPRN PRN mild pain 10/02/24
dicyclomine 10 mg capsule 10 mg PO BID Gastrointestinal Issue 10/02/24
levocetirizine 5 mg tablet (Xyzal) 5 mg PO HS Allergies 10/02/24
omeprazole 20 mg tablet,delayed release 20 mg PO DAILY Gastrointestinal Issue 10/02/24
sertraline 50 mg tablet 50 mg PO DAILY Depression 10/02/24
tamsulosin 0.4 mg capsule (Flomax) 0.4 mg PO BID Urinary Issue 10/02/24
benzonatate 100 mg capsule 200 mg (2 x 100 mg) PO TIDPRN PRN cough #20 caps 10/06/24
dulaglutide 1.5 mg/0.5 mL subcutaneous pen injector (Trulicity) 1.5 mg SC WE 10/14/24
lidocaine 4 % topical patch 1 patch topical DAILYPRN PRN mild pain 10/14/24
therapeutic multivitamin 1 tab PO DAILY Supplement 10/14/24
trazodone 100 mg tablet 100 mg PO HS Mental Health/Anxiety 10/14/24
amoxicillin 875 mg-potassium clavulanate 125 mg tablet 1 tab PO BID #8 tabs 10/17/24
fenofibrate nanocrystallized 48 mg tablet 48 mg PO DAILY #30 tabs 10/17/24
Home Medication Changes
Fenofibrate dose reduced to 48 mg daily.
Pending Results: No
--- NOTE | 2024-10-17 09:07 | CM ---
Addendum entered by Evelia Montanez 10/17/24 09:10:
Resumption of care with [facility]
Original Note:
Patient seen at bedside.
PT rec HH
Current with [facility]
Not[facility] discharge
IMM explained & signed. In chart
PLAN: home with [facility]
to transport
[2024-10-17] MEDS: NOVOLOG FLEXPEN-LOW RESISTANCE 1 UNITS SC (10:15)
[2024-10-17] MEDS: GLUCOPHAGE 500 MG PO (10:16)
[2024-10-17] MEDS: BENTYL 10 MG PO (10:16)
[2024-10-17] MEDS: ZOLOFT 50 MG PO (10:17)
[2024-10-17] MEDS: ASPIR LOW (ENTERIC COATED) 81 MG PO (10:17)
[2024-10-17] MEDS: FLOMAX 0.4 MG PO (10:18)
[2024-10-17] MEDS: SINEMET 25-100 1.5 TABLET PO ×2 (10:18→13:20)
[2024-10-17] MEDS: TESSALON PERLES 200 MG PO (10:19)
[2024-10-17] MEDS: PROTONIX 40 MG PO (10:19)
[2024-10-17] MEDS: PROSCAR 5 MG PO (10:19)
[2024-10-17] MEDS: NEURONTIN 300 MG PO (10:19)
[2024-10-17] MEDS: LOPRESSOR 25 MG PO (10:20)
[2024-10-17] MEDS: FARXIGA 10 MG PO (10:20)
[2024-10-17] MEDS: TRICOR 48 MG PO (10:20)
--- NOTE | 2024-10-17 10:29 | PTCARENOTE ---
pt aox3, denies sob, n/v, has left sided abd pain that pt believes is from a previous fall. for dc today
--- NOTE | 2024-10-17 10:30 | PTCARENOTE ---
straight cath for 1000ml yellow urine
[2024-10-17 11:37] LABS: Glucose - Point of Care 314 mg/dl (70-99)
[2024-10-17] MEDS: TYLENOL 650 MG PO (11:42)
[2024-10-17] MEDS: NOVOLOG FLEXPEN-LOW RESISTANCE 4 UNITS SC (12:05)
[2024-10-17 15:36] VITALS: BP 109/54
== END 2024-10-17 15:53 | disposition home health service (06) | DRG 194 ==
LOC: 4 EAST ACU 20:50
PROVIDERS: Emergency Medicine; Nurse Practitioner; ADMITTING PHYSICIAN Internal Medicine; ATTENDING PHYSICIAN Hospitalist; EMERGENCY PHYSICIAN Emergency Medicine; FAMILY PHYSICIAN Internal Medicine
DX: J18.9 Pneumonia, unspecified organism (principal); E87.1 Hypo-osmolality and hyponatremia; S22.41XA Multiple fractures of ribs, right side, initial encounter for closed fracture; G20.A1 Parkinson's disease without dyskinesia, without mention of fluctuations; I12.9 Hypertensive chronic kidney disease with stage 1 through stage 4 chronic kidney disease, or unspecified chronic kidney disease; E11.22 Type 2 diabetes mellitus with diabetic chronic kidney disease; E11.65 Type 2 diabetes mellitus with hyperglycemia; G47.33 Obstructive sleep apnea (adult) (pediatric); N18.31 Chronic kidney disease, stage 3a; Z79.82 Long term (current) use of aspirin; I25.10 Atherosclerotic heart disease of native coronary artery without angina pectoris; K58.8 Other irritable bowel syndrome; W19.XXXA Unspecified fall, initial encounter
CPT/HCPCS: 71046; 80048; 80053; 81003; 82962; 83605; 85025; 85027; 87070; 87205; 87449; 87502; 87811; 87899; 93005; 96365; 96375; 97116; 97162; 97166; 97530; 99285

== ENCOUNTER 2024-12-02 00:42 | Emergency (ER) | payer MEDICARE, BC, SELFPAY ==
[2024-12-02 00:59] VITALS: BP 145/63; BMI 22.5
--- NOTE | 2024-12-02 01:08 | ED.GENMED ---
History of Present Illness
General
Chief Complaint: Fall
Source: patient and ambulance crew
Time Seen by Provider: 12/02/24 00:53
Nursing documentation reviewed up to this point in time: agreed with
History of Present Illness
History of Present Illness:
Pleasant 83-year-old male presents to the emergency department after falling from a standing position. He states that he has Parkinson's and he tripped while trying to clean. He hit the back of his head. He denies loss of consciousness. He is
not on any blood thinners.
Past History
Past History
ED Past Medical History: Arrthythmia (bradycardia), CAD, HTN, Hypercholesterolemia, NIDDM, [place] and Other (IBS, Sleep apnea, Parkinson's)
ED Past Surgical History: Appendectomy, Cardiac (pacemaker, Cardiac stents X 10), Tonsilectomy and Other (Hernia, hydrocele)
Social History
Tobacco: Non-smoker
Alcohol: Occasional
Drug: None
Personal:
Living: with family
Review of Systems
Review of Systems
Allergies reviewed?: Yes
All Other Systems: ROS reviewed and negative except as documented in HPI and ROS
Constitutional: Reports no symptoms
EENT: Reports no symptoms
Respiratory: Reports no symptoms
Cardiac: Reports no symptoms
ABD/GI: Reports no symptoms
: Reports no symptoms
Musculoskeletal: Reports no symptoms
Skin: Reports no symptoms
Neurological: Denies dizzy, headache, weakness or numbness
Endocrine: Reports no symptoms
Hematologic/Lymphatic: Reports no symptoms
Psychiatric: Reports anxiety
Phy Exam
General Physical Exam
General Presentation: well appearing and mild distress
General Skin: warm and dry
General Habitus: normal
General Mental: alert
General Hydration: appears well hydrated
ENT Exam
ENT Exam: EOMI, pharynx normal, neck supple and normocephalic
Eye Exam
Eye Exam: PERRL, cornea clear and conjunctiva normal
Cardiovascular Exam
Cardiovascular Exam: regular rate/rhythm, no edema, no murmur and normal peripheral pulses
Pulmonary Exam
Pulmonary Exam: lungs clear
Respiratory Effort: agonal
Gastrointestinal Exam
Gastrointestinal Exam: normal bowel sounds, non tender, soft, no organomegaly, no pulsatile mass and non distended
Neurological Exam
Neurological Exam: alert, oriented x3, no motor deficits and speech normal
Musculoskeletal Exam
Musculoskeletal Exam: full ROM and no edema
Skin Exam
Skin Exam: normal color, warm/dry, no rash and no petechia
Psychiatric Exam
Psychiatric Exam: normal mood/affect
Course
Orders/Labs/Results
Orders:
Orders
12/02/24 01:03
CT Cervical Spine W/o Iv Contr Urgent
Comment:
Reason For Exam: fall
CT Head W/o Iv Contrast Urgent
Comment:
Reason For Exam: fall
Vital Signs
Initial and Last Documented VS:
Initial Vital Signs
Temp Pulse Resp BP Pulse Ox
97.8 F 65 14 145/63 100
12/02/24 00:59 12/02/24 00:59 12/02/24 00:59 12/02/24 00:59 12/02/24 00:59
Last Documented Vital Signs
Temp Pulse Resp BP Pulse Ox
97.8 F 65 14 145/63 100
12/02/24 00:59 12/02/24 00:59 12/02/24 00:59 12/02/24 00:59 12/02/24 00:59
Procedures
Laceration Closure
Posterior Scalp:
Status of Wound: clean
Size of Wound in cm: 4
Description of Wound Edges: sharp
Preparation: cleaned with soap & water
Skin Closure Material: skin daniela
Number of sutures: 8
*Critical Care Note
Total Time (30-74mins, 75-104mins- exclusive of procedures): Not Applicable
Update Note
Update Note:
CT HEAD AND CERVICAL
IMPRESSION:
HEAD:
No acute hemorrhage, herniation, or hydrocephalus.
No calvarial fracture.
The visualized paranasal sinuses and mastoid air cells are clear.
CERVICAL:
No acute fracture or traumatic malalignment. Unchanged right loss of the T1 and T2 vertebral bodies.
No significant prevertebral edema.
Multilevel degenerative changes of the cervical spine. If there are persistent neurologic symptoms, consider MRI for further characterization.
ED Attending Note
-
Portions of this chart may have been created with voice recognition software.� Occasional wrong word or��sound alike� substitutions may have occurred due to the inherent limitations of voice recognition software.
Discharge Plan
Departure
Patient Disposition: Home (Routine Discharge)
Date of Disposition: 12/02/24
Time of Disposition: 03:24
Patient with high blood pressure during this ER visit?: No
Discharge Problem:
Fall, Laceration of scalp
Instructions: Wound Care (DC), Laceration Repair With [place] (DC), Preventing falls in adults
Prescriptions:
No Action
metformin 500 MG tablet
500 mg PO BID@0800,1700
Rx Instructions:
breakfast, dinner
famotidine 40 MG tablet
40 mg PO HS
aspirin 81 MG tablet,delayed release (DR/EC)
81 mg PO DAILY
ascorbic acid (vitamin C) [Vitamin C] 500 MG tablet
500 mg PO DAILY
gabapentin 300 MG capsule
300 mg PO TID
finasteride 5 MG tablet
5 mg PO DAILY
rosuvastatin 40 MG tablet
40 mg PO QPM
Rx Instructions:
with dinner
metoprolol tartrate 25 MG tablet
25 mg PO BID
acetaminophen [Tylenol Extra Strength] 500 mg Tablet
500 mg PO HS
dapagliflozin propanediol [Farxiga] 10 mg Tablet
10 mg PO DAILY
Glucosamine Chondroitin 550-30-1 mg Capsule
1 cap PO BID Qty: 0
carbidopa-levodopa 25-100 mg tablet
1.5 tab PO TID@0800,1200,1700
carbidopa-levodopa 25-100 mg tablet
1 tab PO HS
tamsulosin [Flomax] 0.4 mg Capsule
0.4 mg PO BID
sertraline 50 mg Tablet
50 mg PO DAILY
dicyclomine 10 mg Capsule
10 mg PO BID
levocetirizine [Xyzal] 5 mg Tablet
5 mg PO HS
omeprazole 20 mg Tablet,Delayed Release (Dr/Ec)
20 mg PO DAILY
acetaminophen-codeine 300-30 mg tablet
1 tab PO Q8HPRN PRN (Reason: mild pain)
benzonatate 100 mg Capsule
200 mg PO TIDPRN PRN (Reason: cough) Qty: 20 0RF
therapeutic multivitamin Tablet
1 tab PO DAILY
trazodone 100 mg Tablet
100 mg PO HS
Trulicity 1.5 mg/0.5 mL Pen Injector
1.5 mg SC WE
lidocaine 4 % adhesive patch,medicated
1 patch topical DAILYPRN PRN (Reason: mild pain)
fenofibrate nanocrystallized 48 mg Tablet
48 mg PO DAILY Qty: 30 0RF
amoxicillin-pot clavulanate 875-125 mg tablet
1 tab PO BID Qty: 8 0RF
Referrals:
Anita Causey MD [Family Provider] -
Activity Restrictions/Additional Instructions:
[place] can be removed in 7 to 10 days
It was a pleasure meeting you and taking part in your care. We hope for your continued healing and wellness.
Please read discharge instructions in their entirety. However, they are for general education and may not describe your exact diagnosis at discharge. Information on your ER visit and medical conditions were discussed with you along with appropriate
follow up information...
If indicated, please take your medications as instructed and indicated on discharge paperwork.
Please schedule a follow up appointment as directed. Call to schedule an appointment
Please return to the emergency department with ANY change in, persisting, or worsening of symptoms. If any of your symptoms do not improve, or persist, or become more severe within 6-12 hours, please return to the emergency department for further
care.
Please return to the emergency department if you develop a headache, neck pain/stiffness, fever greater than 100.4F, chest pain, shortness of breath, persistent nausea, vomiting, slurred speech, difficulty walking, numbness/tingling, weakness, signs
of infection or any other symptoms that are worrisome to you.
If you have any questions or concerns please do not hesitate to call the Hospital at or E-mail me directly at [email or web address]
Interventions
Interventions:
*Risk Screen - Suicide Last Done: 12/02/24 00:59
*General Assessment Last Done: 12/02/24 00:59
*Neglect/Abuse Screening Last Done: 12/02/24 00:59
*ED COVID-19 Vaccine History Last Done: 12/02/24 00:59
ED-Musculoskeletal Assessment Last Done: 12/02/24 01:00
ED- Neurological Assessment Last Done: 12/02/24 01:00
ED-Skin Assessment Last Done: 12/02/24 01:00
Discharge Date and Time
Print Language: [place]
== END 2024-12-02 04:20 | disposition home or self-care (01) ==
LOC: EMR 00:42
PROVIDERS: EMERGENCY PHYSICIAN Student in an Organized Health Care Education/Training Program; FAMILY PHYSICIAN Internal Medicine
DX: S01.01XA Laceration without foreign body of scalp, initial encounter (principal); W01.0XXA Fall on same level from slipping, tripping and stumbling without subsequent striking against object, initial encounter; G20.A1 Parkinson's disease without dyskinesia, without mention of fluctuations; I25.10 Atherosclerotic heart disease of native coronary artery without angina pectoris; I10 Essential (primary) hypertension; E78.00 Pure hypercholesterolemia, unspecified; E11.9 Type 2 diabetes mellitus without complications; G47.30 Sleep apnea, unspecified; Z95.0 Presence of cardiac pacemaker; Z95.5 Presence of coronary angioplasty implant and graft; Z90.49 Acquired absence of other specified parts of digestive tract
CPT/HCPCS: 12002; 99284; 70450; 72125

== ENCOUNTER 2024-12-22 19:30 | Emergency (ER) | payer MEDICARE, BC, SELFPAY ==
[2024-12-22 19:32] VITALS: BP 121/66
[2024-12-22 19:35] VITALS: BP 121/66; BMI 23.1
[2024-12-22 20:00] VITALS: BP 110/59
--- NOTE | 2024-12-22 20:23 | ED.GENMED ---
History of Present Illness
General
Chief Complaint: Fall
Time Seen by Provider: 12/22/24 19:46
History of Present Illness
History of Present Illness:
84-year-old male on aspirin and Plavix presenting after a fall. Patient reports he was coming out of his unit he lost his balance and fell backward striking his head on ceramic tile. Denies loss of consciousness. Denies weakness, numbness or
tingling to extremities. Does report some neck pain. Patient arrives by medics in a c-collar. Denies any additional injuries from the fall. Denies additional acute medical complaints
Past History
Past History
ED Past Medical History: Arrthythmia (bradycardia), CAD, HTN, Hypercholesterolemia, NIDDM, [place] and Other (IBS, Sleep apnea, Parkinson's)
ED Past Surgical History: Appendectomy, Cardiac (pacemaker, Cardiac stents X 10), Tonsilectomy and Other (Hernia, hydrocele)
Social History
Tobacco: Non-smoker
Alcohol: Occasional
Drug: None
Personal:
Living: with family
Phy Exam
Physical Exam
Physical Exam:
General: Well-appearing, no clinical signs of dehydration, nontoxic and in no acute distress
Head: Contusion to the right parietal scalp with skin abrasion. No open laceration
HEENT: protecting airway
Neck: appears supple
CV: Normal heart rate, regular rhythm
Resp: No accessory muscle use, no increased work of breathing
Abd: Soft and non-distended, no tenderness to palpation
Extremities: No deformities, no swelling
Neuro: alert, no focal neurologic deficit
: deferred
Rectal: deferred
Psych: Normal affect
Skin: Intact
Course
Orders/Labs/Results
Orders:
Orders
12/22/24 20:12
CT Cervical Spine W/o Iv Contr Urgent
Comment:
Reason For Exam: fall
CT Head W/o Iv Contrast Urgent
Comment:
Reason For Exam: fall
12/22/24 20:28
Acetaminophen [Tylenol] 1,000 mg PO NOW STA
Vital Signs
Initial and Last Documented VS:
Initial Vital Signs
BP
121/66
12/22/24 19:32
Last Documented Vital Signs
Temp Pulse Resp BP Pulse Ox
97.6 F 59 20 129/73 98
12/22/24 19:35 12/22/24 19:35 12/22/24 19:35 12/22/24 21:01 12/22/24 21:01
MDM/Problems Addressed
MDM/Problems Addressed:
84-year-old male presenting to the emergency department after a fall. Vital signs are normal.
On exam patient is resting comfortably, no acute distress or discomfort. Patient does have obvious signs of head trauma with sizable right scalp contusion/hematoma. There is skin abrasion, however no open laceration. Wound was appropriately
cleaned and dressed. Given anticoagulation status, will obtain CT brain and C-spine imaging. No significant to midline C-spine, generalized tenderness and soft tissue with suspicion for muscular strain. Tylenol administered for pain. Patient
denies any prodromal dizziness or lightheadedness, without concern for near syncope or cardiac event
23:15 -CT head and C-spine negative. Patient remained stable. Feel stable for discharge with outpatient supportive therapy. Return precautions discussed and patient verbalized understanding
*Critical Care Note
Total Time (30-74mins, 75-104mins- exclusive of procedures): Not Applicable
ED Attending Note
-
Portions of this chart may have been created with voice recognition software.� Occasional wrong word or��sound alike� substitutions may have occurred due to the inherent limitations of voice recognition software.
Discharge Plan
Departure
Prescriptions:
No Action
metformin 500 MG tablet
500 mg PO BID@0800,1700
Rx Instructions:
breakfast, dinner
famotidine 40 MG tablet
40 mg PO HS
aspirin 81 MG tablet,delayed release (/EC)
81 mg PO DAILY
ascorbic acid (vitamin C) [Vitamin C] 500 MG tablet
500 mg PO DAILY
gabapentin 300 MG capsule
300 mg PO TID
finasteride 5 MG tablet
5 mg PO DAILY
rosuvastatin 40 MG tablet
40 mg PO QPM
Rx Instructions:
with dinner
metoprolol tartrate 25 MG tablet
25 mg PO BID
acetaminophen [Tylenol Extra Strength] 500 mg Tablet
500 mg PO HS
dapagliflozin propanediol [Farxiga] 10 mg Tablet
10 mg PO DAILY
Glucosamine Chondroitin 550-30-1 mg Capsule
1 cap PO BID Qty: 0
carbidopa-levodopa 25-100 mg tablet
1.5 tab PO TID@0800,1200,1700
carbidopa-levodopa 25-100 mg tablet
1 tab PO HS
tamsulosin [Flomax] 0.4 mg Capsule
0.4 mg PO BID
sertraline 50 mg Tablet
50 mg PO DAILY
dicyclomine 10 mg Capsule
10 mg PO BID
levocetirizine [Xyzal] 5 mg Tablet
5 mg PO HS
omeprazole 20 mg Tablet,Delayed Release (Dr/Ec)
20 mg PO DAILY
acetaminophen-codeine 300-30 mg tablet
1 tab PO Q8HPRN PRN (Reason: mild pain)
benzonatate 100 mg Capsule
200 mg PO TIDPRN PRN (Reason: cough) Qty: 20 0RF
therapeutic multivitamin Tablet
1 tab PO DAILY
trazodone 100 mg Tablet
100 mg PO HS
Trulicity 1.5 mg/0.5 mL Pen Injector
1.5 mg SC WE
lidocaine 4 % adhesive patch,medicated
1 patch topical DAILYPRN PRN (Reason: mild pain)
fenofibrate nanocrystallized 48 mg Tablet
48 mg PO DAILY Qty: 30 0RF
amoxicillin-pot clavulanate 875-125 mg tablet
1 tab PO BID Qty: 8 0RF
Referrals:
Anita Causey MD [Family Provider] -
Interventions
Interventions:
*Risk Screen - Suicide Last Done: 12/22/24 19:35
*General Assessment Last Done: 12/22/24 19:35
*Neglect/Abuse Screening Last Done: 12/22/24 19:35
*ED- Fall Risk Assessment Last Done: 12/22/24 19:35
*ED COVID-19 Vaccine History Last Done: 12/22/24 19:35
ED-Musculoskeletal Assessment Last Done: 12/22/24 19:44
ED- Neurological Assessment Last Done: 12/22/24 19:44
ED-Skin Assessment Last Done: 12/22/24 19:44
Discharge Date and Time
Print Language: [place]ENGAL[place]
[2024-12-22] MEDS: TYLENOL 1000 MG PO (20:36)
[2024-12-22 21:01] VITALS: BP 129/73
[2024-12-22 23:38] VITALS: BP 144/67
== END 2024-12-23 00:47 | disposition home or self-care (01) ==
LOC: EMR 19:30
PROVIDERS: EMERGENCY PHYSICIAN Student in an Organized Health Care Education/Training Program; FAMILY PHYSICIAN Internal Medicine
DX: S00.03XA Contusion of scalp, initial encounter (principal); S00.01XA Abrasion of scalp, initial encounter; M54.2 Cervicalgia; W18.39XA Other fall on same level, initial encounter; I25.10 Atherosclerotic heart disease of native coronary artery without angina pectoris; I10 Essential (primary) hypertension; E11.9 Type 2 diabetes mellitus without complications; E78.00 Pure hypercholesterolemia, unspecified; G20.A1 Parkinson's disease without dyskinesia, without mention of fluctuations; G47.30 Sleep apnea, unspecified; Z95.0 Presence of cardiac pacemaker; Z95.5 Presence of coronary angioplasty implant and graft; Z79.02 Long term (current) use of antithrombotics/antiplatelets; Z79.82 Long term (current) use of aspirin
CPT/HCPCS: 99284; 70450; 72125

== ENCOUNTER 2025-02-15 07:13 | Inpatient (IN) | payer MEDICARE, BC, SELFPAY ==
[2025-02-14] VITALS (10 sets, daily range): BP systolic 99–143; BP diastolic 49–91; PULSE 60–66; BMI 22.6
[2025-02-14] MEDS: TYLENOL 650 MG PO (19:41)
--- NOTE | 2025-02-14 20:59 | ED.GENMED ---
History of Present Illness
General
Chief Complaint: Fall
Source: patient
Exam Limitations: none
Time Seen by Provider: 02/14/25 16:20
Nursing documentation reviewed up to this point in time: agreed with
History of Present Illness
History of Present Illness:
Patient to ED after fall at home. Hit back of head on floor. No LOC. SUstained laceration to posterior scalp. ALso complains of pain to low back. To ED via EMS for eval.
Past History
Past History
ED Past Medical History: Arrthythmia (bradycardia), CAD, HTN, Hypercholesterolemia, NIDDM, LA and Other (IBS, Sleep apnea, Parkinson's)
ED Past Surgical History: Appendectomy, Cardiac (pacemaker, Cardiac stents X 10), Tonsilectomy and Other (Hernia, hydrocele)
Social History
Tobacco: Non-smoker
Alcohol: Occasional
Drug: None
Personal:
Living: with family
Review of Systems
Review of Systems
Allergies reviewed?: Yes
All Other Systems: ROS reviewed and negative except as documented in HPI and ROS
Constitutional: Reports no symptoms
EENT: Reports no symptoms
Respiratory: Reports no symptoms
Cardiac: Reports no symptoms
ABD/GI: Reports no symptoms
: Reports no symptoms
Musculoskeletal: Reports other (pain to low back)
Skin: Reports other (laceration to posterior scalp)
Neurological: Reports weakness
Psychiatric: Reports no symptoms
Phy Exam
General Physical Exam
General Presentation: mild distress
General age: appears stated age
General Skin: warm and dry
General Habitus: normal
General Mental: alert
Cardiovascular Exam
Cardiovascular Exam: regular rate/rhythm and no edema
Pulmonary Exam
Pulmonary Exam: lungs clear and no respiratory distress
Gastrointestinal Exam
Gastrointestinal Exam: normal bowel sounds and non tender
Neurological Exam
Neurological Exam: alert, oriented x3, CN II-XII intact, no motor deficits, no sensory deficits and speech normal
[place] Coma Scale
Eye Opening: Spontaneous
Verbal Response: Oriented
Motor Response: Obeys Commands
GCS Total Score: 15
Musculoskeletal Exam
Musculoskeletal Exam: back pain (bilateral low back pain)
Skin Exam
Skin Exam: normal color, warm/dry and no rash
Psychiatric Exam
Psychiatric Exam: normal mood/affect
Course
Orders/Labs/Results
Orders:
Orders
02/14/25 14:[address] [CT Head W/o Iv Contrast] Urgent
Comment:
Reason For Exam: fall
02/14/25 16:51
Lumbar Spine Complete, 4 View [CR Lumbar Spine Comp Min 4 Vw*] Urgent
Comment:
Reason For Exam: fall
Pelvis, 1 or 2 Views CR [CR Pelvis - 1 Or 2 Views ] Urgent
Comment:
Reason For Exam: fall
02/14/25 19:36
Acetaminophen [Tylenol] 650 mg PO NOW STA
02/14/25 22:03
Complete Blood Count/With Diff Urgent
Comprehensive Metabolic Panel Urgent
Urinalysis Reflex To Culture Urgent
Date Specimen was Collected: 02/14/25
Time Specimen was Collected: 22:05
02/14/25 22:04
Case Management Consult ONCE
Case Management Consult: Discharge Planning
PT Consult [Pt Eval And Treat] Urgent
Activity Level: Ambulate
Vital Signs
Initial and Last Documented VS:
Initial Vital Signs
Temp Pulse Resp BP Pulse Ox
97.6 F 67 18 108/49 95
02/14/25 14:49 02/14/25 14:49 02/14/25 14:49 02/14/25 14:49 02/14/25 14:49
Last Documented Vital Signs
Temp Pulse Resp BP Pulse Ox
97.5 F 57 18 143/67 93
02/14/25 17:05 02/14/25 19:34 02/14/25 19:34 02/14/25 22:00 02/14/25 20:59
Procedures
Laceration Closure
Posterior Scalp:
Status of Wound: clean
Size of Wound in cm: 1
Description of Wound Edges: sharp
Preparation: cleaned with saline
Revision/Debridement: routine- no revision
Wound exploration: explored to base- no FB
Type of Closure: Dermabond-skin glue
*Radiology
Radiology exam reviewed: radiology read reviewed
*Pulse Oximetry
SaO2: 93
Oxygen Mode of Delivery: Room air
Patient hypoxic: no
*Critical Care Note
Total Time (30-74mins, 75-104mins- exclusive of procedures): Not Applicable
Update Note
Update Note:
Patient to ED after fall today at home. He as a history of parkinsons disease and family reports 5 falls in the past week. He consistently uses his walker but is having increasing difficulties with his balance. Family does not feel that it is safe
for him to come home. Patient is would like to pursue inpatient rehab. Will admit to hospitalit tonight, WIll need PT and case management evaluation. Daughter also requesting neuro consult for his progressing parkinsons symptoms.
ED Attending Note
-
Portions of this chart may have been created with voice recognition software.� Occasional wrong word or��sound alike� substitutions may have occurred due to the inherent limitations of voice recognition software.
Discharge Plan
Departure
Patient Disposition: Admit
Date of Disposition: 02/14/25
Time of Disposition: 22:03
Presentation/result/management discussed w/ accepting MD/DO: Hospitalist
Patient with high blood pressure during this ER visit?: No
Condition: Fair
Covid-19: Not Applicable
Discharge Problem:
Head injury, Ambulatory dysfunction
Instructions: Laceration Repair With Glue (DC), Head Injury in Adults (DC), Contusion (DC), Preventing falls in adults
Prescriptions:
No Action
metformin 500 MG tablet
500 mg PO BID@0800,1700
Rx Instructions:
breakfast, dinner
famotidine 40 MG tablet
40 mg PO HS
aspirin 81 MG tablet,delayed release (DR/EC)
81 mg PO DAILY
ascorbic acid (vitamin C) [Vitamin C] 500 MG tablet
500 mg PO DAILY
gabapentin 300 MG capsule
300 mg PO TID
finasteride 5 MG tablet
5 mg PO DAILY
rosuvastatin 40 MG tablet
40 mg PO QPM
Rx Instructions:
with dinner
metoprolol tartrate 25 MG tablet
25 mg PO BID
acetaminophen [Tylenol Extra Strength] 500 mg Tablet
500 mg PO HS
dapagliflozin propanediol [Farxiga] 10 mg Tablet
10 mg PO DAILY
Glucosamine Chondroitin 550-30-1 mg Capsule
1 cap PO BID Qty: 0
carbidopa-levodopa 25-100 mg tablet
1.5 tab PO TID@0800,1200,1700
carbidopa-levodopa 25-100 mg tablet
1 tab PO HS
tamsulosin [Flomax] 0.4 mg Capsule
0.4 mg PO BID
sertraline 50 mg Tablet
50 mg PO DAILY
dicyclomine 10 mg Capsule
10 mg PO BID
levocetirizine [Xyzal] 5 mg Tablet
5 mg PO HS
omeprazole 20 mg Tablet,Delayed Release (Dr/Ec)
20 mg PO DAILY
acetaminophen-codeine 300-30 mg tablet
1 tab PO Q8HPRN PRN (Reason: mild pain)
benzonatate 100 mg Capsule
200 mg PO TIDPRN PRN (Reason: cough) Qty: 20 0RF
therapeutic multivitamin Tablet
1 tab PO DAILY
trazodone 100 mg Tablet
100 mg PO HS
Trulicity 1.5 mg/0.5 mL Pen Injector
1.5 mg SC WE
lidocaine 4 % adhesive patch,medicated
1 patch topical DAILYPRN PRN (Reason: mild pain)
fenofibrate nanocrystallized 48 mg Tablet
48 mg PO DAILY Qty: 30 0RF
amoxicillin-pot clavulanate 875-125 mg tablet
1 tab PO BID Qty: 8 0RF
Referrals:
Anita Causey MD [Family Provider] - Follow up in 2-3 days
Interventions
Interventions:
*Risk Screen - Suicide Last Done: 02/14/25 14:49
*General Assessment Last Done: 02/14/25 14:49
*Neglect/Abuse Screening Last Done: 02/14/25 14:49
*ED- Fall Risk Assessment Last Done: 02/14/25 17:05
*ED COVID-19 Vaccine History Last Done: 02/14/25 17:05
ED-Musculoskeletal Assessment Last Done: 02/14/25 17:05
ED- Neurological Assessment Last Done: 02/14/25 17:05
ED-Skin Assessment Last Done: 02/14/25 17:05
Discharge Date and Time
Print Language: FRISIAN
Skin Exam
Laceration
Posterior Scalp:
Length in cm: 1
Orientation: diagonal
Type of Laceration: simple
Any active bleeding?: no active bleeding
Distal skin color and temperature: normal-warm & good color
Normal distal neurovascular exam: Yes
Range of motion: full
--- NOTE | 2025-02-14 22:09 | W.PN.UPDATE ---
Addendum entered and electronically signed by Monty Gore MD 02/14/25 23:22:
10/15/24 02/14/25
06:00 22:15
WBC 9.0
Hgb 13.1
BUN 28 H 35 H
Creatinine 1.3
Estimated Creat Clear 45
eGFR 53.50
Element of KRISTIAN on CKD3a
- IV NS @ 40/H for 500 cc
Addendum entered and electronically signed by Monty Gore MD 02/14/25 23:02:
ADDENDUM
Point tenderness at Lt 8,9, 10 ribs at mid leral region
- check 2 view Rib CXR
- Local Lidoderm patch
Original Note:
Update Note
Progress Note Update
This note serves as an addendum to the H&P by ceramic worker SAWYER
Bekah So
HPI
84M HX chronic urinary retention -self catheterizes twice daily at home, HX parkinson dz, CAD with stents PPM , HTN, T2DM, HLD, BPH, mod severe MR, MARILYN seen at ER for falls at home , stike head with floor and sustained laceration to posterior
scalp.
PHX; as above
Relevant VS:
02/14/25
14:49 02/14/25
17:05
Temp 97.6 F
Pulse 67 65
Blood pressure 108/49 107/91
SaO2 95 95
Oxygen Mode of Delivery Room air Room air
PE
Gen: mildly distress
HEENT: symmetric face , nl speech
Neck: supple
Lungs: CTA
Cor: RRR S1 S2 , loud SM at Lt USB
Abdomen: soft BS
AUTOMATION TESTER:
MS: b/l lower back pain
Psych: normal mood and affect
Relevant data
10/14/24 10/15/24 02/14/25
13:37 06:00 22:15
Sodium 134 L Pending
Creatinine 1.2 1.0 Pending
eGFR 59.26 > 60[address]00
CT Head W/o Iv Contrast
1. No CT evidence for acute intracranial hemorrhage.
2. Moderate diffuse cerebral and cerebellar volume loss.
3. 5 cm arachnoid cyst in the right side of the posterior fossa causing mass effect on the right cerebellar hemisphere and cerebellar vermis which appears chronic and unchanged.
4. Mild periventricular white matter leukoaraiosis.
Lx spine and pelvis XR
1. Chronic superior endplate fracture of T12 with complete vertebral body collapse.
2. Mild multilevel discogenic degenerative disease in the lumbar spine.
3. Chronic healed sacral fracture.
4. Previous ORIF of chronic healed bilateral proximal femoral fractures.
5. Diffuse bone demineralization.
6. Severe calcific atherosclerotic plaque in the abdominal aorta and common iliac arteries.
7. Large amount of fecal material throughout the colon.
03/24/24 TTE
1. Left ventricle: Normal size and function with an estimated ejection fraction of 50-55%. Mild concentric LVH.
Stage II diastolic dysfunction
2. Right ventricle: Normal
3. Atria: Mild left atrial dilation
4. Mitral valve: Moderate or moderate-severe mitral regurgitation with eccentric regurgitant jet.
5. Aortic valve: The aortic valve leaflets are thickened and sclerotic. There is mild aortic insufficiency
6. Tricuspid valve: Mild tricuspid regurgitation with estimated pulmonary artery systolic pressures of 40-45 mmHg
7. When compared to the most recent echocardiogram from 02/02/2023 the severity of mitral regurgitation is now estimated moderate to moderate-severe with an
eccentric anteriorly directed jet. On the prior study the mitral regurgitation
was graded as mild-moderate.
Last hospitalist admission: 10/14/2024 - 10/17/2024
DISCHARGE DIAGNOSES:
1. Post influenza community-acquired pneumonia.
2. Hyponatremia.
3. Recent influenza A infection.
4. Nondisplaced right rib fractures, 9 through 11.
ASSESSMENT & PLAN
Pending Rx reconciliation
Multiple falls sustained scalp laceration suspect multifactorial origins
Hypotension spontaneously improved : suspect multifactorial autonomic neuropathy ( DM, PKDz), medications, progreesibe MR
Chr ambulatory dysfunction due to PKDz and multple comorbidities
- HCT
- ortho VSS
- eval fo progression of mod severe MR
- Hold parameters if SBP < 120 for Metoprolol trartes for Flomax
- Fall precaution
- PT / OT
Parkinson's disease
- use walker
- continue Sinemet.
Progressive moderate severe MR per last ECHO February 2024 compare to 02/02/23
- Repeat ECHO for MR progression
Permanent pacemaker -for bradycardia, heart block.
Colonic fecal burden without constipation,
- No nausea and vomiting
- BW regime; with senna and Dulcolax in AM
Initial hypotension - spontaneously resolved
Essential hypertension
- Hold parameters if SBP < 120 for Metoprolol trartes for Flomax
DM2 with hyperglycemia
-on metformin, dulaglutide, Farxiga at home.
- last HgbA1c 7.1% (10/03/24)
HX CKD 3A HS
- Pending admission albs
BPH/chronic urinary retention
- Bladder scan protocol
- on Flomax - add hold parameters for SBP < 110
Hyperlipidemia
- rosuvastatin.
CAD with stents
-stable
IBS
MARILYN
DVT Px: SQH
Full code
OBS TLM
--- NOTE | 2025-02-14 22:13 | HPS.HSE ---
Family Physician
-
Family Physician: Anita Causey
Chief Complaint
-
fall
History of Present Illness
Patient is a 84-year-old male with past medical history significant for Parkinson's Disease, ASCVD, bradycardia/heart block s/p PPM, hypertension, DM-II, IBS, BPH/chronic urinary retention and CKD III who presented to [facility] ED for evaluation of
ambulatory dysfunction. Patient reports several falls over the past few weeks. He reports 3 falls in one day approximately 2 weeks ago and denied any injury then. He stated he fell this morning falling backwards and striking head causing laceration
to occipital scalp area that was glued in ED. Patient denies any dizziness, palpitations, shortness of breath, nausea, vomiting, constipation, diarrhea or urinary changes.
Medical History
Past Medical History
Past Medical History: Reports Other
Additional Past Medical History:
Parkinson's Disease
ASCVD
bradycardia/heart block s/p PPM
hypertension
DM-II
IBS
BPH/chronic urinary retention
CKD III
Past Surgical History: Reports Other
Additional Past Surgical History:
PTCA with Stent (x 10)
Appendectomy
Cataracts
Hernia Repair
Social History
Tobacco: Non-smoker
Alcohol: Occasional
Drug: None
Personal:
Living: With Family
Employment: Retired
Family History
Family History: Not pertinent
Allergies / Home Medications
Allergies reflects when Allergies were last updated in [employer].
Home Medications with original date entered in [employer]
Allergy/Medication List:
Medications on admission are unable to be verified or confirmed at this time.
Review of Systems
-
History Source: Patient
Musculoskeletal: Reports Other (ambulatory dysfunction, multiple falls )
Physical Exam
Vital Signs
Vital Signs
Temp Pulse Resp BP Pulse Ox
97.5 F 57 18 143/67 93
02/14/25 17:05 02/14/25 19:34 02/14/25 19:34 02/14/25 22:00 02/14/25 20:59
Physical Exam
General: Well Developed, Well Nourished, No Apparent Distress, Comfortable and Conversant
HEENT: NormoCephalic, Moist mucous membranes, Atraumatic, Nose Appears Normal and Ears Appear Normal
Respiratory: Clear
Cardiac: S1/S2, Regular Rhythm and Murmur
GI: Soft, Non Tender, Non Distended and Normal Bowel Sounds (hypoactive )
Rectal: Deferred by Provider
Genito-urinary: Deferred by me
Musculoskeletal: No Clubbing, No Cyanosis and No Edema
Skin: Warm and IV/Catheter Site
Neuro: Awake, Alert, AO x 3 and Nonfocal/grossly intact
Psych: Calm
Data Reviewed
-
Diagnostic Radiology: Report Reviewed by me (Pelvis/Lumbar: 1. Chronic superior endplate fracture of T12 with complete vertebral body collapse. 2. Mild multilevel discogenic degenerative disease in the lumbar spine. 3. Chronic healed sacral
fracture. 4. Previous ORIF of chronic healed bilateral proximal femoral fractures. 5. Diffuse )
CT Scan: Report Reviewed by me (Head: 1. No CT evidence for acute intracranial hemorrhage. 2. Moderate diffuse cerebral and cerebellar volume loss. 3. 5 cm arachnoid cyst in the right side of the posterior fossa causing mass effect on the
right cerebellar hemisphere and cerebellar vermis which appears chronic and unchanged. )
Lab Data: Labs Reviewed by me
Impression/Plan
-
IMPRESSION/PLAN:
#multiple falls 2/[address]: 1. No CT evidence for acute intracranial hemorrhage.
2. Moderate diffuse cerebral and cerebellar volume loss.
3. 5 cm arachnoid cyst in the right side of the posterior fossa causing mass effect on the right cerebellar hemisphere and cerebellar vermis which appears chronic and unchanged.
4. Mild periventricular white matter leukoaraiosis.
Lumbar/Pelvis x-ray: 1. Chronic superior endplate fracture of T12 with complete vertebral body collapse.
2. Mild multilevel discogenic degenerative disease in the lumbar spine.
3. Chronic healed sacral fracture.
4. Previous ORIF of chronic healed bilateral proximal femoral fractures.
5. Diffuse bone demineralization.
6. Severe calcific atherosclerotic plaque in the abdominal aorta and common iliac arteries.
7. Large amount of fecal material throughout the colon.
- Admit to telemetry
- orthostatic VS
- ECHO in morning to monitor for MR progression
- PT/OT consult
#Point tenderness at Lt 8,9, 10 ribs at mid leral region
- check 2 view Rib CXR
- Local Lidoderm patch
#BPH/chronic urinary retention
- standing straight cath order BID
- bladder scan straight cath orders
#Parkinson's Disease
#ASCVD
#bradycardia/heart block
s/p PPM
#hypertension
#DM-II
#IBS
#CKD III
Unable to complete med rec at this time, will call and complete with nursing over phone when she leaves for the night. Nurse to let house provider know when med rec is completed for orders to be placed.
Code status: full code
DVT prophylaxis: heparin sq
[2025-02-14 22:21] LABS: % Basophils 0.4 % (0-2); % Immature Granulocytes 0.9 % (0-0.5); % Lymphocytes 14.9 % (20.5-51.1); % Monocytes 10.5 % (1.7-9.3); % Neutrophils 71.3 % (42.2-75.2); Absolute Eosinophils 0.2 10^3/uL (0-0.7); Absolute Immature Granulocytes 0.1 10^3/uL (0-0.05); Absolute Lymphocytes 1.3 10^3/uL (1.2-3.4); Absolute Neutrophils 6.4 10^3/uL (1.4-6.5); Hematocrit 39.9 % (39.0-52.0); Hemoglobin 13.1 g/dL (13.0-18.0); Mean Corp Hgb Conc. 32.8 g/dL (33.0-37.0); Mean Corpuscular Hgb 29.9 pg (27.0-31.0); Mean Corpuscular Volume 91.1 fL (80.0-94.0); Mean Platelet Volume 10.1 fL (7.4-10.4); Nucleated Red Blood Cells % 0 % (-); Platelet Count 217 10^3/uL (130-400); Red Blood Cell Count 4.38 10^6/uL (4.70-6.10); Red Cell Dist. Width 14.2 % (11.5-14.5)
[2025-02-14 23:08] LABS: ALT (SGPT) 11 U/L (0-50); AST (SGOT) 22 U/L (17-59); Albumin 3.3 g/dl (3.5-5.0); Alkaline Phosphatase 154 U/L (38-126); Blood Urea Nitrogen 35 mg/dl (9-20); Calcium 8.2 mg/dl (8.4-10.2); Carbon Dioxide 28 mmol/L (22-30); Chloride 104 mmol/L (98-107); Estimated Creatinine Clearance 37 ml/min; Glucose 166 mg/dl (70-99); Potassium 4.4 mmol/L (3.5-5.1); Sodium 137 mmol/L (135-145); Total Bilirubin 0.8 mg/dl (0.2-1.3); Total Protein 5.3 g/dl (6.3-8.2)
[2025-02-14] MEDS: SENOKOT-S 2 TABLET PO (23:09)
[2025-02-14] MEDS: FLOMAX 0.4 MG PO (23:09)
[2025-02-14] MEDS: NEURONTIN 300 MG PO (23:09)
[2025-02-14] MEDS: TYLENOL 500 MG PO (23:16)
[2025-02-14] MEDS: SINEMET 25-100 1 TABLET PO (23:16)
[2025-02-14] MEDS: DESYREL 150 MG PO (23:16)
[2025-02-14] MEDS: FLUSH (NSS) 1 FLUSH IV (23:16)
[2025-02-14] MEDS: NSS 500 IV (23:38)
[2025-02-14 23:55] LABS: Urine Albumin 1+ (Neg - Trace); Urine Bilirubin Negative (Negative); Urine Character Slightly Cloudy (Clear); Urine Color Yellow; Urine Glucose 4+ (Negative); Urine Ketone Negative (Negative); Urine Leukocyte 3+ (Negative); Urine Nitrite Negative (Negative); Urine Occult Blood 1+ (Negative); Urine Urobilinogen Negative (Neg - 1+)
[2025-02-15] VITALS (10 sets, daily range): BP systolic 87–153; BP diastolic 42–76; PULSE 69–96; O2SAT 95; BMI 21.9
[2025-02-15 01:04] LABS: Urine Amorphous Seen; Urine Squamous Cell >30 /LPF (Few); Urine White Cell >100 /HPF (0-5)
[2025-02-15 01:05] LABS: Urine Bacteria Many (Negative)
[2025-02-15] MEDS: HEPARIN SC (04:40)
--- NOTE | 2025-02-15 04:58 | PTCARENOTE ---
Received ot from ER.awake oriented tolerated transfer well.Pts physical assessment preformed with ease.Pt needs alittle help with turning.Pt VS stable,IVF maintained at 100mls hour.APaced senior operations analyst.
--- NOTE | 2025-02-15 09:17 | W.PN.HOSP.TC ---
Today's Communication/Plan
-
Follow-up with echo
Check orthostatic vital signs, please document
Assessment / Plan
Assessment / Plan
Physical Exam
General: not in distress, Comfortable and Conversant
HEENT: Normocephalic, Moist mucous membranes, Atraumatic, Nose Appears Normal and Ears Appear Normal
Respiratory: Clear, mild bruising noted on lat left chest wall.
Cardiac: S1/S2, Regular Rhythm and Murmur
GI: Soft, Non Tender, Non Distended.
Genito-urinary: no hematuria
Musculoskeletal: No Clubbing, No Cyanosis and No Edema
Skin: Warm and IV/Catheter Site
Neuro: Awake, Alert, AO x 3 and Nonfocal/grossly intact
Psych: Calm
#Multiple falls 2/2 ambulatory dysfunction
Acute, displaced fractures involving the lateral left sixth and seventh ribs.
Chest x-ray did not show pneumothorax.
No leukocytosis, no fever, no confusion
Change Tylenol to 3 times a day
No hypoxia
Follow-up with echo, orthostatic vital signs
Head CT: 1. No CT evidence for acute intracranial hemorrhage.
2. Moderate diffuse cerebral and cerebellar volume loss.
3. 5 cm arachnoid cyst in the right side of the posterior fossa causing mass effect on the right cerebellar hemisphere and cerebellar vermis which appears chronic and unchanged.
4. Mild periventricular white matter leukoaraiosis.
Lumbar/Pelvis x-ray: 1. Chronic superior endplate fracture of T12 with complete vertebral body collapse.
2. Mild multilevel discogenic degenerative disease in the lumbar spine.
3. Chronic healed sacral fracture.
4. Previous ORIF of chronic healed bilateral proximal femoral fractures.
5. Diffuse bone demineralization.
6. Severe calcific atherosclerotic plaque in the abdominal aorta and common iliac arteries.
7. Large amount of fecal material throughout the colon.
-
#BPH/chronic urinary retention
- standing straight cath order BID as home regimen
- bladder scan straight cath orders
#Parkinson's Disease
#ASCVD
#bradycardia/heart block
s/p PPM
#hypertension
#DM-II
#IBS
#CKD IIIa
Total time spent to see the patient, examine the patient, review data and lab result, discuss treatment plan with patient, nursing staff around 55 minutes
Anticipated Discharge: 24 - 48 hours
Subjective/Interval History
-
Date of Service: February 15, 2025
Left chest wall rib pain
No sob
No chest pain
No fevers
Objective Data
-
Labs:
Laboratory Results
02/14/25
22:15
WBC 9.0
Hgb 13.1
Hct 39.9
Plt Count 217
Sodium 137
Potassium 4.4
Chloride 104
Carbon Dioxide 28
BUN 35 H
Creatinine 1.3
Glucose 166 H
Calcium 8.2 L
Total Bilirubin 0.8
AST 22
ALT 11
Alkaline Phosphatase 154 H
Vital Signs:
Vital Signs
Temp Pulse Resp BP Pulse Ox
97.3 F 72 16 121/55 95
02/15/25 07:15 02/15/25 07:15 02/15/25 07:15 02/15/25 07:15 02/15/25 07:15
I&O
02/14/25 02/15/25 02/16/25
06:59 06:59 06:59
Intake Total 500 / 500
Balance 500 / 500
[2025-02-15] MEDS: TYLENOL 1000 MG PO ×3 (09:28→21:28)
[2025-02-15] MEDS: LIDOCAINE 4% PATCH 1 PATCH TOPICAL (09:29)
[2025-02-15] MEDS: HEPARIN 5000 UNITS SC ×3 (09:29→23:23)
[2025-02-15] MEDS: FLUSH (NSS) 1 FLUSH IV (09:29)
[2025-02-15] MEDS: NSS IV ×2 (09:55→10:58)
[2025-02-15] MEDS: LOW STRENGTH ASPIRIN 81 MG PO (11:04)
[2025-02-15] MEDS: PROSCAR 5 MG PO (11:04)
[2025-02-15] MEDS: FLOMAX 0.4 MG PO (11:04)
[2025-02-15] MEDS: FARXIGA 10 MG PO (11:04)
[2025-02-15] MEDS: ZOLOFT 50 MG PO (11:04)
[2025-02-15 13:22] LABS: Glucose - Point of Care 138 mg/dl (70-99)
[2025-02-15] MEDS: NOVOLOG FLEXPEN-LOW RESISTANCE SC ×2 (13:27→16:40)
[2025-02-15] MEDS: SINEMET 25-100 1.5 TABLET PO ×2 (13:27→17:59)
--- NOTE | 2025-02-15 16:06 | CM ---
Met with patient to obtain information for assessment. Patient stated that he would like for his Mela to be called. Placed a christen to Mela who stated that Patient lives with her in a condo. They live with their son in law, and grandkids in
an in law suite attached to their house and no steps to enter. His stated that he needs supervision with all ADLs, personal care, dressing and bathing and she does all of the limousine driver, cooking, cleaning and laundry. She drives and can
take patient to his appointments and does all of the shopping. Patient has a walker, grab bars in the shower, a shower chair and a raised toilet seat with rails. He has not had VN in the past. He has been to a SNF, [facility] and as patient's
feels that PT is indicating skilled rehab, she would like for him to return there. Will send referral.
Maxwell has a prescription plan and uses, [facility] for all of his medications.
His PCP is, Anita Causey.
Plan: Case management will continue to follow and assist with discharge planning. SNF when stable.
--- NOTE | 2025-02-15 16:08 | PTCARENOTE ---
Pt AAO x3, MA; OOB to chair with assist x1; heidi well. VSS. Telemetry: A fib, occ A-paced; PVC's. On room air- pulse ox 92%, no SOB noted. Abd large, soft; heidi PO well. Pt straight cathed x1 this am; occ voids small amts yellow urine. Resting
in bed at present; no c/o. Will continue to monitor.
[2025-02-15 16:11] LABS: Glucose - Point of Care 142 mg/dl (70-99)
[2025-02-15] MEDS: NEURONTIN 300 MG PO ×2 (16:40→21:28)
[2025-02-15] MEDS: CRESTOR 40 MG PO (17:59)
[2025-02-15] MEDS: GLUCOPHAGE 500 MG PO (17:59)
[2025-02-15] MEDS: LOPRESSOR 25 MG PO (19:50)
[2025-02-15] MEDS: BENTYL 10 MG PO (19:50)
[2025-02-15 21:10] LABS: Glucose - Point of Care 161 mg/dl (70-99)
[2025-02-15] MEDS: DESYREL 100 MG PO (21:28)
[2025-02-15] MEDS: SINEMET 25-100 1 TABLET PO (21:28)
[2025-02-16] VITALS (7 sets, daily range): BP systolic 79–145; BP diastolic 32–82; PULSE 61–72; BMI 22.3
[2025-02-16] MEDS: REFRESH EYE DROPS (PF) 1 DROPS OPHTH ×2 (00:04→23:20)
[2025-02-16 07:48] LABS: Glucose - Point of Care 98 mg/dl (70-99)
--- NOTE | 2025-02-16 09:08 | W.PN.HOSP.TC ---
Today's Communication/Plan
-
likely dc in am
Please do ortho vitals BID and document
Assessment / Plan
Assessment / Plan
Physical Exam
General: not in distress, Comfortable and Conversant
HEENT: Normocephalic, Moist mucous membranes, Atraumatic, Nose Appears Normal and Ears Appear Normal
Respiratory: Clear, mild bruising noted on lat left chest wall.
Cardiac: S1/S2, Regular Rhythm and Murmur
GI: Soft, Non Tender, Non Distended.
Genito-urinary: no hematuria
Musculoskeletal: No Clubbing, No Cyanosis and No Edema
Skin: Warm and IV/Catheter Site
Neuro: Awake, Alert, AO x 3 and Nonfocal/grossly intact
Psych: Calm
#Multiple falls 2/2 ambulatory dysfunction
Acute, displaced fractures involving the lateral left sixth and seventh ribs.
Less pain
Chest x-ray did not show pneumothorax.
No leukocytosis, no fever, no confusion
Changed Tylenol to 3 times a day
No hypoxia
Echo 02/15 showed LVEF 45-50%, stage II diastolic dysfunction, mild to moderate MR, mild aortic regurgitation, dilated RV and RA, mild tricuspid regurgitation, pulmonary artery systolic pressure [address]: 1. No CT evidence for acute intracranial hemorrhage.
2. Moderate diffuse cerebral and cerebellar volume loss.
3. 5 cm arachnoid cyst in the right side of the posterior fossa causing mass effect on the right cerebellar hemisphere and cerebellar vermis which appears chronic and unchanged.
4. Mild periventricular white matter leukoaraiosis.
Lumbar/Pelvis x-ray: 1. Chronic superior endplate fracture of T12 with complete vertebral body collapse.
2. Mild multilevel discogenic degenerative disease in the lumbar spine.
3. Chronic healed sacral fracture.
4. Previous ORIF of chronic healed bilateral proximal femoral fractures.
5. Diffuse bone demineralization.
6. Severe calcific atherosclerotic plaque in the abdominal aorta and common iliac arteries.
7. Large amount of fecal material throughout the colon.
-
# Constipation
Abdomen is slightly distended, not tender, d/w nurse, to give PRN laxatives
# Suspect UTI related to straight cath
urine culture positive for gram negative bacilli
Not signs of active infection as no fever, dysuria, flank pain or leukocytosis but he had weakness.
So will await the culture to finalize
#BPH/chronic urinary retention
- standing straight cath order BID as home regimen
- bladder scan straight cath orders
#Parkinson's Disease
#ASCVD
#bradycardia/heart block
s/p PPM
Primary employment specialist Dr. Mikael Benitez at [place], will reach out to update the office about new echo findings and request to schedule an appointment
#hypertension
#DM-II
H A1C 7.4
#IBS
#CKD IIIa
Total time spent to see the patient, examine the patient, review data and lab result, discuss treatment plan with patient, nursing staff around 55 minutes
Anticipated Discharge: Within 24 hours
Subjective/Interval History
-
Date of Service: February 16, 2025
No sob
No chest pain
No fevers
Objective Data
-
Vital Signs:
Vital Signs
Temp Pulse Resp BP Pulse Ox
98.2 F 71 16 138/69 94
02/16/25 07:10 02/16/25 07:10 02/16/25 07:10 02/16/25 07:10 02/16/25 07:10
I&O
02/15/25 02/16/25 02/17/25
06:59 06:59 06:59
Intake Total 500 / 500 960 / 960
Output Total 1999 / 1999
Balance 500 / 500 -1040 / -1040
[2025-02-16 09:17] LABS: Glycohemoglobin (HgbA1c) 7.4 % (4.0-5.6)
[2025-02-16] MEDS: SINEMET 25-100 1.5 TABLET PO ×3 (09:31→18:17)
[2025-02-16] MEDS: NOVOLOG FLEXPEN-LOW RESISTANCE SC ×3 (09:31→16:36)
[2025-02-16] MEDS: TYLENOL 1000 MG PO ×3 (09:32→22:14)
[2025-02-16] MEDS: LOPRESSOR 25 MG PO ×2 (09:32→20:14)
[2025-02-16] MEDS: NEURONTIN 300 MG PO ×3 (09:32→22:13)
[2025-02-16] MEDS: FARXIGA 10 MG PO (09:32)
[2025-02-16] MEDS: LOW STRENGTH ASPIRIN 81 MG PO (09:33)
[2025-02-16] MEDS: BENTYL 10 MG PO ×2 (09:33→20:13)
[2025-02-16] MEDS: GLUCOPHAGE 500 MG PO ×2 (09:33→18:17)
[2025-02-16] MEDS: PROSCAR 5 MG PO (09:33)
[2025-02-16] MEDS: HEPARIN 5000 UNITS SC ×3 (09:33→23:17)
[2025-02-16] MEDS: ZOLOFT 50 MG PO (09:33)
[2025-02-16] MEDS: FLOMAX 0.4 MG PO (09:33)
[2025-02-16] MEDS: LIDOCAINE 4% PATCH 1 PATCH TOPICAL (09:34)
[2025-02-16] MEDS: MIRALAX 17 GRAMS PO (09:38)
[2025-02-16 11:46] LABS: Glucose - Point of Care 134 mg/dl (70-99)
--- NOTE | 2025-02-16 14:59 | CM ---
Received message in allscripts from Glenys in admissions at [facility] who stated that she should have a bed for patient pending day of discharge. Will continue to keep in touch with Glenys regarding when discharge may be. Patient's , Mela,
updated.
Plan: Case management will continue to follow and assist with dischare planning. Familyin agreement with SNF.
[2025-02-16 16:29] LABS: Glucose - Point of Care 140 mg/dl (70-99)
[2025-02-16] MEDS: CRESTOR 40 MG PO (18:18)
[2025-02-16] MEDS: SENOKOT-S 1 TABLET PO (20:13)
[2025-02-16 21:11] LABS: Glucose - Point of Care 205 mg/dl (70-99)
[2025-02-16] MEDS: DESYREL 100 MG PO (22:14)
[2025-02-16] MEDS: SINEMET 25-100 1 TABLET PO (22:14)
[2025-02-17] VITALS (8 sets, daily range): BP systolic 102–142; BP diastolic 50–68; PULSE 64–77; BMI 21.6
[2025-02-17 07:27] LABS: Glucose - Point of Care 110 mg/dl (70-99)
[2025-02-17 07:35] LABS: Hematocrit 39.9 % (39.0-52.0); Mean Corp Hgb Conc. 32.6 g/dL (33.0-37.0); Mean Corpuscular Hgb 29.2 pg (27.0-31.0); Mean Corpuscular Volume 89.7 fL (80.0-94.0); Mean Platelet Volume 10.5 fL (7.4-10.4); Platelet Count 257 10^3/uL (130-400); Red Blood Cell Count 4.45 10^6/uL (4.70-6.10); Red Cell Dist. Width 14.3 % (11.5-14.5); White Blood Cell Count 7.9 10^3/uL (4.8-10.8)
[2025-02-17 08:03] LABS: ALT (SGPT) < 10 U/L (0-50); AST (SGOT) 21 U/L (17-59); Albumin 3.2 g/dl (3.5-5.0); Alkaline Phosphatase 112 U/L (38-126); Blood Urea Nitrogen 31 mg/dl (9-20); Calcium 8.7 mg/dl (8.4-10.2); Carbon Dioxide 26 mmol/L (22-30); Chloride 108 mmol/L (98-107); Estimated Creatinine Clearance 38 ml/min; Glucose 116 mg/dl (70-99); Potassium 4.9 mmol/L (3.5-5.1); Sodium 137 mmol/L (135-145); Total Bilirubin 0.6 mg/dl (0.2-1.3); eGFR 58.89
[2025-02-17] MEDS: NOVOLOG FLEXPEN-LOW RESISTANCE SC ×2 (09:22→12:10)
[2025-02-17] MEDS: SINEMET 25-100 1.5 TABLET PO ×3 (09:29→18:22)
[2025-02-17] MEDS: PROSCAR 5 MG PO (09:30)
[2025-02-17] MEDS: TYLENOL 1000 MG PO ×3 (09:30→21:13)
[2025-02-17] MEDS: LOPRESSOR 25 MG PO ×2 (09:30→21:13)
[2025-02-17] MEDS: NEURONTIN 300 MG PO ×3 (09:30→21:13)
[2025-02-17] MEDS: FARXIGA 10 MG PO (09:30)
--- NOTE | 2025-02-17 09:30 | W.PN.HOSP.TC ---
Today's Communication/Plan
-
possible dc in am
await urine culture result
Laxative
Assessment / Plan
Assessment / Plan
Physical Exam
General: not in distress, Comfortable and Conversant
HEENT: Normocephalic, Moist mucous membranes, Atraumatic, Nose Appears Normal and Ears Appear Normal
Respiratory: Clear, mild bruising noted on lat left chest wall.
Cardiac: S1/S2, Regular Rhythm and Murmur
GI: Soft, Non Tender, Non Distended.
Genito-urinary: no hematuria
Musculoskeletal: No Clubbing, No Cyanosis and No Edema
Skin: Warm and IV/Catheter Site
Neuro: Awake, Alert, AO x 3 and Nonfocal/grossly intact
Psych: Calm
#Multiple falls 2/2 ambulatory dysfunction
Acute, displaced fractures involving the lateral left sixth and seventh ribs.
Less pain
Chest x-ray did not show pneumothorax.
No leukocytosis, no fever, no confusion
Changed Tylenol to 3 times a day
No hypoxia
Echo 02/15 showed LVEF 45-50%, stage II diastolic dysfunction, mild to moderate MR, mild aortic regurgitation, dilated RV and RA, mild tricuspid regurgitation, pulmonary artery systolic pressure 60 mmHg.
I spoke to his primary manager front, Dr Mikael Benitez and faxed results.
Head CT: 1. No CT evidence for acute intracranial hemorrhage.
2. Moderate diffuse cerebral and cerebellar volume loss.
3. 5 cm arachnoid cyst in the right side of the posterior fossa causing mass effect on the right cerebellar hemisphere and cerebellar vermis which appears chronic and unchanged.
4. Mild periventricular white matter leukoaraiosis.
Lumbar/Pelvis x-ray: 1. Chronic superior endplate fracture of T12 with complete vertebral body collapse.
2. Mild multilevel discogenic degenerative disease in the lumbar spine.
3. Chronic healed sacral fracture.
4. Previous ORIF of chronic healed bilateral proximal femoral fractures.
5. Diffuse bone demineralization.
6. Severe calcific atherosclerotic plaque in the abdominal aorta and common iliac arteries.
7. Large amount of fecal material throughout the colon.
-
# Constipation
Abdomen is slightly distended, not tender, d/w nurse, to give PRN laxatives
# Suspect UTI related to straight cath
urine culture positive for gram negative bacilli
Not signs of active infection as no fever, dysuria, flank pain or leukocytosis but he had weakness.
So will await the culture to finalize
#BPH/chronic urinary retention
- standing straight cath order BID as home regimen
- bladder scan straight cath orders
#Parkinson's Disease
#ASCVD
#bradycardia/heart block
s/p PPM
Primary manager front Dr. Mikael Benitez at [place], will reach out to update the office about new echo findings and request to schedule an appointment
#hypertension
#DM-II
H A1C 7.4
#IBS
#CKD IIIa
Total time spent to see the patient, examine the patient, review data and lab result, discuss treatment plan with patient, nursing staff around 55 minutes
Anticipated Discharge: Within 24 hours
Subjective/Interval History
-
Date of Service: February 17, 2025
he is doing well
No chest pain
No sob
Objective Data
-
Labs:
Laboratory Results
02/17/25
06:47
WBC 7.9
Hgb 13.0
Hct 39.9
Plt Count 257
Sodium 137
Potassium 4.9
Chloride 108 H
Carbon Dioxide 26
BUN 31 H
Creatinine 1.2
Glucose 116 H
Calcium 8.7
Total Bilirubin 0.6
AST 21
ALT < 10
Alkaline Phosphatase 112
Vital Signs:
Vital Signs
Temp Pulse Resp BP Pulse Ox
97.3 F 68 18 112/52 98
02/17/25 07:30 02/17/25 07:30 02/17/25 07:30 02/17/25 07:30 02/17/25 09:21
I&O
02/16/25 02/17/25 02/18/25
06:59 06:59 06:59
Intake Total 960 / 960 960 / 960
Output Total 1999 2150 / 2150
Balance -1040 / -1040 -1190 / -1190
[2025-02-17] MEDS: GLUCOPHAGE 500 MG PO ×2 (09:31→18:22)
[2025-02-17] MEDS: BENTYL 10 MG PO ×2 (09:31→21:13)
[2025-02-17] MEDS: ZOLOFT 50 MG PO (09:31)
[2025-02-17] MEDS: FLOMAX 0.4 MG PO (09:31)
[2025-02-17] MEDS: DULCOLAX 10 MG PO (09:31)
[2025-02-17] MEDS: LOW STRENGTH ASPIRIN 81 MG PO (09:31)
[2025-02-17] MEDS: LIDOCAINE 4% PATCH 1 PATCH TOPICAL (09:32)
[2025-02-17] MEDS: MIRALAX 17 GRAMS PO (09:32)
[2025-02-17] MEDS: HEPARIN 5000 UNITS SC ×3 (09:51→23:19)
[2025-02-17 11:59] LABS: Glucose - Point of Care 121 mg/dl (70-99)
--- NOTE | 2025-02-17 12:26 | CM ---
Placed a call to Glenys in admissions at [facility] who stated that she will have a bed for patient tomorrow. Will need a Covid test within 24 hrs of arrival. Will ask attending prior to patient's discharge.
# For report will be [phone] and fax# [phone]
Per conversation with patient's , patient will need w/c van transfer to facility.
Plan: Case management will continue to follow and assist with discharge planning. [facility] when patient is stable for discharge. Bed available tomorrow, 02/18.
--- NOTE | 2025-02-17 15:55 | PTCARENOTE ---
Pt AAO x3, ORELLANA; OOB to chair with assist x1/walker, heidi well; sl unsteady w/OOB activity. VSS. Telemetry:NSR with occ a-pacing; freq PVC's. On room air- pulse ox 95%, no SOB noted. Abd large, soft, heidi PO well. Pt HNV since straight cath earlier
this shift; pt stated 'Sometimes I go a little bit during the day'. Resting in bed at present. Will continue to monitor.
[2025-02-17 16:54] LABS: Glucose - Point of Care 160 mg/dl (70-99)
[2025-02-17] MEDS: CRESTOR 40 MG PO (18:22)
[2025-02-17] MEDS: NOVOLOG FLEXPEN-LOW RESISTANCE 1 UNITS SC (18:23)
[2025-02-17 21:08] LABS: Glucose - Point of Care 217 mg/dl (70-99)
[2025-02-17] MEDS: SINEMET 25-100 1 TABLET PO (21:12)
[2025-02-17] MEDS: DESYREL 100 MG PO (21:13)
[2025-02-18 03:39] VITALS: BP 140/60
[2025-02-18 06:00] VITALS: BMI 21.6
[2025-02-18 07:20] VITALS: BP 146/65
[2025-02-18 07:41] LABS: Glucose - Point of Care 144 mg/dl (70-99)
[2025-02-18] MEDS: PROSCAR 5 MG PO (07:41)
[2025-02-18] MEDS: FLOMAX 0.4 MG PO (07:41)
[2025-02-18] MEDS: NEURONTIN 300 MG PO ×2 (07:41→15:51)
[2025-02-18] MEDS: GLUCOPHAGE 500 MG PO (07:42)
[2025-02-18] MEDS: LOW STRENGTH ASPIRIN 81 MG PO (07:42)
[2025-02-18] MEDS: TYLENOL 1000 MG PO ×2 (07:42→15:51)
[2025-02-18] MEDS: FARXIGA 10 MG PO (07:42)
[2025-02-18] MEDS: BENTYL 10 MG PO (07:42)
[2025-02-18] MEDS: LOPRESSOR 25 MG PO (07:42)
[2025-02-18] MEDS: ZOLOFT 50 MG PO (07:42)
[2025-02-18] MEDS: HEPARIN 5000 UNITS SC ×2 (07:43→15:51)
[2025-02-18] MEDS: LIDOCAINE 4% PATCH 1 PATCH TOPICAL (07:43)
[2025-02-18] MEDS: NOVOLOG FLEXPEN-LOW RESISTANCE SC ×2 (07:43→12:01)
[2025-02-18] MEDS: SINEMET 25-100 1.5 TABLET PO ×2 (07:51→11:26)
--- NOTE | 2025-02-18 10:50 | W.PN.HOSP.TC ---
Today's Communication/Plan
-
dc
Assessment / Plan
Assessment / Plan
Physical Exam
General: not in distress, Comfortable and Conversant
HEENT: Normocephalic, Moist mucous membranes, Atraumatic, Nose Appears Normal and Ears Appear Normal
Respiratory: Clear, mild bruising noted on lat left chest wall.
Cardiac: S1/S2, Regular Rhythm and Murmur
GI: Soft, Non Tender, Non Distended.
Genito-urinary: no hematuria
Musculoskeletal: No Clubbing, No Cyanosis and No Edema
Skin: Warm and IV/Catheter Site
Neuro: Awake, Alert, AO x 3 and Nonfocal/grossly intact
Psych: Calm
#Multiple falls 2/2 ambulatory dysfunction
Acute, displaced fractures involving the lateral left sixth and seventh ribs.
Less pain
Chest x-ray did not show pneumothorax.
No leukocytosis, no fever, no confusion
Changed Tylenol to 3 times a day
No hypoxia
Echo 02/15 showed LVEF 45-50%, stage II diastolic dysfunction, mild to moderate MR, mild aortic regurgitation, dilated RV and RA, mild tricuspid regurgitation, pulmonary artery systolic pressure 60 mmHg.
I spoke to his primary gum rolling machine tender, Dr Mikael Benitez and faxed results.
Head CT: 1. No CT evidence for acute intracranial hemorrhage.
2. Moderate diffuse cerebral and cerebellar volume loss.
3. 5 cm arachnoid cyst in the right side of the posterior fossa causing mass effect on the right cerebellar hemisphere and cerebellar vermis which appears chronic and unchanged.
4. Mild periventricular white matter leukoaraiosis.
Lumbar/Pelvis x-ray: 1. Chronic superior endplate fracture of T12 with complete vertebral body collapse.
2. Mild multilevel discogenic degenerative disease in the lumbar spine.
3. Chronic healed sacral fracture.
4. Previous ORIF of chronic healed bilateral proximal femoral fractures.
5. Diffuse bone demineralization.
6. Severe calcific atherosclerotic plaque in the abdominal aorta and common iliac arteries.
7. Large amount of fecal material throughout the colon.
-
# Constipation
Abdomen is slightly distended, not tender, d/w nurse, to give PRN laxatives
# Klebsiella UTI related to straight cath
urine culture positive
Not signs of active infection as no fever, dysuria, flank pain or leukocytosis but he had weakness.
dc on 7 days of Cefdinir.
#BPH/chronic urinary retention
- standing straight cath order BID as home regimen
- bladder scan straight cath orders
#Parkinson's Disease
#ASCVD
#bradycardia/heart block
s/p PPM
Primary gum rolling machine tender Dr. Mikael Benitez at [place], will reach out to update the office about new echo findings and request to schedule an appointment
#hypertension
#DM-II
H A1C 7.4
#IBS
#CKD IIIa
Total discharge time spent to see the patient, examine the patient, review data and lab result, discuss discharge plan with patient, nursing staff around 65 minutes
Anticipated Discharge: Today
Subjective/Interval History
-
Date of Service: February 18, 2025
No complaints
No chest pain
No abd pain
Eating well
No SOB
Objective Data
-
Vital Signs:
Vital Signs
Temp Pulse Resp BP Pulse Ox
98.6 F 60 18 146/65 100
02/18/25 07:20 02/18/25 07:42 02/18/25 07:20 02/18/25 07:42 02/18/25 07:20
I&O
02/17/25 02/18/25 02/19/25
06:59 06:59 06:59
Intake Total 960 / 960 1340 / 1340
Output Total 2150 / 2150 1850 / 1850
Balance -1190 / -1190 -510 / -510
[2025-02-18 11:02] VITALS: BP 139/64
[2025-02-18 11:44] LABS: Glucose - Point of Care 132 mg/dl (70-99)
--- NOTE | 2025-02-18 11:55 | CM ---
Addendum entered by Daya Mortensen 02/18/25 15:21:
Facility notified of Ambulance welding production supervisor time via phone
Addendum entered by Daya Mortensen 02/18/25 13:25:
[employer] notified patient's of ambulance pick up attendant time via phone; reported that she spoke with Attending
Addendum entered by Daya Mortensen 02/18/25 13:12:
Ambulance pick up attendant scheduled for 1700
Original Note:
Metal Casket Maker spoke with patient's via phone; she was aware of the discharge plan and is agreeable
IMM benefit explained; form dated/timed @ 1156
Plan: Discharge to [facility] today via ambulance
Report # [phone]
--- NOTE | 2025-02-18 14:28 | PTCARENOTE ---
report given to nurse Martin
[2025-02-18 15:25] VITALS: BP 141/88
--- NOTE | 2025-02-18 16:00 | W.DCSUMMARY ---
Discharge Summary
Discharge Data
Date of Admission: 02/14/25
Date of Discharge: 02/18/25
-
Pending Results: No
Hospital Course
84-year-old male with past medical history significant for Parkinson's Disease, ASCVD, bradycardia/heart block s/p PPM, hypertension, DM-II, IBS, BPH/chronic urinary retention and CKD III who presented to the hospital for evaluation of ambulatory
dysfunction. Patient reported several falls over the past few weeks. Patient denied any dizziness, palpitations, shortness of breath, nausea, vomiting, constipation, diarrhea or urinary changes. Scan of the head did not show acute findings but
showed 5 cm arachnoid cyst in the right side of the posterior fossa causing mass effect on the right cerebellar hemisphere and cerebellar vermis which appears chronic and unchanged. Other imaging studies did not show acute fracture except acute,
displaced fractures involving the lateral left sixth and seventh ribs. Patient was given Tylenol for pain control. He did not have leukocytosis or hypoxia. Orthostatic vital signs did not show positive findings. Echo 02/15 showed LVEF 45-50%,
stage II diastolic dysfunction, mild to moderate MR, mild aortic regurgitation, dilated RV and RA, mild tricuspid regurgitation, pulmonary artery systolic pressure 60 mmHg. patient had urine test that showed Klebsiella infection. He was given
antibiotic Although he did not have systemic signs of infection. Blood culture did not show any growth. Patient has chronic urinary retention and uses straight catheterization at home. Patient was evaluated by physical therapy recommending
[facility] facility placement. Patient remained hemodynamically stable and was discharged to SNF in a stable condition.
Discharge Plan
-
Patient Disposition: Correction/SNF
Discharge Diagnosis/Procedures: Multiple falls due to ambulatory dysfunction
Acute, displaced fractures involving the lateral left sixth and seventh ribs. Use Tylenol.
Constipation
Klebsiella UTI related to straight cath: discharge on cefdinir for total of 7 days
BPH/ chronic urinary retention
status post pacemaker hypertension
Diabetes
CKD 3 AA
Diet: Diabetic, Carb Controlled
Referrals:
Anita Causey MD [Family Provider]
Mikael Benitez MD [Non-Admitting Privileges, Internal Medicine] - in one to two weeks
Prescriptions:
New
acetaminophen [Tylenol Extra Strength] 500 mg Tablet
1,000 mg PO TIDPRN PRN (Reason: pain,fever) Qty: 10 0RF
cefdinir 300 mg capsule
300 mg PO DAILY Qty: 7 0RF
Continued
metformin 500 MG tablet
500 mg PO BID@0800,1700
Rx Instructions:
breakfast, dinner
famotidine 40 MG tablet
40 mg PO HS
aspirin 81 MG tablet,delayed release (DR/EC)
81 mg PO DAILY
ascorbic acid (vitamin C) [Vitamin C] 500 MG tablet
500 mg PO DAILY
gabapentin 300 MG capsule
300 mg PO TID
finasteride 5 MG tablet
5 mg PO DAILY
rosuvastatin 40 MG tablet
40 mg PO QPM
Rx Instructions:
with dinner
metoprolol tartrate 25 MG tablet
25 mg PO BID
dapagliflozin propanediol [Farxiga] 10 mg Tablet
10 mg PO DAILY
Glucosamine Chondroitin 550-30-1 mg Capsule
1 cap PO BID Qty: 0
carbidopa-levodopa 25-100 mg tablet
1.5 tab PO TID@0800,1200,1700
carbidopa-levodopa 25-100 mg tablet
1 tab PO HS
tamsulosin [Flomax] 0.4 mg Capsule
0.4 mg PO BID
sertraline 50 mg Tablet
50 mg PO DAILY
dicyclomine 10 mg Capsule
10 mg PO BID
levocetirizine [Xyzal] 5 mg Tablet
5 mg PO HS
omeprazole 20 mg Tablet,Delayed Release (Dr/Ec)
20 mg PO DAILY
acetaminophen-codeine 300-30 mg tablet
1 tab PO Q8HPRN PRN (Reason: mild pain)
benzonatate 100 mg Capsule
200 mg PO TIDPRN PRN (Reason: cough) Qty: 20 0RF
therapeutic multivitamin Tablet
1 tab PO DAILY
trazodone 100 mg Tablet
100 mg PO HS
Trulicity 1.5 mg/0.5 mL Pen Injector
1.5 mg SC WE
lidocaine 4 % adhesive patch,medicated
1 patch topical DAILYPRN PRN (Reason: mild pain)
fenofibrate nanocrystallized 48 mg tablet
48 mg PO DAILY
Discontinued
acetaminophen [Tylenol Extra Strength] 500 mg Tablet
500 mg PO HS
amoxicillin-pot clavulanate 875-125 mg tablet
1 tab PO BID
Discharge Orders:
Discharge Patient (As Directed); Ordered 02/18/25
Ordered By: Ernesto German
Discharge Date and Time
Print Language: GUYANESE
[2025-02-18 16:20] LABS: COVID-19 Antigen Negative (Negative)
== END 2025-02-18 17:35 | DRG 57 ==
LOC: 4 EAST ACU 07:13
PROVIDERS: Nurse Practitioner; ADMITTING PHYSICIAN Internal Medicine; ATTENDING PHYSICIAN Internal Medicine; EMERGENCY PHYSICIAN Emergency Medicine; FAMILY PHYSICIAN Internal Medicine
DX: G20.C Parkinsonism, unspecified (principal); T83.518A Infection and inflammatory reaction due to other urinary catheter, initial encounter; S22.41XA Multiple fractures of ribs, right side, initial encounter for closed fracture; E87.1 Hypo-osmolality and hyponatremia; S22.089A Unspecified fracture of T11-T12 vertebra, initial encounter for closed fracture; N39.0 Urinary tract infection, site not specified; S01.01XA Laceration without foreign body of scalp, initial encounter; N40.1 Benign prostatic hyperplasia with lower urinary tract symptoms; N40.0 Benign prostatic hyperplasia without lower urinary tract symptoms; R29.6 Repeated falls; N18.31 Chronic kidney disease, stage 3a; E11.22 Type 2 diabetes mellitus with diabetic chronic kidney disease; I12.9 Hypertensive chronic kidney disease with stage 1 through stage 4 chronic kidney disease, or unspecified chronic kidney disease; Z95.0 Presence of cardiac pacemaker; Z79.84 Long term (current) use of oral hypoglycemic drugs; K58.8 Other irritable bowel syndrome; B96.1 Klebsiella pneumoniae [K. pneumoniae] as the cause of diseases classified elsewhere; G20.A1 Parkinson's disease without dyskinesia, without mention of fluctuations; I25.10 Atherosclerotic heart disease of native coronary artery without angina pectoris; Z95.5 Presence of coronary angioplasty implant and graft; Z11.52 Encounter for screening for COVID-19; E78.00 Pure hypercholesterolemia, unspecified; G47.33 Obstructive sleep apnea (adult) (pediatric); M81.0 Age-related osteoporosis without current pathological fracture; W19.XXXA Unspecified fall, initial encounter; Z91.81 History of falling
CPT/HCPCS: 12001; 51701; 70450; 71100; 72110; 72170; 80053; 81003; 81015; 82962; 83036; 85025; 85027; 87040; 87077; 87086; 87186; 87811; 93005; 93306; 96360; 97163; 97167; 97530; 97535; 99285

== ENCOUNTER → 2025-04-16 09:08 | Outpatient (REF) | payer MEDICARE, BC, SELFPAY | LOC: RAD 09:08 | PROVIDERS: ATTENDING PHYSICIAN Orthopaedic Surgery; FAMILY PHYSICIAN Internal Medicine | DX: M51.369 Other intervertebral disc degeneration, lumbar region without mention of lumbar back pain or lower extremity pain (principal); M54.50 Low back pain, unspecified | CPT/HCPCS: 72131; 78306; A9503 ==

== ENCOUNTER 2025-05-14 15:19 | Inpatient (IN) | payer MEDICARE, BC, SELFPAY ==
[2025-05-12 20:52] VITALS: BP 111/67
[2025-05-12 20:59] VITALS: BP 111/67
[2025-05-12 21:05] VITALS: BMI 23.0
[2025-05-12 22:01] VITALS: BP 134/104
[2025-05-12 22:09] LABS: Venous Blood Gas B.E. 1.5 mmol/L (-4 to +4); Venous Blood Gas O2 Sat % 82.5 %
[2025-05-12 22:15] LABS: Hematocrit 38.1 % (39.0-52.0); Hemoglobin 12.2 g/dL (13.0-18.0); Mean Corp Hgb Conc. 32.0 g/dL (33.0-37.0); Mean Corpuscular Volume 92.7 fL (80.0-94.0); Nucleated Red Blood Cells % 0 % (-); Platelet Count 177 10^3/uL (130-400); Red Cell Dist. Width 14.2 % (11.5-14.5)
[2025-05-12 22:34] LABS: ALT (SGPT) < 10 U/L (0-50); AST (SGOT) 40 U/L (17-59); Albumin 3.2 g/dl (3.5-5.0); Alkaline Phosphatase 110 U/L (38-126); Blood Urea Nitrogen 36 mg/dl (9-20); Calcium 8.6 mg/dl (8.4-10.2); Carbon Dioxide 28 mmol/L (22-30); Chloride 101 mmol/L (98-107); Estimated Creatinine Clearance 40 ml/min; Glucose 273 mg/dl (70-99); Potassium 4.4 mmol/L (3.5-5.1); Sodium 134 mmol/L (135-145); Total Protein 5.2 g/dl (6.3-8.2); eGFR 58.89
[2025-05-12 22:53] LABS: Troponin I 0.038 ng/ml
[2025-05-13] VITALS (10 sets, daily range): BP systolic 94–172; BP diastolic 49–83; BMI 22.1
--- NOTE | 2025-05-13 00:32 | ED.CVA ---
History of Present Illness
General
Chief Complaint: CVA/TIA Symptoms
Source: patient and spouse
Time Seen by Provider: 05/12/25 21:50
Onset of Stroke Symptoms
Onset of symptoms known: Yes
Date of onset of symptoms: 05/12/25
History of Present Illness
History of Present Illness:
Note:
CHIEF COMPLAINT(S)
Fall with subsequent difficulty in ambulation and altered mental status.
HISTORY OF PRESENT ILLNESS
The patient is an 84-year-old male presenting with complaints of a fall that occurred last night. Post-fall, he experienced significant difficulty ambulating and displayed altered mental status today, characterized by excessive sleepiness and
slurred speech. The patient attempted to walk with a walker but had considerable difficulty, according to his spouse, which prompted a visit to the medical facility. There is no report of head trauma related to the fall.
Upon waking this morning, the patient reported pain in his right leg and hip. Additionally, he complained of pain in the right shoulder and right ankle, although he did not report head injury. The spouse informed that prior to the emergency
department visit, the patient�s speech was significantly less clear and his mobility was impaired, though his speech improved upon evaluation. There is a history of both right and left hip repairs from previous falls over the past two and a half
years.
Significant past medical history includes a history of diabetes and irritable bowel syndrome. There is no history of liver disease, but the patient has a history of kidney issues.
Attempts at urinary and blood tests were indicated, and imaging was planned to assess for possible skeletal injuries, emphasizing the right hip and shoulder. A CT scan of the head and chest x-ray were also ordered to rule out other conditions. The
patient is being considered for overnight observation for continued monitoring and evaluation.
CHRONIC MEDICAL CONDITIONS SIGNIFICANTLY AFFECTING CARE
- Diabetes
- Kidney issues
- Irritable bowel syndrome
PHYSICAL EXAM
General: Alert, no acute distress.
Skin: Warm, dry.
Head: Normocephalic, atraumatic.
Neck: Supple, trachea midline.
Eye Ears, Nose, Mouth and Throat: Oral mucosa moist.
Cardiovascular: Normal peripheral perfusion, No edema.
Respiratory: Respirations are non-labored.
Gastrointestinal: Abdomen nondistended.
Back: Normal range of motion, Normal alignment.
Musculoskeletal: Right hip and right shoulder pain reported, with difficulty lifting the right leg.
Neurological: Alert and oriented to person, place, time, and situation, No focal neurological deficit observed.
Psychiatric: Cooperative, appropriate mood & affect.
PROBLEM LIST
Acute:
- Right hip pain
- Right shoulder pain
- Fall with subsequent mobility issues and altered mental status
Chronic:
- Diabetes
- Kidney issues
- Irritable bowel syndrome
PLAN
- Order a CT scan of the head to rule out any intracranial pathology.
- Obtain a chest x-ray to assess for potential injuries or conditions affecting respiratory function.
- Conduct blood work including complete blood count (CBC) and basic metabolic panel (BMP).
- Request urine analysis to evaluate any potential urinary infections or other abnormalities.
- Perform x-rays of the right hip and right shoulder to assess for any fractures or dislocations.
- Consider keeping the patient overnight for observation to monitor his condition.
DIFFERENTIAL DIAGNOSIS
The Differential Diagnosis includes, in no particular order and is not limited to:
- Subarachnoid hemorrhage
- Transient ischemic attack
- Hip fracture
- Shoulder dislocation or fracture
- Diabetic neuropathy
- Urinary tract infection
- Electrolyte imbalance
- Drug or alcohol intoxication
- Delirium secondary to infection
- Systemic illness such as sepsis
CARE-UPDATE
05/13/25 - 01:00
The patient appears stable overnight, exhibiting improved mental clarity upon administration of supplemental oxygen, raising the suspicion of hypoxic-related confusion rather than a TIA. All diagnostic imaging, including head CT, chest X-ray, and
hip and shoulder X-rays, show no acute findings, and the patients blood work remains largely unremarkable. Monitoring will continue overnight to assess further improvement and ensure stability, with a particular focus on ambulation safety
considering the earlier fall. The plan is to re-evaluate in the morning to determine the next steps based on the patients progression.
Disposition:
SUMMARY OF ENCOUNTER
The patient, an 84-year-old male with a history of sleep apnea, Parkinsons disease, hypertension, and hyperlipidemia, presented to the emergency department with altered mental status and a history of falling the previous night. He was slightly
hypoxic upon presentation with an oxygen saturation of 89%. His mental status improved on reassessment. The emergency department evaluation showed a normal white blood cell count at 9.9 x 10^3/�L, hemoglobin of 12.2 g/dL, pH of 7.3, pCO2 of 54 mmHg,
creatinine at 1.2 mg/dL, and mild elevation in cardiac markers at 0.03 ng/mL, consistent with his baseline. Brain natriuretic peptide was mildly elevated but lower than prior levels from January 2023. Imaging, including a chest x-ray, CT of the head,
x-rays of the hip and shoulder, showed no acute findings. Given the patient self-catheterizes, the urine was planned for checking. Differential considerations included transient ischemic attack (TIA) and hypoxia-related mental status changes. The
patient was admitted for close monitoring and follow-up due to his medical history.
DISPOSITION
Admit
ASSESSMENT
Altered mental status, possibly related to slight hypoxia or underlying conditions such as a transient ischemic attack. The fall could also be contributory, though imaging ruled out intracranial hemorrhage.
PLAN
Admit for close monitoring and follow-up considering underlying medical history and recent changes in mental status.
INDEPENDENT REVIEW OF LABS AND INTERPRETATION OF TESTS
- My independent review of CBC shows a normal white blood cell count at 9.9 x 10^3/�L.
- My independent review of BMP indicates normal creatinine at 1.2 mg/dL.
- My independent review of troponin shows a slight elevation at 0.03 ng/mL, consistent with baseline values.
My independent interpretation of the chest x-ray, head CT, and x-rays of the hip and shoulder shows no acute findings.
MEDICATION RECONCILIATION
No specific medications were given in the emergency department or mentioned for reconciliation.
MEDICAL DECISION MAKING
- Number and Complexity of Problems Addressed: Chronic conditions affecting care including sleep apnea, Parkinsons disease, hypertension, and hyperlipidemia. Differential diagnosis includes transient ischemic attack, hypoxia-related changes, or
injuries from a recent fall.
- Data:
Category 1
- Tests and documents: CBC, BMP, troponin, and imaging studies (chest x-ray, head CT, hip, and shoulder x-rays).
Category 2
- Assessment requiring input from the independent historian: No additional independent historian besides information provided.
Category 3
- Discussion of management or test interpretation was not mentioned.
-Risk:
The decision to admit the patient for observation and monitoring underscores the risk associated with his altered mental status, potential for serious sequelae of apparent hypoxia, and his complex medical history.
DIAGNOSIS
- Altered mental status (R41.82)
- Document baseline slight cardiac marker elevation (R79.89)
- Mild hypoxia (R09.02)
Past History
Past History
ED Past Medical History: Arrthythmia (bradycardia), CAD, HTN, Hypercholesterolemia, NIDDM, [place] and Other (IBS, Sleep apnea, Parkinson's)
ED Past Surgical History: Appendectomy, Cardiac (pacemaker, Cardiac stents X 10), Tonsilectomy and Other (Hernia, hydrocele)
Social History
Tobacco: Non-smoker
Alcohol: Occasional
Drug: None
Personal:
Living: with family
Phy Exam
Physical Exam
Physical Exam:
.
Course
Orders/Labs/Results
Orders:
Orders
05/12/25 21:47
Complete Blood Count/With Diff Urgent
Comprehensive Metabolic Panel Urgent
05/12/25 22:00
CT Head W/o Iv Contrast Urgent
Comment:
Reason For Exam: fall, change in ms
05/12/25 22:01
CR Chest - 2 Views Urgent
Comment:
Reason For Exam: hypoxia
Hip, Right 2-3 Views [CR Hip - RT w/wo Pel 2-3 Vw*] Urgent
Comment:
Reason For Exam: fall
Include a pelvis x-ray?: Yes
Shoulder, Right, Trauma [CR Shoulder, Trauma - Right] Urgent
Comment:
Reason For Exam: fall
05/12/25 22:03
NT-proBNP Urgent
Troponin I Urgent
Venous Blood Gas Urgent
%Oxygen/Room Air: 2L
05/13/25 00:56
Electrocardiogram (*1) Urgent
Reason for Study: Fatigue / Weakness
EKG- Treatment ONCE
Abnormal Lab Results
05/12/25 05/12/25
21:47 22:03
RBC 4.11 L 10^6/uL
(4.70-6.10)
Hgb 12.2 L g/dL
(13.0-18.0)
Hct 38.1 L %
(39.0-52.0)
MCHC 32.0 L g/dL
(33.0-37.0)
Abs Immat Gran (auto) 0.1 H 10^3/uL
(0-0.05)
Absolute Neuts (auto) 7.3 H 10^3/uL
(1.4-6.5)
Immature Gran % 0.6 H %
(0-0.5)
Lymphocytes % 12.6 L %
(20.5-51.1)
Eosinophils % 6.9 H %
(0-6)
VBG pCO2 54 H mmHg
(35-48)
VBG pO2 53 H mmHg
(30-50)
VBG HCO3 28.5 H mmol/L
(22-27)
Sodium 134 L mmol/L
(135-145)
BUN 36 H mg/dl
(9-20)
Glucose 273 H mg/dl
(70-99)
Troponin I 0.038 H* ng/ml
Total Protein 5.2 L g/dl
(6.3-8.2)
Albumin 3.2 L g/dl
(3.5-5.0)
05/12/25 21:47
05/12/25 21:47
Vital Signs
Initial and Last Documented VS:
Initial Vital Signs
Pulse Resp Pulse Ox
70 24 90
05/12/25 20:50 05/12/25 20:50 05/12/25 20:50
Last Documented Vital Signs
Temp Pulse Resp BP Pulse Ox
98.2 F 73 16 149/56 97
05/12/25 20:52 05/12/25 22:01 05/12/25 22:01 05/13/25 00:00 05/13/25 00:32
*Pulse Oximetry
SaO2: 97
Nasal Cannula flow liters per minute: 4
Patient hypoxic: yes
*Marketing Compliance Manager Interpretation
Rate: normal
Interpretation: normal
Rhythm: sinus
*Critical Care Note
Total Time (30-74mins, 75-104mins- exclusive of procedures): Not Applicable
ED Attending Note
-
Portions of this chart may have been created with voice recognition software.� Occasional wrong word or��sound alike� substitutions may have occurred due to the inherent limitations of voice recognition software.
Discharge Plan
Departure
Patient Disposition: Admit
Date of Disposition: 05/13/25
Time of Disposition: 01:00
Admit to: Telemetry
Presentation/result/management discussed w/ accepting MD/DO: Hospitalist
Discharge Problem:
Acute alteration in mental status, Acute hyperglycemia
Prescriptions:
No Action
metformin 500 MG tablet
500 mg PO BID@0800,1700
Rx Instructions:
breakfast, dinner
famotidine 40 MG tablet
40 mg PO HS
aspirin 81 MG tablet,delayed release (DR/EC)
81 mg PO DAILY
ascorbic acid (vitamin C) [Vitamin C] 500 MG tablet
500 mg PO DAILY
gabapentin 300 MG capsule
300 mg PO TID
finasteride 5 MG tablet
5 mg PO DAILY
rosuvastatin 40 MG tablet
40 mg PO QPM
Rx Instructions:
with dinner
metoprolol tartrate 25 MG tablet
25 mg PO BID
dapagliflozin propanediol [Farxiga] 10 mg Tablet
10 mg PO DAILY
Glucosamine Chondroitin 550-30-1 mg Capsule
1 cap PO BID Qty: 0
carbidopa-levodopa 25-100 mg tablet
1.5 tab PO TID@0800,1200,1700
carbidopa-levodopa 25-100 mg tablet
1 tab PO HS
tamsulosin [Flomax] 0.4 mg Capsule
0.4 mg PO BID
sertraline 50 mg Tablet
50 mg PO DAILY
dicyclomine 10 mg Capsule
10 mg PO BID
levocetirizine [Xyzal] 5 mg Tablet
5 mg PO HS
omeprazole 20 mg Tablet,Delayed Release (Dr/Ec)
20 mg PO DAILY
acetaminophen-codeine 300-30 mg tablet
1 tab PO Q8HPRN PRN (Reason: mild pain)
benzonatate 100 mg Capsule
200 mg PO TIDPRN PRN (Reason: cough) Qty: 20 0RF
therapeutic multivitamin Tablet
1 tab PO DAILY
trazodone 100 mg Tablet
100 mg PO HS
Trulicity 1.5 mg/0.5 mL Pen Injector
1.5 mg SC WE
lidocaine 4 % adhesive patch,medicated
1 patch topical DAILYPRN PRN (Reason: mild pain)
fenofibrate nanocrystallized 48 mg tablet
48 mg PO DAILY
acetaminophen [Tylenol Extra Strength] 500 mg Tablet
1,000 mg PO TIDPRN PRN (Reason: pain,fever) Qty: 10 0RF
cefdinir 300 mg capsule
300 mg PO DAILY Qty: 7 0RF
Referrals:
Anita Causey MD [Family Provider]
Interventions
Interventions:
*Risk Screen - Suicide Last Done: 05/12/25 20:52
*General Assessment Last Done: 05/12/25 20:52
*Neglect/Abuse Screening Last Done: 05/12/25 20:52
*ED- Fall Risk Assessment Last Done: 05/12/25 21:05
*ED COVID-19 Vaccine History Last Done: 05/12/25 21:05
ED- Cardiac Assessment Last Done: 05/12/25 21:05
ED- Neurological Assessment Last Done: 05/12/25 21:05
ED- Pulmonary Assessment Last Done: 05/12/25 21:05
ED Swallowing Screen Last Done: 05/12/25 21:33
Discharge Date and Time
Print Language: VENEZUELAN
[2025-05-13 01:33] LABS: Urine Character Slightly Cloudy (Clear)
[2025-05-13 01:43] LABS: Urine Red Blood Cell 0-2 /HPF (0-2); Urine Squamous Cell >30 /LPF (Few); Urine White Cell >100 /HPF (0-5)
--- NOTE | 2025-05-13 01:54 | HPS.HSE ---
Family Physician
-
Family Physician: Anita Causey
Chief Complaint
-
Status post fall, episode of difficulty speaking and confusion
History of Present Illness
This is a 84-year-old male with past medical history significant for CAD status post stents x 10, BPH, Parkinson disease, hypertension, diabetes, hyperlipidemia, CKD 3, heart block status post pacemaker who presents to the emergency department with
episode of confusion after a fall.
Patient described that he did have a fall yesterday but he could not tell me the details of the fall. He denies a loss of consciousness. He did note an episode of transient chest pain yesterday which he did not tell anybody. Denies feeling dizzy
or lightheaded. He was brought into the Emergency Department by spouse because he had difficulty speaking and with confusion. By the time I saw him he was speaking clearly and was alert and oriented and answering questions appropriately.
He was last admitted in January with weakness and ambulatory dysfunction and was found to have Klebsiella UTI. At the time work up showed Echo 02/15 showed LVEF 45-50%, stage II diastolic dysfunction, mild to moderate MR, mild aortic regurgitation,
dilated RV and RA, mild tricuspid regurgitation, pulmonary artery systolic pressure 60 mmHg. He has chronic lower extremity edema but denies any recent acute increase or weight gain. He denies any new medications.
He reports chronic urinary frequency which he attributes to his BPH. Denies dysuria hematuria flank pain. He denies feeling dizzy or lightheaded. He denies any numbness tingling. He denies any nausea vomiting diaphoresis. He denies feeling
short of breath. He denies any cough fevers or chills. He is not aware of any sick contacts. Reports some mild neck tension and pain since his fall.
In the emergency department he was afebrile, he was requiring 2 L of oxygen, blood pressure was 140/56 with a pulse of 72. Respirate rate was 16. Chest x-ray shows no acute infiltrate. CT of the head shows no acute intracranial process. ABG was
7.33/54. ECG was normal sinus rhythm rate of [address] or T wave changes. Troponin was elevated at 0.038.
White count was 11.9 with normal hemoglobin and platelets. His electrolytes were all in the normal range. BUN and creatinine were 37.2 which 19 from prior.
Medical History
Past Medical History
Past Medical History: Reports Other
Additional Past Medical History:
Parkinson's Disease
ASCVD
bradycardia/heart block s/p PPM
hypertension
DM-II
IBS
BPH/chronic urinary retention
CKD III
Past Surgical History: Reports Other
Additional Past Surgical History:
PTCA with Stent (x 10)
Appendectomy
Cataracts
Hernia Repair
Social History
Tobacco: Non-smoker
Alcohol: Occasional
Drug: None
Personal:
Living: With Family
Employment: Retired
Family History
Family History: Not pertinent
Allergies / Home Medications
Allergies reflects when Allergies were last updated in [facility].
Home Medications with original date entered in [facility]
Allergy/Medication List:
Medications on admission are unable to be verified or confirmed at this time.
Review of Systems
-
History Source: Patient
A 12 point ROS was completed and negative except as noted: Yes
Constitutional: Reports Other (See as noted in HPI)
Physical Exam
Vital Signs
Vital Signs
Temp Pulse Resp BP Pulse Ox
98.2 F 73 16 149/56 97
05/12/25 20:52 05/12/25 22:01 05/12/25 22:01 05/13/25 00:00 05/13/25 01:33
Physical Exam
General: No Apparent Distress and Comfortable
HEENT: NormoCephalic, Moist mucous membranes, Atraumatic, PERRLA, Neck Nontender and Oxygen
Respiratory: Clear
Cardiac: S1/S2, Regular Rhythm, Murmur (High pitch 2 out of 6 systolic murmur heard over the apex and throughout the precordium.) and Peripheral Edema; No JVD
Breast: Deferred by me
GI: Soft, Non Tender, Non Distended and Normal Bowel Sounds
Rectal: Deferred by Provider
Genito-urinary: Deferred by me
Musculoskeletal: No Clubbing, No Cyanosis, Edema, Left Lower Extremity (1+) and Edema, Right Lower Extremity (1+)
Skin: Warm
Neuro: AO x 3 and Nonfocal/grossly intact
Hematologic/Lymphatic: No Lymphadenopathy
Psych: Calm
Laboratory Results
-
05/12/25 21:47
05/12/25 21:47
Laboratory Results
Total Bilirubin 0.9 mg/dl (0.2-1.3) 05/12/25 21:47
AST 40 U/L (17-59) 05/12/25 21:47
ALT < 10 U/L (0-50) 05/12/25 21:47
Alkaline Phosphatase 110 U/L (38-126) 05/12/25 21:47
Troponin I 0.038 ng/ml H* 05/12/25 22:03
Data Reviewed
-
Diagnostic Radiology: Report Reviewed by me
CT Scan: Report Reviewed by me
Medical Tests (Nuc Med, Echo, EKG etc): Image Personally Visualized and interpreted
Lab Data: Labs Reviewed by me
Old Records: Reviewed
Impression/Plan
-
IMPRESSION:
Is a 58-year-old with multiple comorbidities including CAD status post 10 stents, heart block status post pacemaker placement, tuc-[id number] diabetes, Parkinson's disease, BPH with prior history of Klebsiella UTI presents to the emergency
department after a fall x 1 day with episode of confusion and slurred speech. By the time I saw the patient he is cleared up. He is alert and oriented x 3 and has insight into his medical condition and able to answer questions appropriately and
follow commands appropriately. NIHSS equals 0. He has no slurred speech, facial asymmetry or any other focal neurological deficits. His CT of the head was negative. Chest x-ray shows no acute infiltrates. His labs are similar to prior. Overall
volume status seems about baseline. His UA so far shows 3+ leukocyte esterase with pending WBCs and bacterial counts.
PLAN:
Altered mental status -patient is currently NIHSS equals 0. Given transient nature possible TIA versus infection but no current signs of infection. He is alert and oriented.
-Admit to telemetry observation
-Neurochecks every 4 to 6 hours
-Speech and swallow eval
-Patient is already on aspirin and statin, NIHSS = 0, hold off on MRI pending eval for infectious process
-Final read on UA is pending, 3+ leukocyte esterase pending WBCs and bacteria results. No no systemic signs of infection at this time
- covid/flu testing
- PT consult
Elevated troponin -extensive cardiac history with stent stents, currently no chest pain. Reported that earlier in the morning 20 hours ago he did have an episode of chest pain that lasted very briefly without palpitations dyspnea shortness of
breath or diaphoresis.
-tele obs
-Trend troponin, echo
-Continue aspirin and statin
-Continue metoprolol
-If troponin remains less than 0.04, can follow-up with outpatient with his director of strategic partnerships
BPH
-Continue his tamsulosin
�Monitor for urinary retention
DM2
- Continue his metformin for now
- Sliding scale insulin
- Farxiga
Parkinson's disease
� Continue Sinemet
-Continue trazodone at bedtime and sertraline for mood disturbance
DVT prophylaxis�heparin subcu
CODE STATUS�Full code
[2025-05-13 02:35] LABS: COVID-19 Antigen Negative (Negative)
[2025-05-13 03:12] LABS: Troponin I 0.048 ng/ml
[2025-05-13] MEDS: TYLENOL 650 MG PO ×3 (05:04→22:48)
[2025-05-13 05:33] LABS: Hematocrit 43.4 % (39.0-52.0); Hemoglobin 14.1 g/dL (13.0-18.0); Mean Corp Hgb Conc. 32.5 g/dL (33.0-37.0); Mean Corpuscular Volume 92.9 fL (80.0-94.0); Platelet Count 200 10^3/uL (130-400); Red Cell Dist. Width 14.3 % (11.5-14.5)
[2025-05-13 06:16] LABS: Troponin I 0.305 ng/ml
[2025-05-13 06:50] LABS: Blood Urea Nitrogen 30 mg/dl (9-20); Calcium 9.1 mg/dl (8.4-10.2); Carbon Dioxide 27 mmol/L (22-30); Chloride 102 mmol/L (98-107); Estimated Creatinine Clearance 39 ml/min; Glucose 155 mg/dl (70-99); HDL Cholesterol 47 mg/dl; LDL Cholesterol, Calculated 20 mg/dl; Potassium 4.0 mmol/L (3.5-5.1); Sodium 136 mmol/L (135-145); Very Low Density Lipoprotein 38 mg/dl (0-30); eGFR 58.89
[2025-05-13 07:21] LABS: TSH 1.19 uIU/ml (0.47-4.68)
--- NOTE | 2025-05-13 07:51 | W.PN.HOSP.TC ---
Today's Communication/Plan
-
Ceftriaxone for UTI
IV fluids for sepsis
Cardiology consult for elevated troponin, trend troponin
Assessment / Plan
Assessment / Plan
58 MW/CAD s/p stents, heart block s/p PPM, DM, PAD, BPH, H/O Klebsiella UTI, P/W fall, confusion, slurred speech. He no longer has any deficits.
1. Acute encephalopathy
Resolved
Monitor mental status
Consider TIA versus UTI.
Consider MRI brain/MRA H/N
Patient had a fall, reviewed x-rays, no acute shoulder fracture, no acute hip fracture, CT head no acute abnormality
2. Sepsis 2/2 UTI
leukocytosis and tachycardia
Urine LE 3+, WBC >100. Urine culture pending
No other S/S infection, CXR clear, flu/COVID-negative
Empiric ceftriaxone, IVF. h/o klebsiella UTI
2. Elevated troponin
Mild elevation, h/o CAD/stenting
EKG with no ischemic change
Monitor on telemetry, trend troponin --> bump to 0.305
Consult cardiology
ADELAIDE/statin/BB
4. Hyponatremia�resolved
Mild
3. BPH
Flomax
4. DM2
SSI/Accu-Cheks
Farxiga
BG elevated
5. PD
Sinemet, trazodone, sertraline
DVT ppx
lovenox
Anticipated Discharge: 24 - 48 hours
Subjective/Interval History
-
Date of Service: May 13, 2025
Patient sleeping, but easily awakened. Denies chest pain, notes right hip pain, chronic. Denies SOB.
Objective Data
-
Labs:
Laboratory Results
05/12/25 05/13/25
21:47 05:24
WBC 9.9 14.1 H
Hgb 12.2 L 14.1
Hct 38.1 L 43.4
Plt Count 177 200
Sodium 134 L 136
Potassium 4.4 4.0
Chloride 101 102
Carbon Dioxide 28 27
BUN 36 H 30 H
Creatinine 1.2 1.2
Glucose 273 H 155 H
Calcium 8.6 9.1
Total Bilirubin 0.9
AST 40
ALT < 10
Alkaline Phosphatase 110
Vital Signs:
Vital Signs
Temp Pulse Resp BP Pulse Ox
97.7 F 102 17 143/74 96
05/13/25 07:27 05/13/25 07:27 05/13/25 07:27 05/13/25 07:27 05/13/25 07:27
I&O
05/12/25 05/13/25 05/14/25
06:59 06:59 06:59
Intake Total 480 / 480
Output Total 350 / 350
Balance 130 / 130
Review of Systems
-
All other systems: Reviewed and negative
Physical Exam
-
General: No Apparent Distress
HEENT: Moist Mucous Membranes, Anicteric and PERRLA
Respiratory: Clear to Auscultation; Negative Wheezes, Rales or Rhonchi
Cardiac: Regular Rhythm and S1/S2; Negative Murmur, Rub or Gallop
GI: Soft, Nontender, Nondistended and Normal Bowel Sounds
Musculoskeletal: No Edema
Skin: Warm and Dry; Negative Rash, Ulcers or Lesions
Neuro: Awake and AO x 3
Hematologic / Lymphatic: No Lymphadenopathy
Psych: Calm
Data Reviewed
-
Diagnostic Radiology: Report Reviewed by me
Labs: Labs Reviewed by me and Discussed with Patient
Old Records: Reviewed
[2025-05-13] MEDS: NEURONTIN 300 MG PO ×4 (08:06→22:16)
[2025-05-13] MEDS: SINEMET 25-100 2 TABLET PO ×3 (08:07→17:22)
[2025-05-13] MEDS: LOPRESSOR 25 MG PO ×2 (08:07→20:47)
[2025-05-13] MEDS: FARXIGA 10 MG PO (08:07)
[2025-05-13] MEDS: PROTONIX 40 MG PO (08:09)
[2025-05-13] MEDS: TRICOR 48 MG PO (08:09)
[2025-05-13] MEDS: ZOLOFT 50 MG PO (08:09)
[2025-05-13] MEDS: PROSCAR 5 MG PO (08:09)
[2025-05-13] MEDS: ASPIR LOW (ENTERIC COATED) 81 MG PO (08:09)
[2025-05-13] MEDS: GLUCOPHAGE 500 MG PO (08:09)
[2025-05-13] MEDS: FLOMAX 0.4 MG PO ×2 (08:09→20:47)
[2025-05-13 09:20] LABS: Troponin I 1.040 ng/ml
[2025-05-13] MEDS: NSS 1000 IV ×2 (09:31→22:48)
[2025-05-13] MEDS: ROCEPHIN 1000 MG IV (09:32)
[2025-05-13] MEDS: STERILE WATER FOR INJECTION 10 ML IV (09:32)
--- NOTE | 2025-05-13 09:38 | CON.CAR ---
Addendum entered and electronically signed by Derek Vicente DO 05/13/25 16:20:
I saw and examined the patient.
The Clay Maker's note was reviewed and I agree with the note.
Comment:
Plan:
He had a recent fall prompting admit and is being worked up for sepsis. He has a UTI. UA is positive and UC pending.
He mentioned chest pain every few weeks and when he initially came in.
Troponins slowly rising and limited echo performed.
[place] has more significant hypokinesis with ejection fraction 40% compared to his prior echo from January 2025.
IV heparin initiated. Trend troponin until peaks.
Reviewed with patient and his Pepper by phone options including consideration for eventual invasive cardiac catheterization pending clinical course however they currently prefer medical therapy at this time.
Working to obtain records from his outside process controller Dr. Benitez
Cont ASA Metoprolol and statin.
Device interrogated:
DDDR lower rate limit 60 bpm
nonMRI conditional device
24% A paced
1% Vpaced
No afib
No VT
Cont supportive care.
Original Note:
Consultation
Consultation Request
Date/Time Consultation Requested: 05/13/2025, 0800
Date/Time Consultation Performed: 05/13/2025, 0915
Requesting Provider: Dr Wise
Performing Provider: RUTHY Barragan for Dr Vicente
Reason for Consultation: chest pain, elevated troponin
Medical History
-
Chief Complaint: elevated troponin, intermittant CP
History of Present Illness:
Patient came to [facility] ER 05/12/2025 due to concern of difficulty speaking and confusion and 911 was called by his . He also had a fall yesterday at home. He does not recall details of fall but denies a loss of consciousness. He is currently
complaining of right hip and right leg pain. Admission documentation notes patient reported an episode of chest pain yesterday at home. Patient tells me he gets a little tightness across his chest 'from time to time,' last episode a couple weeks
ago. Troponins checked and trending upwards and cardiology has been consulted. trop 0.038--0.048--0.305--1.040. EKG:NSR can't r/o inferior WA, PVC (no change from prior tracing).
He sees Dr. Benitez at [facility] every 4 months. He has a h/o CAD and multiple PCIs.
ED w/u:
trop 0.038--0.048--0.305--1.040
proBNP 1660, BUN/creatinine 36/1.2, NA 134, K4.4 , TSH 1.19, hemoglobin 12.2, WBC 9.9
-UA positive
-CXR: No acute cardiopulmonary process
-Head CT: No acute intracranial abnormality
-Right hip x-ray no acute fracture or dislocation stable orthopedic hardware transfixing the bilateral proximal femur
-Right shoulder x-ray, no acute fracture or dislocation. Chronic fracture deformity unchanged from previous exams
PMH:
History of [place]/CAD/PCI
mild CM, EF 45-50% 01/2025
mild
Type 2 diabetes
Hypertension
Hypercholesterolemia
Pacemaker, [employer]
Mitral regurgitation
PVCs
Parkinson's disease
h/o recurrent falls with hip fractures, scalp laceration, humerus fracture
Cognitive impairment
Past Medical History
Past Medical History: Arrhythmias, CAD (History of [place]/multiple PCIs/stent), HTN, Hypercholesterolemia, NIDDM and Other (Obstructive sleep apnea)
Past Surgical History: Appendectomy, Cardiac ([employer] pacemaker), Tonsilectomy, Urological (Hydrocele) and Other (Hernia)
Social History
Tobacco: Non-Smoker
Alcohol: Occasional
Drug: None
Personal:
Living: With Family
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
Family History
Family History: Reviewed & Not Pertinent
Allergies / Home Medications
Allergy/AdvReac Type Severity Reaction Status Date / Time
chlordiazepoxide (From Allergy Rash Verified 05/12/25 20:51
Librium)
�Medication �Instructions �Recorded �Confirmed �Type
ascorbic acid (vitamin C) 500 mg 500 mg PO DAILY Supplement 04/20/19 02/15/25 History
tablet (Vitamin C)
aspirin 81 mg tablet,delayed 81 mg PO DAILY Blood Clot 04/20/19 02/15/25 History
release Prevention/Tx
famotidine 40 mg tablet 40 mg PO HS Gastrointestinal Issue 04/20/19 10/14/24 History
finasteride 5 mg tablet 5 mg PO DAILY Urinary Issue 04/20/19 02/15/25 History
gabapentin 300 mg capsule 300 mg PO TID Neurological 04/20/19 02/15/25 History
Condition
metformin 500 mg tablet 500 mg PO BID@0800,1700 Diabetes 04/20/19 02/15/25 History
metoprolol tartrate 25 mg tablet 25 mg PO BID Blood Pressure 04/20/19 02/15/25 History
rosuvastatin 40 mg tablet 40 mg PO QPM High Cholesterol 04/20/19 02/15/25 History
dapagliflozin propanediol 10 mg 10 mg PO DAILY Diabetes 02/02/23 02/15/25 History
tablet (Farxiga)
glucosamine sulf dipot 1 cap PO BID Supplement ##0 02/02/23 02/15/25 History
chlr,msm,chond 550 mg-C 30 mg-willem
1 mg capsule (Glucosamine
Chondroitin)
carbidopa 25 mg-levodopa 100 mg 1 tab PO HS parkinson 03/24/24 02/15/25 History
tablet
carbidopa 25 mg-levodopa 100 mg 1.5 tab PO TID@0800,1200,1700 03/24/24 02/15/25 History
tablet Parkinson
acetaminophen 300 mg-codeine 30 mg 1 tab PO Q8HPRN PRN mild pain 10/02/24 02/15/25 History
tablet
dicyclomine 10 mg capsule 10 mg PO BID Gastrointestinal Issue 10/02/24 02/15/25 History
levocetirizine 5 mg tablet (Xyzal) 5 mg PO HS Allergies 10/02/24 10/14/24 History
omeprazole 20 mg tablet,delayed 20 mg PO DAILY Gastrointestinal 10/02/24 02/15/25 History
release Issue
sertraline 50 mg tablet 50 mg PO DAILY Depression 10/02/24 02/15/25 History
tamsulosin 0.4 mg capsule (Flomax) 0.4 mg PO BID Urinary Issue 10/02/24 02/15/25 History
benzonatate 100 mg capsule 200 mg (2 x 100 mg) PO TIDPRN PRN 10/06/24 02/15/25 Rx
cough #20 caps
dulaglutide 1.5 mg/0.5 mL 1.5 mg SC WE Diabetes 10/14/24 10/14/24 History
subcutaneous pen injector
(Trulicity)
lidocaine 4 % topical patch 1 patch topical DAILYPRN PRN mild 10/14/24 02/15/25 History
pain
therapeutic multivitamin 1 tab PO DAILY Supplement 10/14/24 02/15/25 History
trazodone 100 mg tablet 100 mg PO HS Mental Health/Anxiety 10/14/24 02/15/25 History
fenofibrate nanocrystallized 48 mg 48 mg PO DAILY High Cholesterol 02/15/25 History
tablet
acetaminophen 500 mg tablet 1,000 mg (2 x 500 mg) PO TIDPRN 02/18/25 Rx
(Tylenol Extra Strength) PRN pain,fever #10 tabs
cefdinir 300 mg capsule 300 mg PO DAILY #7 caps 02/18/25 Rx
Review of Systems
-
History Source: Patient
All other systems: Negative unless noted
Physical Exam
Vital Signs
Temp Pulse Resp BP Pulse Ox
97.7 F 102 17 143/74 96
05/13/25 07:27 05/13/25 08:07 05/13/25 07:27 05/13/25 08:07 05/13/25 07:27
Lab Results
05/13/25 05:24
05/13/25 05:24
Troponin I 1.040 ng/ml H* D 05/13/25 08:30
Cwf-C-Rsstyhsupdy Pept 1660 pg/ml 05/12/25 22:03
GEN: Uncomfortable, in pain, awake, answers questions appropriately
HEENT: supple, anicteric, mmm
LUNGS: CTA, no wheezes/rales
CV: Reg, S1/S2, /6 syst LSB,apex, no reproducible chest pain with palpation
ABD: soft, BS+, NT/ND
EXT: No edema
NEURO: Gross non-focal
SKIN: No rash
Impression / Plan
-
PCP: Dr. Anita Causey
Primary process controller: Dr. Mikael Benitez
Impression:
elevated troponin
h/o CAD/[place]/PCI
Mild cardiomyopathy, EF 45 to 50% 01/2025
Fall
Mental status change
UTI
History of intermittent chest pain
Parkinson's disease
h/o recurrent falls with hip fractures, scalp laceration, humerus fracture
Type 2 diabetes
Hypertension
Hypercholesterolemia
Pacemaker, [employer]
Mitral regurgitation
Mild aortic stenosis
PVCs
Cognitive impairment
Previous cardiovascular testing:
Echo 03/24/24: EF 50 to 55%, stage II diastolic dysfunction, moderate to severe MR with eccentric regurgitant jet, mild aortic insufficiency, mild TR PAP 40 to 45 mmHg
Echo 02/15/2025: Mild concentric LVH with apical, mid inferior, mid inferior lateral hypokinesis, EF 45 to 50%, stage II diastolic dysfunction. Mild to moderate MR, mild with mild AI peak/mean 22/12 mmHg, IVAN 1.2 cm�, dilated RV, mild TR, PASP 60
mmHg
Plan:
Elevated troponin:
- Patient with troponin trending up in setting of fall, mental status change, sepsis UTI. Trend to peak.
-currently denies CP, reports intermittant chest tightness 'I get it from time to time'. Denies chest tightness this admission
-EKG NSR, can't r/o inf WA - no change from prior tracing
-Check repeat EKG if chest pain
-echo 01/2025 with EF 45-50% (decline from 03/18) w/ apical, mid inf, mid inf/lat HK
-repeat echo this admission to reassess EF and WMAs
-Consider IV heparin
-obtaining records from Dr Benitez-I faxed record request to his office
- Continue aspirin, metoprolol, statin, SGLT2
Cardiomyopathy, mild
--repeat echo today
- Does not appear significantly volume overloaded on exam. chest x-ray without pulmonary edema.
-proBNP 1660
- Continue SGLT2, metoprolol. Not on ADELAIDE or ARB. Obtaining records from primary process controller
-monitor for vol overload in setting of IVF for sepsis UTI
Pacemaker-
- [employer] device
-will interrogate today
-review of telemetry: NSR, freq PACs, ? run afib vs SR w/ freq PACs- interrogate today
-no h/o afib
Data Reviewed
-
EKG: Tracing Personally Visualized and interpreted
Medical Tests (Nuc Med, Echo etc): Image Personally Visualized and interpreted
Labs: Labs Reviewed by me
Old Records: Requested
[2025-05-13 15:20] LABS: Troponin I 1.100 ng/ml
--- NOTE | 2025-05-13 15:47 | W.CARD.DEVCH ---
Cardiac Device Check
-
Device: Pacemaker
B2B Sales Consultant: [employer]
The patient's device was interrogated with assistance of the device telecommunications sales representative followed by a complete physician review. The device had normal function. No abnormalities seen.
DDDR lower rate limit 60 bpm
nonMRI conditional device
24% A paced
1% Vpaced
No afib
No VT
[2025-05-13] MEDS: HEPARIN 25000 UNITS/250 ML IV (16:18)
--- NOTE | 2025-05-13 16:30 | W.PN.UPDATE ---
Update Note
Progress Note Update
rec'd records from Dr Benitez, pt's outpt kitchen porter:
Reviewed last office note from 03/03/2025:
PMH: CAD with history of extensive multivessel coronary artery stenting of all major epicardial coronary arteries. More specifically: stents to LAD, RCA, and left circumflex [id number], stent of distal RCA de kathryn lesion 10/07/2013, also w/ stent
placement in 09/25/2021 although does not list which artery.
SSS s/p [employer] pacemaker 04/04/1015, gen change 05/2023
Echo 12/01/2020: LVEF 50%, no regional wall motion abnormalities, mild to moderate MR RV normal size and function
[2025-05-13 17:12] LABS: Hematocrit 37.5 % (39.0-52.0); Hemoglobin 11.9 g/dL (13.0-18.0); Mean Corp Hgb Conc. 31.7 g/dL (33.0-37.0); Mean Corpuscular Volume 93.1 fL (80.0-94.0); Platelet Count 163 10^3/uL (130-400); Red Cell Dist. Width 14.2 % (11.5-14.5)
[2025-05-13] MEDS: CRESTOR 40 MG PO (17:22)
[2025-05-13 17:25] LABS: APTT 41.7 Sec (23.4-35.0)
[2025-05-13 21:22] LABS: Troponin I 0.733 ng/ml
[2025-05-13 21:33] LABS: Glucose - Point of Care 351 mg/dl (70-99)
[2025-05-13] MEDS: PEPCID 20 MG PO (22:16)
[2025-05-13] MEDS: DESYREL 100 MG PO (22:16)
[2025-05-13] MEDS: SINEMET 25-100 1 TABLET PO (22:16)
[2025-05-13] MEDS: NOVOLOG FLEXPEN 7 UNITS SC (22:17)
[2025-05-13 23:54] LABS: APTT 52.0 Sec (23.4-35.0)
[2025-05-14] VITALS (9 sets, daily range): BP systolic 90–131; BP diastolic 46–86; BMI 22.0; BMI 22.7
[2025-05-14 00:41] LABS: Glucose - Point of Care 183 mg/dl (70-99)
[2025-05-14] MEDS: TYLENOL 650 MG PO ×3 (05:13→17:21)
[2025-05-14 06:47] LABS: Hematocrit 35.3 % (39.0-52.0); Hemoglobin 11.4 g/dL (13.0-18.0); Mean Corp Hgb Conc. 32.3 g/dL (33.0-37.0); Mean Corpuscular Volume 93.6 fL (80.0-94.0); Nucleated Red Blood Cells % 0 % (-); Platelet Count 162 10^3/uL (130-400); Red Cell Dist. Width 14.1 % (11.5-14.5)
[2025-05-14 06:58] LABS: APTT 68.1 Sec (23.4-35.0)
[2025-05-14 07:21] LABS: Glucose - Point of Care 157 mg/dl (70-99)
[2025-05-14 07:55] LABS: Blood Urea Nitrogen 28 mg/dl (9-20); Calcium 8.0 mg/dl (8.4-10.2); Carbon Dioxide 27 mmol/L (22-30); Chloride 107 mmol/L (98-107); Estimated Creatinine Clearance 39 ml/min; Glucose 127 mg/dl (70-99); Magnesium 2.3 mg/dl (1.6-2.3); Potassium 4.2 mmol/L (3.5-5.1); Sodium 137 mmol/L (135-145); eGFR 58.89
[2025-05-14 08:18] LABS: Glycohemoglobin (HgbA1c) 7.4 % (4.0-5.6)
--- NOTE | 2025-05-14 08:32 | W.PN.HOSP.TC ---
Today's Communication/Plan
-
Ceftriaxone for UTI
heparin drip for elevated tropinin (type 2 CT)
Transfer to IMU
Assessment / Plan
Assessment / Plan
60 MW/CAD s/p stents, heart block s/p PPM, DM, PAD, BPH, H/O Klebsiella UTI, P/W fall, confusion, slurred speech. He no longer has any deficits.
1. Acute encephalopathy
Resolved
Monitor mental status
Consider TIA versus UTI. Could have been due to hypotension from the sepsis or hypoxia, as had similar symptoms this morning.
Consider MRI brain/MRA H/N
Patient had a fall, reviewed x-rays, no acute shoulder fracture, no acute hip fracture, CT head no acute abnormality
2. Sepsis 2/2 UTI
leukocytosis and tachycardia
Urine LE 3+, WBC >100. Urine culture gram-negative bacilli, C/S pending
Blood culture no growth to date
No other S/S infection, CXR clear, flu/COVID-negative
Empiric ceftriaxone, IVF. h/o klebsiella UTI
Intermittent hypotension, will resume IV fluid infusion but will not bolus due to his cardiac issues
2. Elevated troponin
Extensive h/o CAD/stenting
EKG with no ischemic change initially, now with T wave changes
Monitor on telemetry, trend troponin --> peaked at 1.1, now down to 0.733
IV heparin drip initiated
Consulted cardiology appreciate management, cath versus medical management.
ADELAIDE/statin/BB
Have discussed with cardiology team they prefer he moved to IMU for higher level of care given his episode this morning
4. Hyponatremia�resolved
Mild
3. BPH
Flomax
4. DM2
SSI/Accu-Cheks
Farxiga
BG controlled
5. PD
Sinemet, trazodone, sertraline
DVT ppx
lovenox
Anticipated Discharge: > 48 hours
Subjective/Interval History
-
Date of Service: May 14, 2025
Patient had an episode of hypotension and hypoxia this morning and was lethargic during the episode. He was placed on oxygen and he improved. On my exam he was awake and alert. He denies chest pain, shortness of breath. He remembers the
lethargic episode and states he feels much better. He also spoke to his by phone at his bedside.
Objective Data
-
Labs:
Laboratory Results
05/13/25 05/13/25 05/14/25
23:10 23:35 06:35
WBC 9.2
Hgb 11.4 L
Hct 35.3 L
Plt Count 162
APTT Cancelled 52.0 H 68.1 H
Sodium 137
Potassium 4.2
Chloride 107
Carbon Dioxide 27
BUN 28 H
Creatinine 1.2
Glucose 127 H
Calcium 8.0 L
Vital Signs:
Vital Signs
Temp Pulse Resp BP Pulse Ox
97.8 F 48 17 120/50 95
05/14/25 07:26 05/14/25 07:26 05/14/25 07:26 05/14/25 07:26 05/14/25 07:26
I&O
05/13/25 05/14/25 05/15/25
06:59 06:59 06:59
Intake Total 480 / 480 1500 / 1500
Output Total 350 / 350 2550 / 2550
Balance 130 / 130 -1050 / -1050
Review of Systems
-
All other systems: Reviewed and negative
Physical Exam
-
General: No Apparent Distress
HEENT: Moist Mucous Membranes, Anicteric and PERRLA
Respiratory: Clear to Auscultation; Negative Wheezes, Rales or Rhonchi
Cardiac: Regular Rhythm and S1/S2; Negative Murmur, Rub or Gallop
GI: Soft, Nontender, Nondistended and Normal Bowel Sounds
Musculoskeletal: No Edema
Skin: Warm and Dry; Negative Rash, Ulcers or Lesions
Neuro: Awake and AO x 3
Hematologic / Lymphatic: No Lymphadenopathy
Psych: Calm
Data Reviewed
-
Diagnostic Radiology: Report Reviewed by me
Labs: Labs Reviewed by me and Discussed with Patient
Old Records: Reviewed
[2025-05-14] MEDS: NSS IV (08:49)
[2025-05-14] MEDS: PROTONIX 40 MG PO (08:50)
[2025-05-14] MEDS: FARXIGA 10 MG PO (08:51)
[2025-05-14] MEDS: TRICOR 48 MG PO (08:51)
[2025-05-14] MEDS: NEURONTIN 300 MG PO ×4 (08:51→19:52)
[2025-05-14] MEDS: ZOLOFT 50 MG PO (08:51)
[2025-05-14] MEDS: FLOMAX 0.4 MG PO ×2 (08:51→19:52)
[2025-05-14] MEDS: LOPRESSOR 25 MG PO (08:51)
[2025-05-14] MEDS: PROSCAR 5 MG PO (08:51)
[2025-05-14] MEDS: ASPIR LOW (ENTERIC COATED) 81 MG PO (08:51)
[2025-05-14] MEDS: NOVOLOG FLEXPEN-LOW RESISTANCE 1 UNITS SC ×2 (08:52→12:57)
[2025-05-14] MEDS: DESENEX/MITRAZOL/ZEASORB 1 APPLIC TOPICAL ×2 (08:52→19:56)
[2025-05-14] MEDS: SINEMET 25-100 2 TABLET PO ×3 (08:52→17:20)
--- NOTE | 2025-05-14 10:07 | W.PN.CARDCBS ---
Addendum entered and electronically signed by Keaton Guido MD 05/14/25 19:37:
Spoke with Dr. Vasquez, who knows him extremely well, he suggested that if clinically stable we manage him medically and he can follow-up closely after discharge. This sounds very reasonable.
Addendum entered and electronically signed by Keaton Guido MD 05/14/25 19:19:
requested that we call Dr. Vasquez, Mr. Lee's floor care specialist for many years, cell phone is [phone]
Addendum entered and electronically signed by Keaton Guido MD 05/14/25 16:59:
84-year-old man admitted following a fall with clinical sepsis and UTI, cardiology consulted for episodes of chest pain and troponin of 1, EF 40% with apical hypokinesis.
PMH: [place]/history of CAD and multiple PCI's, ischemic cardiomyopathy, EF 45 to 50% January 2025, mild aortic stenosis with mean gradient of 12 mmHg and valve area 1.2 cm2, type 2 diabetes, hypertension, hypercholesterolemia, [employer] pacemaker,
moderate to severe MR by echo February 2024, pulmonary artery systolic pressure 60, cognitive impairment, PVCs
Current medications: Aspirin 81 mg a day, Sinemet, Farxiga 10 mg a day, Pepcid 20 mg at bedtime, Tricor 48 mg a day, Proscar 5 mg a day, Neurontin, pantoprazole 40 mg a day, rosuvastatin 40 mg a day, tamsulosin 0.4 mg twice daily, ceftriaxone, IV
heparin, metoprolol tartrate 25 mg twice daily, sodium chloride at 100 mL an hour
131/59, pulse 62, respiratory rate 18, afebrile, head neck exam unremarkable, lungs are clear, mild mitral and tricuspid regurgitation
ECG sinus rhythm, anterolateral T wave inversions, QT prolongation, left axis, possible inferior [place], new from 05/13
Echo 05/13/2025: EF 40%, mild LVH, global hypokinesis, most notable at apex
Hemoglobin is 11.4, white count is 9.2, platelets are 162, BUN and creatinine of 28 and 1.2, potassium is 4.2, peak troponin 1.1
Impression:
UTI/clinical sepsis
CAD, multiple prior PCI's, now with presumed ACS and decrease in LV function, Takotsubo CM also possible but less likely
Parkinson's with frequent falls
[employer] pacemaker
Type 2 diabetes, hypertension, hypercholesterolemia,, mild aortic stenosis and mitral regurgitation, cognitive impairment
Plan:
He presents with clinical sepsis and a UTI, seemingly improved from that standpoint but he had chest heaviness with new impressive anterior T wave changes compared to yesterday, peak troponin 1, associated with a drop in his ejection fraction to
roughly 40%, consistent with LAD distribution ischemia.
He has a long history of CAD and PCI's, though last cardiac catheterization may have been in 2013, both for a distal RCA stenosis with moderate but nonobstructive mid LAD disease.
Given age and frailty, and the fact that he is currently comfortable without overt heart failure and with no chest pain, will not send him to the General Supervisor today.
Continue aspirin, heparin and beta-edmundo and reassess through the weekends
Daughter indicates that he might be willing to consider catheterization if needed. She expressed concern about dual antiplatelet therapy given frequent falls. I told her that we are now off and willing to consider early discontinuation of DAPT
after periods as short as 1 to 3 months with single agents thereafter, preferably Plavix. We will need to decide on a plan this if does go to the General Supervisor.
Treatment of presumed UTI/sepsis per primary team.
Original Note:
Today's Communication / Plan
-
-transfer to IMU
-repeat EKG
-hold QT prolonging meds
-troponin downtrending, no chest pain, but now with T wave inversion ant/lat.
Impression / Plan
-
PCP: Dr. Anita Causey
Primary floor care specialist: Dr. Mikael Benitez
Impression:
elevated troponin
h/o CAD/[place]/PCI- records from prim floor care specialist lists: extensive multivessel coronary artery stenting of all major epicardial coronary arteries. Stents to LAD, RCA, and left circumflex between 1998 and 2006. Stent of distal RCA de kathryn lesion
10/07/2013. Stent 09/25/2021, unknown artery
cardiomyopathy, EF now 40%, was 45 to 50% 01/2025
Sepsis, UTI
Hypotension
Fall
Mental status change
History of intermittent chest pain
Parkinson's disease
h/o recurrent falls with hip fractures, scalp laceration, humerus fracture
Type 2 diabetes
Hypertension
Hypercholesterolemia
Pacemaker, [employer]
Mitral regurgitation
Mild aortic stenosis
PVCs
Cognitive impairment
Previous cardiovascular testing:
Echo (at [facility]): EF 50%, mild to moderate MR, normal RV size and function
Echo 03/24/24: EF 50 to 55%, stage II diastolic dysfunction, moderate to severe MR with eccentric regurgitant jet, mild aortic insufficiency, mild TR PAP 40 to 45 mmHg
Echo 02/15/2025: Mild concentric LVH with apical, mid inferior, mid inferior lateral hypokinesis, EF 45 to 50%, stage II diastolic dysfunction. Mild to moderate MR, mild with mild AI peak/mean 22/12 mmHg, IVAN 1.2 cm�, dilated RV, mild TR, PASP 60
mmHg
Echo 05/13/2025: LVEF 40%, global LV hypokinesis with more significant hypokinesis of apex. RV normal size and function, mild MR, mild TR
Lexiscan nuclear stress test 05/16/2021 (at [facility]): Perfusion study demonstrates inferior wall infarct, no gross evidence of ischemia, no ischemia or ST depression on EKG, LVEF 54% with inferior wall hypokinesis
Plan:
h/o CAD-
- Troponin peaked at 1.1, now downtrending last troponin 0.73, 05/13/2025 at 9.
-Continue heparin drip
-Patient denies current chest pain and no CP this admission but reports intermittent tightness across chest 'I get it from time to time,' last had it a week ago.
-EKG today with new anterolateral T wave inversions and prolonged QT
-Previously discussed option of cardiac catheterization with patient and on 05/13/2025 and they preferred medical therapy. Has extensive h/o CAD with reported stenting of all major epicardial coronary arteries. Trying to obtain last cath report
from Dr Benitez. Have spoken with [facility] 3 times.
-Check repeat EKG if chest pain
- Echo 05/13/2025 with EF more depressed at 40% and hypokinesis of apex. Compared to previous echo 01/2025 EF 45-50% (decline from 03/18) w/ apical, mid inf, mid inf/lat HK
-Records/PMH/CV testing obtained from Dr. Vasquez are incorporated into this note
-creat stable 1.2
- Continue aspirin, metoprolol, statin, SGLT2
- Hold metoprolol if SBP less than 110. New parameters entered.
-given hypotension and lethargy, would transfer to IMU, discussed with hospitalist who will facilitate
Cardiomyopathy
-- echo 05/13/2025 with EF 40%, previously 45-50% 01/2025, was 50-55% per echo 03/24/2024
- Does not appear significantly volume overloaded on exam. chest x-ray without pulmonary edema.
-proBNP 1660
- Continue SGLT2, metoprolol. Not on ADELAIDE or ARB. Obtained records from primary floor care specialist and confirmed he is on Farxiga 10 mg, Lopressor 25 mg twice daily, and was on Lasix 20 mg daily.
-monitor for vol overload in setting of IVF for sepsis UTI
Pacemaker-
- [employer] device
-interrogated 05/13/2025 appropriate pacemaker function, 24% a paced, 1% V paced, no A-fib, no VT. Pacemaker is set at DDDR with lower rate limit at 60 bpm
-review of telemetry: NSR, occasionally a paced, PVCs
-no h/o afib
Long QT
- QTc 573 ms on EKG today. reviewed current meds that could cause prolonged QT: sertraline, trazadone, zofran (it does not appear he has rec'd any doses of zofran)- hold these meds
-K 4.2
-Mag 2.3
repeat EKG in 3 hrs
Progress Note - Natural Remedy Consultant
Subjective
Date of Service: May 14, 2025
-lethargic this a.m. but arousable
-denies CP/chest tightness
-denies Lightheadedness
-repeat EKG this am with QTc 573
Objective
Labs:
05/14/25 06:35
05/14/25 06:35
Labs
Hgb 11.4 g/dL (13.0-18.0) L 05/14/25 06:35
Hct 35.3 % (39.0-52.0) L 05/14/25 06:35
Plt Count 162 10^3/uL (130-400) 05/14/25 06:35
APTT 68.1 Sec (23.4-35.0) H 05/14/25 06:35
Sodium 137 mmol/L (135-145) 05/14/25 06:35
Potassium 4.2 mmol/L (3.5-5.1) 05/14/25 06:35
BUN 28 mg/dl (9-20) H 05/14/25 06:35
Creatinine 1.2 mg/dL (0.7-1.3) 05/14/25 06:35
Glucose 127 mg/dl (70-99) H 05/14/25 06:35
Troponins
05/12/25 05/13/25 05/13/25
22:03 02:20 05:24
Troponin I 0.038 H* 0.048 H* D 0.305 H* D
05/13/25 05/13/25 05/13/25
08:30 14:45 20:49
Troponin I 1.040 H* D 1.100 H* 0.733 H* D
Vital Signs and I&O:
Vital Signs
Temp Pulse Resp BP Pulse Ox
97.8 F 48 17 120/50 95
05/14/25 07:26 05/14/25 08:51 05/14/25 07:26 05/14/25 08:51 05/14/25 07:26
Vital Signs
Temp Pulse Resp BP Pulse Ox
97.8 F 48 17 120/50 95
05/14/25 07:26 05/14/25 08:51 05/14/25 07:26 05/14/25 08:51 05/14/25 07:26
Intake & Output
05/12/25 05/13/25 05/14/25 05/15/25
06:59 06:59 06:59 06:59
Intake Total 480 / 480 1500 / 1500
Output Total 350 / 350 2550 / 2550
Balance 130 / 130 -1050 / -1050
Physical Exam
Physical Exam
GEN: No distress, sleeping, arousable and answers questions appropriately
HEENT: supple, anicteric, mmm
LUNGS: CTA, no wheezes/rales
CV: Reg, S1/S2, no murmur
ABD: soft, BS+, NT/ND
EXT: No edema
NEURO: Gross non-focal
SKIN: No rash
[2025-05-14] MEDS: ROCEPHIN 1000 MG IV (10:28)
[2025-05-14] MEDS: STERILE WATER FOR INJECTION 10 ML IV (10:29)
[2025-05-14 11:53] LABS: Glucose - Point of Care 199 mg/dl (70-99)
--- NOTE | 2025-05-14 13:02 | PTCARENOTE ---
Pt alert and anxious about locating his dentures this morning, dentures found in case under the bed. Shortly after dentures were found pt noted to be lethargic, but alert to sound and touch.
Communicated with skilled nursing facility counselor regarding admitting dx TIA and performing an NIH even though it is not ordered. scanning clerk communicated with Hand Compositor who advised that NIH be performed. Pt NIH score 0. Pt had a fall prior to
admission on R side of body and continues with R sided body aches. Pt currently being treated for UTI.
Pt continues on bladder scanning and SC with overnight Bladder scans reading 750, 400, and this morning >357, information communicated to MD with new order for Crane catheter. 14 Bangl[place]hi crane placed, Pt tolerated it well and 400cc of yellow urine
output.
Pt on 2-3L O2 97-98% titrated to room air with POX 88%, 4 L O2 placed back on patient. Cardiology and MD in room to assess patient with new orders to transfer to IVU, awaiting available room in IVU
--- NOTE | 2025-05-14 15:03 | W.PN.UPDATE ---
Update Note
Progress Note Update
Obtained cardiac cath report 10/09/2013, at [facility], Dr. Mikael Benitez:
95% distal RCA status post Promus ANASTASIIA and balloon angioplasty. Following intervention improved angiographic appearance with 30% residual stenosis.
LAD with 45% mid lesion
spoke with staff in office, no record of cath subsequent to this.
[2025-05-14] MEDS: NSS 1000 IV (15:22)
[2025-05-14 16:04] LABS: APTT 49.3 Sec (23.4-35.0)
--- NOTE | 2025-05-14 16:27 | W.PN.UPDATE ---
Update Note
Progress Note Update
spoke with daughter Vesna Boyle, and updated her on case from cardiac standpoint. 14 min call.
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 She believes he was told bypass advised ~10 yrs ago but he didn't want to proceed. Has been stable from CV standpoint in recent time.
Previously on ASA and Plavix. Plavix stopped as he has freq falls and risk of bleeding with falls thought to outweigh benefit.
Ideally pt would like his outpt country sales manager to weight into decision if a cath were to be performed.
Discussed that if cath performed and it was determined he'd need a stent, he would then require DAPT, which given fall history not ideal.
--- NOTE | 2025-05-14 17:11 | PTCARENOTE ---
Pt received from 3W. Aox3 at this time. VSS. NIH of 0. Assessment as documented. Call de leon within reach, bed alarm in place for safety.
[2025-05-14] MEDS: CRESTOR 40 MG PO (17:21)
[2025-05-14 18:16] LABS: Glucose - Point of Care 126 mg/dl (70-99)
[2025-05-14] MEDS: NOVOLOG FLEXPEN-LOW RESISTANCE SC (18:17)
[2025-05-14] MEDS: HEPARIN 25000 UNITS/250 ML IV (19:43)
[2025-05-14] MEDS: PEPCID 20 MG PO (19:52)
[2025-05-14] MEDS: LOPRESSOR PO (19:52)
[2025-05-14] MEDS: SINEMET 25-100 1 TABLET PO (19:52)
[2025-05-14 22:12] LABS: Glucose - Point of Care 294 mg/dl (70-99)
[2025-05-14 23:22] LABS: APTT 93.7 Sec (23.4-35.0)
[2025-05-15] VITALS (14 sets, daily range): BP systolic 89–155; BP diastolic 56–138
[2025-05-15] MEDS: NSS 1000 IV ×3 (00:01→19:23)
[2025-05-15] MEDS: TYLENOL 650 MG PO ×3 (01:05→19:24)
[2025-05-15 05:35] LABS: Hematocrit 36.7 % (39.0-52.0); Hemoglobin 11.8 g/dL (13.0-18.0); Mean Corp Hgb Conc. 32.2 g/dL (33.0-37.0); Mean Corpuscular Volume 94.8 fL (80.0-94.0); Platelet Count 160 10^3/uL (130-400); Red Cell Dist. Width 14.2 % (11.5-14.5)
[2025-05-15 05:44] LABS: APTT 140.1 Sec (23.4-35.0)
--- NOTE | 2025-05-15 05:55 | PTCARENOTE ---
No acute events overnight. Patient weaned to 1 liter NC. One soft bp overnight but MAP remained above 65. Remains on IVF. [facility] 0. Neurochecks WNL. Will continue to monitor.
[2025-05-15 06:24] LABS: Blood Urea Nitrogen 29 mg/dl (9-20); Calcium 8.3 mg/dl (8.4-10.2); Carbon Dioxide 24 mmol/L (22-30); Chloride 108 mmol/L (98-107); Estimated Creatinine Clearance 43 ml/min; Glucose 151 mg/dl (70-99); Potassium 4.1 mmol/L (3.5-5.1); Sodium 139 mmol/L (135-145); eGFR > 60.00
--- NOTE | 2025-05-15 07:52 | W.PN.CARDCBS ---
Today's Communication / Plan
-
Dr Guido spoke with Dr. Benitez, who knows him extremely well and recommended we manage him medically and he can follow-up closely after discharge.
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 Family believes he was told bypass advised ~10 yrs ago but he didn't want to proceed. Has been stable from CV standpoint in recent time.
Previously on ASA and Plavix. Continue Plavix stopped as he has freq falls and risk of bleeding with falls thought to outweigh benefit.
He would be elevated risk bleeding if Plavix had to be resumed.
Cardiac cath report 10/09/2013, at [facility], Dr. Mikael Benitez: 95% distal RCA status post Promus ANASTASIIA and balloon angioplasty. Following intervention improved angiographic appearance with 30% residual stenosis.
LAD with 45% mid lesion, no record of cath subsequent to this.
Cont ASA and beta edmundo, statin and SGLT2 inhibitor.
Cont medical therapy of troponin peak 1.1
stop IV Heparin
Treatment of presumed UTI/sepsis per primary team.
Pacemaker [employer] device
-interrogated 05/13/2025 appropriate pacemaker function, 24% a paced, 1% V paced, no A-fib, no VT. Pacemaker is set at DDDR with lower rate limit at 60 bpm
Monitor QTc was prolonged. Meds held that could cause prolonged QT: sertraline, trazadone, zofran (it does not appear he has rec'd any doses of zofran), cont to hold these meds
Monitor K and Mg
Impression / Plan
-
.
PCP: Dr. Anita Causey
Primary care companion: Dr. Mikael Benitez
Impression:
Elevated troponin, peak 1.1
H/o CAD/[place]/PCI- records from prim care companion lists: extensive multivessel coronary artery stenting of all major epicardial coronary arteries. Stents to LAD, RCA, and left circumflex between 1998 and 2006. Stent of distal RCA de kathryn lesion
10/07/2013. Stent 09/25/2021, unknown artery
Cardiomyopathy, EF now 40%, was 45 to 50% 01/2025
Sepsis, UTI
Hypotension
Fall
Mental status change
History of intermittent chest pain
Parkinson's disease
h/o recurrent falls with hip fractures, scalp laceration, humerus fracture
Type 2 diabetes
Hypertension
Hypercholesterolemia
Pacemaker, [employer]
Mitral regurgitation
Mild aortic stenosis
PVCs
Cognitive impairment
Previous cardiovascular testing:
Echo (at [facility]): EF 50%, mild to moderate MR, normal RV size and function
Echo 03/24/24: EF 50 to 55%, stage II diastolic dysfunction, moderate to severe MR with eccentric regurgitant jet, mild aortic insufficiency, mild TR PAP 40 to 45 mmHg
Echo 02/15/2025: Mild concentric LVH with apical, mid inferior, mid inferior lateral hypokinesis, EF 45 to 50%, stage II diastolic dysfunction. Mild to moderate MR, mild with mild AI peak/mean 22/12 mmHg, IVAN 1.2 cm�, dilated RV, mild TR, PASP 60
mmHg
Lexiscan nuclear stress test 05/16/2021 (at [facility]): Perfusion study demonstrates inferior wall infarct, no gross evidence of ischemia, no ischemia or ST depression on EKG, LVEF 54% with inferior wall hypokinesis
Echo 05/13/2025: LVEF 40%, global LV hypokinesis with more significant hypokinesis of apex. RV normal size and function, mild MR, mild TR
Plan:
He presented with clinical sepsis and a UTI, seemingly improved from that standpoint but he had chest heaviness with new impressive anterior T wave changes compared to yesterday, peak troponin 1, associated with a drop in his ejection fraction to
roughly 40%, with more significant hypokinesis of the apex.
Dr Guido spoke with Dr. Benitez, who knows him extremely well and recommended we manage him medically and he can follow-up closely after discharge.
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 Family believes he was told bypass advised ~10 yrs ago but he didn't want to proceed. Has been stable from CV standpoint in recent time.
Previously on ASA and Plavix. Continue Plavix stopped as he has freq falls and risk of bleeding with falls thought to outweigh benefit.
He would be elevated risk bleeding if Plavix had to be resumed.
Cardiac cath report 10/09/2013, at [facility], Dr. Mikael Benitez: 95% distal RCA status post Promus ANASTASIIA and balloon angioplasty. Following intervention improved angiographic appearance with 30% residual stenosis.
LAD with 45% mid lesion, no record of cath subsequent to this.
Cont ASA and beta edmundo, statin and SGLT2 inhibitor.
Cont medical therapy of troponin peak 1.1
Stop IV Heparin
Treatment of presumed UTI/sepsis per primary team.
Pacemaker [employer] device
-interrogated 05/13/2025 appropriate pacemaker function, 24% a paced, 1% V paced, no A-fib, no VT. Pacemaker is set at DDDR with lower rate limit at 60 bpm
Monitor QTc was prolonged. Meds held that could cause prolonged QT: sertraline, trazadone, zofran (it does not appear he has rec'd any doses of zofran), cont to hold these meds
Monitor K and Mg
Progress Note - Head Grease Maker
Subjective
Date of Service: May 15, 2025
Pt seen and examined. No complaints. No chest pain or shortness of breath.
Objective
Labs:
05/15/25 05:07
05/15/25 05:07
Labs
Hgb 11.8 g/dL (13.0-18.0) L 05/15/25 05:07
Hct 36.7 % (39.0-52.0) L 05/15/25 05:07
Plt Count 160 10^3/uL (130-400) 05/15/25 05:07
APTT 140.1 Sec (23.4-35.0) H 05/15/25 05:07
Sodium 139 mmol/L (135-145) 05/15/25 05:07
Potassium 4.1 mmol/L (3.5-5.1) 05/15/25 05:07
BUN 29 mg/dl (9-20) H 05/15/25 05:07
Creatinine 1.1 mg/dL (0.7-1.3) 05/15/25 05:07
Glucose 151 mg/dl (70-99) H 05/15/25 05:07
Troponins
05/12/25 05/13/25 05/13/25
22:03 02:20 05:24
Troponin I 0.038 H* 0.048 H* D 0.305 H* D
05/13/25 05/13/25 05/13/25
08:30 14:45 20:49
Troponin I 1.040 H* D 1.100 H* 0.733 H* D
Vital Signs and I&O:
Vital Signs
Temp Pulse Resp BP Pulse Ox
98.4 F 93 16 130/97 98
05/15/25 07:27 05/15/25 06:33 05/15/25 06:33 05/15/25 06:33 05/15/25 06:00
Vital Signs
Temp Pulse Resp BP Pulse Ox
98.4 F 93 16 130/97 98
05/15/25 07:27 05/15/25 06:33 05/15/25 06:33 05/15/25 06:33 05/15/25 06:00
Intake & Output
05/13/25 05/14/25 05/15/25 05/16/25
06:59 06:59 06:59 06:59
Intake Total 480 / 480 1500 / 1500 1680 / 1680
Output Total 350 / 350 2550 / 2550 1375 / 1375
Balance 130 / 130 -1050 / -1050 305 / 305
Physical Exam
Physical Exam
General: No acute distress, AAOX3
Neck: Negative JVD
Heart: Regular, Negative S3 positive S1/S2, Negative S4, No murmur
Lungs: CTA b/l, negative wheezes/rales/rhonchi
Abd: Positive BS, NT/ND, neg rebound/rigidity/guarding
Ext: Negative cyanosis/clubbing/edema
Neuro: nonfocal
[2025-05-15] MEDS: NEURONTIN 300 MG PO ×4 (08:02→21:42)
[2025-05-15] MEDS: TRICOR 48 MG PO (08:02)
[2025-05-15] MEDS: PROSCAR 5 MG PO (08:02)
[2025-05-15] MEDS: SINEMET 25-100 2 TABLET PO ×3 (08:02→17:36)
[2025-05-15] MEDS: FARXIGA 10 MG PO (08:02)
[2025-05-15] MEDS: LOPRESSOR 25 MG PO ×2 (08:02→19:25)
[2025-05-15] MEDS: PROTONIX 40 MG PO (08:02)
[2025-05-15] MEDS: ASPIR LOW (ENTERIC COATED) 81 MG PO (08:03)
[2025-05-15] MEDS: FLOMAX 0.4 MG PO ×2 (08:03→19:24)
[2025-05-15] MEDS: DESENEX/MITRAZOL/ZEASORB 1 APPLIC TOPICAL ×2 (08:03→19:25)
[2025-05-15] MEDS: NOVOLOG FLEXPEN-LOW RESISTANCE SC (08:09)
[2025-05-15 08:20] LABS: Glucose - Point of Care 136 mg/dl (70-99)
[2025-05-15] MEDS: STERILE WATER FOR INJECTION 10 ML IV (09:47)
[2025-05-15] MEDS: ROCEPHIN 1000 MG IV (09:47)
--- NOTE | 2025-05-15 11:24 | W.PN.HOSP.TC ---
Today's Communication/Plan
-
Ceftriaxone for UTI
heparin drip for elevated tropinin (type 2 SC) x48h
cxr for hypoxic episodes
Assessment / Plan
Assessment / Plan
60 MW/CAD s/p stents, heart block s/p PPM, DM, PAD, BPH, H/O Klebsiella UTI, P/W fall, confusion, slurred speech. He no longer has any deficits.
1. Acute encephalopathy
Resolved
Monitor mental status
Consider TIA versus UTI. Could have been due to hypotension from the sepsis or hypoxia, as had similar symptoms 05/14 morning.
Consider MRI brain/MRA H/N
Patient had a fall, reviewed x-rays, no acute shoulder fracture, no acute hip fracture, CT head no acute abnormality
2. Sepsis 2/2 UTI
leukocytosis and tachycardia. Resolved.
Urine LE 3+, WBC >100. Urine culture Klebsiella aerogenes S to ceftriaxone
Blood culture pending
No other S/S infection, CXR clear, flu/COVID-negative
Empiric ceftriaxone, IVF. h/o klebsiella UTI
Intermittent hypotension, will resume IV fluid infusion but will not bolus due to his cardiac issues
2. Elevated troponin
Extensive h/o CAD/stenting
EKG with no ischemic change initially, now with T wave changes
Monitor on telemetry, trend troponin --> peaked at 1.1, now down to 0.733
IV heparin drip initiated
Consulted cardiology appreciate management, medical management.
ADELAIDE/statin/BB
Have discussed with cardiology team they spoke to his outpt examiner of currency, no cath, plan hep drip x48h then stop.
3. Hypoxia
Pt becoming hypoxic to 86% on RA when sleeping
prn oxygen
unclear if he will need O2
check repeat CXR, if persists consider CT
4. Hyponatremia�resolved
Mild
3. BPH
Flomax
4. DM2
SSI/Accu-Cheks
Farxiga
BG controlled
5. PD
Sinemet, trazodone, sertraline
DVT ppx
lovenox
Anticipated Discharge: > 48 hours
Subjective/Interval History
-
Date of Service: May 15, 2025
Patient sleeping, but easily awakened. Denies issues. Discussed with RN, his BP did drop overnight but is normal now, also she was able to take oxygen off of him when he was awake, however dropped back to mid 80s when sleeping.
Objective Data
-
Labs:
Laboratory Results
05/14/25 05/15/25 05/15/25
22:57 05:07 13:15
WBC 8.7
Hgb 11.8 L
Hct 36.7 L
Plt Count 160
APTT 93.7 H 140.1 H Pending
Sodium 139
Potassium 4.1
Chloride 108 H
Carbon Dioxide 24
BUN 29 H
Creatinine 1.1
Glucose 151 H
Calcium 8.3 L
Vital Signs:
Vital Signs
Temp Pulse Resp BP Pulse Ox
98.1 F 72 15 131/69 95
05/15/25 11:01 05/15/25 10:00 05/15/25 10:00 05/15/25 10:00 05/15/25 10:00
I&O
05/14/25 05/15/25 05/16/25
06:59 06:59 06:59
Intake Total 1500 / 1500 1680 / 1680 360 / 360
Output Total 2550 / 2550 1375 / 1375
Balance -1050 / -1050 305 / 305 360 / 360
Review of Systems
-
All other systems: Reviewed and negative
Physical Exam
-
General: No Apparent Distress
HEENT: Moist Mucous Membranes, Anicteric and PERRLA
Respiratory: Clear to Auscultation; Negative Wheezes, Rales or Rhonchi
Cardiac: Regular Rhythm and S1/S2; Negative Murmur, Rub or Gallop
GI: Soft, Nontender, Nondistended and Normal Bowel Sounds
Musculoskeletal: No Edema
Skin: Warm and Dry; Negative Rash, Ulcers or Lesions
Neuro: Awake and AO x 3
Hematologic / Lymphatic: No Lymphadenopathy
Psych: Calm
Data Reviewed
-
Diagnostic Radiology: Report Reviewed by me
Labs: Labs Reviewed by me and Discussed with Patient
Old Records: Reviewed
--- NOTE | 2025-05-15 12:09 | PTCARENOTE ---
Patient AAOx3, reports tired. NIH 0. VSS. Attempted to wean off of O2, initially sats were good at 94% but once patient fell asleep sats dropped to as low as 85%, patient placed back on 2L NC. Heparin infusing per protocol. Will continue to closely
monitor.
[2025-05-15] MEDS: NOVOLOG FLEXPEN-LOW RESISTANCE 3 UNITS SC (12:14)
[2025-05-15 12:21] LABS: Glucose - Point of Care 251 mg/dl (70-99)
[2025-05-15 13:48] LABS: APTT 88.4 Sec (23.4-35.0)
--- NOTE | 2025-05-15 16:08 | CM ---
Patient lives with his Mela in a 1 story condo with zero steps to enter. d bathroom. He is assisted in all activities of daily living but does shower when someone is in BR to assist if needed.Will need PT OT evals for dc planning . Requested PT
order from .
[facility] history
Pharmacy [facility]
PCP DR Causey
PLAN Will need PT OT for dc planning
[2025-05-15 16:46] LABS: Glucose - Point of Care 249 mg/dl (70-99)
[2025-05-15] MEDS: CRESTOR 40 MG PO (17:35)
[2025-05-15] MEDS: NOVOLOG FLEXPEN-LOW RESISTANCE 2 UNITS SC (17:36)
[2025-05-15] MEDS: PEPCID 20 MG PO (19:23)
[2025-05-15] MEDS: SINEMET 25-100 1 TABLET PO (21:42)
[2025-05-15] MEDS: LIDOCAINE 4% PATCH 1 PATCH TOPICAL (21:43)
[2025-05-15 21:54] LABS: Glucose - Point of Care 234 mg/dl (70-99)
[2025-05-15] MEDS: SENOKOT-S 1 TABLET PO (23:49)
[2025-05-16] VITALS (18 sets, daily range): BP systolic 113–153; BP diastolic 43–106; PULSE 68–69; O2SAT 94
[2025-05-16] MEDS: DULCOLAX 10 MG RECTAL (00:14)
--- NOTE | 2025-05-16 00:15 | PTCARENOTE ---
Pt c/o 5/10 pain in R hip from recent fall. R hip appears bruised. PO tylenol given at 19:24. Pt rang call de leon a couple hours later asking for lidocaine patch, rating pain 3/10 in R hip. STRATEGIC COMMUNICATIONS MANAGER notified via tiger text. Order placed for lidocaine patch
HS. Lidocaine patch applied to pt R hip. Pt states he feels constipated and would like medication to help him have a bowel movement. Senokot given at 23:49. Pt rang call de leon 20 min later asking for suppository. Dulcolax suppository given at 00:14.
Last documented BM 05/13 and 05/14. VSS. Call de leon within reach. Care ongoing.
[2025-05-16 05:49] LABS: Hematocrit 38.3 % (39.0-52.0); Hemoglobin 11.9 g/dL (13.0-18.0); Mean Corp Hgb Conc. 31.1 g/dL (33.0-37.0); Mean Corpuscular Volume 93.6 fL (80.0-94.0); Nucleated Red Blood Cells % 0 % (-); Platelet Count 198 10^3/uL (130-400); Red Cell Dist. Width 14.1 % (11.5-14.5)
[2025-05-16] MEDS: LIDOCAINE 4% PATCH 1 PATCH TOPICAL (05:56)
[2025-05-16 06:32] LABS: Blood Urea Nitrogen 27 mg/dl (9-20); Calcium 8.5 mg/dl (8.4-10.2); Carbon Dioxide 26 mmol/L (22-30); Chloride 108 mmol/L (98-107); Estimated Creatinine Clearance 53 ml/min; Glucose 199 mg/dl (70-99); Potassium 4.4 mmol/L (3.5-5.1); Sodium 137 mmol/L (135-145); eGFR > 60.00
[2025-05-16 08:01] LABS: Glucose - Point of Care 153 mg/dl (70-99)
[2025-05-16] MEDS: TYLENOL 650 MG PO ×3 (08:15→22:09)
[2025-05-16] MEDS: NOVOLOG FLEXPEN-LOW RESISTANCE 1 UNITS SC ×2 (08:16→12:54)
[2025-05-16] MEDS: ASPIR LOW (ENTERIC COATED) 81 MG PO (08:17)
[2025-05-16] MEDS: FARXIGA 10 MG PO (08:18)
[2025-05-16] MEDS: FLOMAX 0.4 MG PO ×2 (08:18→19:50)
[2025-05-16] MEDS: DESENEX/MITRAZOL/ZEASORB 1 APPLIC TOPICAL ×2 (08:18→19:50)
[2025-05-16] MEDS: TRICOR 48 MG PO (08:19)
[2025-05-16] MEDS: PROSCAR 5 MG PO (08:19)
[2025-05-16] MEDS: PROTONIX 40 MG PO (08:19)
[2025-05-16] MEDS: NEURONTIN 300 MG PO ×4 (08:19→22:09)
[2025-05-16] MEDS: SINEMET 25-100 2 TABLET PO ×3 (08:20→17:31)
[2025-05-16] MEDS: LOPRESSOR 25 MG PO ×2 (08:21→19:50)
[2025-05-16] MEDS: REMOVE LIDOCAINE PATCH 1 PATCH REMOVE (08:22)
[2025-05-16] MEDS: ROCEPHIN 1000 MG IV (09:45)
[2025-05-16] MEDS: STERILE WATER FOR INJECTION 10 ML IV (09:45)
--- NOTE | 2025-05-16 10:00 | PTCARENOTE ---
pt upset this morning, yelling for help instead of using call de leon, stating 'I'm not doing well at all. I can't eat. I'm unable to feed myself. Something is wrong'.
Emotional support provided and reviewed plan of care with pt. Vital signs stable. Pox 97% on 2L nasal canula. Neuro check and NIH intact. Moving all extremities. Right leg weakness with lift from bed but able to move spontaneously in all other
directions not against gravity. Pt assisted to side of bed and washed. He is able to wash his own face and hands. Assisted to stand with walker and able to stand for one minute with contact guard. Able to take side steps before sitting back on the
bed. Able to support upper body unassisted. Will await PT and assist pt to the chair. For now, bed in lowest position. Call de leon in reach. Continuing to monitor
--- NOTE | 2025-05-16 11:18 | W.PN.CARDCBS ---
Today's Communication / Plan
-
Will arrange outpt follow up
Please recall if needed
Impression / Plan
-
.
PCP: Dr. Anita Causey
Primary acoustical tile drill press operator: Dr. Mikael Benitez
Impression:
Elevated troponin, peak 1.1
H/o CAD/ND/PCI- records from prim acoustical tile drill press operator lists: extensive multivessel coronary artery stenting of all major epicardial coronary arteries. Stents to LAD, RCA, and left circumflex between 1998 and 2006. Stent of distal RCA de kathryn lesion
10/07/2013. Stent 09/25/2021, unknown artery
Cardiomyopathy, EF now 40%, was 45 to 50% 01/2025
Sepsis, UTI
Hypotension
Fall
Mental status change
History of intermittent chest pain
Parkinson's disease
h/o recurrent falls with hip fractures, scalp laceration, humerus fracture
Type 2 diabetes
Hypertension
Hypercholesterolemia
Pacemaker, [employer]
Mitral regurgitation
Mild aortic stenosis
PVCs
Cognitive impairment
Previous cardiovascular testing:
Echo (at [facility]): EF 50%, mild to moderate MR, normal RV size and function
Echo 03/24/24: EF 50 to 55%, stage II diastolic dysfunction, moderate to severe MR with eccentric regurgitant jet, mild aortic insufficiency, mild TR PAP 40 to 45 mmHg
Echo 02/15/2025: Mild concentric LVH with apical, mid inferior, mid inferior lateral hypokinesis, EF 45 to 50%, stage II diastolic dysfunction. Mild to moderate MR, mild with mild AI peak/mean 22/12 mmHg, IVAN 1.2 cm�, dilated RV, mild TR, PASP 60
mmHg
Lexiscan nuclear stress test 05/16/2021 (at [facility]): Perfusion study demonstrates inferior wall infarct, no gross evidence of ischemia, no ischemia or ST depression on EKG, LVEF 54% with inferior wall hypokinesis
Echo 05/13/2025: LVEF 40%, global LV hypokinesis with more significant hypokinesis of apex. RV normal size and function, mild MR, mild TR
Plan:
He presented with clinical sepsis and a UTI, seemingly improved from that standpoint but he had chest heaviness with new impressive anterior T wave changes compared to yesterday, peak troponin 1, associated with a drop in his ejection fraction to
roughly 40%, with more significant hypokinesis of the apex.
Remains stable from cardiac standpoint. Dr Guido spoke with Dr. Benitez, who knows him extremely well and recommended we manage him medically and he can follow-up closely after discharge.
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 Family believes he was told bypass advised ~10 yrs ago but he didn't want to proceed. Has been stable from CV standpoint in recent time.
Previously on ASA and Plavix. Continue ASA. Plavix stopped as he has freq falls and risk of bleeding with falls thought to outweigh benefit.
He would be elevated risk bleeding if Plavix had to be resumed.
Cardiac cath report 10/09/2013, at [facility], Dr. Mikael Benitez: 95% distal RCA status post Promus ANASTASIIA and balloon angioplasty. Following intervention improved angiographic appearance with 30% residual stenosis.
LAD with 45% mid lesion, no record of cath subsequent to this.
Cont ASA and beta edmundo, statin and SGLT2 inhibitor.
Cont medical therapy of troponin peak 1.1 IV Heparin stopped.
Treatment of presumed UTI/sepsis per primary team.
Pacemaker [employer] device
-interrogated 05/13/2025 appropriate pacemaker function, 24% a paced, 1% V paced, no A-fib, no VT. Pacemaker is set at DDDR with lower rate limit at 60 bpm
Monitor QTc was prolonged, now improved. Meds held that could cause prolonged QT: sertraline, trazadone, zofran (it does not appear he has rec'd any doses of zofran), cont to hold these meds
Discussed with via phone and nurse.
Will arrange outpt follow up with his acoustical tile drill press operator
Please recall if needed
Progress Note - Executive Chairman
Subjective
Date of Service: May 16, 2025
Pt seen and examined. No complaints. No chest pain or shortness of breath.
Objective
Labs:
05/16/25 05:29
05/16/25 05:29
Labs
Hgb 11.9 g/dL (13.0-18.0) L 05/16/25 05:29
Hct 38.3 % (39.0-52.0) L 05/16/25 05:29
Plt Count 198 10^3/uL (130-400) D 05/16/25 05:29
APTT Cancelled 05/15/25 19:30
Sodium 137 mmol/L (135-145) 05/16/25 05:29
Potassium 4.4 mmol/L (3.5-5.1) 05/16/25 05:29
BUN 27 mg/dl (9-20) H 05/16/25 05:29
Creatinine 0.9 mg/dL (0.7-1.3) 05/16/25 05:29
Glucose 199 mg/dl (70-99) H 05/16/25 05:29
Troponins
05/13/25 05/13/25
14:45 20:49
Troponin I 1.100 H* 0.733 H* D
Vital Signs and I&O:
Vital Signs
Temp Pulse Resp BP Pulse Ox
98.5 F 102 22 146/90 88
05/16/25 07:00 05/16/25 08:30 05/16/25 08:30 05/16/25 08:21 05/16/25 09:00
Vital Signs
Temp Pulse Resp BP Pulse Ox
98.5 F 102 22 146/90 88
05/16/25 07:00 05/16/25 08:30 05/16/25 08:30 05/16/25 08:21 05/16/25 09:00
Intake & Output
05/14/25 05/15/25 05/16/25 05/17/25
06:59 06:59 06:59 06:59
Intake Total 1500 / 1500 1680 / 1680 360 / 360
Output Total 2550 / 2550 1375 / 1375 1950 / 1950 175 / 175
Balance -1050 / -1050 305 / 305 -1590 / -1590 -175 / -175
Physical Exam
Physical Exam
General: No acute distress, AAOX3
Neck: Negative JVD
Heart: Regular, Negative S3 positive S1/S2, Negative S4, No murmur
Lungs: CTA b/l, negative wheezes/rales/rhonchi
Abd: Positive BS, NT/ND, neg rebound/rigidity/guarding
Ext: Negative cyanosis/clubbing/edema
Neuro: nonfocal
[2025-05-16 11:32] LABS: Glucose - Point of Care 166 mg/dl (70-99)
--- NOTE | 2025-05-16 11:58 | W.PN.HOSP.TC ---
Today's Communication/Plan
-
Ceftriaxone for UTI
Completed heparin drip for elevated tropinin (type 2 MS) x48h
CT chest for hypoxia workup
Assessment / Plan
Assessment / Plan
60 MW/CAD s/p stents, heart block s/p PPM, DM, PAD, BPH, H/O Klebsiella UTI, P/W fall, confusion, slurred speech. He no longer has any deficits.
1. Acute encephalopathy
Resolved
Monitor mental status
Consider TIA versus UTI. Could have been due to hypotension from the sepsis or hypoxia, as had similar symptoms 05/14 morning.
Consider MRI brain/MRA H/N versus
Patient had a fall, reviewed x-rays, no acute shoulder fracture, no acute hip fracture, CT head no acute abnormality
2. Sepsis 2/2 UTI
leukocytosis and tachycardia. Resolved.
Urine LE 3+, WBC >100. Urine culture Klebsiella aerogenes S to ceftriaxone
Blood culture pending
No other S/S infection, CXR clear, flu/COVID-negative
Empiric ceftriaxone, IVF. h/o klebsiella UTI
Intermittent hypotension, will resume IV fluid infusion but will not bolus due to his cardiac issues
2. Elevated troponin
Extensive h/o CAD/stenting
EKG with no ischemic change initially, now with new anterior T wave changes
Monitor on telemetry, trend troponin --> peaked at 1.1, now down to 0.733
IV heparin drip initiated
Consulted cardiology appreciate management.
ADELAIDE/statin/BB/SGLT2 inhibitor
Echo performed 05/13/25%, more significant hypokinesis of the apex, mild mitral and tricuspid regurg.
Have discussed with cardiology team they spoke to his outpt reel worker, no cath, s/p hep drip x48h.
3. Hypoxia
Pt becoming hypoxic to 86% on RA when sleeping
prn oxygen 1L
unclear if he will need home O2
No gross abnormalities on repeat CXR. COVID-negative.
Despite drop in EF, no evidence of volume overload in the lung
Possibly sleep apnea, would need outpatient sleep study
check CT chest
4. Hyponatremia�resolved
Mild
3. BPH
Flomax
4. DM2
SSI/Accu-Cheks
Farxiga
BG controlled
5. PD
Sinemet, trazodone, sertraline
DVT ppx
lovenox
Anticipated Discharge: > 48 hours
Subjective/Interval History
-
Date of Service: May 16, 2025
Patient states he is feeling a bit tired. Chest pain, or any other issues. Discussed with RN at bedside, oxygen dropped to mid 80s when sleeping.
Objective Data
-
Labs:
Laboratory Results
05/16/25
05:29
WBC 8.9
Hgb 11.9 L
Hct 38.3 L
Plt Count 198 D
Sodium 137
Potassium 4.4
Chloride 108 H
Carbon Dioxide 26
BUN 27 H
Creatinine 0.9
Glucose 199 H
Calcium 8.5
Vital Signs:
Vital Signs
Temp Pulse Resp BP Pulse Ox
98.5 F 102 22 146/90 88
05/16/25 07:00 05/16/25 08:30 05/16/25 08:30 05/16/25 08:21 05/16/25 09:00
I&O
05/15/25 05/16/25 05/17/25
06:59 06:59 06:59
Intake Total 1680 / 1680 360 / 360
Output Total 1375 / 1375 1950 / 1950 175 / 175
Balance 305 / 305 -1590 / -1590 -175 / -175
Review of Systems
-
All other systems: Reviewed and negative
Physical Exam
-
General: No Apparent Distress
HEENT: Moist Mucous Membranes, Anicteric and PERRLA
Respiratory: Clear to Auscultation; Negative Wheezes, Rales or Rhonchi
Cardiac: Regular Rhythm and S1/S2; Negative Murmur, Rub or Gallop
GI: Soft, Nontender, Nondistended and Normal Bowel Sounds
Musculoskeletal: No Edema
Skin: Warm and Dry; Negative Rash, Ulcers or Lesions
Neuro: Awake and AO x 3
Hematologic / Lymphatic: No Lymphadenopathy
Psych: Calm
Data Reviewed
-
Diagnostic Radiology: Report Reviewed by me
Labs: Labs Reviewed by me, Discussed with Physician and Discussed with Patient
Old Records: Reviewed
[2025-05-16] MEDS: CRESTOR 40 MG PO (17:33)
[2025-05-16 17:38] LABS: Glucose - Point of Care 232 mg/dl (70-99)
--- NOTE | 2025-05-16 17:39 | PTCARENOTE ---
pt assisted oob to chair 2-3 times today with walker and assist of one. Steady gait. Tolerated sitting upright for 2-3 hours at a time. Vital signs remain stable. Medicated with tylenol x 2 this shift for right hip and low back pain.
[2025-05-16] MEDS: NOVOLOG FLEXPEN-LOW RESISTANCE 2 UNITS SC (18:40)
[2025-05-16] MEDS: PEPCID 20 MG PO (19:50)
[2025-05-16] MEDS: REMOVE LIDOCAINE PATCH 2 PATCH REMOVE (22:09)
[2025-05-16] MEDS: SINEMET 25-100 1 TABLET PO (22:09)
[2025-05-16 22:42] LABS: Glucose - Point of Care 201 mg/dl (70-99)
[2025-05-16] MEDS: MELATONIN 5 MG PO (23:57)
[2025-05-17] VITALS (11 sets, daily range): BP systolic 128–144; BP diastolic 51–68; PULSE 81; O2SAT 94; BMI 23.0
--- NOTE | 2025-05-17 00:21 | PTCARENOTE ---
pt requesting trazodone to help him sleep. Pt informed that he cannot take trazodone at this time due to recent prolonged QT interval. One time order for melatonin placed by WORKS MANAGER.
[2025-05-17] MEDS: TYLENOL 650 MG PO ×3 (03:01→21:34)
[2025-05-17 05:13] LABS: Hematocrit 35.7 % (39.0-52.0); Hemoglobin 11.4 g/dL (13.0-18.0); Mean Corp Hgb Conc. 31.9 g/dL (33.0-37.0); Mean Corpuscular Volume 91.5 fL (80.0-94.0); Platelet Count 202 10^3/uL (130-400); Red Cell Dist. Width 14.2 % (11.5-14.5)
[2025-05-17 05:53] LABS: ALT (SGPT) < 10 U/L (0-50); AST (SGOT) 24 U/L (17-59); Albumin 3.0 g/dl (3.5-5.0); Alkaline Phosphatase 107 U/L (38-126); Blood Urea Nitrogen 26 mg/dl (9-20); Calcium 8.5 mg/dl (8.4-10.2); Carbon Dioxide 29 mmol/L (22-30); Chloride 105 mmol/L (98-107); Estimated Creatinine Clearance 48 ml/min; Glucose 172 mg/dl (70-99); Potassium 4.6 mmol/L (3.5-5.1); Sodium 136 mmol/L (135-145); Total Protein 4.9 g/dl (6.3-8.2); eGFR > 60.00
[2025-05-17 07:34] LABS: Glucose - Point of Care 196 mg/dl (70-99)
[2025-05-17] MEDS: NOVOLOG FLEXPEN-LOW RESISTANCE 1 UNITS SC (08:05)
[2025-05-17] MEDS: LIDOCAINE 4% PATCH 1 PATCH TOPICAL ×2 (08:06)
[2025-05-17] MEDS: PROTONIX 40 MG PO (08:07)
[2025-05-17] MEDS: FLOMAX 0.4 MG PO ×2 (08:07→19:15)
[2025-05-17] MEDS: NEURONTIN 300 MG PO ×4 (08:07→21:18)
[2025-05-17] MEDS: SINEMET 25-100 2 TABLET PO ×3 (08:07→17:07)
[2025-05-17] MEDS: TRICOR 48 MG PO (08:07)
[2025-05-17] MEDS: PROSCAR 5 MG PO (08:07)
[2025-05-17] MEDS: LOPRESSOR 25 MG PO ×2 (08:07→19:15)
[2025-05-17] MEDS: FARXIGA 10 MG PO (08:07)
[2025-05-17] MEDS: ASPIR LOW (ENTERIC COATED) 81 MG PO (08:07)
[2025-05-17] MEDS: DESENEX/MITRAZOL/ZEASORB 1 APPLIC TOPICAL ×2 (08:10→19:17)
[2025-05-17] MEDS: ROCEPHIN 1000 MG IV (11:06)
[2025-05-17] MEDS: STERILE WATER FOR INJECTION 10 ML IV (11:06)
[2025-05-17 12:09] LABS: Glucose - Point of Care 199 mg/dl (70-99)
[2025-05-17] MEDS: NOVOLOG FLEXPEN-LOW RESISTANCE SC (13:08)
--- NOTE | 2025-05-17 13:35 | PTCARENOTE ---
Pt downgraded to med surg. Report called to receiving RN. Belongings collected from room. Transferred to [facility] via stretcher.
--- NOTE | 2025-05-17 14:02 | PTCARENOTE ---
pt transferred to [facility]. pt ambulated to bed with walker. states 3/10 pain in right hip. tylenol given. breath sounds clear. heart tones irregular. pt oob in chair eating lunch
--- NOTE | 2025-05-17 14:03 | CM ---
Following up on Patient. Dr. Valencia stated that patient may be discharge in a day or two so just came out of the room where the patient stated if he needed rehab that he wanted [facility].
ENZO Ordonez spoke to daughter Vesna who said to call mom, but that she has been waiting for a doctor (she is a physician herself) because her parents are asking what is medically going on with him and she cannot really answer. ENZO Ordonez passed a
direct message to Dr. Valencia with the daughter's number.
ENZO Ordonez spoke to the , she really wants [facility] and so ENZO Ordonez asked for a second choice, and it is [facility]. would not provide any other options. Referrals made to both.
PLAN: SNF for rehab.
--- NOTE | 2025-05-17 14:53 | W.PN.HOSP.TC ---
Today's Communication/Plan
-
Resume trazodone monitoring QTc
Transition off ceftriaxone to doxycycline
Ambulatory oxygen assessment
Placement to SNF
Patient's daughter updated over the phone.
Assessment / Plan
Assessment / Plan
60 MW/CAD s/p stents, heart block s/p PPM, DM, PAD, BPH, H/O Klebsiella UTI, P/W fall, confusion, slurred speech. He no longer has any deficits.
1. Acute encephalopathy
Resolved
Monitor mental status
Consider TIA versus UTI. Could have been due to hypotension from the sepsis or hypoxia, as had similar symptoms 05/14 morning.
Patient had a fall, reviewed x-rays, no acute shoulder fracture, no acute hip fracture, CT head no acute abnormality
2. Sepsis 2/2 UTI
Complicated in patient with chronic bladder outlet obstruction usual self catheterization at home.
leukocytosis and tachycardia. Resolved.
Urine LE 3+, WBC >100. Urine culture Klebsiella aerogenes S to ceftriaxone (repeated pathogen)
Blood culture negative to date
Discussed with ID. Recommended to transition to doxycycline. Plan to complete 10 to 14-day course of therapy given recurrent pathogen. Other option would be quinolones, although patient has marginally prolonged QTc while on other medications with
QTc prolonged potential including trazodone.
No other S/S infection, CXR clear, flu/COVID-negative
2. Elevated troponin
Extensive h/o CAD/stenting
EKG with no ischemic change initially, now with new anterior T wave changes
Monitor on telemetry, trend troponin --> peaked at 1.1, now down to 0.733
IV heparin drip initiated
Consulted cardiology appreciate management.
ADELAIDE/statin/BB/SGLT2 inhibitor
Off heparin drip
Echo performed 05/13/25%, more significant hypokinesis of the apex, mild mitral and tricuspid regurg.
3. Hypoxia
Pt becoming hypoxic to 86% on RA when sleeping
prn oxygen 1L
unclear if he will need home O2
No gross abnormalities on repeat CXR. COVID-negative.
Despite drop in EF, no evidence of volume overload in the lung
CT scan of the chest negative for PE, no parenchymal abnormalities. Minimal bilateral pleural effusions
Patient with sleep apnea intolerant to CPAP.
4. Hyponatremia�resolved
Mild
3. BPH
Flomax
4. DM2
Hemoglobin A1c 7.4.
Preadmission regimen including Trulicity, metformin, Farxiga
SSI/Accu-Cheks
Farxiga
BG controlled
5. PD
Sinemet, trazodone, sertraline
Insomnia. Resume trazodone monitor QTc.
DVT ppx
lovenox
Anticipated Discharge: 24 - 48 hours
Subjective/Interval History
-
Date of Service: May 17, 2025
Objective Data
-
Labs:
Laboratory Results
05/17/25
04:44
WBC 7.2
Hgb 11.4 L
Hct 35.7 L
Plt Count 202
Sodium 136
Potassium 4.6
Chloride 105
Carbon Dioxide 29
BUN 26 H
Creatinine 1.0
Glucose 172 H
Calcium 8.5
Total Bilirubin 0.3
AST 24
ALT < 10
Alkaline Phosphatase 107
Vital Signs:
Vital Signs
Temp Pulse Resp BP Pulse Ox
97.4 F 66 18 140/68 98
05/17/25 13:53 05/17/25 13:53 05/17/25 13:53 05/17/25 13:53 05/17/25 13:53
I&O
05/16/25 05/17/25 05/18/25
06:59 06:59 06:59
Intake Total 360 / 360 980 / 980
Output Total 1950 / 1950 2700 / 2700 450 / 450
Balance -1590 / -1590 -1720 / -1720 -450 / -450
Physical Exam
-
General: Well Developed and No Apparent Distress
HEENT: Normocephalic, Atraumatic and Moist Mucous Membranes
Respiratory: Clear to Auscultation
Cardiac: Regular Rhythm and S1/S2; Negative Murmur, Rub or Gallop
GI: Soft, Nontender, Nondistended and Normal Bowel Sounds; Negative Organomegaly
Rectal: Deferred by Provider
Musculoskeletal: No Clubbing, No Cyanosis and No Edema
Skin: Negative Rash
Neuro: Nonfocal/Grossly Intact
--- NOTE | 2025-05-17 15:43 | W.PN.CARDCBS ---
Addendum entered and electronically signed by Javi Salas MD 05/17/25 16:08:
Discussed with cardiology
QTc remains prolonged.
Recommended to hold all indications with potential QTc prolongation including trazodone and Seroquel
Original Note:
Today's Communication / Plan
-
Avoid all QT/QTc prolonging medications
Recommend alternatives for sleep
Monitor QT/QTc by EKG daily
Monitor on telemetry
Replete potassium/magnesium for goal potassium greater than 4, magnesium greater than 2
Impression / Plan
-
.
PCP: Dr. Anita Causey
Primary water registrar: Dr. Mikael Benitez
Impression:
Elevated troponin, peak 1.1
H/o CAD/MA/PCI- records from prim water registrar lists: extensive multivessel coronary artery stenting of all major epicardial coronary arteries. Stents to LAD, RCA, and left circumflex between 1998 and 2006. Stent of distal RCA de kathryn lesion
10/07/2013. Stent 09/25/2021, unknown artery
Cardiomyopathy, EF now 40%, was 45 to 50% 01/2025
Sepsis, UTI
Hypotension
Fall
Mental status change
History of intermittent chest pain
Parkinson's disease
h/o recurrent falls with hip fractures, scalp laceration, humerus fracture
Type 2 diabetes
Hypertension
Hypercholesterolemia
Pacemaker, [employer]
Mitral regurgitation
Mild aortic stenosis
PVCs
Cognitive impairment
Previous cardiovascular testing:
Echo (at [facility]): EF 50%, mild to moderate MR, normal RV size and function
Echo 03/24/24: EF 50 to 55%, stage II diastolic dysfunction, moderate to severe MR with eccentric regurgitant jet, mild aortic insufficiency, mild TR PAP 40 to 45 mmHg
Echo 02/15/2025: Mild concentric LVH with apical, mid inferior, mid inferior lateral hypokinesis, EF 45 to 50%, stage II diastolic dysfunction. Mild to moderate MR, mild with mild AI peak/mean 22/12 mmHg, IVAN 1.2 cm�, dilated RV, mild TR, PASP 60
mmHg
Lexiscan nuclear stress test 05/16/2021 (at [facility]): Perfusion study demonstrates inferior wall infarct, no gross evidence of ischemia, no ischemia or ST depression on EKG, LVEF 54% with inferior wall hypokinesis
Echo 05/13/2025: LVEF 40%, global LV hypokinesis with more significant hypokinesis of apex. RV normal size and function, mild MR, mild TR
Plan:
He presented with clinical sepsis and a UTI, seemingly improved from that standpoint but he had chest heaviness with new impressive anterior T wave changes compared to yesterday, peak troponin 1, associated with a drop in his ejection fraction to
roughly 40%, with more significant hypokinesis of the apex.
Remains stable from cardiac standpoint. Dr Guido spoke with Dr. Benitez, who knows him extremely well and recommended we manage him medically and he can follow-up closely after discharge.
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 Family believes he was told bypass advised ~10 yrs ago but he didn't want to proceed. Has been stable from CV standpoint in recent time.
Previously on ASA and Plavix. Continue ASA. Plavix stopped as he has freq falls and risk of bleeding with falls thought to outweigh benefit.
He would be elevated risk bleeding if Plavix had to be resumed.
Cardiac cath report 10/09/2013, at [facility], Dr. Mikael Benitez: 95% distal RCA status post Promus ANASTASIIA and balloon angioplasty. Following intervention improved angiographic appearance with 30% residual stenosis.
LAD with 45% mid lesion, no record of cath subsequent to this.
Cont ASA and beta edmundo, statin and SGLT2 inhibitor.
Cont medical therapy of troponin peak 1.1 IV Heparin stopped.
Treatment of presumed UTI/sepsis per primary team.
Pacemaker [employer] device
-interrogated 05/13/2025 appropriate pacemaker function, 24% a paced, 1% V paced, no A-fib, no VT. Pacemaker is set at DDDR with lower rate limit at 60 bpm
Monitor QTc was prolonged, now improved but remains mildly prolonged. Meds held that could cause prolonged QT: sertraline, trazodone, zofran (it does not appear he has rec'd any doses of zofran), cont to hold these meds; patient with difficulty with
sleep previously using trazodone to assist with this. Patient's QT/QTc today is 416/511 ms. I would avoid medications QT prolonging medications as they can continue to affect patient's overall risk. I would recommend alternatives for sleep which
may not affect QT/QTc
Discussed with and patient in person, with their daughter Esperanza (DYNAMOMETER TESTER ENGINE) via phone
Progress Note - Corporate Fitness Program Coordinator
Subjective
Date of Service: May 17, 2025
Patient seen and examined. No acute events overnight. Patient resting comfortably in chair. Patient denies chest pain, shortness of breath, palpitations, weakness. Telemetry shows sinus rhythm with PVCs occasional V pacing
Objective
Labs:
05/17/25 04:44
05/17/25 04:44
Labs
Hgb 11.4 g/dL (13.0-18.0) L 05/17/25 04:44
Hct 35.7 % (39.0-52.0) L 05/17/25 04:44
Plt Count 202 10^3/uL (130-400) 05/17/25 04:44
APTT Cancelled 05/15/25 19:30
Sodium 136 mmol/L (135-145) 05/17/25 04:44
Potassium 4.6 mmol/L (3.5-5.1) 05/17/25 04:44
BUN 26 mg/dl (9-20) H 05/17/25 04:44
Creatinine 1.0 mg/dL (0.7-1.3) 05/17/25 04:44
Glucose 172 mg/dl (70-99) H 05/17/25 04:44
Vital Signs and I&O:
Vital Signs
Temp Pulse Resp BP Pulse Ox
97.4 F 66 18 140/68 98
05/17/25 13:53 05/17/25 13:53 05/17/25 13:53 05/17/25 13:53 05/17/25 13:53
Vital Signs
Temp Pulse Resp BP Pulse Ox
97.4 F 66 18 140/68 98
05/17/25 13:53 05/17/25 13:53 05/17/25 13:53 05/17/25 13:53 05/17/25 13:53
Intake & Output
05/15/25 05/16/25 05/17/25 05/18/25
06:59 06:59 06:59 06:59
Intake Total 1680 / 1680 360 / 360 980 / 980
Output Total 1375 / 1375 1950 / 1950 2700 / 2700 450 / 450
Balance 305 / 305 -1590 / -1590 -1720 / -1720 -450 / -450
Physical Exam
Physical Exam
General: No acute distress, AAOX3
Neck: Negative JVD
Heart: Regular, Negative S3 positive S1/S2, Negative S4, 2/6 holosystolic murmur
Lungs: CTA b/l, negative wheezes/rales/rhonchi
Abd: Positive BS, NT/ND, neg rebound/rigidity/guarding
Ext: Negative cyanosis/clubbing/edema
Neuro: nonfocal
[2025-05-17 16:23] LABS: Glucose - Point of Care 240 mg/dl (70-99)
[2025-05-17] MEDS: CRESTOR 40 MG PO (17:07)
[2025-05-17] MEDS: NOVOLOG FLEXPEN-MODERATE RESISTANCE 3 UNITS SC (17:07)
[2025-05-17] MEDS: GLUCOPHAGE 500 MG PO (17:07)
[2025-05-17] MEDS: LOVENOX 40 MG SC (17:07)
[2025-05-17] MEDS: VIBRAMYCIN 100 MG PO (19:15)
[2025-05-17] MEDS: PEPCID 20 MG PO (21:18)
[2025-05-17] MEDS: SINEMET 25-100 1 TABLET PO (21:18)
[2025-05-17] MEDS: REMOVE LIDOCAINE PATCH 2 PATCH REMOVE (21:19)
[2025-05-17 21:32] LABS: Glucose - Point of Care 245 mg/dl (70-99)
[2025-05-17] MEDS: BenGay-Like 1 APPLIC TOPICAL (21:45)
[2025-05-18] VITALS (7 sets, daily range): BP systolic 129–152; BP diastolic 58–87; PULSE 79; O2SAT 95; BMI 22.6
[2025-05-18] MEDS: MELATONIN 5 MG PO (00:23)
[2025-05-18] MEDS: TYLENOL 650 MG PO ×3 (02:58→22:30)
[2025-05-18] MEDS: BenGay-Like 1 APPLIC TOPICAL ×2 (03:59→22:32)
[2025-05-18 07:47] LABS: Glucose - Point of Care 156 mg/dl (70-99)
[2025-05-18] MEDS: NOVOLOG FLEXPEN-MODERATE RESISTANCE 1 UNITS SC ×2 (08:40→17:29)
[2025-05-18] MEDS: PROTONIX 40 MG PO (08:41)
[2025-05-18] MEDS: NEURONTIN 300 MG PO ×4 (08:41→22:30)
[2025-05-18] MEDS: FLOMAX 0.4 MG PO ×2 (08:42→21:09)
[2025-05-18] MEDS: SINEMET 25-100 2 TABLET PO ×3 (08:42→17:30)
[2025-05-18] MEDS: VIBRAMYCIN 100 MG PO ×2 (08:42→21:09)
[2025-05-18] MEDS: FARXIGA 10 MG PO (08:42)
[2025-05-18] MEDS: ASPIR LOW (ENTERIC COATED) 81 MG PO (08:42)
[2025-05-18] MEDS: TRICOR 48 MG PO (08:42)
[2025-05-18] MEDS: LOPRESSOR 25 MG PO ×2 (08:42→21:09)
[2025-05-18] MEDS: GLUCOPHAGE 500 MG PO ×2 (08:43→17:30)
[2025-05-18] MEDS: DESENEX/MITRAZOL/ZEASORB 1 APPLIC TOPICAL ×2 (08:43→21:13)
[2025-05-18] MEDS: PROSCAR 5 MG PO (08:43)
[2025-05-18] MEDS: LIDOCAINE 4% PATCH 1 PATCH TOPICAL ×2 (08:44)
--- NOTE | 2025-05-18 09:44 | PN.CDI ---
CDI
- -
CDI:
Physician Documentation Request
Admit Date: 05/14/25 15:19
Dear Doctor Josue,
Please review the following and provide your response in the progress notes.
Clinical Indicators:
Pt admitted with Acute encephalopathy and sepsis 2/2 UTI
05/13 H&P: 'Status post fall, episode of difficulty speaking and confusion'
05/14 Hospitalist Progress Note: ' 1. Acute encephalopathy
Resolved
Monitor mental status
Consider TIA versus UTI. Could have been due to hypotension from the sepsis or hypoxia, as had similar symptoms this morning.'
Please specify the known or suspected type of the documented encephalopathy.
Metabolic
Septic
Toxic
Toxic metabolic
Due to a specified condition (such as UTI, hyponatremia, CVA etc)
Other
Use of terms such as suspected, likely, concern for, or probable (associated with a specific diagnosis that is being evaluated, monitored, or treated as if it exists) are acceptable and can be coded in the inpatient setting, when documented at the
time of discharge.
Thank you,
Devorah Bruner RN, BSN
CDI Specialist
[place] [facility]
Please use your independent medical judgment in providing your response.
--- NOTE | 2025-05-18 10:49 | CM ---
Addendum entered by Jesus Pack 05/18/25 15:39:
[facility] accepted, can offer patient a bed tomorrow. Spoke w/ Norma/admissions, will call spouse
Updated spouse, agreeable to [facility], will look out for a call from [facility]a
[facility]
Addendum entered by Jesus Pack 05/18/25 14:04:
Spoke w/ spouse, shared [facility] and [facility] will not have any beds tomorrow. Reviewed additional referrals, spouse identified [facility], [facility] and [facility]. Referrals sent to facilities.
Addendum entered by Jesus Pack 05/18/25 12:08:
Update from hospitalist: Daughter would like to hold d/c today as patient has slurred speech. Patient will d/c tomorrow
[facility] will not have a bed tomorrow. Spouse will have to provide additional facilities for CM to send referrals to
Original Note:
Chart reviewed. Plan is for patient to admit to SNF. Per hospitalist, patient can d/c today if there's an accepting facility.
Spoke w/ [facility] admissions, there are no beds for today or tomorrow
Spoke w/ [facility] admissions, has one bed available today. [facility] requesting 3pm or later transport time, requested covid test. TT hospitalist.
Updated spouse, agreeable to d/c today to [facility].
Discussed transport options, reviewed w/ spouse stating patient may not qualify for an ambulance. Spouse shared that patient had previous hospital discharge to [facility] and transported via ambulance, CM stated patient may have had a qualification
at the time. Spouse stated spouse cannot walk and needs an ambulance, spouse requested [facility] ambulance as she pays monthly for this. CM made spouse aware that [facility] does not have a contract w/ that [employer] and only will use [facility]. CM
reiterated that patient likely does not qualify for an ambulance and shared that a w/c van will cost around $120 to [facility]. Spouse continued to decline and requested patient to be transported via ambulance. CM made spouse aware that she may be
billed by Medicare, spouse understood this. Spouse requested if transport can be 4 or 4:30 as she and her daughter will be visiting patient and bringing him food from their holiday dinner.
IMM verbally reviewed, copy on chart
Ambulance transport forms on chart
[facility]
Report: [phone]

Plan: D/c to [facility]
[2025-05-18 11:29] LABS: COVID-19 Antigen Negative (Negative)
[2025-05-18 12:05] LABS: Glucose - Point of Care 213 mg/dl (70-99)
[2025-05-18 12:48] LABS: Blood Urea Nitrogen 33 mg/dl (9-20); Calcium 8.8 mg/dl (8.4-10.2); Carbon Dioxide 29 mmol/L (22-30); Chloride 104 mmol/L (98-107); Estimated Creatinine Clearance 53 ml/min; Glucose 205 mg/dl (70-99); Potassium 4.7 mmol/L (3.5-5.1); Sodium 136 mmol/L (135-145); eGFR > 60.00
[2025-05-18] MEDS: NOVOLOG FLEXPEN-MODERATE RESISTANCE 3 UNITS SC (13:01)
--- NOTE | 2025-05-18 13:56 | W.PN.HOSP.TC ---
Today's Communication/Plan
-
Drowsy, had sleepless night.
Overall no focal neurologic findings on exam
BMP within normal limits
Repeat CT scan
Resume trazodone at bedtime with hope to improve sleep-wake cycle
Transition to oral antibiotics
Discharge planning
Discussed with patient's daughter at the bedside
Assessment / Plan
Assessment / Plan
60 MW/CAD s/p stents, heart block s/p PPM, DM, PAD, BPH, H/O Klebsiella UTI, P/W fall, confusion, slurred speech. He no longer has any deficits.
1. Acute toxic metabolic encephalopathy
Resolved
Monitor mental status
Consider TIA versus UTI. Could have been due to hypotension from the sepsis or hypoxia, as had similar symptoms 05/14 morning.
Patient had a fall, reviewed x-rays, no acute shoulder fracture, no acute hip fracture, CT head no acute abnormality
2. Sepsis 2/2 UTI
Complicated in patient with chronic bladder outlet obstruction usual self catheterization at home.
leukocytosis and tachycardia. Resolved.
Urine LE 3+, WBC >100. Urine culture Klebsiella aerogenes S to ceftriaxone (repeated pathogen)
Blood culture negative to date
Discussed with ID. Recommended to transition to doxycycline. Plan to complete 10 to 14-day course of therapy given recurrent pathogen. Other option would be quinolones, although patient has marginally prolonged QTc while on other medications with
QTc prolonged potential including trazodone.
No other S/S infection, CXR clear, flu/COVID-negative
2. Elevated troponin
Extensive h/o CAD/stenting
EKG with no ischemic change initially, now with new anterior T wave changes
Monitor on telemetry, trend troponin --> peaked at 1.1, now down to 0.733
IV heparin drip initiated
Consulted cardiology appreciate management.
ADELAIDE/statin/BB/SGLT2 inhibitor
Off heparin drip
Echo performed 05/13/25%, more significant hypokinesis of the apex, mild mitral and tricuspid regurg.
3. Hypoxia
Pt becoming hypoxic to 86% on RA when sleeping
prn oxygen 1L
unclear if he will need home O2
No gross abnormalities on repeat CXR. COVID-negative.
Despite drop in EF, no evidence of volume overload in the lung
CT scan of the chest negative for PE, no parenchymal abnormalities. Minimal bilateral pleural effusions
Weaned off oxygen supplementation
Patient with sleep apnea intolerant to CPAP.
4. Hyponatremia�resolved
Mild
3. BPH
Flomax
4. DM2
Hemoglobin A1c 7.4.
Preadmission regimen including Trulicity, metformin, Farxiga
SSI/Accu-Cheks
Farxiga
BG controlled
5. PD
Sinemet, trazodone, sertraline
Insomnia. QTc improved. Discussed with cardiology. Will resume trazodone at the lower dose 100 mg at bedtime. Holding Seroquel. Follow-up ECG
DVT ppx
lovenox
Anticipated Discharge: 24 - 48 hours
Subjective/Interval History
-
Date of Service: May 18, 2025
Objective Data
-
Labs:
Laboratory Results
05/18/25
12:10
Sodium 136
Potassium 4.7
Chloride 104
Carbon Dioxide 29
BUN 33 H
Creatinine 0.9
Glucose 205 H
Calcium 8.8
Vital Signs:
Vital Signs
Temp Pulse Resp BP Pulse Ox
97.6 F 79 18 148/79 95
05/18/25 11:44 05/18/25 11:44 05/18/25 11:44 05/18/25 11:44 05/18/25 12:47
I&O
05/17/25 05/18/25 05/19/25
06:59 06:59 06:59
Intake Total 980 / 980 240 / 240
Output Total 2700 / 2700 1575 / 1575 1000 / 1000
Balance -1720 / -1720 -1335 / -1335 -1000 / -1000
Physical Exam
-
General: Well Developed and No Apparent Distress
HEENT: Normocephalic, Atraumatic and Moist Mucous Membranes
Respiratory: Clear to Auscultation
Cardiac: Regular Rhythm and S1/S2; Negative Murmur, Rub or Gallop
GI: Soft, Nontender, Nondistended and Normal Bowel Sounds; Negative Organomegaly
Rectal: Deferred by Provider
Musculoskeletal: No Clubbing, No Cyanosis and No Edema
Skin: Negative Rash
Neuro: Nonfocal/Grossly Intact and Other (Drowsy, although wakes up with conversation answering questions and falls back to sleep)
--- NOTE | 2025-05-18 15:22 | W.PN.CARDCBS ---
Today's Communication / Plan
-
Stable QT interval
Primary service wishes to start trazodone
Continue to follow QT interval as an inpatient and will need follow-up as an outpatient
Impression / Plan
-
.
PCP: Dr. Anita Causey
Primary marketing instructor: Dr. Mikael Benitez
Impression:
Elevated troponin, peak 1.1
H/o CAD/MO/PCI- records from prim marketing instructor lists: extensive multivessel coronary artery stenting of all major epicardial coronary arteries. Stents to LAD, RCA, and left circumflex between 1998 and 2006. Stent of distal RCA de kathryn lesion
10/07/2013. Stent 09/25/2021, unknown artery
Cardiomyopathy, EF now 40%, was 45 to 50% 01/2025
Sepsis, UTI
Hypotension
Fall
Mental status change
History of intermittent chest pain
Parkinson's disease
h/o recurrent falls with hip fractures, scalp laceration, humerus fracture
Type 2 diabetes
Hypertension
Hypercholesterolemia
Pacemaker, [employer]
Mitral regurgitation
Mild aortic stenosis
PVCs
Cognitive impairment
Previous cardiovascular testing:
Echo (at [facility]): EF 50%, mild to moderate MR, normal RV size and function
Echo 03/24/24: EF 50 to 55%, stage II diastolic dysfunction, moderate to severe MR with eccentric regurgitant jet, mild aortic insufficiency, mild TR PAP 40 to 45 mmHg
Echo 02/15/2025: Mild concentric LVH with apical, mid inferior, mid inferior lateral hypokinesis, EF 45 to 50%, stage II diastolic dysfunction. Mild to moderate MR, mild with mild AI peak/mean 22/12 mmHg, IVAN 1.2 cm�, dilated RV, mild TR, PASP 60
mmHg
Lexiscan nuclear stress test 05/16/2021 (at [facility]): Perfusion study demonstrates inferior wall infarct, no gross evidence of ischemia, no ischemia or ST depression on EKG, LVEF 54% with inferior wall hypokinesis
Echo 05/13/2025: LVEF 40%, global LV hypokinesis with more significant hypokinesis of apex. RV normal size and function, mild MR, mild TR
Plan:
Cardiology was Reconsulted for prolonged QT interval which appears stable
Discussed with primary service who wants to resume trazodone and feels there is no other option
Will need to follow-up QT interval as inpatient and also as an outpatient
Remains stable from cardiac standpoint. Dr Guido spoke with Dr. Benitez, who knows him extremely well and recommended we manage him medically and he can follow-up closely after discharge.
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 Family believes he was told bypass advised ~10 yrs ago but he didn't want to proceed. Has been stable from CV standpoint in recent time.
Previously on ASA and Plavix. Continue ASA. Plavix stopped as he has freq falls and risk of bleeding with falls thought to outweigh benefit.
He would be elevated risk bleeding if Plavix had to be resumed.
Cardiac cath report 10/09/2013, at [facility], Dr. Mikael Benitez: 95% distal RCA status post Promus ANASTASIIA and balloon angioplasty. Following intervention improved angiographic appearance with 30% residual stenosis.
LAD with 45% mid lesion, no record of cath subsequent to this. .
Pacemaker [employer] device
-interrogated 05/13/2025 appropriate pacemaker function, 24% a paced, 1% V paced, no A-fib, no VT. Pacemaker is set at DDDR with lower rate limit at 60 bpm
Monitor QTc was prolonged, now improved but remains mildly prolonged. Meds held that could cause prolonged QT: sertraline, trazodone, zofran (it does not appear he has rec'd any doses of zofran), cont to hold these meds; patient with difficulty with
sleep previously using trazodone to assist with this. Patient's QT/QTc today is 416/511 ms. I would avoid medications QT prolonging medications as they can continue to affect patient's overall risk. I would recommend alternatives for sleep which
may not affect QT/QTc
Progress Note - Plant And Machinery Valuer
Subjective
Date of Service: May 18, 2025
No complaints
Objective
Labs:
05/17/25 04:44
05/18/25 12:10
Labs
Hgb 11.4 g/dL (13.0-18.0) L 05/17/25 04:44
Hct 35.7 % (39.0-52.0) L 05/17/25 04:44
Plt Count 202 10^3/uL (130-400) 05/17/25 04:44
APTT Cancelled 05/15/25 19:30
Sodium 136 mmol/L (135-145) 05/18/25 12:10
Potassium 4.7 mmol/L (3.5-5.1) 05/18/25 12:10
BUN 33 mg/dl (9-20) H 05/18/25 12:10
Creatinine 0.9 mg/dL (0.7-1.3) 05/18/25 12:10
Glucose 205 mg/dl (70-99) H 05/18/25 12:10
Vital Signs and I&O:
Vital Signs
Temp Pulse Resp BP Pulse Ox
97.6 F 79 18 148/79 95
05/18/25 11:44 05/18/25 11:44 05/18/25 11:44 05/18/25 11:44 05/18/25 12:47
Vital Signs
Temp Pulse Resp BP Pulse Ox
97.6 F 79 18 148/79 95
05/18/25 11:44 05/18/25 11:44 05/18/25 11:44 05/18/25 11:44 05/18/25 12:47
Intake & Output
05/16/25 05/17/25 05/18/25 05/19/25
06:59 06:59 06:59 06:59
Intake Total 360 / 360 980 / 980 240 / 240
Output Total 1950 / 1950 2700 / 2700 1575 / 1575 1000 / 1000
Balance -1590 / -1590 -1720 / -1720 -1335 / -1335 -1000 / -1000
Physical Exam
Physical Exam
General: Well developed, well nourished in NAD.
Neck: Supple, no JVD, HJR, carotids +2 B/L, no bruits bilaterally.
Heart: Non displaced PMI, RRR, no murmurs, No S3, S4, no rubs.
Lungs: Clear to auscultation bilaterally, no wheeze, rhonchi, rubs bilaterally,
normal expiratory phase.
Extremities: No clubbing, cyanosis or edema bilaterally.
Neuro: Grossly nonfocal, awake, alert and oriented x3.
[2025-05-18 16:35] LABS: Glucose - Point of Care 161 mg/dl (70-99)
[2025-05-18] MEDS: LOVENOX 40 MG SC (17:29)
[2025-05-18] MEDS: CRESTOR 40 MG PO (17:30)
[2025-05-18 21:03] LABS: Glucose - Point of Care 236 mg/dl (70-99)
[2025-05-18] MEDS: PEPCID 20 MG PO (22:30)
[2025-05-18] MEDS: REMOVE LIDOCAINE PATCH 1 PATCH REMOVE (22:30)
[2025-05-18] MEDS: SINEMET 25-100 1 TABLET PO (22:30)
[2025-05-18] MEDS: DESYREL 100 MG PO (22:31)
[2025-05-19] MEDS: ROXICODONE 5 MG PO (02:08)
[2025-05-19 03:04] VITALS: BP 144/76
[2025-05-19 06:00] VITALS: BMI 22.5
[2025-05-19 06:47] LABS: Glucose - Point of Care 151 mg/dl (70-99)
[2025-05-19 07:00] VITALS: BP 154/70
[2025-05-19] MEDS: SINEMET 25-100 2 TABLET PO ×3 (08:31→16:51)
[2025-05-19] MEDS: ASPIR LOW (ENTERIC COATED) 81 MG PO (08:31)
[2025-05-19] MEDS: PROTONIX 40 MG PO (08:31)
[2025-05-19] MEDS: NEURONTIN 300 MG PO ×2 (08:31→12:42)
[2025-05-19] MEDS: VIBRAMYCIN 100 MG PO (08:31)
[2025-05-19] MEDS: GLUCOPHAGE 500 MG PO ×2 (08:31→16:51)
[2025-05-19] MEDS: FARXIGA 10 MG PO (08:31)
[2025-05-19] MEDS: PROSCAR 5 MG PO (08:31)
[2025-05-19] MEDS: LIDOCAINE 4% PATCH 1 PATCH TOPICAL ×2 (08:31→08:32)
[2025-05-19] MEDS: TRICOR 48 MG PO (08:31)
[2025-05-19] MEDS: FLOMAX 0.4 MG PO (08:31)
[2025-05-19] MEDS: LOPRESSOR 25 MG PO (08:31)
[2025-05-19] MEDS: NOVOLOG FLEXPEN-MODERATE RESISTANCE 1 UNITS SC ×3 (08:32→16:49)
[2025-05-19] MEDS: DESENEX/MITRAZOL/ZEASORB 1 APPLIC TOPICAL (08:32)
[2025-05-19] MEDS: TYLENOL 650 MG PO (08:35)
--- NOTE | 2025-05-19 09:29 | W.PN.CARDCBS ---
Today's Communication / Plan
-
QT interval stable with addition of trazodone
Stable cardiology status for discharge with follow-up QT interval as an outpatient
Will sign off
Impression / Plan
-
.
PCP: Dr. Anita Causey
Primary strap folding machine operator: Dr. Mikael Benitez
Impression:
Elevated troponin, peak 1.1
H/o CAD/AZ/PCI- records from prim strap folding machine operator lists: extensive multivessel coronary artery stenting of all major epicardial coronary arteries. Stents to LAD, RCA, and left circumflex between 1998 and 2006. Stent of distal RCA de kathryn lesion
10/07/2013. Stent 09/25/2021, unknown artery
Cardiomyopathy, EF now 40%, was 45 to 50% 01/2025
Sepsis, UTI
Hypotension
Fall
Mental status change
History of intermittent chest pain
Parkinson's disease
h/o recurrent falls with hip fractures, scalp laceration, humerus fracture
Type 2 diabetes
Hypertension
Hypercholesterolemia
Pacemaker, [employer]
Mitral regurgitation
Mild aortic stenosis
PVCs
Cognitive impairment
Previous cardiovascular testing:
Echo (at [facility]): EF 50%, mild to moderate MR, normal RV size and function
Echo 03/24/24: EF 50 to 55%, stage II diastolic dysfunction, moderate to severe MR with eccentric regurgitant jet, mild aortic insufficiency, mild TR PAP 40 to 45 mmHg
Echo 02/15/2025: Mild concentric LVH with apical, mid inferior, mid inferior lateral hypokinesis, EF 45 to 50%, stage II diastolic dysfunction. Mild to moderate MR, mild with mild AI peak/mean 22/12 mmHg, IVAN 1.2 cm�, dilated RV, mild TR, PASP 60
mmHg
Lexiscan nuclear stress test 05/16/2021 (at [facility]): Perfusion study demonstrates inferior wall infarct, no gross evidence of ischemia, no ischemia or ST depression on EKG, LVEF 54% with inferior wall hypokinesis
Echo 05/13/2025: LVEF 40%, global LV hypokinesis with more significant hypokinesis of apex. RV normal size and function, mild MR, mild TR
Plan:
Cardiology was Reconsulted for prolonged QT interval which appears stable
QT interval remains stable with the addition of trazodone
Will need to follow-up QT interval as an outpatient
Appointment made with outpatient strap folding machine operator Dr. Vasquez and put on chart
Remains stable from cardiac standpoint. Dr Guido spoke with Dr. Benitez, who knows him extremely well and recommended we manage him medically and he can follow-up closely after discharge.
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 Family believes he was told bypass advised ~10 yrs ago but he didn't want to proceed. Has been stable from CV standpoint in recent time.
Previously on ASA and Plavix. Continue ASA. Plavix stopped as he has freq falls and risk of bleeding with falls thought to outweigh benefit.
He would be elevated risk bleeding if Plavix had to be resumed.
Cardiac cath report 10/09/2013, at [facility], Dr. Mikael Benitez: 95% distal RCA status post Promus ANASTASIIA and balloon angioplasty. Following intervention improved angiographic appearance with 30% residual stenosis.
LAD with 45% mid lesion, no record of cath subsequent to this. .
Pacemaker [employer] device
-interrogated 05/13/2025 appropriate pacemaker function, 24% a paced, 1% V paced, no A-fib, no VT. Pacemaker is set at DDDR with lower rate limit at 60 bpm
Stable cardiology status for discharge to rehab
Progress Note - [employer]
Subjective
Date of Service: May 19, 2025
No complaints
Objective
Labs:
05/17/25 04:44
05/18/25 12:10
Labs
Hgb 11.4 g/dL (13.0-18.0) L 05/17/25 04:44
Hct 35.7 % (39.0-52.0) L 05/17/25 04:44
Plt Count 202 10^3/uL (130-400) 05/17/25 04:44
APTT Cancelled 05/15/25 19:30
Sodium 136 mmol/L (135-145) 05/18/25 12:10
Potassium 4.7 mmol/L (3.5-5.1) 05/18/25 12:10
BUN 33 mg/dl (9-20) H 05/18/25 12:10
Creatinine 0.9 mg/dL (0.7-1.3) 05/18/25 12:10
Glucose 205 mg/dl (70-99) H 05/18/25 12:10
Vital Signs and I&O:
Vital Signs
Temp Pulse Resp BP Pulse Ox
97.9 F 65 12 154/70 95
05/19/25 07:00 05/19/25 07:00 05/19/25 07:00 05/19/25 07:00 05/19/25 07:00
Vital Signs
Temp Pulse Resp BP Pulse Ox
97.9 F 65 12 154/70 95
05/19/25 07:00 05/19/25 07:00 05/19/25 07:00 05/19/25 07:00 05/19/25 07:00
Intake & Output
05/17/25 05/18/25 05/19/25 05/20/25
06:59 06:59 06:59 06:59
Intake Total 980 / 980 240 / 240 640 / 640
Output Total 2700 / 2700 1575 / 1575 2400 / 2400
Balance -1720 / -1720 -1335 / -1335 -1760 / -1760
Physical Exam
Physical Exam
General: Well developed, well nourished in NAD.
Neck: Supple, no JVD, HJR, carotids +2 B/L, no bruits bilaterally.
Heart: Non displaced PMI, RRR, no murmurs, No S3, S4, no rubs.
Lungs: Scattered rhonchi
Extremities: No clubbing, cyanosis or edema bilaterally.
Neuro: Grossly nonfocal, awake, alert and oriented x3.
--- NOTE | 2025-05-19 09:45 | CM ---
Addendum entered by Jade Holman 05/19/25 11:31:
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 Covid test was negative. Glenys at [facility] notified of same.
Original Note:
Pt cleared for discharge to [facility] today. Message left for Ree at [facility] to make her aware that pt and prefer [facility] where a bed has become available for today. TT sent to Dr. Salas requesting a covid swab as requested
by [facility] Report: [phone]
[facility]
[2025-05-19 11:30] VITALS: BP 128/64
[2025-05-19 11:58] LABS: Glucose - Point of Care 189 mg/dl (70-99)
--- NOTE | 2025-05-19 13:01 | W.DS.TRANS ---
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
-
Discharge Instructions:
Discharge Diagnosis/Procedures UTI.
Toxic metabolic encephalopathy.
Diet Diabetic, Carb Controlled
Instructions:
Stand-Alone Forms:
Changes to Home Medications: Yes
Discharge Medications:
DC Medications w/original date entered in [employer]
ascorbic acid (vitamin C) 500 mg tablet (Vitamin C) 500 mg PO DAILY Supplement 04/20/19
aspirin 81 mg tablet,delayed release 81 mg PO DAILY Blood Clot Prevention/Tx 04/20/19
famotidine 40 mg tablet 40 mg PO HS Gastrointestinal Issue 04/20/19
finasteride 5 mg tablet 5 mg PO DAILY Urinary Issue 04/20/19
gabapentin 300 mg capsule 300 mg PO TID Neurological Condition 04/20/19
metformin 500 mg tablet 500 mg PO BID@0800,1700 Diabetes 04/20/19
metoprolol tartrate 25 mg tablet 25 mg PO BID Blood Pressure 04/20/19
rosuvastatin 40 mg tablet 40 mg PO QPM High Cholesterol 04/20/19
dapagliflozin propanediol 10 mg tablet (Farxiga) 10 mg PO DAILY Diabetes 02/02/23
glucosamine sulf dipot chlr,msm,chond 550 mg-C 30 mg-willem 1 mg capsule (Glucosamine Chondroitin) 1 cap PO BID Supplement ##0 02/02/23
carbidopa 25 mg-levodopa 100 mg tablet 1 tab PO HS parkinson 03/24/24
carbidopa 25 mg-levodopa 100 mg tablet 2 tab PO TID@0800,1200,1700 Parkinson 03/24/24
dicyclomine 10 mg capsule 10 mg PO BID Gastrointestinal Issue 10/02/24
omeprazole 20 mg tablet,delayed release 20 mg PO DAILY Gastrointestinal Issue 10/02/24
tamsulosin 0.4 mg capsule (Flomax) 0.4 mg PO BID Urinary Issue 10/02/24
dulaglutide 1.5 mg/0.5 mL subcutaneous pen injector (Trulicity) 1.5 mg SC WE Diabetes 10/14/24
lidocaine 4 % topical patch 1 patch topical DAILYPRN PRN mild pain 10/14/24
therapeutic multivitamin 1 tab PO DAILY Supplement 10/14/24
fenofibrate nanocrystallized 48 mg tablet 48 mg PO DAILY High Cholesterol 02/15/25
acetaminophen 500 mg tablet (Tylenol Extra Strength) 1,000 mg (2 x 500 mg) PO TIDPRN PRN pain,fever #10 tabs 02/18/25
acetaminophen 300 mg-codeine 30 mg tablet 1 tab PO Q8HPRN PRN mild pain #15 tabs 05/19/25
doxycycline hyclate 100 mg capsule 100 mg PO Q12 #20 caps 05/19/25
trazodone 100 mg tablet 100 mg PO HS #30 tabs 05/19/25
Home Medication Changes
Trazodone reduced
Sertraline stopped
Pending Results: No
--- NOTE | 2025-05-19 13:16 | CM ---
Pt cleared for discharge to [facility] today. Message left for Ree at [place] to make her aware that pt and prefer [facility] where a bed has become available for today. TT sent to Dr. Salas requesting a covid swab as requested
by [facility].
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 Covid test was negative. Glenys at [facility] notified of same.
[facility] Report: [phone]
[facility]
[2025-05-19 15:00] VITALS: BP 122/63
[2025-05-19 16:47] LABS: Glucose - Point of Care 179 mg/dl (70-99)
== END 2025-05-19 17:16 | DRG 871 ==
LOC: 4 EAST ACU 15:19
PROVIDERS: Emergency Medicine; Internal Medicine; Nurse Practitioner; ADMITTING PHYSICIAN Internal Medicine; ATTENDING PHYSICIAN Internal Medicine; CONSULT PHYSICIAN Nuclear Medicine Nuclear Cardiology; EMERGENCY PHYSICIAN Emergency Medicine; FAMILY PHYSICIAN Internal Medicine
PROC: 4B02XSZ Measurement of Cardiac Pacemaker, External Approach (ICD-10-PCS; 2025-05-13)
DX: A41.9 Sepsis, unspecified organism (principal); G92.8 Other toxic encephalopathy; N39.0 Urinary tract infection, site not specified; I42.9 Cardiomyopathy, unspecified; E87.1 Hypo-osmolality and hyponatremia; J98.11 Atelectasis; R47.81 Slurred speech; N18.30 Chronic kidney disease, stage 3 unspecified; E11.22 Type 2 diabetes mellitus with diabetic chronic kidney disease; K58.8 Other irritable bowel syndrome; E11.65 Type 2 diabetes mellitus with hyperglycemia; E11.36 Type 2 diabetes mellitus with diabetic cataract; R09.02 Hypoxemia; G47.33 Obstructive sleep apnea (adult) (pediatric); I12.9 Hypertensive chronic kidney disease with stage 1 through stage 4 chronic kidney disease, or unspecified chronic kidney disease; E78.00 Pure hypercholesterolemia, unspecified; G20.A1 Parkinson's disease without dyskinesia, without mention of fluctuations; N40.1 Benign prostatic hyperplasia with lower urinary tract symptoms; R33.8 Other retention of urine; I34.0 Nonrheumatic mitral (valve) insufficiency; I49.3 Ventricular premature depolarization; R29.6 Repeated falls; R41.89 Other symptoms and signs involving cognitive functions and awareness; B96.1 Klebsiella pneumoniae [K. pneumoniae] as the cause of diseases classified elsewhere; G47.00 Insomnia, unspecified; I25.10 Atherosclerotic heart disease of native coronary artery without angina pectoris; N32.0 Bladder-neck obstruction; W19.XXXA Unspecified fall, initial encounter; Y93.01 Activity, walking, marching and hiking; Y92.9 Unspecified place or not applicable; I25.2 Old myocardial infarction; Z95.0 Presence of cardiac pacemaker; Z95.5 Presence of coronary angioplasty implant and graft; Z79.899 Other long term (current) drug therapy; Z79.84 Long term (current) use of oral hypoglycemic drugs; Z79.82 Long term (current) use of aspirin; Z87.440 Personal history of urinary (tract) infections; Z11.52 Encounter for screening for COVID-19; Z91.81 History of falling
CPT/HCPCS: 70450; 71045; 71046; 71250; 73030; 73502; 80048; 80053; 80061; 81003; 81015; 82805; 82962; 83036; 83735; 83880; 84443; 84484; 85025; 85027; 85730; 87040; 87077; 87086; 87186; 87502; 87811; 93005; 93308; 97116; 97163; 97166; 99285

== ENCOUNTER 2025-05-20 13:38 | Emergency (ER) | payer MEDICARE, BC, SELFPAY ==
[2025-05-20 13:49] VITALS: BP 150/70
[2025-05-20 14:00] VITALS: BP 142/80
[2025-05-20 14:10] LABS: Urine Character Clear (Clear)
[2025-05-20 14:32] LABS: Urine Red Blood Cell 0-2 /HPF (0-2); Urine Urothelial Cell 0-2 /LPF (FEW); Urine White Cell 0-2 /HPF (0-5)
--- NOTE | 2025-05-20 14:36 | ED.GENMED ---
History of Present Illness
General
Chief Complaint: Change Level of Consciousness
Time Seen by Provider: 05/20/25 14:17
Nursing documentation reviewed up to this point in time: agreed with
History of Present Illness
History of Present Illness:
84-year-old male referred to the ER from long-term [facility] for evaluation of poor responsiveness this morning. Patient is now awake and alert, requesting to eat and drink as he is hungry. Patient states that he has not been sleeping well,
admittedly sleeping more during the day and not at night. He was recently discharged from the hospital and states that this is how he has felt since leaving the hospital. He denies any complaints of pain. Per prehospital report from provider,
patient was requiring sternal rub for arousal this morning prompting referral to the ER.
Past History
Past History
ED Past Medical History: Arrthythmia (bradycardia), CAD, HTN, Hypercholesterolemia, NIDDM, RI and Other (IBS, Sleep apnea, Parkinson's)
ED Past Surgical History: Appendectomy, Cardiac (pacemaker, Cardiac stents X 10), Tonsilectomy and Other (Hernia, hydrocele)
Social History
Tobacco: Non-smoker
Alcohol: Occasional
Drug: None
Personal:
Living: with family
Review of Systems
Review of Systems
Allergies reviewed?: Yes
Phy Exam
Physical Exam
Physical Exam:
Patient is sleeping but easily awakens to verbal stimuli, no increased work of breathing, mild slurred speech, mucous membranes moist, heart regular rate and rhythm without murmurs or ectopy, lungs are clear to auscultation without wheezes rales or
rhonchi, abdomen is soft and nontender, extremities without edema, moving all extremities symmetrically without focal deficit
Course
Orders/Labs/Results
Orders:
Orders
05/20/25 13:51
Electrocardiogram (*1) Urgent
Reason for Study: Fatigue / Weakness
EKG- Treatment ONCE
05/20/25 13:55
Urinalysis Reflex To Culture Urgent
Date Specimen was Collected: 05/20/25
Time Specimen was Collected: 13:51
Urine Microscopic Reflex Cult Urgent
05/20/25 14:35
CT Head W/o Iv Contrast Urgent
Comment:
Reason For Exam: altered mental status
05/20/25 15:01
Complete Blood Count/With Diff Urgent
Comprehensive Metabolic Panel Urgent
05/20/25 15:02
Add On- LAB Urgent
Tests Added?: troponin
05/20/25 16:07
Troponin I Urgent
Abnormal Lab Results
05/20/25 05/20/25
13:55 15:01
RBC 4.42 L 10^6/uL
(4.70-6.10)
Hgb 12.9 L g/dL
(13.0-18.0)
MCHC 31.5 L g/dL
(33.0-37.0)
Abs Immat Gran (auto) 0.1 H 10^3/uL
(0-0.05)
Absolute Monos (auto) 0.8 H 10^3/uL
(0.1-0.6)
Immature Gran % 1.2 H %
(0-0.5)
BUN 38 H mg/dl
(9-20)
Glucose 181 H mg/dl
(70-99)
Total Protein 5.5 L g/dl
(6.3-8.2)
Urine Bacteria (Reflex) Few A
(Negative)
Urine Glucose 4+ A
(Negative)
Urine Albumin (Reflex) 1+ A
(Neg - Trace)
05/20/25 15:01
05/20/25 15:01
CBC reassuring, white blood count normal, hemoglobin similar to prior labs from 05/17/2025
Vital Signs
Initial and Last Documented VS:
Initial Vital Signs
Pulse Resp Pulse Ox
74 20 93
05/20/25 13:48 05/20/25 13:48 05/20/25 13:48
Last Documented Vital Signs
Pulse Resp BP Pulse Ox
80 16 129/71 94
05/20/25 16:00 05/20/25 16:00 05/20/25 16:00 05/20/25 16:00
MDM/Problems Addressed
Differential Diagnosis Includes:
Differential diagnosis to consider but not limited to occult infection, electrolyte dyscrasia, continuation of metabolic encephalopathy, adverse medication reaction along with other etiologies considered
Chronic conditions affecting care:
Parkinson's, sleep apnea, CHF, hypertension, hyperlipidemia, IBS, diabetes, urinary retention
*Pulse Oximetry
SaO2: 93
Oxygen Mode of Delivery: Room air
Patient hypoxic: no
*EKG
Interpreted by ED Provider?: Yes (I independently viewed and interpreted twelve-lead EKG showing sinus rhythm with PACs, rate 64, leftward axis, deep T waves present in the anterior leads with inferior Q waves, this is abnormal but similar to prior
EKG from 05/19/2025)
*Assistant Store Manager Operations Interpretation
Rate: normal (I independently viewed and interpreted rhythm strip showing sinus rhythm with PACs)
*Critical Care Note
Total Time (30-74mins, 75-104mins- exclusive of procedures): Not Applicable
Data Reviewed
Review of Other/Old Records Reveals: Records (I reviewed discharge summary dated 05/19/2025, Dr. Salas. Patient had been admitted for treatment of toxic metabolic encephalopathy related to UTI. In review of the summary it seems as though patient
has had waxing waning sensorium of multifactorial etiology)
Update Note
Update Note:
Patient awake, alert, interactive throughout entire period of observation in the emergency department. He was able to eat and drink. is present at bedside and finds him to be at his baseline. I discussed with patient, at bedside and
primary care physician Dr. Cyr all test results today. They are all comfortable with plan [facility], symptoms likely related to continued poor sleep habit residual effects from recent UTI with
encephalopathy. tried to call her daughter who is also a physician so that I may review results with her-unfortunately she did not answer the phone at current time. Will plan for discharge.
Patient's daughter was able to call and we reviewed all test results. She agrees with plan for return back to the [facility].
ED Attending Note
-
Portions of this chart may have been created with voice recognition software.� Occasional wrong word or��sound alike� substitutions may have occurred due to the inherent limitations of voice recognition software.
Discharge Plan
Departure
Patient Disposition: Home (Routine Discharge)
Date of Disposition: 05/20/25
Time of Disposition: 16:10
Patient with high blood pressure during this ER visit?: No
Discharge Problem:
Acute alteration in mental status
Instructions: Altered Mental Status (DC)
Prescriptions:
No Action
metformin 500 MG tablet
500 mg PO BID@0800,1700
famotidine 40 MG tablet
40 mg PO HS
aspirin 81 MG tablet,delayed release (DR/EC)
81 mg PO DAILY
ascorbic acid (vitamin C) [Vitamin C] 500 MG tablet
500 mg PO DAILY
gabapentin 300 MG capsule
300 mg PO TID
finasteride 5 MG tablet
5 mg PO DAILY
rosuvastatin 40 MG tablet
40 mg PO QPM
metoprolol tartrate 25 MG tablet
25 mg PO BID
dapagliflozin propanediol [Farxiga] 10 mg Tablet
10 mg PO DAILY
Glucosamine Chondroitin 550-30-1 mg Capsule
1 cap PO BID Qty: 0
carbidopa-levodopa 25-100 mg tablet
2 tab PO TID
carbidopa-levodopa 25-100 mg tablet
1 tab PO HS
tamsulosin [Flomax] 0.4 mg Capsule
0.4 mg PO BID
dicyclomine 10 mg Capsule
10 mg PO BID
omeprazole 20 mg Tablet,Delayed Release (Dr/Ec)
20 mg PO DAILY
therapeutic multivitamin Tablet
1 tab PO DAILY
Trulicity 1.5 mg/0.5 mL Pen Injector
1.5 mg SC FR
lidocaine 4 % adhesive patch,medicated
1 patch topical DAILYPRN PRN (Reason: lower back)
fenofibrate nanocrystallized 48 mg tablet
48 mg PO DAILY
trazodone 100 mg Tablet
100 mg PO HS Qty: 30 0RF
acetaminophen-codeine 300-30 mg tablet
1 tab PO Q8HPRN PRN (Reason: mild pain) Qty: 15 0RF
magnesium hydroxide [Milk of Magnesia] 400 mg/5 mL Suspension
2,400 mg PO [id number] PRN (Reason: constipation)
bisacodyl [Dulcolax (bisacodyl)] 10 mg Suppository
10 mg KS DAILYPRN PRN (Reason: f no bm aftr mom)
Fleet Enema 19-7 gram/118 mL Enema
118 ml KS DAILYPRN PRN (Reason: if no bm after dulcolax)
doxycycline hyclate 100 mg Tablet
100 mg PO BID
Rx Instructions:
for 10 days starting 05/20/25
acetaminophen [Tylenol Extra Strength] 500 mg tablet
1,000 mg PO TIDPRN PRN (Reason: mild pain)
Referrals:
Vega Cyr MD [Family Provider, Family Practice]
Activity Restrictions/Additional Instructions:
Continue your current medications. Please follow-up with Dr. Cyr for reevaluation and further care
Interventions
Interventions:
*Risk Screen - Suicide Last Done: 05/20/25 13:49
*General Assessment Last Done: 05/20/25 13:49
*Neglect/Abuse Screening Last Done: 05/20/25 13:49
ED- Cardiac Assessment Last Done: 05/20/25 13:52
ED- Neurological Assessment Last Done: 05/20/25 13:52
ED-Psychological Assessment Last Done: 05/20/25 13:52
ED- Pulmonary Assessment Last Done: 05/20/25 13:52
Discharge Date and Time
Print Language: POLISH
[2025-05-20 15:00] VITALS: BP 132/63
[2025-05-20 15:08] LABS: Hematocrit 40.9 % (39.0-52.0); Hemoglobin 12.9 g/dL (13.0-18.0); Mean Corp Hgb Conc. 31.5 g/dL (33.0-37.0); Mean Corpuscular Volume 92.5 fL (80.0-94.0); Nucleated Red Blood Cells % 0 % (-); Platelet Count 274 10^3/uL (130-400); Red Cell Dist. Width 14.5 % (11.5-14.5)
[2025-05-20 15:32] LABS: ALT (SGPT) < 10 U/L (0-50); AST (SGOT) 23 U/L (17-59); Albumin 3.5 g/dl (3.5-5.0); Alkaline Phosphatase 108 U/L (38-126); Blood Urea Nitrogen 38 mg/dl (9-20); Calcium 9.1 mg/dl (8.4-10.2); Carbon Dioxide 27 mmol/L (22-30); Chloride 103 mmol/L (98-107); Glucose 181 mg/dl (70-99); Potassium 4.7 mmol/L (3.5-5.1); Sodium 135 mmol/L (135-145); Total Protein 5.5 g/dl (6.3-8.2); eGFR > 60.00
[2025-05-20 16:00] VITALS: BP 129/71
[2025-05-20 17:00] VITALS: BP 127/98
[2025-05-20 18:00] VITALS: BP 137/70
== END 2025-05-20 18:47 | disposition home or self-care (01) ==
LOC: EMR 13:38
PROVIDERS: EMERGENCY PHYSICIAN Emergency Medicine; FAMILY PHYSICIAN Family Medicine
DX: R41.82 Altered mental status, unspecified (principal); I49.1 Atrial premature depolarization; E11.9 Type 2 diabetes mellitus without complications; I25.10 Atherosclerotic heart disease of native coronary artery without angina pectoris; I11.0 Hypertensive heart disease with heart failure; I50.9 Heart failure, unspecified; E78.00 Pure hypercholesterolemia, unspecified; I25.2 Old myocardial infarction; G20.A1 Parkinson's disease without dyskinesia, without mention of fluctuations; G47.30 Sleep apnea, unspecified; K58.9 Irritable bowel syndrome, unspecified; R33.9 Retention of urine, unspecified; Z79.84 Long term (current) use of oral hypoglycemic drugs; Z79.82 Long term (current) use of aspirin; Z95.0 Presence of cardiac pacemaker; Z95.5 Presence of coronary angioplasty implant and graft
CPT/HCPCS: 99284; 70450; 80053; 81003; 81015; 85025; 93005